=== PATIENT | female | born 1950 | race Caucasian/White ===

== ENCOUNTER 2020-01-21 11:37 | Emergency (ER) | payer MEDICARE, MEDICAID, SELFPAY ==
--- NOTE | 2020-01-21 11:47 | XR_ITS ---
WS: [id number] XR chest 1V portable [id number] REASON FOR EXAM: covid FINDINGS: The heart and mediastinum are within normal limits. The right lung is unremarkable. There are linear densities in the left lower lung which correspond to an area of previous pneumonitis demonstrated on a previous chest x-ray of 07/15/2007. Presumably this represents pulmonary parenchym al fibrotic scarring. No active pulmonary parenchymal or pleural disease noted. XR/XR chest 1V portable [id number] IMPRESSION: Left lung abnormality as above. No acute chest abnormality.
[2020-01-21 12:28] VITALS: BP 153/98; PULSE 94; RESP 18; TEMP 38.3; O2SAT 90; BMI 40.3
[2020-01-21 12:48] VITALS: O2SAT 89
--- NOTE | 2020-01-21 12:54 | PC.NURSE ---
pt 89% on room air. Pt placed on 3L per Nasal cannula.
[2020-01-21 12:58] LABS: Basophils % 0.3 %; Hematocrit 44.4 % (37.0-47.0); Hemoglobin 14.5 g/dL (11.5-15.3); Lymphocytes # 0.7 10^3/uL (0.8-4.8); Lymphocytes % 17.3 %; Mean Corpuscular HGB Conc 32.7 g/dL (30.0-36.0); Mean Corpuscular Hemoglobin 28.8 pg (28.0-34.0); Mean Corpuscular Volume 88.1 fL (81-99); Monocytes # 0.5 10^3/uL (0.2-0.9); Monocytes % 12.2 %; Neutrophils # 2.75 10^3/uL (1.8-7.7); Neutrophils % 69.9 %; Nucleated Red Blood Cells % 0 %; Platelet Count 131 10^3/cmm (130-400); Red Blood Count 5.04 10^6/uL (4.1-5.3); Red Cell Distribution Width 13.3 % (12.1-15.1); White Blood Count 3.9 10^3/uL (4.0-10.0)
[2020-01-21 13:12] LABS: Alanine Aminotransferase 24 U/L (0-33); Albumin Level 4.1 g/dL (3.5-5.2); Alkaline Phosphatase 81 IU/L (35-105); Anion Gap 15.8 (5-19); Aspartate Amino Transferase 31 U/L (0-32); Blood Urea Nitrogen 12 mg/dL (8-23); C Reactive Protein 39.7 mg/L (0.0-4.9); Calcium 8.9 mg/dL (8.5-10.5); Carbon Dioxide 29 mmol/L (22-29); Chloride 94 mmol/L (98-107); Ferritin 488 ng/mL (15-150); Globulin 3.4 g/dL (1.3-4.6); Glomerular Filtration Rate 71.3 mL/min (90-130); Glucose 167 mg/dL (65-115); Osmolality Calculated 286 mOsm/kg (285-295); Sodium 136 mmol/L (136-145); Total Bilirubin 0.2 mg/dL (0.15-1.2); Total Protein 7.5 g/dL (6.6-8.7)
[2020-01-21 13:13] LABS: Lactic Sepsis W/Reflex 1.5 mmol/L (0.5-2.2)
[2020-01-21 13:17] LABS: Potassium 2.8 mmol/L (3.5-5.1)
[2020-01-21] MEDS: potassium chloride ER 10 mEq Tablet 40 MEQ PO (13:24)
[2020-01-21] MEDS: dexamethasone 4 mg/mL INJ 10 MG IVP (13:24)
[2020-01-21] MEDS: acetaminophen 325 mg Tablet 650 MG PO (13:24)
--- NOTE | 2020-01-21 13:27 | ED_ITS ---
HPI - Fever General: Chief Complaint: Fever Stated Complaint: COVID positive Time Seen by Provider: 01/21/20 12:27 Source: patient Mode of arrival: ambulatory Limitations: no limitations History of Present Illness: HPI Narrative: 69-year-old female who is here from the clinic. She tested positive for coronavirus 2 days ago and states her oxygen is 1 and 89% at the clinic so I sent her here. She denies any shortness of breath and states she feels fine. She is febrile. She denies any chest pain. She denies any worsening improving factors. Patient here is resting comfortably and is able to speak in full sentences. Did place her on 2 L of oxygen her pulse ox is 94%. Associated symptoms: Reports chest pain; Deny abdominal pain, chills, diarrhea, dysuria, headache(s), nausea or vomiting Review of Systems Const: Reports: fever(s); Denies: chills, body aches or change in appetite Eyes: Denies: blurry vision or eye discomfort ENMT: Denies: throat pain or dental pain Card: Reports: chest pain Resp: Reports: dyspnea GI: Denies: abdominal pain, nausea, vomiting or diarrhea : Denies: dysuria Musc: Denies: neck pain or back pain Skin/Breast: Denies: rash Neuro: Denies: headache(s) Psych: Denies: depression Sg/Lymph: Denies: easy bruising All/Imm: Denies: urticaria Physical Exam Const: COMMON NORMALS: no acute distress, patient oriented x3 and healthy appearing HENMT: COMMON NORMALS: normocephalic and atraumatic HEAD & SCALP: normocephalic and atraumatic Eye: COMMON NORMALS: Equal, round and reactive pupils present and EOMs intact bilaterally PUPIL: Yes Equal, round and reactive pupils present Neck/C-Spine: COMMON NORMALS: full ROM and supple Chest: COMMONS NORMALS: normal inspection of the chest and normal palpation of entire chest wall Resp: COMMON NORMALS: normal respiratory effort, No retractions, No use of accessory muscles and clear to auscultation bilaterally AUSCULTATION: clear to auscultation bilaterally Cardio: COMMON NORMALS: regular rate, regular rhythm and No murmurs present (Cardio) RATE: regular rate RHYTHM: regular rhythm GI: COMMON NORMALS: Normal to inspection, nondistended, normoactive bowel sounds present, Soft to palpation, non-tender and no masses PALPATION: Yes Soft to palpation Extremity: COMMON NORMALS: normal to inspection and full ROM Neuro: COMMON NORMALS: patient oriented x3, moves all extremities and no focal motor deficits Psych: COMMON NORMALS: mental status grossly normal, Normal thought process present and cooperative THOUGHT PROCESS: Normal thought process present Skin: COMMON NORMALS: no rashes or lesions noted and no wounds GENERAL SKIN EXAM: no rashes or lesions noted Course Vital Signs: Vital signs: Vital Signs Temperature 100.9 F H 01/21/20 12:28 Pulse Rate 88 01/21/20 14:21 Respiratory Rate 18 01/21/20 12:28 Blood Pressure 134/86 01/21/20 14:21 Pulse Oximetry 95 01/21/20 14:21 MDM - Fever MDM Narrative: Medical decision making narrative: Presents with coronavirus and is requiring 2 L. Patient is requesting discharge and states she does not want to be admitted or transferred. We will set patient up with home oxygen. She is otherwise well-appearing here and in no extreme distress. She is to monitor her oxygen at home and is return if worsening. She understands and agrees to plan. She has no signs of pulmonary embolism. Lab Data: Labs: Lab Results 01/21/20 01/21/20 01/21/20 Range/Units 12:45 12:45 12:45 WBC 3.9 L (4.0-10.0) 10^3/ uL RBC 5.04 (4.1-5.3) 10^6/u L Hgb 14.5 (11.5-15.3) g/dL Hct 44.4 (37.0-47.0) % MCV 88.1 (81-99) fL MCH 28.8 (28.0-34.0) pg MCHC 32.7 (30.0-36.0) g/dL RDW 13.3 (12.1-15.1) % Plt Count 131 (130-400) 10^3/c mm MPV 10.0 (7.4-10.4) fL Neut % (Auto) 69.9 % Lymph % (Auto) 17.3 % Karnes % (Auto) 12.2 % Eos % (Auto) 0.0 % Baso % (Auto) 0.3 % Neut # (Auto) 2.75 (1.8-7.7) 10^3/u L Lymph # (Auto) 0.7 L (0.8-4.8) 10^3/u L Karnes # (Auto) 0.5 (0.2-0.9) 10^3/u L Eos # (Auto) 0.0 (0.0-0.8) 10^3/u L Baso # (Auto) 0.0 (0.0-0.1) 10^3/u L Nucleated RBC % (a uto) 0 % Nucleated RBCs # 0.0 /100WBC Sodium 136 (136-145) mmol/L Potassium 2.8 L* (3.5-5.1) mmol/L Chloride 94 L (98-107) mmol/L Carbon Dioxide 29 (22-29) mmol/L Anion Gap 15.8 (5-19) BUN 12 (8-23) mg/dL Creatinine 0.8 (0.5-0.9) mg/dL GFR Calculation 71.3 L (90-130) mL/min Glucose 167 H (65-115) mg/dL Calculated Osmolal ity 286 (285-295) mOsm/k g Lactic Acid 1.5 (0.5-2.2) mmol/L Calcium 8.9 (8.5-10.5) mg/dL Ferritin 488 H (15-150) ng/mL Total Bilirubin 0.2 (0.15-1.2) mg/dL AST 31 (0-32) U/L ALT 24 (0-33) U/L Alkaline Phosphata se 81 (35-105) IU/L C-Reactive Protein 39.7 H (0.0-4.9) mg/L Total Protein 7.5 (6.6-8.7) g/dL Albumin 4.1 (3.5-5.2) g/dL Globulin 3.4 (1.3-4.6) g/dL Imaging Data^: CXR: Attestation: I personally reviewed and interpreted this imaging study as follows: Radiologist's impression: [address] [address] XRay Report Signed Patient: Kenyatta Kirby Unit #: [id number] : 1950 Age/Sex: 69 / F ADM Date: 01/21/20 Loc: ER Room/Bed: Attending Dr: Ordering Provider/Ordering MD: Naa Celaya MD Date of Service: 01/21/20 Procedure(s): XR chest 1V portable [id number] Accession Number(s): [id number] Report Number: [id number] WS: [id number] XR chest 1V portable [id number] REASON FOR EXAM: covid FINDINGS: The heart and mediastinum are within normal limits. The right lung is unremarkable. There are linear densities in the left lower lung which correspond to an area of previous pneumonitis demonstrated on a previous chest x-ray of 07/15/2007. Presumably this represents pulmonary parenchymal fibrotic scarring. No active pulmonary parenchymal or pleural disease noted. XR/XR chest 1V portable [id number] IMPRESSION: Left lung abnormality as above. No acute chest abnormality. EKG Data^: EKG 1: Attestation: I personally reviewed and interpreted this EKG as follows: EKG interpretation date: 01/21/20 EKG interpretation time: 12:17 Interpretation: sinus tach hr [address] or t wave abnormalities qrs 97 qtc 372 EKG 2: Attestation: I personally reviewed and interpreted this EKG as follows: EKG interpretation date: 01/21/20 EKG interpretation time: 14:00 Interpretation: sinus tach hr [address] or t wave abnormalities qrs 90 qtc 388 Discharge Plan Discharge Patient Disposition: Home Clinical Impression: Pneumonia due to COVID-19 virus Condition: Stable Discharge Orders: Discharge Order (Routine); Ordered 01/21/20 Ordered By: Naa Celaya Discharge Diet: Advance as tolerated Discharge Activity: Resume usual activity Patient Instructions: Upper Respiratory Infection (ED) Coding Level of Care Code ED Sales Representative [employer] for Chg Fwd Exam Comprehensive
[2020-01-21 14:17] VITALS: O2SAT 88; O2SAT 90
[2020-01-21 14:21] VITALS: BP 134/86; PULSE 88; O2SAT 95
--- NOTE | 2020-01-21 15:41 | DCPLANNER ---
forest logistics manager was asked to arrange for home oxygen for patient. forest logistics manager spoke with patient she stated that bilingual case manager could get home oxygen from HOME equipment. forest logistics manager faxed patients face sheet, RT evaluation, prescription to HOME, they will bring oxygen to the hospital. forest logistics manager was also asked to schedule a follow up telehealth appointment for patient with primary care physician. forest logistics manager called [facility] a follow up appointment was scheduled for Saturday, January 22, 2020 at 9:15 with YESICA Cardenas. forest logistics manager informed patient that she is to call the clinic at 9:00 for visit.
[2020-01-21 16:05] VITALS: BP 151/96; PULSE 87; O2SAT 93
[2020-01-21 16:26] LABS: Fibrinogen 538 mg/dL (174-498)
--- NOTE | 2020-02-02 14:14 | DCPLANNER ---
Patient had a follow up appointment scheduled for 01.22.20 with [facility] with Promise Cardenas - patient did attend appointment.
== END 2020-01-21 14:10 | disposition home or self-care (01) ==
PROVIDERS: Emergency Provider Emergency Medicine
DX: U07.1 COVID-19 (principal); J12.89 Other viral pneumonia
CPT/HCPCS: 12345; 71045; 80053; 82728; 83605; 85025; 85384; 86140; 96374; 96375; 99283; 99284; J1100

== ENCOUNTER 2020-02-16 18:32 | Emergency (ER) | payer MEDICARE, MEDICAID, SELFPAY ==
[2020-02-16] VITALS (10 sets, daily range): BP systolic 141–191; BP diastolic 82–119; PULSE 88–107; RESP 16–26; TEMP 37; O2SAT 90–98; BMI 38.0
--- NOTE | 2020-02-16 18:50 | XR_ITS ---
WS: [id number] XR chest 1V portable [id number] REASON FOR EXAM: Dyspnea FINDINGS: The heart and mediastinum are within normal limits. Interstitial and more focal consolidated lower lung opacities. On the previous examination of 01/21/20 there were interstitial and atelectatic changes in the left lung base however the current examinat ion shows increased abnormality in the left lung and additional abnormality in the right lung not pre viously present. XR/XR chest 1V portable [id number] IMPRESSION: Progressive lower lung opacities, nonspecific. Likely combination of atelectasi s and pneumonitis.
--- NOTE | 2020-02-16 18:51 | ECG_ITS ---
[facility] Test Date: 2020-02-16 Pat Name: Kenyatta Kirby Department: Room: Gender: Female [employer] M[employer]: : 1950 Requested By: Sugar Carroll Order Number: [id number] Cesilia MD: Lincoln Merrill M.D. Measurements Intervals [place] Rate: 106 P: 8 CT: 147 QRS: -20 QRSD: 92 T: 74 QT: 322 QTc: 429 Interpretive Statements SINUS TACHYCARDIA LEFT VENTRICULAR HYPERTROPHY AND ST-T CHANGE [VOLTAGE CRITERIA PLUS ST/T ABNORMALITY] POSSIBLE ANTERIOR MYOCARDIAL INFARCTION , PROBABLY OLD [30 ms Q WAVE IN V3/V4, OR R < 0.2 mV IN V4] No previous ECG available for comparison Electronically Signed On 02-16-2020 20:20:55 TRIPOLER by Lincoln Merrill M.D. [id number]
--- NOTE | 2020-02-16 18:52 | W.ED.SOB ---
HPI - SOB/Dyspnea General: Chief Complaint: Shortness of Breath/Dyspnea Stated Complaint: sob,anxiety Time Seen by Provider: 02/16/20 18:43 Source: patient and EMS Mode of arrival: EMS Limitations: no limitations History of Present Illness: HPI Narrative: Kenyatta is a nice 69-year-old female who comes in after 2 episodes of shortness of breath today. Patient was diagnosed with the COVID-19 virus on 18 January. She still is requiring oxygen at times and she believes that she has been told that she is free to return to her normal daily life but she does not seem quite certain of this. Patient states she is been doing fine until today she had 2 episodes where she got short of breath. One was while she was taking her trash out but denied any associated cough, fever or chest pain. And she also had an episode where she was at rest but she believes this was anxiety from being in the ambulance. She states she does not like enclosed spaces and it makes her very anxious. In route the patient was given Ativan and Zofran for this with improvement. Patient still appears anxious at this time. She denies any chest pain. She denies fever. Patient states that she believes now she probably is just still needing her oxygen more so than she thought she was. Now that she has her oxygen on she feels much better. Patient is hypertensive and tachycardic here but she does not appear in any distress. Associated symptoms: Deny abdominal pain, chest congestion, chest pain, diaphoresis, dizziness, extremity pain, fever(s), hemoptysis, lightheadedness, nausea, orthopnea, palpitations, syncope or vomiting Review of Systems Const: Denies: fever(s), chills, body aches, fatigue, malaise or diaphoresis Eyes: Denies: change in vision, blurry vision, photophobia, eye discomfort, eye discharge, eye redness or yellow eyes ENMT: Denies: throat pain, odynophagia, hoarseness, swelling of lips/tongue, ear or mastoid pain, ear discharge, change in hearing or nasal discharge Card: Denies: chest pain, palpitations, irregular heart rhythm, edema, lightheadedness, syncope, pre-syncope, dyspnea on exertion or orthopnea Resp: Reports: dyspnea; Denies: productive cough, non-productive cough, wheezing, hemoptysis or chest congestion GI: Denies: abdominal pain, nausea, vomiting, hematemesis, coffee ground emesis, heartburn, diarrhea, constipation, GI cramping, hematochezia or melena : Denies: flank pain, dysuria, urinary frequency, urinary urgency or hematuria Musc: Denies: neck pain, back pain, extremity pain, extremity swelling, joint pain, joint swelling, joint redness, joint warmth or joint stiffness Skin/Breast: Denies: rash, pruritus, erythema, skin pain or skin tenderness Neuro: Denies: headache(s), numbness in extremities, weakness in extremities, sensory changes, lack of coordination, difficulty walking, dizziness, vertigo, confusion, Slurred speech present or seizure-like activity Sg/Lymph: Denies: easy bruising, easy bleeding, petechiae, purpura or enlarged lymph nodes All/Imm: Denies: urticaria, throat swelling, tongue swelling, facial swelling or acute wheezing PFSH ED PFSH: Medical History DM type 2 (diabetes mellitus, type 2) Hypertension Hypothyroidism Physical Exam Const: COMMON NORMALS: no acute distress, patient oriented x3, no limitations and alert GENERAL APPEARANCE: cooperative HENMT: COMMON NORMALS: normocephalic, atraumatic, external ears normal, EAC's normal and Normal external nose present HEAD & SCALP: normal to inspection, normocephalic and atraumatic FACE & SINUS: normal facial exam and face symmetric NOSE: Normal external nose present and Normal nares present EXTERNAL EAR: Yes external ears normal EXTERNAL AUDITORY CANAL: EAC's normal MOUTH: Normal oral and palatal mucosa present, lip normal and tongue normal Eye: COMMON NORMALS: Equal, round and reactive pupils present and conjunctivae normal GENERAL EYE: appearance normal, both eyes and all related structures ALIGNMENT: Yes alignment normal PERIORBITAL: periorbital findings normal EYELID: eyelids normal CONJUNCTIVA: Yes conjunctivae normal SCLERA: sclerae normal PUPIL: Yes Equal, round and reactive pupils present Neck/C-Spine: COMMON NORMALS: full ROM, no lymphadenopathy, supple, no meningeal signs and no JVD GENERAL: Yes normal visual inspection and Yes trachea midline Chest: COMMONS NORMALS: normal inspection of the chest and normal palpation of entire chest wall Resp: COMMON NORMALS: normal respiratory effort, No retractions, No use of accessory muscles and clear to auscultation bilaterally EFFORT & INSPECTION: Yes able to speak in complete sentences and Yes symmetric chest movement AUSCULTATION: clear to auscultation bilaterally, no crackles, no rales, no rhonchi and wheezes Cardio: COMMON NORMALS: no JVD, regular rate, regular rhythm, S1 normal heart sound present and S2 normal heart sound present RATE: regular rate RHYTHM: regular rhythm HEART SOUNDS: S1 normal heart sound present, S2 normal heart sound present, no click, no gallops, no murmurs and no rubs GI: COMMON NORMALS: Soft to palpation and No hepatosplenomegaly present PALPATION: Yes Soft to palpation, No Tenderness to palpation present (GI), No Guarding due to palpation present (GI), No Rigid due to palpation, Yes No hepatosplenomegaly present, No Hernia present, No Palpable mass present and No Pulsatile mass present : COMMON NORMALS: Yes no CVA tenderness BLADDER/KIDNEY EXAM: Yes no CVA tenderness EXTERNAL FEMALE EXAM: No Hernia present Back/Pelvis: COMMON NORMALS: no CVA tenderness, thoracic and lumbar spine normal to inspection, no thoracic nor lumbar tenderness and thoraco-lumbar ROM normal Extremity: COMMON NORMALS: normal to inspection, full ROM, capillary refill normal, no joint enlargement, no clubbing, cyanosis or edema and no calf tenderness Neuro: COMMON NORMALS: patient oriented x3, CN's II-XII intact bilaterally, moves all extremities, no focal motor deficits and no sensory deficits noted SENSORIUM/ORIENTATION: Yes alert MENINGEAL SIGNS: Yes no meningeal signs SPEECH: speech normal Psych: COMMON NORMALS: mental status grossly normal, Normal thought process present, cooperative, normal affect, speech normal and activity/motor behavior normal SPEECH: Yes normal speech THOUGHT PROCESS: Normal thought process present Skin: COMMON NORMALS: no rashes or lesions noted, turgor normal, no jaundice, no petechiae and no mottling GENERAL SKIN EXAM: no rashes or lesions noted and turgor normal Course Vital Signs: Vital signs: Vital Signs Temperature 98.6 F 02/16/20 18:35 Pulse Rate 91 02/16/20 22:13 Respiratory Rate 16 02/16/20 22:13 Blood Pressure 141/84 02/16/20 22:13 Pulse Oximetry 97 02/16/20 22:13 MDM - SOB/Dyspnea MDM Narrative: Medical decision making narrative: 2224 -the patient is relieved to hear everything checks out okay. Her CT scan reveals no PE but I do believe she likely has a secondary bacterial pneumonia. She is in no distress and on her oxygen that she has been given for her COVID-19 infection her pulse ox is in the higher 90 range. Clinical and discharge her home on Omnicef, Zithromax and Decadron. I believe the Decadron will help as the patient had slight wheezing when she arrived here. At this time she is feeling much better and she is ready for discharge. Without oxygen the patient did desat down into the high 80s. I believe she will need to continue to use her oxygen for a while. This time I see no benefit to hospitalization as the patient can take all his medications at home and she is in no distress. Patient agrees with this plan but she does agree to return should her symptoms change or worsen. Lab Data: Labs: Lab Results 02/16/20 02/16/20 02/16/20 Range/Units 19:11 19:11 19:11 WBC Cancelled Corrected WBC Cancelled RBC Cancelled Hgb Cancelled Hct Cancelled MCV Cancelled MCH Cancelled MCHC Cancelled RDW Cancelled Plt Count Cancelled MPV Cancelled Gran % Cancelled Neut % (Auto) Cancelled Lymph % (Auto) Cancelled [place] % (Auto) Cancelled Eos % (Auto) Cancelled Baso % (Auto) Cancelled Neut # (Auto) Cancelled Lymph # (Auto) Cancelled [place] # (Auto) Cancelled Eos # (Auto) Cancelled Baso # (Auto) Cancelled Absolute Gran (aut o) Cancelled Nucleated RBC % (a uto) Cancelled Nucleated RBCs # Cancelled D-Dimer 1.42 H (0-0.59) ug/mIFE U Specimen Type Sample Site ABG pH (7.35-7.45) ABG pCO2 (35-45) mmHg ABG pO2 (80.0-100.0) mmH g ABG HCO3 (22-26) mmol/L ABG Base Excess (-2.0-2.0) mmol/ L Pan Test Hematocrit (37-47) % O2 Delivery Device O2 Liters/Min % [employer] Operator ID Sodium 140 (136-145) mmol/L Potassium 2.9 L (3.5-5.1) mmol/L Chloride 101 (98-107) mmol/L Carbon Dioxide 27 (22-29) mmol/L Anion Gap 14.9 (5-19) BUN 9 (8-23) mg/dL Creatinine 0.5 (0.5-0.9) mg/dL GFR Calculation 122.7 (90-130) mL/min Glucose 149 H (65-115) mg/dL Calculated Osmolal ity 291 (285-295) mOsm/k g Lactic Acid (0.5-2.2) mmol/L Calcium 9.3 (8.5-10.5) mg/dL Magnesium 1.5 L (1.7-2.3) mg/dL Total Bilirubin 0.3 (0.15-1.2) mg/dL AST 18 (0-32) U/L ALT 25 (0-33) U/L Alkaline Phosphata se 83 (35-105) IU/L Troponin T Baselin e (0-10) ng/L Troponin T 120 Min [place] (0-10) ng/L Delta Troponin T (0-10) ABS# NT-Pro-B Natriuret Pep 314 H (0-125) pg/mL Total Protein 7.0 (6.6-8.7) g/dL Albumin 3.9 (3.5-5.2) g/dL Globulin 3.1 (1.3-4.6) g/dL Urine Color (Yellow) Urine Appearance (CLEAR) Urine pH (5-7) Ur Specific Gravit y (1.005-1.030) Urine Protein (Negative) Urine Glucose (UA) (Normal) Urine Ketones (Negative) Urine Blood (Negative) Urine Nitrate (Negative) Urine Bilirubin (Negative) Urine Urobilinogen (Negative) mg/dL Ur Leukocyte Brenda ase (Negative) 02/16/20 02/16/20 02/16/20 Range/Units 19:11 19:11 19:19 WBC Corrected WBC RBC Hgb Hct MCV MCH MCHC RDW Plt Count MPV Gran % Neut % (Auto) Lymph % (Auto) [place] % (Auto) Eos % (Auto) Baso % (Auto) Neut # (Auto) Lymph # (Auto) [place] # (Auto) Eos # (Auto) Baso # (Auto) Absolute Gran (aut o) Nucleated RBC % (a uto) Nucleated RBCs # D-Dimer (0-0.59) ug/mIFE U Specimen Type Arterial Sample Site Radial, left ABG pH 7.45 (7.35-7.45) ABG pCO2 39.6 (35-45) mmHg ABG pO2 64.6 L (80.0-100.0) mmH g ABG HCO3 27.6 H (22-26) mmol/L ABG Base Excess 3.4 H (-2.0-2.0) mmol/ L Pan Test Pos Hematocrit 40.7 (37-47) % O2 Delivery Device Nc O2 Liters/Min 2.0 % [employer] Operator ID Harkr Sodium (136-145) mmol/L Potassium (3.5-5.1) mmol/L Chloride (98-107) mmol/L Carbon Dioxide (22-29) mmol/L Anion Gap (5-19) BUN (8-23) mg/dL Creatinine (0.5-0.9) mg/dL GFR Calculation (90-130) mL/min Glucose (65-115) mg/dL Calculated Osmolal ity (285-295) mOsm/k g Lactic Acid 2.0 (0.5-2.2) mmol/L Calcium (8.5-10.5) mg/dL Magnesium (1.7-2.3) mg/dL Total Bilirubin (0.15-1.2) mg/dL AST (0-32) U/L ALT (0-33) U/L Alkaline Phosphata se (35-105) IU/L Troponin T Baselin e 26 H (0-10) ng/L Troponin T 120 Min [place] (0-10) ng/L Delta Troponin T (0-10) ABS# NT-Pro-B Natriuret Pep (0-125) pg/mL Total Protein (6.6-8.7) g/dL Albumin (3.5-5.2) g/dL Globulin (1.3-4.6) g/dL Urine Color (Yellow) Urine Appearance (CLEAR) Urine pH (5-7) Ur Specific Gravit y (1.005-1.030) Urine Protein (Negative) Urine Glucose (UA) (Normal) Urine Ketones (Negative) Urine Blood (Negative) Urine Nitrate (Negative) Urine Bilirubin (Negative) Urine Urobilinogen (Negative) mg/dL Ur Leukocyte Brenda ase (Negative) 02/16/20 02/16/20 02/16/20 Range/Units 19:47 20:18 21:30 WBC 9.2 Corrected WBC RBC 4.57 Hgb 13.2 Hct 41.0 MCV 89.7 MCH 28.9 MCHC 32.2 RDW 13.9 Plt Count 106 L MPV 11.6 H Gran % Neut % (Auto) 74.3 Lymph % (Auto) 17.7 [place] % (Auto) 6.6 Eos % (Auto) 0.3 Baso % (Auto) 0.4 Neut # (Auto) 6.82 Lymph # (Auto) 1.6 [place] # (Auto) 0.6 Eos # (Auto) 0.0 Baso # (Auto) 0.0 Absolute Gran (aut o) Nucleated RBC % (a uto) 0 Nucleated RBCs # 0.0 D-Dimer (0-0.59) ug/mIFE U Specimen Type Sample Site ABG pH (7.35-7.45) ABG pCO2 (35-45) mmHg ABG pO2 (80.0-100.0) mmH g ABG HCO3 (22-26) mmol/L ABG Base Excess (-2.0-2.0) mmol/ L Pan Test Hematocrit (37-47) % O2 Delivery Device O2 Liters/Min % [employer] Operator ID Sodium (136-145) mmol/L Potassium (3.5-5.1) mmol/L Chloride (98-107) mmol/L Carbon Dioxide (22-29) mmol/L Anion Gap (5-19) BUN (8-23) mg/dL Creatinine (0.5-0.9) mg/dL GFR Calculation (90-130) mL/min Glucose (65-115) mg/dL Calculated Osmolal ity (285-295) mOsm/k g Lactic Acid (0.5-2.2) mmol/L Calcium (8.5-10.5) mg/dL Magnesium (1.7-2.3) mg/dL Total Bilirubin (0.15-1.2) mg/dL AST (0-32) U/L ALT (0-33) U/L Alkaline Phosphata se (35-105) IU/L Troponin T Baselin e (0-10) ng/L Troponin T 120 Min [place] 22.21 H (0-10) ng/L Delta Troponin T -3.79 L (0-10) ABS# NT-Pro-B Natriuret Pep (0-125) pg/mL Total Protein (6.6-8.7) g/dL Albumin (3.5-5.2) g/dL Globulin (1.3-4.6) g/dL Urine Color Yellow (Yellow) Urine Appearance Clear (CLEAR) Urine pH 6 (5-7) Ur Specific Gravit y 1.015 (1.005-1.030) Urine Protein Neg (Negative) Urine Glucose (UA) Norm (Normal) Urine Ketones Negative (Negative) Urine Blood Neg (Negative) Urine Nitrate Negative (Negative) Urine Bilirubin Neg (Negative) Urine Urobilinogen Neg (Negative) mg/dL Ur Leukocyte Brenda ase Negative (Negative) Imaging Data^: CXR: Attestation: I personally reviewed and interpreted this imaging study as follows: My impression: Bilateral left greater than right basilar infiltrates CT Chest: Radiologist's impression: [place] [address] CT Scan Report Signed Patient: Kenyatta Kirby Unit #: [id number] : 1950 Age/Sex: 69 / F ADM Date: 02/16/20 Loc: ER Room/Bed: Attending Dr: Ordering Provider/Ordering MD: Sugar Howell DO Date of Service: 02/16/20 Procedure(s): CT angio chest PE protcl [id number] Accession Number(s): [id number] Report Number: [id number] PROCEDURE INFORMATION: Exam: CT Angiography Chest With Contrast Exam date and time: 02/16/2020 7:44 PM Age: 69 years old Clinical indication: Abnormal findings; Abnormal diagnostic tests; Elevated d-dimer; Shortness of breath; Additional info: Dyspnea, positive d-dimer TECHNIQUE: Imaging protocol: Computed tomographic angiography of the chest with intravenous contrast. 3D rendering (Not supervised by radiologist): MIP and/or 3D reconstructed images were created by the technologist. Radiation optimization: All CT scans at this facility use at least one of these dose optimization techniques: automated exposure control; mA and/or kV adjustment per patient size (includes targeted exams where dose is matched to clinical indication); or iterative reconstruction. Contrast material: OMNI 350; Contrast volume: 65 ml; Contrast route: INTRAVENOUS (IV); COMPARISON: CR XR chest 1V portable [id number] 02/16/2020 6:52 PM RADIATION DOSE METRICS: Total DLP (mGy-cm): 585.52 FINDINGS: Pulmonary arteries: Normal. No pulmonary emboli. Aorta: Unremarkable. No aortic aneurysm. No aortic dissection. Lungs: Patchy bilateral airspace opacities suggestive of an infectious process. Pleural space: Unremarkable. No pneumothorax. No pleural effusion. Heart: Unremarkable. No cardiomegaly. No pericardial effusion. Lymph nodes: Unremarkable. No enlarged lymph nodes. Liver: Hepatic dome benign cyst, negative for follow-up. Bones/joints: Unremarkable. No acute fracture. Soft tissues: Unremarkable. CT/CT angio chest PE protcl [id number] IMPRESSION: 1. Negative for pulmonary embolus. 2. Patchy bilateral airspace opacities suggestive of an infectious process. 3. Hepatic dome benign cyst, negative for follow-up. Radiation Dose CTDIVOL = (mGy): DLP = 585.52 (mGy-cm) Dictated By: Celso Liang MD Signed By: Celso Liang MD Signed Date/Time: 02/16/202114 DD/ 13 EKG Data^: EKG 1: Attestation: I personally reviewed and interpreted this EKG as follows: EKG Interpretation Date: 02/16/20 EKG interpretation time: 19:05 Interpretation: Sinus tachycardia at 106 beats a minute, left axis deviation, left anterior fascicular block, no acute ST or T wave changes. EKG 2: Attestation: I personally reviewed and interpreted this EKG as follows: EKG Interpretation Date: 02/16/20 EKG interpretation time: 20:34 Interpretation: Sinus tachycardia 104 beats a minute, left axis deviation, no blocks, normal intervals, LVH, nonspecific ST and T wave changes. Discharge Plan Discharge Patient Disposition: Home Clinical Impression: Community acquired pneumonia Qualifiers: Laterality: unspecified laterality Qualified Code(s): J18.9 - Pneumonia, unspecified organism Condition: Stable Prescriptions: New Zithromax Z-Efra 250 mg tablet See Rx Instructions .ROUTE .COMPLEX Qty: 6 RF: 0 Decadron 6 mg tablet 6 mg PO DAILY Qty: 10 RF: 0 cefdinir 300 mg capsule 300 mg PO Q12H 10 Days Qty: 20 RF: 0 No Action metformin 500 mg tablet 500 mg PO DAILY RF: 0 amlodipine 5 mg tablet 5 mg PO DAILY RF: 0 levothyroxine 25 mcg tablet 25 mcg PO DAILY RF: 0 hydrochlorothiazide 25 mg tablet 25 mg PO DAILY RF: 0 Discharge Orders: Discharge Order (Routine); Ordered 02/16/20 Ordered By: Sugar Howell Referrals: Bambi Reese MD [Physician] - 1-3 days Discharge Diet: Advance as tolerated Discharge Activity: Resume usual activity Patient Instructions: Bacterial Pneumonia (ED) Activity Restrictions/Additional Instructions: Please return to the ER immediately for any of the signs or symptoms listed on your discharge instruction sheets, worsening/changing of your symptoms, you are not getting better as quickly as expected, or for ANY other cause or concerns. Continue using your oxygen as needed. Return to the ER for worsening of your symptoms or for any other cause for concern. Coding Level of Care Code ED [employer] Supervisor for Presley Hamilton Exam Comprehensive
[2020-02-16] MEDS: sodium chloride 0.9% 1,000 ML 100 ML IV (19:08)
[2020-02-16] MEDS: ondansetron 2 mg/ML SDV 2 mL 4 MG IVP (19:09)
[2020-02-16 19:29] LABS: ABG PCO2 39.6 mmHg (35-45); ABG PH Result 7.45 (7.35-7.45); Arterial Blood Gas Hematocrit 40.7 % (37-47); Base Excess ABG 3.4 mmol/L (-2.0-2.0); Blood Gas Allen Test Pos; Blood Gas Sample Type Arterial; HCO3 ABG 27.6 mmol/L (22-26); PO2 ABG 64.6 mmHg (80.0-100.0)
[2020-02-16 19:30] LABS: Blood Gas Operator Identificat HARKR; Blood Gas Sample Site Radial, left; Oxygen Device NC
[2020-02-16 19:34] LABS: D Dimer 1.42 ug/mIFEU (0-0.59)
--- NOTE | 2020-02-16 19:35 | CTR_ITS ---
PROCEDURE INFORMATION: Exam: CT Angiography Chest With Contrast Exam date and time: 02/16/2020 7:44 PM Age: 69 years old Clinical indication: Abnormal findings; Abnormal diagnostic tests; Elevated d-dimer; Shortness of breath; Additional info: Dyspnea, positive d-dimer TECHNIQUE: Imaging protocol: Computed tomographic angiography of the chest with intravenous contrast. 3D rendering (Not supervised by radiologist): MIP and/or 3D reconstructed images were created by the technologist. Radiation optimization: All CT scans at this facility use at least one of these dose optimization techniques: automated exposure control; mA and/or kV adjustment per patient size (includes targeted exams where dose is matched to clinical indication); or iterative reconstruction. Contrast material: OMNI 350; Contrast volume: 65 ml; Contrast route: INTRAVENOUS (IV); COMPARISON: CR XR chest 1V portable [id number] 02/16/2020 6:52 PM RADIATION DOSE METRICS: Total DLP (mGy-cm): 585.52 FINDINGS: Pulmonary arteries: Normal. No pulmonary emboli. Aorta: Unremarkable. No aortic aneurysm. No aortic dissection. Lungs: Patchy bilateral airspace opacities suggestive of an infectious process. Pleural space: Unremarkable. No pneumothorax. No pleural effusion. Heart: Unremarkable. No cardiomegaly. No pericardial effusion. Lymph nodes: Unremarkable. No enlarged lymph nodes. Liver: Hepatic dome benign cyst, negative for follow-up. Bones/joints: Unremarkable. No acute fracture. Soft tissues: Unremarkable. CT/CT angio chest PE protcl [id number] IMPRESSION: 1. Negative for pulmonary embolus. 2. Patchy bilateral airspace opacities suggestive of an infectious process. 3. Hepatic dome benign cyst, negative for follow-up. Radiation Dose CTDIVOL = (mGy): DLP = 585.52 (mGy-cm)
[2020-02-16 19:39] LABS: Troponin(5th) Baseline 26 ng/L (0-10)
[2020-02-16 19:46] LABS: Alanine Aminotransferase 25 U/L (0-33); Albumin Level 3.9 g/dL (3.5-5.2); Alkaline Phosphatase 83 IU/L (35-105); Anion Gap 14.9 (5-19); Aspartate Amino Transferase 18 U/L (0-32); Blood Urea Nitrogen 9 mg/dL (8-23); Calcium 9.3 mg/dL (8.5-10.5); Carbon Dioxide 27 mmol/L (22-29); Chloride 101 mmol/L (98-107); Globulin 3.1 g/dL (1.3-4.6); Glomerular Filtration Rate 122.7 mL/min (90-130); Glucose 149 mg/dL (65-115); Magnesium 1.5 mg/dL (1.7-2.3); NT Pro B Type Natriuretic Pept 314 pg/mL (0-125); Osmolality Calculated 291 mOsm/kg (285-295); Sodium 140 mmol/L (136-145); Total Bilirubin 0.3 mg/dL (0.15-1.2)
[2020-02-16] MEDS: cefTRIAXone 1,000 MG in sodium chloride 0.9% (plus) 50 ML 100 MG IV (19:46)
[2020-02-16 19:48] LABS: Potassium 2.9 mmol/L (3.5-5.1)
[2020-02-16] MEDS: azithromycin 500 MG in sodium chloride 0.9% 250 ML 250 MG IV (19:49)
[2020-02-16 19:50] LABS: Add Urine Microscopic? NO
[2020-02-16 20:06] LABS: Bilirubin Urine Neg (Negative); Blood Urine Neg (Negative); Glucose Urine UA Norm (Normal); Ketones Urine Negative (Negative); Leukocyte Esterase Urine Negative (Negative); Nitrate Urine Negative (Negative); Protein Urine Neg (Negative); Specific Gravity, Urine 1.015 (1.005-1.030); Urine Appearance Clear (CLEAR); Urine Color Yellow (Yellow); Urobilinogen Urine Neg (Negative); pH Urine 6 (5-7)
[2020-02-16] MEDS: albuterol 8 gm MDI 2 PUFF INHALATION (20:10)
[2020-02-16 20:25] LABS: Basophils % 0.4 %; Eosinophils % 0.3 %; Hemoglobin 13.2 g/dL (11.5-15.3); Lymphocytes # 1.6 10^3/uL (0.8-4.8); Lymphocytes % 17.7 %; Mean Corpuscular HGB Conc 32.2 g/dL (30.0-36.0); Mean Corpuscular Hemoglobin 28.9 pg (28.0-34.0); Mean Corpuscular Volume 89.7 fL (81-99); Mean Platelet Volume 11.6 fL (7.4-10.4); Monocytes # 0.6 10^3/uL (0.2-0.9); Monocytes % 6.6 %; Neutrophils # 6.82 10^3/uL (1.8-7.7); Neutrophils % 74.3 %; Nucleated Red Blood Cells % 0 %; Platelet Count 106 10^3/cmm (130-400); Red Blood Count 4.57 10^6/uL (4.1-5.3); Red Cell Distribution Width 13.9 % (12.1-15.1); White Blood Count 9.2 10^3/uL (4.0-10.0)
[2020-02-16] MEDS: LORazepam 2 mg/mL INJ 1 mL 1 MG IVP (20:25)
[2020-02-16] MEDS: iohexol 350 mg/mL 100 mL Btl IV (20:51)
--- NOTE | 2020-02-16 20:51 | ECG_ITS ---
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 Measurements Intervals [place] Rate: 104 P: 18 WV: 161 QRS: -18 QRSD: 90 T: 38 QT: 281 QTc: 371 Interpretive Statements SINUS TACHYCARDIA VOLTAGE CRITERIA FOR LVH POSSIBLE ANTERIOR MYOCARDIAL INFARCTION , PROBABLY OLD Compared to ECG 02/16/2020 19:05:23 ST (T wave) deviation no longer present Myocardial infarct finding still present Electronically Signed On 02-17-2020 19:40:31 FINGERNAIL TECHNICIAN by Erin Cartwright M.D. [id number]
[2020-02-16] MEDS: potassium chloride ER 10 mEq Tablet 40 MEQ PO (21:18)
[2020-02-16 22:01] LABS: Troponin 5 2HR 22.21 ng/L (0-10)
[2020-02-16] MEDS: magnesium sulfate premix 2 GM/50 ML PIGGYBACK IV (22:12)
[2020-02-16 22:19] LABS: Troponin 5 2HR Delta -3.79 ABS# (0-10)
== END 2020-02-16 23:19 | disposition home or self-care (01) ==
PROVIDERS: Emergency Provider Emergency Medicine
DX: J18.9 Pneumonia, unspecified organism (principal); Z79.84 Long term (current) use of oral hypoglycemic drugs; E11.9 Type 2 diabetes mellitus without complications; I10 Essential (primary) hypertension
CPT/HCPCS: 12345; 36600; 71045; 71275; 80053; 81003; 82803; 83605; 83735; 83880; 84484; 85025; 85378; 93005; 94640; 96361; 96365; 96367; 96375; 99283; 99284; J0456; J0696; J2060; J2405; J3475; J3535; J7030; J7050; Q9967

== ENCOUNTER 2020-02-19 19:46 | Emergency (ER) | payer MEDICARE, MEDICAID, SELFPAY ==
[2020-02-19 19:50] VITALS: BP 189/108; PULSE 98; RESP 19; TEMP 37.3; O2SAT 95; BMI 36.6
--- NOTE | 2020-02-19 20:12 | ECG_ITS ---
[facility] Test Date: 2020-02-19 Pat Name: Kenyatta Kirby Department: Room: Gender: Female Slate Cutter Operator: : 1950 Requested By: Finesse Griffin Order Number: [id number] Cesilia MD: Erin Cartwright M.D. Measurements Intervals [place] Rate: 84 P: 48 KS: 149 QRS: -24 QRSD: 102 T: 7 QT: 378 QTc: 449 Interpretive Statements SINUS RHYTHM POSSIBLE ANTERIOR MYOCARDIAL INFARCTION , PROBABLY OLD [30 ms Q WAVE IN V3/V4, OR R < 0.2 mV IN V4] Compared to ECG 02/16/2020 20:34:40 Sinus tachycardia no longer present Left ventricular hypertrophy no longer present Myocardial infarct finding still present Electronically Signed On 02-20-2020 11:30:15 AUTOMATIC EMBROIDERY MACHINE TENDER by Erin Cartwright M.D. [id number]
--- NOTE | 2020-02-19 20:12 | XRR_ITS ---
PROCEDURE INFORMATION: Exam: XR Chest, 1 View Exam date and time: 02/19/2020 8:46 PM Age: 69 years old Clinical indication: Shortness of breath; Patient HX: Prior covid +; Additional info: Pneumonia TECHNIQUE: Imaging protocol: XR of the chest Views: 1 view. COMPARISON: CR XR chest 1V portable [id number] 02/16/2020 6:52 PM FINDINGS: Lungs: The right lung is now clear (previously there were patchy opacities at the right lung base). Mild patchy airspace opacities (atelectasis and/or pneumonia) at the left lung base, similar to prior study. No pulmonary edema. Pleural space: No visible pneumothorax or pleural effusion. Heart/Mediastinum: Heart size within normal limits. Bones/joints: No emergent findings identified. XR/XR chest 1V portable [id number] IMPRESSION: 1. The right lung is now clear (previously there were patchy opacities at the right lung base). 2. Mild patchy airspace opacities (atelectasis and/or pneumonia) at the left lung base, similar to prior study.
--- NOTE | 2020-02-19 20:13 | W.ED.SOB ---
HPI - SOB/Dyspnea General: Chief Complaint: Shortness of Breath/Dyspnea Stated Complaint: anxiety, sob Time Seen by Provider: 02/19/20 19:58 Source: patient Mode of arrival: ambulatory Limitations: no limitations History of Present Illness: HPI Narrative: 69-year-old female comes in today with complaints of anxiety and shortness of breath. Patient had been diagnosed with Covid pneumonia about 1 month ago. Patient had recovered but on 15 February was brought back to the emergency room for increased shortness of breath and chest discomfort. At that time patient was diagnosed with bacterial pneumonia. Patient has been taking her medication routinely to include azithromycin, cefdinir, and dexamethasone. Patient states that today she started feeling some chest discomfort and more shortness of breath. Patient appears anxious. Patient appears in no acute distress. Patient was given Ativan per EMS enroute to ER. Review of Systems General: Reports: 10 or more systems reviewed and unremarkable except in HPI and below Resp: Reports: dyspnea COUNTS INCLUDE 234 BEDS AT THE [facility] ED PFSH: Medical History (Updated 02/19/20 @ 21:55 by BITA Gotti) DM type 2 (diabetes mellitus, type 2) Hypertension Hypothyroidism Physical Exam Const: COMMON NORMALS: no acute distress and patient oriented x3 GENERAL APPEARANCE: cooperative HENMT: COMMON NORMALS: normocephalic and Normal external nose present HEAD & SCALP: normal to inspection and normocephalic NOSE: Normal external nose present MOUTH: Normal oral and palatal mucosa present Eye: GENERAL EYE: appearance normal, both eyes and all related structures Neck/C-Spine: COMMON NORMALS: full ROM Chest: COMMONS NORMALS: normal inspection of the chest Resp: COMMON NORMALS: normal respiratory effort EFFORT & INSPECTION: Yes able to speak in complete sentences Cardio: COMMON NORMALS: regular rate and regular rhythm RATE: regular rate RHYTHM: regular rhythm GI: COMMON NORMALS: non-tender : COMMON NORMALS: Yes no CVA tenderness BLADDER/KIDNEY EXAM: Yes no CVA tenderness Back/Pelvis: COMMON NORMALS: no CVA tenderness and thoracic and lumbar spine normal to inspection Extremity: COMMON NORMALS: normal to inspection Neuro: COMMON NORMALS: patient oriented x3 and moves all extremities Psych: COMMON NORMALS: mental status grossly normal and cooperative Skin: COMMON NORMALS: no rashes or lesions noted GENERAL SKIN EXAM: no rashes or lesions noted Course Vital Signs: Vital signs: Vital Signs Temperature 99.1 F 02/19/20 19:50 Pulse Rate 98 02/19/20 19:50 Respiratory Rate 19 H 02/19/20 19:50 Blood Pressure 189/108 02/19/20 19:50 Pulse Oximetry 95 02/19/20 19:50 MDM - SOB/Dyspnea MDM Narrative: Medical decision making narrative: Patient comes in today for concerns of sternal chest discomfort and anxiety. Patient recently was diagnosed with bilateral pneumonia 3 days ago. Prior to that patient had Covid 19 about 1 month ago. Patient states she had been doing well up until 3 days ago when she felt more short of breath and came into the emergency department. At that time patient was noted to have bilateral pneumonia. Patient was started on azithromycin, cefdinir, and dexamethasone. Patient states that she has not felt worse but not much better since being started on the medication, and then today she felt real anxious and had some chest discomfort. Exam notes a well-appearing adult female with respirations even and lungs with decreased in the bases. Vital signs were normal except for some mild elevation in blood pressure. Differential diagnosis includes but not limited to anxiety, failure of outpatient therapy for pneumonia, ACS. Troponin was unchanged from prior exam. Chest x-ray showed improvement in pneumonia. Laboratory values were otherwise normal, except for 11.9 white blood cell count and a 3.4 potassium. I feel the patient probably has some increased anxiety due to the dexamethasone. I recommended the patient decrease dexamethasone to 1/2 tablet daily for the next 3 days and then stop it. I recommended the patient continue with her azithromycin and cefdinir as directed. Patient requested medication to help with anxiety I prescribed some lorazepam half a milligram, 1/2 tablet every 6 hours as needed for anxiety. Patient reported understanding of care plan and need to return for worsening symptoms or high fever. Lab Data: Labs: Lab Results 02/19/20 02/19/20 02/19/20 Range/Units 20:35 20:35 20:35 WBC 11.9 H (4.0-10.0) 10^3/ uL RBC 4.65 (4.1-5.3) 10^6/u L Hgb 13.4 (11.5-15.3) g/dL Hct 40.8 (37.0-47.0) % MCV 87.7 (81-99) fL MCH 28.8 (28.0-34.0) pg MCHC 32.8 (30.0-36.0) g/dL RDW 14.1 (12.1-15.1) % Plt Count 82 L (130-400) 10^3/c mm MPV 11.5 H (7.4-10.4) fL Neut % (Auto) 73.0 % Lymph % (Auto) 16.5 % [place] % (Auto) 8.5 % Eos % (Auto) 0.1 % Baso % (Auto) 0.3 % Neut # (Auto) 8.67 H (1.8-7.7) 10^3/u L Lymph # (Auto) 2.0 (0.8-4.8) 10^3/u L [place] # (Auto) 1.0 H (0.2-0.9) 10^3/u L Eos # (Auto) 0.0 (0.0-0.8) 10^3/u L Baso # (Auto) 0.0 (0.0-0.1) 10^3/u L Nucleated RBC % (a uto) 0 % Nucleated RBCs # 0.0 /100WBC Sodium 143 (136-145) mmol/L Potassium 3.4 L (3.5-5.1) mmol/L Chloride 101 (98-107) mmol/L Carbon Dioxide 28 (22-29) mmol/L Anion Gap 17.4 (5-19) BUN 12 (8-23) mg/dL Creatinine 0.7 (0.5-0.9) mg/dL GFR Calculation 83.2 L (90-130) mL/min Glucose 146 H (65-115) mg/dL Calculated Osmolal ity 298 H (285-295) mOsm/k g Calcium 9.5 (8.5-10.5) mg/dL Total Bilirubin 0.3 (0.15-1.2) mg/dL AST 24 (0-32) U/L ALT 21 (0-33) U/L Alkaline Phosphata se 83 (35-105) IU/L Troponin T Baselin e 13 H (0-10) ng/L Total Protein 7.4 (6.6-8.7) g/dL Albumin 3.9 (3.5-5.2) g/dL Globulin 3.5 (1.3-4.6) g/dL Discharge Plan Discharge Patient Disposition: Home Clinical Impression: Anxiety Community acquired pneumonia Qualifiers: Laterality: unspecified laterality Qualified Code(s): J18.9 - Pneumonia, unspecified organism Adverse drug effect Qualifiers: Encounter type: initial encounter Qualified Code(s): T50.905A - Adverse effect of unspecified drugs, medicaments and biological substances, initial encounter Condition: Stable Prescriptions: New lorazepam 0.5 mg tablet 0.25 mg PO Q6H PRN (Reason: anxiety) Qty: 12 RF: 0 No Action metformin 500 mg tablet 500 mg PO DAILY RF: 0 amlodipine 5 mg tablet 5 mg PO DAILY RF: 0 levothyroxine 25 mcg tablet 25 mcg PO DAILY RF: 0 hydrochlorothiazide 25 mg tablet 25 mg PO DAILY RF: 0 azithromycin [Zithromax Z-Efra] 250 mg tablet See Rx Instructions .ROUTE .COMPLEX Qty: 6 RF: 0 dexamethasone [Decadron] 6 mg tablet 6 mg PO DAILY Qty: 10 RF: 0 cefdinir 300 mg capsule 300 mg PO Q12H 10 Days Qty: 20 RF: 0 Discharge Orders: Discharge Order (Routine); Ordered 02/19/20 Ordered By: Finesse White Discharge Diet: Usual diet Discharge Activity: Increase activity as tolerated Patient Instructions: Anxiety (ED) Activity Restrictions/Additional Instructions: Continue with antibiotic azithromycin, and cefdinir. Decrease dexamethasone to 1/2 tablet daily for the next 3 days, then stop medication. Continue with routine care as directed. Follow-up with primary care in 1 week. Return to the emergency room for worsening shortness of breath or new concerns. Coding Level of Care Code ED Software Computer Specialist for Presley Hamilton Exam Comprehensive
[2020-02-19 20:59] LABS: Basophils % 0.3 %; Eosinophils % 0.1 %; Hematocrit 40.8 % (37.0-47.0); Hemoglobin 13.4 g/dL (11.5-15.3); Lymphocytes % 16.5 %; Mean Corpuscular HGB Conc 32.8 g/dL (30.0-36.0); Mean Corpuscular Hemoglobin 28.8 pg (28.0-34.0); Mean Corpuscular Volume 87.7 fL (81-99); Mean Platelet Volume 11.5 fL (7.4-10.4); Monocytes % 8.5 %; Neutrophils # 8.67 10^3/uL (1.8-7.7); Nucleated Red Blood Cells % 0 %; Platelet Count 82 10^3/cmm (130-400); Red Blood Count 4.65 10^6/uL (4.1-5.3); Red Cell Distribution Width 14.1 % (12.1-15.1); White Blood Count 11.9 10^3/uL (4.0-10.0)
[2020-02-19 21:28] LABS: Alanine Aminotransferase 21 U/L (0-33); Albumin Level 3.9 g/dL (3.5-5.2); Alkaline Phosphatase 83 IU/L (35-105); Blood Urea Nitrogen 12 mg/dL (8-23); Calcium 9.5 mg/dL (8.5-10.5); Carbon Dioxide 28 mmol/L (22-29); Chloride 101 mmol/L (98-107); Globulin 3.5 g/dL (1.3-4.6); Glomerular Filtration Rate 83.2 mL/min (90-130); Glucose 146 mg/dL (65-115); Osmolality Calculated 298 mOsm/kg (285-295); Sodium 143 mmol/L (136-145); Total Bilirubin 0.3 mg/dL (0.15-1.2); Total Protein 7.4 g/dL (6.6-8.7)
[2020-02-19 21:29] LABS: Troponin(5th) Baseline 13 ng/L (0-10)
[2020-02-19 21:30] LABS: Anion Gap 17.4 (5-19); Aspartate Amino Transferase 24 U/L (0-32); Potassium 3.4 mmol/L (3.5-5.1)
[2020-02-19 22:41] VITALS: BP 117/85; PULSE 87; RESP 18; O2SAT 98
== END 2020-02-19 23:08 | disposition home or self-care (01) ==
PROVIDERS: Emergency Provider Nurse Practitioner Family
DX: J18.9 Pneumonia, unspecified organism (principal); F41.9 Anxiety disorder, unspecified; T50.905A Adverse effect of unspecified drugs, medicaments and biological substances, initial encounter; E11.9 Type 2 diabetes mellitus without complications; I10 Essential (primary) hypertension
CPT/HCPCS: 12345; 36415; 71045; 80053; 84484; 85025; 93005; 99282; 99283

== ENCOUNTER 2020-02-23 19:11 | Emergency (ER) | payer MEDICARE, MEDICAID, SELFPAY ==
[2020-02-23 19:15] VITALS: BP 167/116; PULSE 103; RESP 20; TEMP 36.8; O2SAT 94; BMI 36.6
--- NOTE | 2020-02-23 19:25 | W.ED.GENADLT ---
HPI - General Adult General: Chief complaint: General Medical Stated complaint: ANXIETY/HTN Time Seen by Provider: 02/23/20 19:25 History of Present Illness: HPI narrative: Patient is a 69-year-old female comes to the ED with shortness of breath and anxiety. Patient was seen here on February 18 and diagnosed with anxiety and pneumonia. She was discharged on antibiotics, dexamethasone and lorazepam. She is currently on oxygen at home and says she was at 2 L at O2 sat around 95%. She recently bumped it up herself to 4 L and she still stats around 95%. She states that she still gets some shortness of breath and anxiety and when she takes the prescribed Ativan it helps her symptoms. She has only 2 more tabs of her Ativan left. Patient says she has been taking all her prescribed meds. She says that today she got up was walking around started getting anxious somewhat short of breath decided to come back to the ED for evaluation. Associated symptoms: Reports dyspnea; Deny chest pain, headache(s), nausea, rash, palpitations or vomiting Review of Systems Const: Denies: fever(s), chills or fatigue Eyes: Denies: change in vision or eye discomfort ENMT: Denies: throat pain, odynophagia, nasal discharge or nasal congestion Card: Denies: chest pain, palpitations, edema, swelling of feet/ankles, dyspnea on exertion or orthopnea Resp: Reports: dyspnea; Denies: productive cough or non-productive cough GI: Denies: abdominal pain, nausea, vomiting, diarrhea, constipation or hematochezia : Denies: flank pain, dysuria or hematuria Musc: Denies: neck pain, back pain or extremity swelling Skin/Breast: Denies: rash or new lesions Neuro: Denies: headache(s), numbness in extremities or weakness in extremities Psych: Reports: anxiety PFSH ED PFSH: Medical History DM type 2 (diabetes mellitus, type 2) Hypertension Hypothyroidism Physical Exam Const: COMMON NORMALS: no acute distress, patient oriented x3, healthy appearing and alert GENERAL APPEARANCE: cooperative, comfortable and anxious (Patient appears a bit anxious and worried about her health.) HENMT: COMMON NORMALS: normocephalic HEAD & SCALP: normocephalic MOUTH: Normal oral and palatal mucosa present THROAT: posterior oropharynx normal and uvula midline Eye: COMMON NORMALS: Equal, round and reactive pupils present PUPIL: Yes Equal, round and reactive pupils present Neck/C-Spine: COMMON NORMALS: supple GENERAL: Yes normal visual inspection Resp: COMMON NORMALS: normal respiratory effort, No retractions and No use of accessory muscles EFFORT & INSPECTION: Yes able to speak in complete sentences, No tachypneic, No respiratory distress and No labored AUSCULTATION: crackles Laterality: right (Light crackles at base of lung.) OTHER: Patient appeared in no respiratory distress and was sitting comfortable in exam bed. Cardio: COMMON NORMALS: regular rate, regular rhythm, S1 normal heart sound present, S2 normal heart sound present, No gallops present (Cardio), No clicks present (Cardio), No murmurs present (Cardio) and Peripheral pulses 2+ throughout RATE: regular rate RHYTHM: regular rhythm HEART SOUNDS: S1 normal heart sound present and S2 normal heart sound present PERIPHERAL PULSES: Peripheral pulses 2+ throughout GI: COMMON NORMALS: Normal to inspection, nondistended, normoactive bowel sounds present, Soft to palpation, non-tender and no masses PALPATION: Yes Soft to palpation : COMMON NORMALS: Yes no CVA tenderness BLADDER/KIDNEY EXAM: Yes no CVA tenderness Back/Pelvis: COMMON NORMALS: no CVA tenderness Extremity: COMMON NORMALS: normal to inspection and no pedal edema Neuro: COMMON NORMALS: patient oriented x3 and moves all extremities SENSORIUM/ORIENTATION: Yes alert Psych: MOOD & AFFECT: Yes anxious (Patient got more more anxious when she talked about her symptoms.) Skin: GENERAL SKIN EXAM: dry skin Course Reevaluation(s): Reevaluation #1: While in the room with patient she appears in no respiratory distress. not actively coughing. O2 saturation was around 94 to 95% on 2 L via nasal cannula. Heart rate was in the upper 80s. Patient says her symptoms improved after she took the Ativan while here in the ED. Time: 21:40 Vital Signs: Vital signs: Vital Signs Temperature 98.2 F 02/23/20 19:15 Pulse Rate 88 02/23/20 22:18 Respiratory Rate 22 H 02/23/20 22:18 Blood Pressure 148/78 02/23/20 22:18 Pulse Oximetry 96 02/23/20 22:18 Respirations 18 when I was in the room. MDM - General Adult MDM Narrative: Medical decision making narrative: patient is a 69-year-old female comes to the ED with shortness of breath and anxiety. She was seen here in the ED on February 18 and diagnosed with pneumonia and put on antibiotics. Patient says she takes Ativan at home and it improves her symptoms. Patient has just 2 more doses left of her Ativan. Chest x-ray showed no acute findings or changes compared to chest x-ray on February 18. Patient was given a dose of Ativan while here in the ED symptoms improved. Patient was on 2 L O2 via nasal cannula and satting around 95% O2 sat while here in the ED. When I was in the room patient's respirations were 18/min. She was in no acute distress and auscultation of the lungs had some light crackling at the right base. Patient was diagnosed with anxiety and discharged with a prescription for Ativan. Patient still has antibiotics and she was told to continue taking med to treat previously diagnosed pneumonia. Follow-up with PCP P in 7 to 10 days. Return to ED precautions given. Patient understood and agreed with plan. Imaging Data^: CXR: Attestation: I personally reviewed and interpreted this imaging study as follows: My impression: Comparison to chest x-ray performed on February 18. No acute changes. Discharge Plan Discharge Patient Disposition: Home Clinical Impression: Anxiety Condition: Stable Prescriptions: No Action metformin 500 mg tablet 500 mg PO DAILY RF: 0 amlodipine 5 mg tablet 5 mg PO DAILY RF: 0 levothyroxine 25 mcg tablet 25 mcg PO DAILY RF: 0 hydrochlorothiazide 25 mg tablet 25 mg PO DAILY RF: 0 dexamethasone [Decadron] 6 mg tablet 6 mg PO DAILY Qty: 10 RF: 0 cefdinir 300 mg capsule 300 mg PO Q12H 10 Days Qty: 20 RF: 0 lorazepam 0.5 mg tablet 0.25 mg PO Q6H PRN (Reason: anxiety) Qty: 12 RF: 0 ondansetron HCl 4 mg tablet 4 mg PO Q8H PRN (Reason: nausea and vomiting) Qty: 10 RF: 0 Discharge Orders: Discharge Order (Routine); Ordered 02/23/20 Ordered By: Tee Celestin Discharge Diet: Regular Discharge Activity: Increase activity as tolerated Patient Instructions: Anxiety (ED) Activity Restrictions/Additional Instructions: Follow-up with medical provider as directed. Take medications as prescribed. Return to the ER or your medical provider if condition worsens. Please read and understand discharge instructions. If any questions, please ask. Coding Level of Care Code ED Restorer [employer]iles for Sarayg Fwd Exam Comprehensive
--- NOTE | 2020-02-23 20:01 | XR_ITS ---
WS: [id number] Portable AP upright chest, 02/23/2020 Clinical Data: sob Comparison: Portable chest, 02/19/2020. Findings: No nodules, masses or effusions are seen. The heart is normal. The pulmonary vascularity is not increased. No pneumonia or pneumothorax is seen. The patchy opacities at the left lung base have not changed. There are minimal opacities over the surface of the right diaphragm. The aortic arch an d descending aorta show calcification and tortuosity. Monitor leads are on the chest wall. XR/XR chest 1V portable [id number] Impression: 1. Minimal patchy opacities over the right diaphragm. 2. No change in patchy opacities over the left diaphragm which may represent pe rsistent pneumonia.
[2020-02-23] MEDS: LORazepam 1 mg Tablet PO (20:06)
[2020-02-23 21:54] VITALS: BP 148/78; PULSE 88; RESP 22; O2SAT 96
[2020-02-23 22:18] VITALS: BP 148/78; PULSE 88; RESP 22; O2SAT 96
--- NOTE | 2020-02-23 22:18 | PC.NURSE ---
PATIENT SENT HOME WITH ATIVAN FOR HOME USE.
== END 2020-02-23 22:18 | disposition home or self-care (01) ==
PROVIDERS: Emergency Provider Physician Assistant
DX: F41.9 Anxiety disorder, unspecified (principal); Z79.84 Long term (current) use of oral hypoglycemic drugs; Z99.81 Dependence on supplemental oxygen; J18.9 Pneumonia, unspecified organism; E11.21 Type 2 diabetes mellitus with diabetic nephropathy; I10 Essential (primary) hypertension; E03.9 Hypothyroidism, unspecified
CPT/HCPCS: 12345; 71045; 99281; 99283

== ENCOUNTER 2020-03-06 13:51 | Emergency (ER) | payer MEDICARE, MEDICAID, SELFPAY ==
[2020-03-06 14:01] VITALS: BP 165/90; PULSE 107; RESP 14; TEMP 37.4; O2SAT 88; BMI 36.5
--- NOTE | 2020-03-06 14:01 | XRR_ITS ---
PROCEDURE INFORMATION: Exam: XR Chest, 1 View Exam date and time: 03/06/2020 2:02 PM Age: 69 years old Clinical indication: Dyspnea; Patient HX: History of pneumonia. History of covid TECHNIQUE: Imaging protocol: XR of the chest Views: 1 view. COMPARISON: CR XR chest 1V portable [id number] 02/23/2020 8:37 PM FINDINGS: Lungs: Unremarkable. No consolidation. Pleural space: Unremarkable. No pleural effusion. No pneumothorax. Heart/Mediastinum: Unremarkable. No cardiomegaly. Bones/joints: Unremarkable. XR/XR chest 1V portable [id number] IMPRESSION: No acute findings.
--- NOTE | 2020-03-06 14:04 | W.ED.SOB ---
HPI - SOB/Dyspnea General: Chief Complaint: Shortness of Breath/Dyspnea Stated Complaint: DIFFICULTY BREATHING Time Seen by Provider: 03/06/20 13:54 History of Present Illness: HPI Narrative: This patient is a 69-year-old female who presents today with shortness of breath. She also said she woke up on the floor this morning and does not know how she got there. She thinks she might have rolled out of her recliner where she normally sleeps. She does not describe what sound like a syncopal episode. She scraped her knee a little bit from the fall but no other injuries. She has a history of anxiety and shortness of breath. She also had Covid pneumonia at the beginning of January. Following that she was diagnosed with bacterial pneumonia and treated with antibiotics. She said she has not been running fevers and seems to be getting better from that. She is on home oxygen and had been up to 5 L/min on nasal cannula but she said she was able to turn it down to 3 or 4 L recently. She denies vomiting or diarrhea. She does feel weak and tired. MD elicited complaint: shortness of breath, cough and anxiety Pertinent past history: COPD, diabetes and pneumonia Onset (ago): day(s) (Today) Context: recent illness Timing: constant Severity: moderate Exacerbating factors: nothing Relieving factors: nothing Associated symptoms: Reports lightheadedness; Deny abdominal pain, chest pain, fever(s), nausea or vomiting Review of Systems General: Reports: 10 or more systems reviewed and unremarkable except in HPI and below Const: Reports: fatigue and malaise; Denies: fever(s) or chills Eyes: Denies: change in vision ENMT: Denies: odynophagia Card: Reports: lightheadedness; Denies: chest pain Resp: Reports: dyspnea and productive cough; Denies: non-productive cough GI: Denies: abdominal pain, nausea or vomiting : Denies: flank pain or difficulty voiding Musc: Denies: neck pain or back pain Skin/Breast: Denies: rash Neuro: Denies: headache(s), numbness in extremities or weakness in extremities Psych: Reports: anxiety Sg/Lymph: Denies: easy bruising or easy bleeding [facility] ED PFSH: Medical History (Updated 03/06/20 @ 16:11 by Zhane Jensen MD) DM type 2 (diabetes mellitus, type 2) Hypertension Hypothyroidism Physical Exam Const: COMMON NORMALS: no acute distress, patient oriented x3, no limitations and alert GENERAL APPEARANCE: cooperative and comfortable NUTRITIONAL APPEARANCE: obese morbidly obese HENMT: HEAD & SCALP: normal to inspection FACE & SINUS: normal facial exam Eye: GENERAL EYE: appearance normal, both eyes and all related structures Neck/C-Spine: COMMON NORMALS: supple, no meningeal signs and no JVD Chest: COMMONS NORMALS: normal inspection of the chest Resp: COMMON NORMALS: normal respiratory effort, No use of accessory muscles and clear to auscultation bilaterally AUSCULTATION: clear to auscultation bilaterally OTHER: Initially was breathing fast and hard but with some reassurance and redirection her respiratory rate almost immediately went back to normal. Cardio: COMMON NORMALS: no JVD, regular rate, regular rhythm and No murmurs present (Cardio) RATE: regular rate RHYTHM: regular rhythm GI: COMMON NORMALS: Normal to inspection, nondistended, normoactive bowel sounds present, Soft to palpation and non-tender INSPECTION: Yes normal to inspection AUSCULTATION: Yes normoactive bowel sounds PALPATION: Yes Soft to palpation Back/Pelvis: COMMON NORMALS: thoracic and lumbar spine normal to inspection Extremity: COMMON NORMALS: normal to inspection Neuro: COMMON NORMALS: patient oriented x3, moves all extremities, no focal motor deficits and no sensory deficits noted SENSORIUM/ORIENTATION: Yes alert MENINGEAL SIGNS: Yes no meningeal signs Psych: COMMON NORMALS: mental status grossly normal, cooperative and normal affect Skin: COMMON NORMALS: no rashes or lesions noted and turgor normal GENERAL SKIN EXAM: no rashes or lesions noted and turgor normal Course ED course: Patient presents with very atypical chest pain. She admits to having anxiety. Work-up including troponins was negative. She does have a low platelets and it appears that this is gradually been getting worse. She has outpatient follow-up and encouraged her to get that rechecked by her PCP. Vital Signs: Vital signs: Vital Signs Temperature 99.3 F 03/06/20 14:01 Pulse Rate 96 03/06/20 16:52 Respiratory Rate 14 03/06/20 16:52 Blood Pressure 139/117 03/06/20 16:52 Pulse Oximetry 96 03/06/20 16:52 MDM - SOB/Dyspnea Lab Data: Labs: Lab Results 03/06/20 03/06/20 03/06/20 Range/Units 14:12 14:12 14:12 WBC 12.7 H (4.0-10.0) 10^3/ uL RBC 4.48 (4.1-5.3) 10^6/u L Hgb 13.1 (11.5-15.3) g/dL Hct 42.1 (37.0-47.0) % MCV 94.0 (81-99) fL MCH 29.2 (28.0-34.0) pg MCHC 31.1 (30.0-36.0) g/dL RDW 15.8 H (12.1-15.1) % Plt Count 74 L (130-400) 10^3/c mm MPV 11.2 H (7.4-10.4) fL Neut % (Auto) 74.5 % Lymph % (Auto) 15.7 % [place] % (Auto) 7.6 % Eos % (Auto) 1.1 % Baso % (Auto) 0.3 % Neut # (Auto) 9.44 H (1.8-7.7) 10^3/u L Lymph # (Auto) 2.0 (0.8-4.8) 10^3/u L [place] # (Auto) 1.0 H (0.2-0.9) 10^3/u L Eos # (Auto) 0.1 (0.0-0.8) 10^3/u L Baso # (Auto) 0.0 (0.0-0.1) 10^3/u L Nucleated RBC % (a uto) 0 % Nucleated RBCs # 0.0 /100WBC Sodium 140 (136-145) mmol/L Potassium 4.1 (3.5-5.1) mmol/L Chloride 101 (98-107) mmol/L Carbon Dioxide 27 (22-29) mmol/L Anion Gap 16.1 (5-19) BUN 16 (8-23) mg/dL Creatinine 0.6 (0.5-0.9) mg/dL GFR Calculation 99.4 (90-130) mL/min Glucose 154 H (65-115) mg/dL POC Glucose (70-110) mg/dL Calculated Osmolal ity 294 (285-295) mOsm/k g Calcium 9.2 (8.5-10.5) mg/dL Total Bilirubin 0.3 (0.15-1.2) mg/dL AST 19 (0-32) U/L ALT 29 (0-33) U/L Alkaline Phosphata se 109 H (35-105) IU/L Troponin T Baselin e 31 H (0-10) ng/L Troponin T 120 Min [place] (0-10) ng/L Delta Troponin T (0-10) ABS# Total Protein 6.5 L (6.6-8.7) g/dL Albumin 3.9 (3.5-5.2) g/dL Globulin 2.6 (1.3-4.6) g/dL 03/06/20 03/06/20 Range/Units 14:20 16:14 WBC (4.0-10.0) 10^3/ uL RBC (4.1-5.3) 10^6/u L Hgb (11.5-15.3) g/dL Hct (37.0-47.0) % MCV (81-99) fL MCH (28.0-34.0) pg MCHC (30.0-36.0) g/dL RDW (12.1-15.1) % Plt Count (130-400) 10^3/c mm MPV (7.4-10.4) fL Neut % (Auto) % Lymph % (Auto) % [place] % (Auto) % Eos % (Auto) % Baso % (Auto) % Neut # (Auto) (1.8-7.7) 10^3/u L Lymph # (Auto) (0.8-4.8) 10^3/u L [place] # (Auto) (0.2-0.9) 10^3/u L Eos # (Auto) (0.0-0.8) 10^3/u L Baso # (Auto) (0.0-0.1) 10^3/u L Nucleated RBC % (a uto) % Nucleated RBCs # /100WBC Sodium (136-145) mmol/L Potassium (3.5-5.1) mmol/L Chloride (98-107) mmol/L Carbon Dioxide (22-29) mmol/L Anion Gap (5-19) BUN (8-23) mg/dL Creatinine (0.5-0.9) mg/dL GFR Calculation (90-130) mL/min Glucose (65-115) mg/dL POC Glucose 146 (70-110) mg/dL Calculated Osmolal ity (285-295) mOsm/k g Calcium (8.5-10.5) mg/dL Total Bilirubin (0.15-1.2) mg/dL AST (0-32) U/L ALT (0-33) U/L Alkaline Phosphata se (35-105) IU/L Troponin T Baselin e (0-10) ng/L Troponin T 120 Min [place] 27.64 H (0-10) ng/L Delta Troponin T -3.36 L (0-10) ABS# Total Protein (6.6-8.7) g/dL Albumin (3.5-5.2) g/dL Globulin (1.3-4.6) g/dL Discharge Plan Discharge Patient Disposition: Home Clinical Impression: Acute dyspnea, Anxiety Condition: Stable Prescriptions: No Action metformin 500 mg tablet 500 mg PO QPM RF: 0 amlodipine 5 mg tablet 5 mg PO DAILY RF: 0 levothyroxine 25 mcg tablet 25 mcg PO DAILY RF: 0 hydrochlorothiazide 25 mg tablet 25 mg PO DAILY RF: 0 aspirin 325 mg Tablet 325 mg PO DAILY RF: 0 lorazepam 1 mg Tablet 1 mg PO BID PRN (Reason: Anxiety) RF: 0 magnesium oxide 1 tab PO DAILY RF: 0 potassium gluconate 1 tab PO DAILY RF: 0 ondansetron HCl 4 mg tablet 4 mg PO BID PRN (Reason: nausea and vomiting) RF: 0 Discharge Orders: Discharge Order (Routine); Ordered 03/06/20 Ordered By: Zhane Jensen Discharge Diet: Usual diet Discharge Activity: Resume usual activity Patient Instructions: Dyspnea (ED) Activity Restrictions/Additional Instructions: Continue regular medications and home oxygen. Return for new or worse symptoms. Coding Level of Care Code ED Correspondence Representative for Presley Fwd Exam Comprehensive
[2020-03-06 14:26] VITALS: BP 165/90; PULSE 96; RESP 18; O2SAT 96
[2020-03-06 14:29] LABS: Glucose Point of Care 146 mg/dL (70-110)
[2020-03-06 14:48] LABS: Basophils % 0.3 %; Eosinophils # 0.1 10^3/uL (0.0-0.8); Eosinophils % 1.1 %; Hematocrit 42.1 % (37.0-47.0); Hemoglobin 13.1 g/dL (11.5-15.3); Lymphocytes % 15.7 %; Mean Corpuscular HGB Conc 31.1 g/dL (30.0-36.0); Mean Corpuscular Hemoglobin 29.2 pg (28.0-34.0); Mean Platelet Volume 11.2 fL (7.4-10.4); Monocytes % 7.6 %; Neutrophils # 9.44 10^3/uL (1.8-7.7); Neutrophils % 74.5 %; Nucleated Red Blood Cells % 0 %; Platelet Count 74 10^3/cmm (130-400); Red Blood Count 4.48 10^6/uL (4.1-5.3); Red Cell Distribution Width 15.8 % (12.1-15.1); White Blood Count 12.7 10^3/uL (4.0-10.0)
[2020-03-06 15:03] LABS: Alanine Aminotransferase 29 U/L (0-33); Albumin Level 3.9 g/dL (3.5-5.2); Alkaline Phosphatase 109 IU/L (35-105); Anion Gap 16.1 (5-19); Aspartate Amino Transferase 19 U/L (0-32); Blood Urea Nitrogen 16 mg/dL (8-23); Calcium 9.2 mg/dL (8.5-10.5); Carbon Dioxide 27 mmol/L (22-29); Chloride 101 mmol/L (98-107); Creatinine Clr Calc Pharmacy 87.0026; Globulin 2.6 g/dL (1.3-4.6); Glomerular Filtration Rate 99.4 mL/min (90-130); Glucose 154 mg/dL (65-115); Osmolality Calculated 294 mOsm/kg (285-295); Potassium 4.1 mmol/L (3.5-5.1); Sodium 140 mmol/L (136-145); Total Bilirubin 0.3 mg/dL (0.15-1.2); Total Protein 6.5 g/dL (6.6-8.7)
[2020-03-06 15:04] LABS: Troponin(5th) Baseline 31 ng/L (0-10)
[2020-03-06 16:52] VITALS: BP 139/117; PULSE 96; RESP 14; O2SAT 96
[2020-03-06 16:53] LABS: Troponin 5 2HR 27.64 ng/L (0-10)
[2020-03-06 17:03] LABS: Troponin 5 2HR Delta -3.36 ABS# (0-10)
--- NOTE | 2020-03-06 20:01 | ECG_ITS ---
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 Measurements Intervals [place] Rate: 95 P: 5 [place]: 149 QRS: -13 QRSD: 84 T: 24 QT: 342 QTc: 431 Interpretive Statements SINUS RHYTHM MINIMAL VOLTAGE CRITERIA FOR LVH, CONSIDER NORMAL VARIANT [MEETS CRITERIA IN ONE OF: R(aVL), S(V1), R(V5), R(V5/V6)+S(V1)] Compared to ECG 02/19/2020 21:03:36 Myocardial infarct finding no longer present Electronically Signed On 03-06-2020 18:53:16 DIRECTOR LEARNING by Jorge Luis Schultz M.D. [id number]
== END 2020-03-06 16:54 | disposition home or self-care (01) ==
PROVIDERS: Emergency Provider Emergency Medicine
DX: R06.00 Dyspnea, unspecified (principal); F41.9 Anxiety disorder, unspecified; Z79.82 Long term (current) use of aspirin; Z79.84 Long term (current) use of oral hypoglycemic drugs; E11.9 Type 2 diabetes mellitus without complications; I10 Essential (primary) hypertension
CPT/HCPCS: 12345; 36416; 71045; 80053; 82962; 84484; 85025; 93005; 99283

== ENCOUNTER 2020-03-12 09:18 | Emergency (ER) | payer MEDICARE, MEDICAID, SELFPAY ==
[2020-03-12 09:20] VITALS: BP 159/88; PULSE 88; RESP 18; TEMP 37.1; O2SAT 98; BMI 39.0
--- NOTE | 2020-03-12 09:35 | XRR_ITS ---
PROCEDURE INFORMATION: Exam: XR Chest, 1 View Exam date and time: 03/12/2020 9:42 AM Age: 69 years old Clinical indication: Shortness of breath; Additional info: SOB TECHNIQUE: Imaging protocol: XR of the chest Views: 1 view. COMPARISON: CR (CHEST, ) 03/06/2020 2:08 PM FINDINGS: Lungs: Emphysematous change, interstitial prominence, and asymmetric basilar airspace disease. Pleural space: No significant pleural effusion. Heart/Mediastinum: Cardiac silhouette upper limits of normal in size. Bones/joints: Osteopenia and degenerative change . XR/XR chest 1V portable [id number] IMPRESSION: Emphysematous change, interstitial prominence, and asymmetric basilar airspace disease.
--- NOTE | 2020-03-12 09:35 | W.ED.RECABL ---
HPI - Recheck/Abnormal Lab/Rx General: Chief Complaint: Recheck/Abnormal Lab/Rx Stated Complaint: SOB; ANXIETY Time Seen by Provider: 03/12/20 09:23 History of Present Illness: HPI narrative: Patient arrives via ambulance complaint shortness of breath. This is patient's fifth visit in the last 30 days for same complaint. Patient states she is ran out of Ativan and this affects her breathing. Says she not use her inhaler that she has is at home because she forgot about it. Patient also called the ambulance to bring her in because she has no ride in here. Says she feels fine here currently in the ER would like a refill of her Ativan if possible. Says she has her follow-up appointment with her primary care provider on March 17. MD complaint: medication refill request Initial visit (ago): week(s) Initial visit for: other (Anxiety shortness of breath) Symptoms since prior visit: no new symptoms Context: ran out of medication Review of Systems Const: Denies: fever(s), chills or body aches Eyes: Denies: change in vision or blurry vision ENMT: Denies: throat pain or nasal congestion Card: Denies: chest pain or dyspnea on exertion Resp: Reports: dyspnea (When feeling anxious); Denies: productive cough or non-productive cough GI: Denies: abdominal pain, nausea or vomiting Musc: Denies: extremity pain Skin/Breast: Denies: rash Neuro: Denies: headache(s) Psych: Reports: anxiety; Denies: depression Sg/Lymph: Denies: easy bruising [facility] ED PFSH: Medical History (Updated 03/12/20 @ 09:39 by BITA Becker) DM type 2 (diabetes mellitus, type 2) Hypertension Hypothyroidism Physical Exam Const: COMMON NORMALS: no acute distress, average body habitus and patient oriented x3 HENMT: COMMON NORMALS: normocephalic HEAD & SCALP: normal to inspection and normocephalic FACE & SINUS: normal facial exam Eye: COMMON NORMALS: conjunctivae normal GENERAL EYE: appearance normal, both eyes and all related structures CONJUNCTIVA: Yes conjunctivae normal Neck/C-Spine: COMMON NORMALS: no JVD Chest: COMMONS NORMALS: normal inspection of the chest Resp: COMMON NORMALS: normal respiratory effort and clear to auscultation bilaterally AUSCULTATION: clear to auscultation bilaterally Cardio: COMMON NORMALS: no JVD, regular rate and regular rhythm RATE: regular rate RHYTHM: regular rhythm GI: COMMON NORMALS: Normal to inspection, nondistended, normoactive bowel sounds present Extremity: COMMON NORMALS: normal to inspection and full ROM Neuro: COMMON NORMALS: patient oriented x3 Psych: MOOD & AFFECT: Yes anxious Course Vital Signs: Vital signs: Vital Signs Temperature 98.8 F 03/12/20 09:20 Pulse Rate 84 03/12/20 10:32 Respiratory Rate 18 03/12/20 10:32 Blood Pressure 149/82 03/12/20 10:32 Pulse Oximetry 99 03/12/20 10:32 Discharge Plan Discharge Patient Disposition: Home Clinical Impression: Anxiety, Encounter for medication refill Condition: Stable Prescriptions: New Ativan 1 mg tablet 1 mg PO TID PRN (Reason: anxiety) Qty: 21 RF: 0 Paxil 10 mg tablet 10 mg PO DAILY Qty: 20 RF: 0 No Action metformin 500 mg tablet 500 mg PO QPM RF: 0 amlodipine 5 mg tablet 5 mg PO DAILY RF: 0 levothyroxine 25 mcg tablet 25 mcg PO DAILY RF: 0 hydrochlorothiazide 25 mg tablet 25 mg PO DAILY RF: 0 aspirin 325 mg Tablet 325 mg PO DAILY RF: 0 lorazepam 1 mg Tablet 1 mg PO BID PRN (Reason: Anxiety) RF: 0 magnesium oxide 1 tab PO DAILY RF: 0 potassium gluconate 1 tab PO DAILY RF: 0 ondansetron HCl 4 mg tablet 4 mg PO BID PRN (Reason: nausea and vomiting) RF: 0 Discharge Orders: Discharge Order (Routine); Ordered 03/12/20 Ordered By: Quincy Selby Discharge Diet: Usual diet Discharge Activity: Resume usual activity Patient Instructions: Generalized Anxiety Disorder (ED) Activity Restrictions/Additional Instructions: Follow-up with medical provider as directed. Take medications as prescribed. Return to the ER or your medical provider if condition worsens. Please read and understand discharge instructions. If any questions ask please. Keep appointment with your primary care provider March 17. See about appointment with behavioral health care services. Use the Ativan as necessary and take the Paxil daily to help prevent anxiety attacks. Coding Level of Care Code ED Work Environment Safety Inspector for Presley Fwjennifer Exam Comprehensive
[2020-03-12] MEDS: LORazepam 1 mg Tablet PO (09:52)
[2020-03-12 10:32] VITALS: BP 149/82; PULSE 84; RESP 18; O2SAT 99
== END 2020-03-12 10:36 | disposition home or self-care (01) ==
PROVIDERS: Emergency Provider Nurse Practitioner Family
DX: F41.9 Anxiety disorder, unspecified (principal); Z76.0 Encounter for issue of repeat prescription; Z79.82 Long term (current) use of aspirin; E11.9 Type 2 diabetes mellitus without complications; I10 Essential (primary) hypertension; E03.9 Hypothyroidism, unspecified
CPT/HCPCS: 12345; 71045; 99282; 99283

== ENCOUNTER 2021-09-27 23:29 | Emergency (ER) | payer MEDICARE, MEDICAID, SELFPAY ==
[2021-09-27 23:31] VITALS: BP 125/102; PULSE 108; RESP 16; TEMP 36.7; O2SAT 92; BMI 38.0
--- NOTE | 2021-09-28 00:05 | CTR_ITS ---
PROCEDURE INFORMATION: Exam: CT Head Without Contrast Exam date and time: 09/28/2021 12:37 AM Age: 71 years old Clinical indication: Altered mental status/memory loss; Confusion or disorientation; Patient HX: AMS. Patient acting confused. States doesn't know why EMS brought her to er. ; Additional info: Alt ment status TECHNIQUE: Imaging protocol: Computed tomography of the head without contrast. Radiation optimization: All CT scans at this facility use at least one of these dose optimization techniques: automated exposure control; mA and/or kV adjustment per patient size (includes targeted exams where dose is matched to clinical indication); or iterative reconstruction. COMPARISON: No relevant prior studies available. RADIATION DOSE METRICS: Total DLP (mGy-cm): 1058.98 FINDINGS: Brain: There is mild diffuse heterogeneity of the white matter attenuation, consistent with chronic white matter ischemic changes. There is mild cerebral atrophy. Negative for intracranial hemorrhage. Negative for intracranial mass. Negative for midline shift of the brain. Parra matter and white matter interfaces are preserved. Cerebral ventricles: No ventriculomegaly. Paranasal sinuses: Visualized sinuses are unremarkable. No fluid levels. Mastoid air cells: Visualized mastoid air cells are well aerated. Bones/joints: Unremarkable. No acute fracture. Soft tissues: Unremarkable. Other findings: Symmetric, unremarkable orbits. CT/CT head wo con* [id number] IMPRESSION: Negative for acute intracranial abnormality.
--- NOTE | 2021-09-28 00:07 | W.ED.PSYCHS ---
HPI - Psych General: Chief Complaint: Psychiatric Symptoms Stated Complaint: MHE Time Seen by Provider: 09/27/21 23:54 History of Present Illness: 71-year-old female comes in today for concerns of stress. She had called EMS twice this evening. Patient was found in a very hot trailer home. Patient reports feeling better since arriving to the ER but cannot say why she called the emergency services in the first place. Patient does have a history of anxiety, diabetes mellitus, hypothyroidism, and hypertension. Patient is alert and responds appropriate to questions. Patient is a poor for historian. Patient denies suicidal homicidal thoughts. Patient seems confused. Associated symptoms: Deny depression, homicidal ideation or suicidal ideation Review of Systems General: Reports: 10 or more systems reviewed and unremarkable except in HPI and below Const: Denies: fever(s) ENMT: Denies: throat pain Card: Denies: chest pain Resp: Denies: dyspnea GI: Denies: nausea or vomiting : Denies: difficulty voiding Musc: Denies: neck pain or back pain Skin/Breast: Denies: rash Neuro: Reports: behavioral changes; Denies: headache(s) Psych: Denies: anxiety, depression, suicidal ideation or homicidal ideation [facility] ED PFSH: Medical History (Updated 09/28/21 @ 01:49 by BITA Gotti) DM type 2 (diabetes mellitus, type 2) Hypertension Hypothyroidism Physical Exam Const: COMMON NORMALS: alert HENMT: COMMON NORMALS: normocephalic HEAD & SCALP: normocephalic MOUTH: Normal oral and palatal mucosa present Neck/C-Spine: COMMON NORMALS: full ROM Chest: COMMONS NORMALS: normal inspection of the chest and normal palpation of the breasts BREAST/AXILLA PALPATION: Yes normal palpation of the breasts Resp: COMMON NORMALS: normal respiratory effort and clear to auscultation bilaterally AUSCULTATION: clear to auscultation bilaterally Cardio: COMMON NORMALS: regular rate RATE: regular rate Extremity: COMMON NORMALS: normal to inspection Neuro: [place] COMA SCALE: document GCS findings [place] coma scale eye opening: Spontaneous [place] coma scale verbal response: Confused [place] coma scale motor response: Obey commands [place] coma scale total score: 14 SENSORIUM/ORIENTATION: Yes alert SPEECH: speech normal GAIT: Yes Normal gait present Psych: COMMON NORMALS: cooperative Skin: COMMON NORMALS: turgor normal GENERAL SKIN EXAM: turgor normal Course Vital Signs: Vital signs: Vital Signs Temperature 98.1 F 09/28/21 00:48 Pulse Rate 98 09/28/21 00:48 Respiratory Rate 16 09/28/21 00:48 Blood Pressure 132/87 09/28/21 00:48 Pulse Oximetry 95 09/28/21 00:48 [facility] - Psych Medical Decision Making Patient was brought in by EMS for concerns of not feeling well. Patient had some difficulty verbalizing her complaint. EMS had reported that they found the patient in her trailer with no air conditioning on. On exam patient responds appropriate to questioning. Patient appears well kempt. Patient reports no pain or discomfort. Differential diagnosis includes not limited to ACS, stroke syndrome, infection of unknown origin, dehydration, heat exhaustion. Laboratory values noted a white count of 19.6, CMP was unremarkable, urinalysis was positive for nitrates and white blood cells. CT of the head was unremarkable, and chest x-ray was normal. I believe patient probably has a urinary tract infection which is made her a little bit more confused than normal. Patient was given 1 L of IV fluids and given 1 dose of Rocephin. Patient seemed much better after the IV fluids. I recommended that she continue with cephalexin twice a day for the next 7 days. Recommend follow-up with primary care for further instructions. Return to ER for worsening symptoms. Patient did wish to go home and seemed much improved on discharge. Lab Data : 09/28/21 00:31 09/28/21 00:[address] 09/28/21 00:05 IMPRESSION: Negative for acute intracranial abnormality. Chest X-Ray 09/28/21 01:01 IMPRESSION: No acute findings. Laboratory Results WBC 19.6 10^3/uL (4.0-10.0) H 09/28/21 00:31 RBC 5.20 10^6/uL (4.1-5.3) 09/28/21 00:31 Hgb 15.2 g/dL (11.5-15.3) 09/28/21 00:31 Hct 45.7 % (37.0-47.0) 09/28/21 00:31 MCV 87.9 fl (81-99) 09/28/21 00:31 MCH 29.2 pg (28.0-34.0) 09/28/21 00:31 MCHC 33.3 g/dL (30.0-36.0) 09/28/21 00:31 RDW 13.6 % (12.1-15.1) 09/28/21 00:31 Plt Count 296 10^3/cmm (130-400) 09/28/21 00:31 MPV 10.0 fL (7.4-10.4) 09/28/21 00:31 Neut % (Auto) 78.1 % 09/28/21 00: Lymph % (Auto) 13.2 % 09/28/21 00:31 [place] % (Auto) 6.7 % 09/28/21 00:31 Eos % (Auto) 0.4 % 09/28/21 00: Baso % (Auto) 0.5 % 09/28/21 00: Neut # (Auto) 15.31 10^3/uL (1.8-7.7) H 09/28/21 00:31 Lymph # (Auto) 2.6 10^3/uL (0.8-4.8) 09/28/21 00:31 [place] # (Auto) 1.3 10^3/uL (0.2-0.9) H 09/28/21 00:31 Eos # (Auto) 0.1 10^3/uL (0.0-0.8) 09/28/21 00:31 Baso # (Auto) 0.1 10^3/uL (0.0-0.1) 09/28/21 00:31 Nucleated RBC % (auto) 0 % 09/28/21 00: Nucleated RBCs # 0.0 /100WBC 09/28/21 00:31 Sodium 138 mmol/L (136-145) 09/28/21 00:31 Potassium 4.3 mmol/L (3.5-5.1) 09/28/21 00: Chloride 99 mmol/L (98-107) 09/28/21 00:31 Carbon Dioxide 23 mmol/L (22-29) 09/28/21 00:31 Anion Gap 20.3 (5-19) H 09/28/21 00:31 BUN 18 mg/dL (8-23) 09/28/21 00:31 Creatinine 0.9 mg/dL (0.5-0.9) 09/28/21 00: GFR Calculation 61.9 mL/min (90-130) L 09/28/21 00: Glucose 203 mg/dL (65-115) H 09/28/21 00: Calculated Osmolality 294 mOsm/kg (285-295) 09/28/21 00: Calcium 9.4 mg/dL (8.5-10.5) 09/28/21: Total Bilirubin 0.3 mg/dL (0.15-1.2) 09/28/21 00: AST 13 U/L (0-32) 09/28/21: ALT 14 U/L (0-33) 09/28/21: Alkaline Phosphatase 138 IU/L (35-105) H 09/28/21 00: Troponin T Gen 5 ng/L 10 ng/L (0-10) 09/28/21 00: Total Protein 7.7 g/dL (6.6-8.7) 09/28/21 00: Albumin 4.2 g/dL (3.5-5.2) 09/28/21 00: Globulin 3.5 g/dL (1.3-4.6) 09/28/21 00: TSH 6.01 uIU/mL (0.27-4.20) H 09/28/21 00:31 Urine Color Yellow (Yellow) 09/28/21 00:15 Urine Appearance Clear (CLEAR) 09/28/21 00:15 Urine pH 6 (5-7) 09/28/21 00:15 Ur Specific [place] 1.030 (1.005-1.030) 09/28/21 00:15 Urine Protein 1+ (Negative) H 09/28/21 00:15 Urine Glucose (UA) Trace (Normal) H 09/28/21 00:15 Urine Ketones Negative (Negative) 09/28/21 00:15 Urine Blood Neg (Negative) 09/28/21 00:15 Urine Nitrate Positive (Negative) H 09/28/21 00:15 Urine Bilirubin Neg (Negative) 09/28/21 00: Urine Urobilinogen Norm mg/dL (Negative) 09/28/21 00:15 Ur Leukocyte Esterase Trace (Negative) H 09/28/21 00:15 Urine RBC 0-4 /hpf (0-2) H 09/28/21 00:15 Urine WBC 10-15 /hpf (0-5) H 09/28/21 00:15 Ur Squamous Epith Cells 15-25 /hpf (0-5) H 09/28/21 00:15 Amorphous Sediment Not Reportable 09/28/21 00:15 Urine Bacteria 1+ /hpf (NONE) H 09/28/21 00:15 Urine Mucus Trace /hpf 09/28/21 00:15 Salicylates < 0.3 mg/dL (3-10) L 09/28/21 00:31 Urine Opiates Screen Negative ng/mL (Negative) 09/28/21 00:15 Acetaminophen < 5.0 ug/mL (10-30) L 09/28/21 00:31 Ur Barbiturates Screen Negative ng/mL (Negative) 09/28/21 00:15 Ur Phencyclidine Scrn Negative ng/mL (Negative) 09/28/21 00:15 Ur Amphetamines Screen Negative ng/mL (Negative) 09/28/21 00:15 U Benzodiazepines Scrn Negative ng/mL (Negative) 09/28/21 00:15 Urine Cocaine Screen Negative ng/mL (Negative) 09/28/21 00:15 U Marijuana (THC) Screen Negative ng/mL (Negative) 09/28/21 00:15 Ethyl Alcohol < 10 mg/dL (0-10) 09/28/21 00:31 Discharge Plan Discharge Patient Disposition: Home Clinical Impression: Acute UTI (urinary tract infection) Condition: Stable Prescriptions: New cephalexin 500 mg capsule 500 mg PO BID 7 Days Qty: 14 0RF No Action metformin 500 mg tablet 500 mg PO QPM 0RF amlodipine 5 mg tablet 5 mg PO DAILY 0RF levothyroxine 25 mcg tablet 25 mcg PO DAILY 0RF hydrochlorothiazide 25 mg tablet 25 mg PO DAILY 0RF Ativan 1 mg tablet 1 mg PO TID PRN (Reason: anxiety) Qty: 21 0RF Paxil 10 mg tablet 10 mg PO DAILY Qty: 20 0RF aspirin 325 mg Tablet 325 mg PO DAILY 0RF lorazepam 1 mg Tablet 1 mg PO BID PRN (Reason: Anxiety) 0RF magnesium oxide 1 tab PO DAILY 0RF potassium gluconate 1 tab PO DAILY 0RF ondansetron HCl 4 mg tablet 4 mg PO BID PRN (Reason: nausea and vomiting) 0RF Discharge Orders: Discharge ED (Routine); Ordered 09/28/21 Ordered By: Finesse White Referrals: Promise Cardenas FNP [Primary Care Provider] - Activity Restrictions/Additional Instructions: Home and rest. Drink plenty of fluids. Make sure you are drinking plenty of water and also consider some electrolyte solution if sweating profusely. Take antibiotic as directed. 1 capsule twice a day for 7 days. Follow-up with primary care in 3 to 5 days for recheck. Return to ER for new concerns or worsening symptoms. Coding Level of Care Code ED Core Winding Operator for Chg Fwd Exam Comprehensive
[2021-09-28 00:33] LABS: Basophils # 0.1 10^3/uL (0.0-0.1); Basophils % 0.5 %; Eosinophils # 0.1 10^3/uL (0.0-0.8); Eosinophils % 0.4 %; Hematocrit 45.7 % (37.0-47.0); Hemoglobin 15.2 g/dL (11.5-15.3); Lymphocytes # 2.6 10^3/uL (0.8-4.8); Lymphocytes % 13.2 %; Mean Corpuscular HGB Conc 33.3 g/dL (30.0-36.0); Mean Corpuscular Hemoglobin 29.2 pg (28.0-34.0); Mean Corpuscular Volume 87.9 fl (81-99); Monocytes # 1.3 10^3/uL (0.2-0.9); Monocytes % 6.7 %; Neutrophils # 15.31 10^3/uL (1.8-7.7); Neutrophils % 78.1 %; Nucleated Red Blood Cells % 0 %; Platelet Count 296 10^3/cmm (130-400); Red Cell Distribution Width 13.6 % (12.1-15.1); White Blood Count 19.6 10^3/uL (4.0-10.0)
[2021-09-28] MEDS: sodium chloride 0.9% 1,000 ML 999 ML IV (00:43)
[2021-09-28 00:45] LABS: Amphetamines Screen Urine Negative (Negative); Barbiturates Screen Urine Negative (Negative); Benzodiazepines Screen Urine Negative (Negative); Cocaine Screen Urine Negative (Negative); Opiate Screen Urine Negative (Negative); PCP Screen Urine Negative (Negative); THC Screen Urine Negative (Negative)
[2021-09-28 00:48] VITALS: BP 132/87; PULSE 98; RESP 16; TEMP 36.7; O2SAT 95
[2021-09-28 00:52] LABS: Add Urine Microscopic? YES; Bacteria Urine 1+ /hpf; Bilirubin Urine Neg (Negative); Blood Urine Neg (Negative); Glucose Urine UA Trace (Normal); Ketones Urine Negative (Negative); Leukocyte Esterase Urine Trace (Negative); Nitrate Urine Positive (Negative); Protein Urine 1+ (Negative); RBC Urine 0-4 /hpf (0-2); Squamous Epithelial Cell Urine 15-25 /hpf (0-5); Urine Appearance Clear (CLEAR); Urine Color Yellow (Yellow); Urobilinogen Urine Norm (Negative); pH Urine 6 (5-7)
[2021-09-28 00:52] LABS: Troponin T (5th) Once 10 ng/L (0-10)
[2021-09-28 00:53] LABS: Add Urine Culture? No; Mucus Urine TRACE /hpf
--- NOTE | 2021-09-28 01:01 | XRR_ITS ---
PROCEDURE INFORMATION: Exam: XR Chest Exam date and time: 09/28/2021 1:06 AM Age: 71 years old Clinical indication: Patient HX: AMS. Confusion. TECHNIQUE: Imaging protocol: Radiologic exam of the chest. Views: 1 view. COMPARISON: CR XR chest 2V* [id number] 03/22/2020 12:50 PM FINDINGS: Lungs: Unremarkable. No consolidation. Pleural spaces: Unremarkable. No pleural effusion. No pneumothorax. Heart/Mediastinum: Unremarkable. No cardiomegaly. Bones/joints: Unremarkable. XR/XR chest 1V portable [id number] IMPRESSION: No acute findings.
[2021-09-28 01:02] LABS: Acetaminophen < 5.0 ug/mL (10-30); Alanine Aminotransferase 14 U/L (0-33); Albumin Level 4.2 g/dL (3.5-5.2); Alcohol Level < 10 mg/dL (0-10); Alkaline Phosphatase 138 IU/L (35-105); Anion Gap 20.3 (5-19); Aspartate Amino Transferase 13 U/L (0-32); Blood Urea Nitrogen 18 mg/dL (8-23); Calcium 9.4 mg/dL (8.5-10.5); Carbon Dioxide 23 mmol/L (22-29); Chloride 99 mmol/L (98-107); Globulin 3.5 g/dL (1.3-4.6); Glomerular Filtration Rate 61.9 mL/min (90-130); Glucose 203 mg/dL (65-115); Osmolality Calculated 294 mOsm/kg (285-295); Potassium 4.3 mmol/L (3.5-5.1); Salicylate < 0.3 mg/dL (3-10); Sodium 138 mmol/L (136-145); Thyroid Stimulating Hormone 6.01 uIU/mL (0.27-4.20); Total Bilirubin 0.3 mg/dL (0.15-1.2); Total Protein 7.7 g/dL (6.6-8.7)
[2021-09-28] MEDS: cefTRIAXone 1,000 MG in sodium chloride 0.9% (plus) 50 ML 100 MG IV (01:09)
[2021-09-28 02:37] VITALS: BP 135/78; PULSE 97; RESP 16; TEMP 36.7; O2SAT 96
== END 2021-09-28 02:38 | disposition home or self-care (01) ==
PROVIDERS: Emergency Provider Nurse Practitioner Family; PCP Nurse Practitioner Family
DX: N39.0 Urinary tract infection, site not specified (principal)
CPT/HCPCS: 70450; 71045; 80053; 80306; 80307; 81001; 84443; 84484; 85025; 96365; 99284; J0696; J7030

== ENCOUNTER 2021-09-30 19:14 | Emergency (ER) | payer MEDICARE, MEDICAID, SELFPAY ==
[2021-09-30 19:21] VITALS: BP 156/74; PULSE 107; RESP 18; TEMP 36.1; O2SAT 94
[2021-09-30] MEDS: LORazepam 1 mg Tablet PO (20:27)
--- NOTE | 2021-09-30 20:53 | ED_ITS ---
HPI - Abdominal Pain General: Chief Complaint: Abdominal Pain Stated Complaint: abd pain Time Seen by Provider: 09/30/21 20:03 History of Present Illness: Patient comes ahead with abdominal pain. She describes it as epigastric, comes and goes, associated with anxiety. States that it is not there at this time. States she does have occasional nausea. Denies fever, vomiting, or diarrhea. States she has this belly pain all the time and it is always associated with her anxiety which she does not take anything for. Associated Symptoms: Reports nausea; Denies dysuria, fever(s) and vomiting Review of Systems Const: Denies: fever(s) or body aches Eyes: Denies: change in vision or blurry vision ENMT: Denies: throat pain or odynophagia Card: Denies: chest pain or palpitations Resp: Denies: dyspnea or productive cough GI: Reports: abdominal pain and nausea; Denies: vomiting : Denies: flank pain or dysuria Musc: Denies: neck pain or back pain Skin/Breast: Denies: rash or pruritus Neuro: Denies: headache(s) or numbness in extremities Psych: Reports: anxiety; Denies: change in appetite Endo: Denies: polyuria or excessive sweating PFSH ED PFSH: Medical History (Updated 09/30/21 @ 20:59 by Jaswinder Torres MD) DM type 2 (diabetes mellitus, type 2) Hypertension Hypothyroidism Physical Exam Const: COMMON NORMALS: no acute distress, patient oriented x3, healthy appearing and alert HENMT: COMMON NORMALS: normocephalic and atraumatic HEAD & SCALP: normocephalic and atraumatic Eye: COMMON NORMALS: Equal, round and reactive pupils present and EOMs intact bilaterally PUPIL: Yes Equal, round and reactive pupils present Neck/C-Spine: COMMON NORMALS: full ROM and supple Resp: COMMON NORMALS: normal respiratory effort, No retractions and No use of accessory muscles Cardio: COMMON NORMALS: regular rate and regular rhythm RATE: regular rate RHYTHM: regular rhythm GI: COMMON NORMALS: Normal to inspection, nondistended, normoactive bowel sounds present, Soft to palpation and non-tender PALPATION: Yes Soft to palpation Back/Pelvis: COMMON NORMALS: thoracic and lumbar spine normal to inspection and no thoracic nor lumbar tenderness Extremity: COMMON NORMALS: normal to inspection and full ROM Neuro: COMMON NORMALS: patient oriented x3 SENSORIUM/ORIENTATION: Yes alert Psych: COMMON NORMALS: mental status grossly normal and cooperative Skin: COMMON NORMALS: no rashes or lesions noted and no wounds GENERAL SKIN EXAM: no rashes or lesions noted Course Vital Signs: Vital signs: Vital Signs Temperature 96.9 F L 09/30/21 19:21 Pulse Rate 107 H 09/30/21 19:21 Respiratory Rate 18 09/30/21 19:21 Blood Pressure 156/74 09/30/21 19:21 Pulse Oximetry 94 09/30/21 19:21 MDM - Abdominal Pain Medical Decision Making Patient comes ahead with abdominal pain. She describes it as epigastric, comes and goes, associated with anxiety. States that it is not there at this time. States she does have occasional nausea. Denies fever, vomiting, or diarrhea. States she has this belly pain all the time and it is always associated with her anxiety which she does not take anything for. Physical exam is unremarkable. We will give her a dose of Ativan and reassess. On reassessment the patient states she is feeling better. Will discharge home at this time with precautions to return for worsening or changing symptoms. Discharge Plan Discharge Patient Disposition: Home Clinical Impression: Abdominal pain Condition: Stable Prescriptions: No Action metformin 500 mg tablet 500 mg PO QPM 0RF amlodipine 5 mg tablet 5 mg PO DAILY 0RF levothyroxine 25 mcg tablet 25 mcg PO DAILY 0RF hydrochlorothiazide 25 mg tablet 25 mg PO DAILY 0RF Ativan 1 mg tablet 1 mg PO TID PRN (Reason: anxiety) Qty: 21 0RF Paxil 10 mg tablet 10 mg PO DAILY Qty: 20 0RF aspirin 325 mg Tablet 325 mg PO DAILY 0RF lorazepam 1 mg Tablet 1 mg PO BID PRN (Reason: Anxiety) 0RF magnesium oxide 1 tab PO DAILY 0RF potassium gluconate 1 tab PO DAILY 0RF ondansetron HCl 4 mg tablet 4 mg PO BID PRN (Reason: nausea and vomiting) 0RF cephalexin 500 mg capsule 500 mg PO BID 7 Days Qty: 14 0RF Discharge Orders: Discharge ED (Routine); Ordered 09/30/21 Ordered By: Jaswinder Torres Referrals: Promise Cardenas FNP [Primary Care Provider] - Patient Instructions: Abdominal Pain (ED) Coding Level of Care Code ED Sales Representative Gas Service for Chg Fwd Exam Comprehensive
[2021-09-30 21:09] VITALS: BP 158/74; PULSE 96; RESP 12; O2SAT 95
== END 2021-09-30 21:13 | disposition home or self-care (01) ==
PROVIDERS: Emergency Provider Emergency Medicine; PCP Nurse Practitioner Family
DX: R10.13 Epigastric pain (principal)
CPT/HCPCS: 99283

== ENCOUNTER 2021-10-01 19:17 | Emergency (ER) | payer MEDICARE, MEDICAID, SELFPAY ==
[2021-10-01 19:44] VITALS: BP 141/83; PULSE 99; RESP 16; TEMP 37.1; O2SAT 93
--- NOTE | 2021-10-01 21:07 | W.ED.ANXIETY ---
HPI - Anxiety General: Chief Complaint: Anxiety Stated Complaint: Anxiety Time Seen by Provider: 10/01/21 20:53 Source: patient Mode of arrival: ambulatory Limitations: no limitations History of Present Illness: Patient is a 71-year-old female who presents to the ED today due to my nerves . Patient tells me she has chronic anxiety stating she has been on nerve pills ever since high school. She states over the past few weeks her anxiety has worsened but has not been able to pinpoint any significant life stressors to account for this. Patient does not take any medications on a daily basis for anxiety. She is not suicidal or homicidal. Patient states she lives alone and enjoys living alone. She was able to drive herself to the emergency department. She has no physical complaints at this time. He states her PCP is Promise Resendiz MD complaint: anxiety Onset (ago): week(s) Quality: constant Place: home History of similar episodes: Yes Relieving factors: nothing Exacerbating factors: nothing Associated symptoms: Reports no associated symptoms; Deny chest pain, chills, fever(s), headache(s) or malaise Review of Systems Const: Denies: fever(s), chills, body aches, fatigue or malaise Card: Denies: chest pain Resp: Denies: dyspnea GI: Denies: abdominal pain Musc: Denies: neck pain, back pain, extremity pain or joint pain Skin/Breast: Denies: rash Neuro: Denies: headache(s) or dizziness Psych: Reports: anxiety; Denies: depression, irritability, paranoia, visual hallucinations, auditory hallucinations, suicidal ideation or homicidal ideation [facility] ED PFSH: Medical History DM type 2 (diabetes mellitus, type 2) Hypertension Hypothyroidism Physical Exam Const: COMMON NORMALS: no acute distress, patient oriented x3, no limitations and alert GENERAL APPEARANCE: cooperative NUTRITIONAL APPEARANCE: obese ORIENTATION/CONSCIOUSNESS: Yes awake, Yes oriented to person, Yes oriented to place and Yes oriented to time HENMT: COMMON NORMALS: normocephalic and atraumatic HEAD & SCALP: normal to inspection, normocephalic and atraumatic Resp: COMMON NORMALS: normal respiratory effort and clear to auscultation bilaterally AUSCULTATION: clear to auscultation bilaterally Cardio: COMMON NORMALS: regular rate and regular rhythm RATE: regular rate RHYTHM: regular rhythm Neuro: [place] COMA SCALE: document GCS findings [place] coma scale eye opening: Spontaneous [place] coma scale verbal response: Orientated [place] coma scale motor response: [place]bey commands [place] coma scale total score: 15 COMMON NORMALS: patient oriented x3, moves all extremities, no focal motor deficits, no sensory deficits noted and gait normal SENSORIUM/ORIENTATION: Yes alert, Yes oriented to person, Yes oriented to place and Yes oriented to time Psych: COMMON NORMALS: cooperative, speech normal, denies hallucinations, denies homicidal ideation and denies suicidal ideation APPEARANCE: Yes grossly normal ATTITUDE: Yes calm ACTIVITY/MOTOR BEHAVIOR: Yes appropriate eye contact SPEECH: Yes normal speech MOOD & AFFECT: Yes euthymic mood THOUGHT CONTENT: Yes Normal thought content present ATTENTION/CONCENTRATION: Yes attention grossly intact and Yes concentration grossly intact MEMORY/COGNITION: Yes memory grossly intact and Yes cognition grossly intact Course Vital Signs: Vital signs: Vital Signs Temperature 98.8 F 10/01/21 19:44 Pulse Rate 99 10/01/21 19:44 Respiratory Rate 16 10/01/21 19:44 Blood Pressure 141/83 10/01/21 19:44 Pulse Oximetry 93 10/01/21 19:44 MDM - Anxiety Medical Decision Making Patient states she does not take anything for her anxiety currently. It looks like at one point she was on Paxil. She cannot seem to tell me whether she remembers is working well or not. I recommended patient follow-up with her primary care provider soon as possible so they can start her on something for her chronic anxiety. We will prescribe her some as needed Vistaril she can take if anxiety acutely worsens. Return to ED precautions given. Discharge Plan Discharge Patient Disposition: Home Clinical Impression: Chronic anxiety Condition: Stable Prescriptions: New Vistaril 25 mg capsule 25 mg PO Q6H PRN (Reason: anxiety) Qty: 20 0RF Discontinued metformin 500 mg tablet 500 mg PO QPM 0RF hydrochlorothiazide 25 mg tablet 25 mg PO DAILY 0RF lorazepam [Ativan] 1 mg tablet 1 mg PO TID PRN (Reason: anxiety) Qty: 21 0RF paroxetine HCl [Paxil] 10 mg tablet 10 mg PO DAILY Qty: 20 0RF lorazepam 1 mg Tablet 1 mg PO BID PRN (Reason: Anxiety) 0RF magnesium oxide 1 tab PO DAILY 0RF potassium gluconate 1 tab PO DAILY 0RF ondansetron HCl 4 mg tablet 4 mg PO BID PRN (Reason: nausea and vomiting) 0RF No Action amlodipine 5 mg tablet 5 mg PO DAILY 0RF levothyroxine 25 mcg tablet 25 mcg PO DAILY 0RF aspirin 325 mg Tablet 325 mg PO DAILY 0RF cephalexin 500 mg capsule 500 mg PO BID 7 Days Qty: 14 0RF Discharge Orders: Discharge ED (Routine); Ordered 10/01/21 Ordered By: Audelia Calderón Referrals: Promise Cardenas FNP [Primary Care Provider] - Patient Instructions: Generalized Anxiety Disorder (ED), Anxiety (ED) Coding Level of Care Code ED Cross Tie Tram Loader for Presley Hamilton
[2021-10-01] MEDS: hyDROXYzine 25 mg Capsule 50 MG PO (21:23)
== END 2021-10-01 21:24 | disposition home or self-care (01) ==
PROVIDERS: Emergency Provider Physician Assistant; PCP Nurse Practitioner Family
DX: F41.9 Anxiety disorder, unspecified (principal)
CPT/HCPCS: 99283

== ENCOUNTER 2021-10-03 22:41 | Emergency (ER) | payer MEDICARE, MEDICAID, SELFPAY ==
[2021-10-03 23:03] VITALS: BMI 39.5
[2021-10-03 23:11] VITALS: BP 148/87; PULSE 101; RESP 15; TEMP 36.7; O2SAT 93
--- NOTE | 2021-10-03 23:15 | W.ED.NAVMDI ---
HPI - Nausea/Vomiting/Diarrhea General: Chief complaint: Nausea/Vomiting/Diarrhea Stated complaint: nausea Time Seen by Provider: 10/03/21 23:03 Source: patient Mode of arrival: ambulatory Limitations: no limitations History of Present Illness: 71-year-old female states been having nausea over the last week she has been seen here multiple times states she is feeling improved and started feeling nauseous again today. She is states she feels nauseated she has not vomited denies any abdominal pain denies any worsening improving factors she denies any diarrhea or constipation denies any fevers. Associated nausea: Yes Associated symtoms: Reports nausea; Denies chest pain, dysuria or headache(s) Review of Systems Const: Denies: fever(s), chills, body aches or change in appetite Eyes: Denies: blurry vision or eye discomfort ENMT: Denies: throat pain or dental pain Card: Denies: chest pain Resp: Denies: dyspnea GI: Reports: nausea : Denies: dysuria Musc: Denies: neck pain or back pain Skin/Breast: Denies: rash Neuro: Denies: headache(s) Psych: Denies: depression Sg/Lymph: Denies: easy bruising All/Imm: Denies: urticaria PFSH ED PFSH: Medical History (Updated 10/03/21 @ 23:55 by Naa Celaya MD) DM type 2 (diabetes mellitus, type 2) Hypertension Hypothyroidism Social History (Updated 10/03/21 @ 23:16 by Naa Celaya MD) Substance/Drug Use: never Physical Exam Const: COMMON NORMALS: no acute distress, patient oriented x3 and healthy appearing HENMT: COMMON NORMALS: normocephalic and atraumatic HEAD & SCALP: normocephalic and atraumatic Eye: COMMON NORMALS: Equal, round and reactive pupils present and EOMs intact bilaterally PUPIL: Yes Equal, round and reactive pupils present Neck/C-Spine: COMMON NORMALS: full ROM and supple Chest: COMMONS NORMALS: normal inspection of the chest and normal palpation of entire chest wall Resp: COMMON NORMALS: normal respiratory effort, No retractions, No use of accessory muscles and clear to auscultation bilaterally AUSCULTATION: clear to auscultation bilaterally Cardio: COMMON NORMALS: regular rate, regular rhythm and No murmurs present (Cardio) RATE: regular rate RHYTHM: regular rhythm GI: COMMON NORMALS: Normal to inspection, nondistended, normoactive bowel sounds present, Soft to palpation, non-tender and no masses PALPATION: Yes Soft to palpation Extremity: COMMON NORMALS: normal to inspection and full ROM Neuro: COMMON NORMALS: patient oriented x3, moves all extremities and no focal motor deficits Psych: COMMON NORMALS: mental status grossly normal, Normal thought process present and cooperative THOUGHT PROCESS: Normal thought process present Skin: COMMON NORMALS: no rashes or lesions noted and no wounds GENERAL SKIN EXAM: no rashes or lesions noted Course Vital Signs: Vital signs: Vital Signs Temperature 98.0 F 10/03/21 23:11 Pulse Rate 101 H 10/03/21 23:11 Respiratory Rate 15 10/03/21 23:11 Blood Pressure 148/87 10/03/21 23:11 Pulse Oximetry 93 10/03/21 23:11 MDM - Nausea/Vomiting/Diarrhea Medical Decision Making Patient presents with nausea that is been going on for over a week she has had no vomiting blood work here is normal she feels improved after Zofran we will prescribe her Zofran for home she is to follow-up with PCP in 2 to 4 days return if worsening. Lab Data : 10/03/21 23:25 10/03/21 23:25 Laboratory Results WBC 13.0 10^3/uL (4.0-10.0) H 10/03/21 23:25 RBC 4.84 10^6/uL (4.1-5.3) 10/03/21 23:25 Hgb 14.3 g/dL (11.5-15.3) 10/03/21 23:25 Hct 43.0 % (37.0-47.0) 10/03/21 23:25 MCV 88.8 fl (81-99) 10/03/21 23:25 MCH 29.5 pg (28.0-34.0) 10/03/21 23:25 MCHC 33.3 g/dL (30.0-36.0) 10/03/21 23:25 RDW 13.7 % (12.1-15.1) 10/03/21 23:25 Plt Count 238 10^3/cmm (130-400) 10/03/21 23:25 MPV 9.8 fL (7.4-10.4) 10/03/21 23:25 Neut % (Auto) 68.9 % 10/03/21 23:25 Lymph % (Auto) 20.5 % 10/03/21 23:25 [place] % (Auto) 7.7 % 10/03/21 23:25 Eos % (Auto) 1.6 % 10/03/21 23:25 Baso % (Auto) 0.5 % 10/03/21 23:25 Neut # (Auto) 8.98 10^3/uL (1.8-7.7) H 10/03/21 23:25 Lymph # (Auto) 2.7 10^3/uL (0.8-4.8) 10/03/21 23:25 [place] # (Auto) 1.0 10^3/uL (0.2-0.9) H 10/03/21 23:25 Eos # (Auto) 0.2 10^3/uL (0.0-0.8) 10/03/21 23:25 Baso # (Auto) 0.1 10^3/uL (0.0-0.1) 10/03/21 23:25 Nucleated RBC % (auto) 0 % 10/03/21 23: Nucleated RBCs # 0.0 /100WBC 10/03/21 23:25 Sodium 141 mmol/L (136-145) 10/03/21 23:25 Potassium 3.8 mmol/L (3.5-5.1) 10/03/21 23:25 Chloride 102 mmol/L (98-107) 10/03/21 23:25 Carbon Dioxide 26 mmol/L (22-29) 10/03/21 23:25 Anion Gap 16.8 (5-19) 10/03/21 23:25 BUN 11 mg/dL (8-23) 10/03/21 23:25 Creatinine 0.6 mg/dL (0.5-0.9) 10/03/21 23:25 GFR Calculation 98.8 mL/min (90-130) 10/03/21 23:25 Glucose 207 mg/dL (65-115) H 10/03/21 23:25 Calculated Osmolality 297 mOsm/kg (285-295) H 10/03/21 23:25 Calcium 8.8 mg/dL (8.5-10.5) 10/03/21 23:25 Total Bilirubin 0.2 mg/dL (0.15-1.2) 10/03/21 23:25 AST 14 U/L (0-32) 10/03/21 23:25 ALT 16 U/L (0-33) 10/03/21 23:25 Alkaline Phosphatase 115 IU/L (35-105) H 10/03/21 23:25 Total Protein 6.9 g/dL (6.6-8.7) 10/03/21 23:25 Albumin 4.0 g/dL (3.5-5.2) 10/03/21 23:25 Globulin 2.9 g/dL (1.3-4.6) 10/03/21 23:25 Lipase 23 U/L (13-60) 10/03/21 23:25 Discharge Plan Discharge Patient Disposition: Home Clinical Impression: Nausea Prescriptions: New ondansetron 4 mg tablet,disintegrating 4 mg PO Q6H PRN (Reason: nausea and vomiting) Qty: 14 0RF No Action amlodipine 5 mg tablet 5 mg PO DAILY 0RF levothyroxine 25 mcg tablet 25 mcg PO DAILY 0RF aspirin 325 mg Tablet 325 mg PO DAILY 0RF cephalexin 500 mg capsule 500 mg PO BID 7 Days Qty: 14 0RF Vistaril 25 mg capsule 25 mg PO Q6H PRN (Reason: anxiety) Qty: 20 0RF Discharge Orders: Discharge ED (Routine); Ordered 10/03/21 Ordered By: Naa Celaya Referrals: Promise Cardenas FNP [Primary Care Provider] - 1-3 days Discharge Diet: Advance as tolerated Discharge Activity: Resume usual activity Patient Instructions: Acute Nausea and Vomiting (ED) Coding Level of Care Code ED Roof Designer for Chg Fwd Exam Comprehensive
[2021-10-03] MEDS: ondansetron 2 mg/ML SDV 2 mL 4 MG IVP (23:22)
[2021-10-03 23:29] LABS: Basophils # 0.1 10^3/uL (0.0-0.1); Basophils % 0.5 %; Eosinophils # 0.2 10^3/uL (0.0-0.8); Eosinophils % 1.6 %; Hemoglobin 14.3 g/dL (11.5-15.3); Lymphocytes # 2.7 10^3/uL (0.8-4.8); Lymphocytes % 20.5 %; Mean Corpuscular HGB Conc 33.3 g/dL (30.0-36.0); Mean Corpuscular Hemoglobin 29.5 pg (28.0-34.0); Mean Corpuscular Volume 88.8 fl (81-99); Mean Platelet Volume 9.8 fL (7.4-10.4); Monocytes % 7.7 %; Neutrophils # 8.98 10^3/uL (1.8-7.7); Neutrophils % 68.9 %; Nucleated Red Blood Cells % 0 %; Platelet Count 238 10^3/cmm (130-400); Red Blood Count 4.84 10^6/uL (4.1-5.3); Red Cell Distribution Width 13.7 % (12.1-15.1)
[2021-10-03 23:49] LABS: Alanine Aminotransferase 16 U/L (0-33); Alkaline Phosphatase 115 IU/L (35-105); Anion Gap 16.8 (5-19); Aspartate Amino Transferase 14 U/L (0-32); Blood Urea Nitrogen 11 mg/dL (8-23); Calcium 8.8 mg/dL (8.5-10.5); Carbon Dioxide 26 mmol/L (22-29); Chloride 102 mmol/L (98-107); Globulin 2.9 g/dL (1.3-4.6); Glomerular Filtration Rate 98.8 mL/min (90-130); Glucose 207 mg/dL (65-115); Lipase 23 U/L (13-60); Osmolality Calculated 297 mOsm/kg (285-295); Potassium 3.8 mmol/L (3.5-5.1); Sodium 141 mmol/L (136-145); Total Bilirubin 0.2 mg/dL (0.15-1.2); Total Protein 6.9 g/dL (6.6-8.7)
[2021-10-04 00:07] VITALS: PULSE 92; O2SAT 96
== END 2021-10-04 00:09 | disposition home or self-care (01) ==
PROVIDERS: Emergency Provider Emergency Medicine; PCP Nurse Practitioner Family
DX: R11.0 Nausea (principal); Z79.82 Long term (current) use of aspirin; E11.9 Type 2 diabetes mellitus without complications; I10 Essential (primary) hypertension
CPT/HCPCS: 80053; 83690; 85025; 96374; 99284; J2405

== ENCOUNTER 2021-10-14 13:34 | Emergency (ER) | payer MEDICARE, MEDICAID, SELFPAY ==
[2021-10-14 13:44] VITALS: BP 133/74; PULSE 106; RESP 18; TEMP 37.5; O2SAT 95; BMI 39.5
--- NOTE | 2021-10-14 15:12 | CTR_ITS ---
PROCEDURE INFORMATION: Exam: CT Head Without Contrast Exam date and time: 10/14/2021 3:43 PM Age: 71 years old Clinical indication: Altered mental status/memory loss; Confusion or disorientation; Additional info: AMS TECHNIQUE: Imaging protocol: Computed tomography of the head without contrast. Radiation optimization: All CT scans at this facility use at least one of these dose optimization techniques: automated exposure control; mA and/or kV adjustment per patient size (includes targeted exams where dose is matched to clinical indication); or iterative reconstruction. COMPARISON: CT head wo con* [id number] 09/28/2021 12:37 AM RADIATION DOSE METRICS: Total DLP (mGy-cm): 852.83 FINDINGS: Brain: There is mild diffuse cerebral atrophy present, consistent with this patient's age. Periventricular and subcortical white matter low densities are present which at this age likely represent microvascular ischemic change. Cerebral ventricles: No ventriculomegaly. Paranasal sinuses: Visualized sinuses are unremarkable. No fluid levels. Mastoid air cells: Visualized mastoid air cells are well aerated. Bones/joints: Unremarkable. No acute fracture. Soft tissues: Unremarkable. Vasculature: Calcified plaque is present within the carotid siphons. Other findings: No evidence for large acute ischemic infarction. Please note acute ischemia can be occult by head CT. CT/CT head wo con* [id number] IMPRESSION: There are senescent changes of the brain as described above. No evidence for large acute ischemic infarction or acute intracranial injury.
--- NOTE | 2021-10-14 15:12 | CTR_ITS ---
PROCEDURE INFORMATION: Exam: CT Abdomen And Pelvis Without Contrast Exam date and time: 10/14/2021 3:47 PM Age: 71 years old Clinical indication: Nausea and vomiting; Additional info: N/v TECHNIQUE: Imaging protocol: Computed tomography of the abdomen and pelvis without contrast. Radiation optimization: All CT scans at this facility use at least one of these dose optimization techniques: automated exposure control; mA and/or kV adjustment per patient size (includes targeted exams where dose is matched to clinical indication); or iterative reconstruction. COMPARISON: CT angio chest PE protcl [id number] 02/16/2020 8:49 PM RADIATION DOSE METRICS: Total DLP (mGy-cm): 1769.03 FINDINGS: Lungs: Scattered tiny linear bilateral basilar opacities, likely postinflammatory scarring/sequela of pneumonia seen on most recent chest CT exam. Liver: Mild hepatomegaly with diffuse steatosis. Probable hypodense lesion measuring 14 mm at the lateral segment of left hepatic lobe, unchanged and is most likely benign. No cirrhosis or large mass otherwise. Gallbladder and bile ducts: Normal. No calcified stones. No ductal dilation. Pancreas: Mild pancreatic atrophy with no regional inflammatory response or ductal dilatation. Spleen: Normal spleen size with calcified splenic granulomas. Adrenal glands: Heterogeneous smooth nodular thickening of the left adrenal gland with a probable discrete nodule measuring 19 x 27 mm, unchanged. There is a hypodense/cystic element and mildly hyperdense component with thin peripheral rim, unchanged. The the appearance is nonspecific however no significant interval growth suggests a most likely benign etiology. Very low density nodular thickening of the right adrenal gland is also noted, unchanged measuring 9 mm, likely tiny adrenal adenoma. Kidneys and ureters: Left lower pole renal calcification measuring 2 x 1 mm suggesting nonobstructing calculus or vascular calcification. A few small water density structures in the bilateral parapelvic renal regions, likely parapelvic simple cysts measuring up to 1.6 cm on the right and 1.5 cm on the left. Stomach and bowel: Small amount of fecal retention. No obvious bowel dilatation, pneumatosis or suspicious bowel wall thickening however assessment is limited due to lack of contrast. There is probable minimal rectal prolapse which may be related to mild pelvic floor insufficiency. Appendix: No evidence of appendicitis. Intraperitoneal space: Unremarkable. No free air. No significant fluid collection. Vasculature: No abdominal aortic aneurysm. Lymph nodes: No enlarged lymph nodes. Urinary bladder: Unremarkable as visualized. Reproductive: Absent uterus. No adnexal region masses. Bones/joints: No acute fracture. Soft tissues: No acute findings. CT/CT abdomen pelvis wo con [id number] IMPRESSION: 1. Mild hepatomegaly with steatosis. 2. Stable bilateral adrenal lesions, likely benign. See discussion above. 3. Small stool burden with no acute bowel findings. Somewhat limited exam due to lack of contrast. Probable minimal rectal prolapse as described above. 4. Other nonacute findings as described. COMMENTS: Consistent with the [employer]'s Incidental Findings Committee white paper (J Am Amado Radiol 2018): Any incidental renal lesion less than 1 cm or classified as too small to characterize, or any incidental cystic renal lesion characterized as simple-appearing, is likely benign. No follow-up imaging is recommended for these lesions per consensus recommendations based on imaging criteria.
--- NOTE | 2021-10-14 15:12 | ECG_ITS ---
[facility] Test Date: 2021-10-14 Pat Name: Kenyatta Kirby Department: Room: Gender: Female Grain Inspector: : 1950 Requested By: Cisco Shelby Order Number: [id number] Cesilia MD: Jose Rangel M.D. Measurements Intervals [place] Rate: 92 P: 10 [place]: 150 QRS: -21 QRSD: 103 T: 5 QT: 316 QTc: 392 Interpretive Statements SINUS RHYTHM POSSIBLE LEFT VENTRICULAR HYPERTROPHY [VOLTAGE CRITERIA PLUS LAE OR QRS WIDENING] POSSIBLE ANTERIOR MYOCARDIAL INFARCTION , PROBABLY OLD [30 ms Q WAVE IN V3/V4, OR R < 0.2 mV IN V4] Compared to ECG 03/06/2020 14:30:58 Myocardial infarct finding now present Electronically Signed On 10-15-2021 8:38:27 CDT by Jose Rangel M.D. [id number]
--- NOTE | 2021-10-14 15:17 | W.ED.NAVMDI ---
HPI - Nausea/Vomiting/Diarrhea General: Chief complaint: Nausea/Vomiting/Diarrhea Stated complaint: nauseous Time Seen by Provider: 10/14/21 14:56 Limitations: altered mental status History of Present Illness: Ms. Kirby is a 71-year-old lady with per chart review hypertension, hypothyroidism, diabetes who presents to the emergency department due to nausea and vomiting. She reports longstanding history of nausea and vomiting. History appears to be somewhat limited although the patient's baseline mental status is unclear. She has had numerous episodes of watery emesis. No significant associated abdominal discomfort. No changes in bowel movements or urination. Overall course of symptoms has persisted. Intensity is moderate. No other specific changes in health, exacerbating, or alleviating factors identified. Review of Systems General: Reports: ROS unobtainable due to mental status PFS ED PFSH: Medical History DM type 2 (diabetes mellitus, type 2) Hypertension Hypothyroidism Surgical History (Updated 10/24/21 @ 20:40 by Cisco Shelby MD) No significant past surgical history Physical Exam Const: COMMON NORMALS: alert GENERAL APPEARANCE: cooperative and well developed HENMT: COMMON NORMALS: normocephalic and atraumatic HEAD & SCALP: normocephalic and atraumatic Eye: COMMON NORMALS: conjunctivae normal CONJUNCTIVA: Yes conjunctivae normal SCLERA: sclerae normal Neck/C-Spine: COMMON NORMALS: supple GENERAL: Yes trachea midline Resp: COMMON NORMALS: normal respiratory effort EFFORT & INSPECTION: Yes able to speak in complete sentences Cardio: COMMON NORMALS: regular rate and regular rhythm RATE: regular rate RHYTHM: regular rhythm GI: COMMON NORMALS: Soft to palpation PALPATION: Yes Soft to palpation and No Tenderness to palpation present (GI) PERCUSSION: normal to percussion Extremity: GENERAL: Yes normal exam except as noted and No edema Neuro: COMMON NORMALS: CN's II-XII intact bilaterally, moves all extremities, no focal motor deficits and no sensory deficits noted SENSORIUM/ORIENTATION: Yes alert and No Orientation impaired Psych: MEMORY/COGNITION: Yes memory grossly impaired Course ED course: - Patient was seen and evaluated by me at bedside - Patient placed on cardiac monitors, IV access obtained - Initial evaluation notable for exam as above, no focal neuro deficits. Patient is very poor historian. - Labs personally interpreted by me - Fluids and antiemetic given - Labs notable for leukocytosis and hemoconcentration. Metabolic panel concerning for dehydration with hypokalemia. Urinalysis with squamous epithelial contamination - Potassium replenishment ordered - Imaging notable for no acute evidence of pathology on head CT. CT abdomen pelvis without evidence of obstructive pathology or infection - Upon serial reexamination after treatment the patient was improved. Patient expressed strong desire for discharge. I discussed results of ED evaluation with the patient, I believe that she is at her baseline mental status and understands follow-up and return precautions. She understands need for potassium supplementation. - Based on patient history, evaluation, and testing as interpreted the most likely cause of the patient's condition is nausea vomiting with hypokalemia and dehydration - The results of ED evaluation were discussed with the patient including prescriptions and/or symptomatic cares (if applicable) including appropriate and responsible use, followup plan, and return precautions. The patient verbalized understanding and felt safe for discharge. - Patient discharged in satisfactory condition. Note: Click bubbles or prepopulated villagomez in note writing are used for assistance with data collection and billing and are inherently more limited than narrative and other text portions of this note. Please use narrative for additional clinical history and defer to narrative/free test for any case of contradictory information. If information appears in only free text or click bubble it should be considered present or absent as reported. Please contact note inspector automatic typewriter for clarifications of clinical information or contradictory information. MDM is a brief summary, contradictory or erroneous seeming information should be clarified and full note should be reviewed. Vital Signs: Vital signs: Vital Signs Temperature 99.5 F 10/14/21 13:44 Pulse Rate 98 10/14/21 16:27 Respiratory Rate 16 10/14/21 16:27 Blood Pressure 134/88 10/14/21 16:27 Pulse Oximetry 92 10/14/21 16:27 MDM - Nausea/Vomiting/Diarrhea Medical Decision Making 71-year-old lady with history of nausea and vomiting presenting with similar. patient found to have dehydration and hypokalemia. Replenishment ordered. Patient expressed strong desire for discharge and is satisfactory for potassium replenishment continued in the outpatient environment. Medical Records I reviewed the patient's medical records. Lab Data I reviewed the patient's lab results. : 10/14/21 11:13 10/14/21 11:13 Radiology Impressions Abdomen/Pelvis CT 10/14/21 15:12 IMPRESSION: 1. Mild hepatomegaly with steatosis. 2. Stable bilateral adrenal lesions, likely benign. See discussion above. 3. Small stool burden with no acute bowel findings. Somewhat limited exam due to lack of contrast. Probable minimal rectal prolapse as described above. 4. Other nonacute findings as described. COMMENTS: Consistent with the [employer]'s Incidental Findings Committee white paper (J Am Amado Radiol 2018): Any incidental renal lesion less than 1 cm or classified as too small to characterize, or any incidental cystic renal lesion characterized as simple-appearing, is likely benign. No follow-up imaging is recommended for these lesions per consensus recommendations based on imaging criteria. Head CT 10/14/21 15:12 IMPRESSION: There are senescent changes of the brain as described above. No evidence for large acute ischemic infarction or acute intracranial injury. Laboratory Results WBC 18.6 10^3/uL (4.0-10.0) H 10/14/21 11:13 RBC 5.43 10^6/uL (4.1-5.3) H 10/14/21 11:13 Hgb 16.1 g/dL (11.5-15.3) H 10/14/21 11:13 Hct 47.0 % (37.0-47.0) 10/14/21 11:13 MCV 86.6 fl (81-99) 10/14/21 11:13 MCH 29.7 pg (28.0-34.0) 10/14/21 11:13 MCHC 34.3 g/dL (30.0-36.0) 10/14/21 11:13 RDW 13.2 % (12.1-15.1) 10/14/21 11:13 Plt Count 269 10^3/cmm (130-400) 10/14/21 11:13 MPV 10.4 fL (7.4-10.4) 10/14/21 11:13 Neut % (Auto) 81.4 % 10/14/21 11:13 Lymph % (Auto) 9.0 % 10/14/21 11:13 [place] % (Auto) 7.9 % 10/14/21 11:13 Eos % (Auto) 0.2 % 10/14/21 11:13 Baso % (Auto) 0.5 % 10/14/21 11:13 Neut # (Auto) 15.11 10^3/uL (1.8-7.7) H 10/14/21 11:13 Lymph # (Auto) 1.7 10^3/uL (0.8-4.8) 10/14/21 11:13 [place] # (Auto) 1.5 10^3/uL (0.2-0.9) H 10/14/21 11:13 Eos # (Auto) 0.0 10^3/uL (0.0-0.8) 10/14/21 11:13 Baso # (Auto) 0.1 10^3/uL (0.0-0.1) 10/14/21 11:13 Nucleated RBC % (auto) 0 % 10/14/21 11:13 Nucleated RBCs # 0.0 /100WBC 10/14/21 11:13 Sodium 137 mmol/L (136-145) 10/14/21 11:13 Potassium 2.7 mmol/L (3.5-5.1) L* 10/14/21 11:13 Chloride 94 mmol/L (98-107) L 10/14/21 11:13 Carbon Dioxide 28 mmol/L (22-29) 10/14/21 11:13 Anion Gap 17.7 (5-19) 10/14/21 11:13 BUN 14 mg/dL (8-23) 10/14/21 11:13 Creatinine 1.1 mg/dL (0.5-0.9) H 10/14/21 11:13 GFR Calculation 49.1 mL/min (90-130) L 10/14/21 11:13 Glucose 197 mg/dL (65-115) H 10/14/21 11:13 Calculated Osmolality 290 mOsm/kg (285-295) 10/14/21 11:13 Calcium 9.2 mg/dL (8.5-10.5) 10/14/21 11:13 Lipase 16 U/L (13-60) 10/14/21 11:13 Urine Color Yellow (Yellow) 10/14/21 18:05 Urine Appearance Clear (CLEAR) 10/14/21 18:05 Urine pH 7 (5-7) 10/14/21 18:05 Ur Specific [place] 1.005 (1.005-1.030) 10/14/21 18:05 Urine Protein 2+ (Negative) H 10/14/21 18:05 Urine Glucose (UA) Norm (Normal) 10/14/21 18:05 Urine Ketones Negative (Negative) 10/14/21 18:05 Urine Blood Neg (Negative) 10/14/21 18:05 Urine Nitrate Negative (Negative) 10/14/21 18:05 Urine Bilirubin Neg (Negative) 10/14/21 18:05 Urine Urobilinogen Norm mg/dL (Negative) 10/14/21 18:05 Ur Leukocyte Esterase Negative (Negative) 10/14/21 18:05 Urine RBC None /hpf (0-2) 10/14/21 18:05 Urine WBC 15-25 /hpf (0-5) H 10/14/21 18:05 Ur Squamous Epith Cells 25-40 /hpf (0-5) H 10/14/21 18:05 Ur Transition Epith Cell 0-4 /hpf 10/14/21 18:05 Amorphous Sediment Not Reportable 10/14/21 18:05 Urine Bacteria 2+ /hpf (NONE) H 10/14/21 18:05 Discharge Plan Discharge Patient Disposition: Home Clinical Impression: Nausea, Dehydration, Leukocytosis, Hypokalemia Condition: Stable Prescriptions: New ondansetron 4 mg tablet,disintegrating 4 mg PO TID PRN (Reason: nausea and vomiting) Qty: 15 0RF potassium chloride 20 mEq tablet extended release 20 meq PO BID Qty: 8 0RF No Action amlodipine 5 mg tablet 5 mg PO DAILY 0RF levothyroxine 25 mcg tablet 25 mcg PO DAILY 0RF aspirin 325 mg Tablet 325 mg PO DAILY 0RF Vistaril 25 mg capsule 25 mg PO Q6H PRN (Reason: anxiety) Qty: 20 0RF ondansetron 4 mg tablet,disintegrating 4 mg PO Q6H PRN (Reason: nausea and vomiting) Qty: 14 0RF Discharge Orders: Discharge ED (Routine); Ordered 10/14/21 Ordered By: Cisco Shelby Referrals: Promise Cardenas FNP [Primary Care Provider] - Discharge Diet: Usual diet Discharge Activity: Increase activity as tolerated Patient Instructions: Dehydration (ED), Hypokalemia (ED), Acute Nausea and Vomiting (ED), Leukocytosis (ED) Activity Restrictions/Additional Instructions: Thank you for visiting the emergency department. You were seen and evaluated for nausea. The exact cause of your symptoms is unclear. You were noted to have dehydration, please ensure that you are staying hydrated. Additionally your potassium was noted to be low, please ensure an adequate diet and I will order a few days of oral replenishment supplementation as well. I recommend repeat labs in the next 3 to 5 days with your primary care provider. Please follow-up with your primary care provider. Given your persistence of nausea you should consider endoscopy for further evaluation. Please return to the emergency department for worsening symptoms or anything else that you are concerned about a feel needs emergency department evaluation. Coding Level of Care Code ED Low Heel Builder for Presley Hamilton
[2021-10-14] MEDS: sodium chloride 0.9% 1,000 ML 999 ML IV (16:24)
[2021-10-14 16:27] VITALS: BP 134/88; PULSE 98; RESP 16; O2SAT 92
[2021-10-14] MEDS: ondansetron 2 mg/ML SDV 2 mL 4 MG IVP (16:34)
[2021-10-14 17:46] LABS: Basophils # 0.1 10^3/uL (0.0-0.1); Basophils % 0.5 %; Eosinophils % 0.2 %; Hemoglobin 16.1 g/dL (11.5-15.3); Lymphocytes # 1.7 10^3/uL (0.8-4.8); Mean Corpuscular HGB Conc 34.3 g/dL (30.0-36.0); Mean Corpuscular Hemoglobin 29.7 pg (28.0-34.0); Mean Corpuscular Volume 86.6 fl (81-99); Mean Platelet Volume 10.4 fL (7.4-10.4); Monocytes # 1.5 10^3/uL (0.2-0.9); Monocytes % 7.9 %; Neutrophils # 15.11 10^3/uL (1.8-7.7); Neutrophils % 81.4 %; Nucleated Red Blood Cells % 0 %; Platelet Count 269 10^3/cmm (130-400); Red Blood Count 5.43 10^6/uL (4.1-5.3); Red Cell Distribution Width 13.2 % (12.1-15.1); White Blood Count 18.6 10^3/uL (4.0-10.0)
[2021-10-14 17:54] LABS: Anion Gap 17.7 (5-19); Blood Urea Nitrogen 14 mg/dL (8-23); Calcium 9.2 mg/dL (8.5-10.5); Carbon Dioxide 28 mmol/L (22-29); Chloride 94 mmol/L (98-107); Glomerular Filtration Rate 49.1 mL/min (90-130); Glucose 197 mg/dL (65-115); Lipase 16 U/L (13-60); Osmolality Calculated 290 mOsm/kg (285-295); Sodium 137 mmol/L (136-145)
[2021-10-14 18:23] LABS: Potassium 2.7 mmol/L (3.5-5.1)
--- NOTE | 2021-10-14 18:25 | PC.NURSE ---
physician notified of critical lab. Potassium 2.7 No verbal orders given at this time.
[2021-10-14] MEDS: potassium chloride ER 20 mEq Tablet 40 MEQ PO (18:50)
--- NOTE | 2021-10-14 18:54 | PC.NURSE ---
GAVE VERBAL ORDERS NOT TO GIVE MAG SULFATE DRIP.
[2021-10-14 18:58] LABS: Add Urine Microscopic? YES; Bilirubin Urine Neg (Negative); Blood Urine Neg (Negative); Glucose Urine UA Norm (Normal); Ketones Urine Negative (Negative); Leukocyte Esterase Urine Negative (Negative); Nitrate Urine Negative (Negative); Protein Urine 2+ (Negative); Specific Gravity, Urine 1.005 (1.005-1.030); Urine Appearance Clear (CLEAR); Urine Color Yellow (Yellow); Urobilinogen Urine Norm (Negative); pH Urine 7 (5-7)
[2021-10-14 19:04] LABS: Add Urine Culture? No; Bacteria Urine 2+ /hpf; Squamous Epithelial Cell Urine 25-40 /hpf (0-5); Transitional Epi Cells Urine 0-4 /hpf; WBC Urine 15-25 /hpf (0-5)
== END 2021-10-14 19:20 | disposition home or self-care (01) ==
PROVIDERS: Emergency Provider Emergency Medicine; PCP Nurse Practitioner Family
DX: R11.0 Nausea (principal); E86.0 Dehydration; D72.829 Elevated white blood cell count, unspecified; E87.6 Hypokalemia; Z79.82 Long term (current) use of aspirin; E11.9 Type 2 diabetes mellitus without complications; I10 Essential (primary) hypertension
CPT/HCPCS: 70450; 74176; 80048; 81001; 83690; 85025; 93005; 96361; 96374; 99284; J2405; J7030

== ENCOUNTER 2021-10-15 03:59 | Emergency (ER) | payer MEDICARE, MEDICAID, SELFPAY ==
[2021-10-15 04:08] VITALS: BP 134/87; PULSE 106; RESP 18; TEMP 36.4; O2SAT 92; BMI 39.5
[2021-10-15] MEDS: ondansetron 4 MG Tablet 12 MG PO (04:41)
[2021-10-15] MEDS: promethazine 25 mg Tablet PO (04:41)
[2021-10-15 04:42] VITALS: BP 131/74; PULSE 99; RESP 18; TEMP 36.7; O2SAT 97
--- NOTE | 2021-10-16 15:10 | ED_ITS ---
HPI - Nausea/Vomiting/Diarrhea General: Chief complaint: Nausea/Vomiting/Diarrhea Stated complaint: nauseous Time Seen by Provider: 10/15/21 04:15 Source: patient History of Present Illness: This is the sixth time this patient has presented to the ER in the last two weeks. She complaints of nausea. She was seen last night for the same complaint. She was prescribed medications which she did not get filled at the pharmacy. She denies significant belly pain. She states that she has this nausea all the time. She has not been home since she was discharged last night, but simply has been driving around town. No fever, no vomiting, no diarrhea. MD elicited complaint: nausea Onset (ago): week(s) Associated nausea: Yes Associated abdominal pain: No Radiation: other Pain consistency: other Relieving factors: none and other Associated symtoms: Reports anxiety and nausea; Denies altered mental status, chest pain, cough, dysuria, fevers/chills, headache(s) or anorexia (she ate prior to coming back in) Review of Systems Const: Denies: fever(s) ENMT: Denies: throat pain Card: Denies: chest pain Resp: Denies: dyspnea GI: Reports: nausea; Denies: abdominal pain, vomiting or diarrhea : Denies: dysuria Neuro: Denies: headache(s) Psych: Reports: anxiety PFSH ED PFSH: Medical History DM type 2 (diabetes mellitus, type 2) Hypertension Hypothyroidism Physical Exam Const: COMMON NORMALS: no acute distress EXAM LIMITATIONS: no altered mental status HENMT: COMMON NORMALS: normocephalic, atraumatic and Normal external nose present HEAD & SCALP: normocephalic and atraumatic NOSE: Normal external nose present and Normal nares present Eye: COMMON NORMALS: Equal, round and reactive pupils present, EOMs intact bilaterally, negative for conjunctivae normal, negative for no scleral icterus, negative for no papilledema, negative for normal visual villagomez by confrontation and negative for fundi normal bilaterally CONJUNCTIVA: No conjunctivae normal PUPIL: Yes Equal, round and reactive pupils present DIRECT OPHTHALMOSCOPY: No no papilledema and No fundi normal bilaterally Neck/C-Spine: GENERAL: Yes trachea midline Chest: CHEST: Yes Symmetrical chest wall rise Resp: COMMON NORMALS: normal respiratory effort, No retractions, No use of accessory muscles and clear to auscultation bilaterally AUSCULTATION: clear to auscultation bilaterally Cardio: COMMON NORMALS: regular rate and regular rhythm RATE: regular rate RHYTHM: regular rhythm GI: COMMON NORMALS: Normal to inspection, nondistended, normoactive bowel sounds present, Soft to palpation and non-tender PALPATION: Yes Soft to palpation Extremity: COMMON NORMALS: capillary refill normal Neuro: SAI COMA SCALE: document GCS findings Sai coma scale eye opening: Spontaneous [place] coma scale verbal response: Orientated [place] coma scale motor response: Obey commands [place] coma scale total score: 15 Course Vital Signs: Vital signs: Vital Signs Temperature 98.1 F 10/15/21 04:42 Pulse Rate 99 10/15/21 04:42 Respiratory Rate 18 10/15/21 04:42 Blood Pressure 131/74 10/15/21 04:42 Pulse Oximetry 97 10/15/21 04:42 MDM - Nausea/Vomiting/Diarrhea Medical Decision Making patient is given oral zofran and asked to fill her Rx's later this am. She is I believe anxious, has no one at home, and does not wish to be there but instead here where there are people. she is going to stay at the [address] of [address]. Discharge Plan Discharge Patient Disposition: Home Clinical Impression: Nausea Condition: Stable Prescriptions: No Action amlodipine 5 mg tablet 5 mg PO DAILY 0RF levothyroxine 25 mcg tablet 25 mcg PO DAILY 0RF aspirin 325 mg Tablet 325 mg PO DAILY 0RF ondansetron 4 mg tablet,disintegrating 4 mg PO TID PRN (Reason: nausea and vomiting) Qty: 15 0RF potassium chloride 20 mEq tablet extended release 20 meq PO BID Qty: 8 0RF Vistaril 25 mg capsule 25 mg PO Q6H PRN (Reason: anxiety) Qty: 20 0RF ondansetron 4 mg tablet,disintegrating 4 mg PO Q6H PRN (Reason: nausea and vomiting) Qty: 14 0RF Discharge Orders: Discharge ED (Routine); Ordered 10/15/21 Ordered By: Eddie Fall Referrals: Promise Cardenas, LOG LOADER [Primary Care Provider] - 4-7 days Patient Instructions: Acute Nausea and Vomiting (ED) Activity Restrictions/Additional Instructions: Return for fever, vomiting liquids, etc. Coding Level of Care Code ED Quality Assurance Director for Chg Fwd
== END 2021-10-15 04:43 | disposition home or self-care (01) ==
PROVIDERS: Emergency Provider Emergency Medicine; PCP Nurse Practitioner Family
DX: R11.0 Nausea (principal); Z79.82 Long term (current) use of aspirin; I10 Essential (primary) hypertension; E11.9 Type 2 diabetes mellitus without complications
CPT/HCPCS: 99283; Q0162; Q0169

== ENCOUNTER 2022-02-17 01:10 | Emergency (ER) | payer MEDICARE, MEDICAID, SELFPAY ==
[2022-02-17 01:12] VITALS: BP 137/85; PULSE 111; RESP 18; TEMP 37.1; O2SAT 94; BMI 28.1
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
--- NOTE | 2022-02-17 01:24 | ECG_ITS ---
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 Measurements Intervals [place] Rate: 111 P: -2 VT: 128 QRS: -20 QRSD: 96 T: 36 QT: 326 QTc: 445 Interpretive Statements SINUS TACHYCARDIA POSSIBLE LEFT ATRIAL ENLARGEMENT [-0.1mV P-WAVE IN V1/V2] POSSIBLE LEFT VENTRICULAR HYPERTROPHY POSSIBLE ANTERIOR MYOCARDIAL INFARCTION , PROBABLY OLD Compared to ECG 10/14/2021 17:09:44 Sinus rhythm no longer present Myocardial infarct finding still present Electronically Signed On 02-17-2022 10:51:09 CDT by Erin Cartwright M.D. [email or web address]
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
[2022-02-17 01:51] LABS: Basophils # 0.1 10^3/uL (0.0-0.1); Basophils % 0.6 %; Eosinophils # 0.1 10^3/uL (0.0-0.8); Eosinophils % 0.2 %; Hematocrit 46.9 % (37.0-47.0); Hemoglobin 15.4 g/dL (11.5-15.3); Lymphocytes # 2.6 10^3/uL (0.8-4.8); Lymphocytes % 11.3 %; Mean Corpuscular HGB Conc 32.8 g/dL (30.0-36.0); Mean Corpuscular Hemoglobin 29.7 pg (28.0-34.0); Mean Corpuscular Volume 90.4 fl (81-99); Mean Platelet Volume 10.1 fL (7.4-10.4); Monocytes # 1.5 10^3/uL (0.2-0.9); Monocytes % 6.6 %; Neutrophils # 17.96 10^3/uL (1.8-7.7); Neutrophils % 79.1 %; Nucleated Red Blood Cells % 0 %; Platelet Count 359 10^3/cmm (130-400); Red Blood Count 5.19 10^6/uL (4.1-5.3); Red Cell Distribution Width 13.2 % (12.1-15.1); White Blood Count 22.7 10^3/uL (4.0-10.0)
[2022-02-17 02:08] LABS: INR 0.94 (0.8-1.2); Partial Thromboplastin Time 23.8 SECONDS (23.9-36.7)
[2022-02-17 02:18] LABS: Troponin(5th) Baseline 16 ng/L (0-10)
[2022-02-17 02:23] LABS: Alanine Aminotransferase 20 U/L (0-33); Alkaline Phosphatase 127 U/L (35-105); Aspartate Amino Transferase 17 U/L (0-32); Blood Urea Nitrogen 23 mg/dL (8-23); Calcium 9.7 mg/dL (8.5-10.5); Carbon Dioxide 24 mmol/L (22-29); Chloride 94 mmol/L (98-107); Globulin 3.6 g/dL (1.3-4.6); Glomerular Filtration Rate 49.1 mL/min (90-130); Glucose 291 mg/dL (65-115); NT Pro B Type Natriuretic Pept 86 pg/mL (0-125); Osmolality Calculated 306 mOsm/kg (285-295); Sodium 141 mmol/L (136-145); Total Bilirubin 0.3 mg/dL (0.15-1.2); Total Protein 7.6 g/dL (6.6-8.7)
[2022-02-17 02:25] LABS: Alcohol Level < 10 mg/dL (0-10); Creatinine Clr Calc Pharmacy 54.0203
[2022-02-17 02:51] VITALS: BP 124/78; PULSE 97; RESP 22; O2SAT 97
[2022-02-17 04:00] VITALS: BP 117/64; PULSE 91; RESP 16; O2SAT 97
--- NOTE | 2022-02-17 04:07 | ECG_ITS ---
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 Measurements Intervals [place] Rate: 91 P: 19 VT: 153 QRS: -23 QRSD: 93 T: 21 QT: 317 QTc: 390 Interpretive Statements SINUS RHYTHM POSSIBLE LEFT ATRIAL ENLARGEMENT [-0.1mV P-WAVE IN V1/V2] LOW QRS VOLTAGE IN PRECORDIAL LEADS [QRS DEFLECTION < 1.0 mV IN CHEST LEADS] POSSIBLE LEFT VENTRICULAR HYPERTROPHY [VOLTAGE CRITERIA PLUS LAE OR QRS WIDENING] POSSIBLE ANTERIOR MYOCARDIAL INFARCTION , PROBABLY OLD Compared to ECG 02/17/2022 01:26:26 Low QRS voltage now present Sinus tachycardia no longer present Myocardial infarct finding still present Electronically Signed On 02-17-2022 10:54:03 CDT by Erin Cartwright M.D. [id number]
[2022-02-17 04:37] LABS: Troponin 5 2HR 23.54 ng/L (0-10)
[2022-02-17 04:48] LABS: Troponin 5 2HR Delta 7.54 ABS# (0-10)
[2022-02-17 05:00] VITALS: BP 156/96; PULSE 88; RESP 21; O2SAT 95
[2022-02-17 05:37] LABS: Urine Appearance Clear (CLEAR); Urine Color Yellow (Yellow); pH Urine 5 (5-7)
[2022-02-17 05:38] LABS: Add Urine Microscopic? YES; Bilirubin Urine Neg (Negative); Blood Urine Neg (Negative); Glucose Urine UA 2+ (Normal); Ketones Urine 1+ (Negative); Leukocyte Esterase Urine Trace (Negative); Nitrate Urine Negative (Negative); Protein Urine 1+ (Negative); Urobilinogen Urine Neg (Negative)
[2022-02-17 05:39] LABS: WBC Urine 0-4 /hpf (0-5)
[2022-02-17 05:40] LABS: Add Urine Culture? No; Squamous Epithelial Cell Urine 15-25 /hpf (0-5)
[2022-02-17 06:00] VITALS: BP 148/84; PULSE 87; RESP 19; O2SAT 95
[2022-02-17 07:52] VITALS: BP 146/95; PULSE 97; O2SAT 92
== END 2022-02-17 07:54 | disposition home or self-care (01) ==
PROVIDERS: Nurse Practitioner Family; Emergency Provider Emergency Medicine; PCP Nurse Practitioner Family
DX: S20.214A Contusion of middle front wall of thorax, initial encounter (principal); V89.2XXA Person injured in unspecified motor-vehicle accident, traffic, initial encounter; Y92.410 Unspecified street and highway as the place of occurrence of the external cause; S20.219A Contusion of unspecified front wall of thorax, initial encounter
CPT/HCPCS: 70450; 71045; 71260; 72125; 74177; 80053; 80307; 81001; 83880; 84484; 85025; 85610; 85730; 93005; 99285; J7030; Q9967

== ENCOUNTER 2022-02-17 09:09 | Emergency (ER) | payer MEDICARE, MEDICAID, SELFPAY ==
[2022-02-17 09:31] VITALS: BP 146/80; PULSE 72; RESP 18; TEMP 36.7; O2SAT 98
--- NOTE | 2022-02-17 09:36 | XRR_ITS ---
PROCEDURE INFORMATION: Exam: XR Chest Exam date and time: 02/17/2022 9:45 AM Age: 71 years old Clinical indication: Pain; Chest pressure; Additional info: Cp TECHNIQUE: Imaging protocol: Radiologic exam of the chest. Views: 1 view. Total images: 1 COMPARISON: CT chest abd pel w con* 02/17/2022 3:16 AM FINDINGS: Lungs: Trace atelectasis or scar noted in the left lung base. Pleural spaces: Unremarkable. No pleural effusion. No pneumothorax. Heart/Mediastinum: Unremarkable. No cardiomegaly. Bones/joints: Unremarkable. XR/XR chest 1V portable [id number] IMPRESSION: Trace atelectasis or scar noted in the left lung base.
--- NOTE | 2022-02-17 09:43 | ECG_ITS ---
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 Measurements Intervals [place] Rate: 94 P: 19 [place]: 155 QRS: -22 QRSD: 96 T: 10 QT: 375 QTc: 469 Interpretive Statements SINUS RHYTHM POSSIBLE ANTERIOR MYOCARDIAL INFARCTION , PROBABLY OLD [30 ms Q WAVE IN V3/V4, OR R < 0.2 mV IN V4] Compared to ECG 02/17/2022 04:07:08 No significant changes Electronically Signed On 02-17-2022 10:50:10 CDT by Erin Cartwright M.D. [id number]
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
[2022-02-17] MEDS: sodium chloride 0.9% 1,000 ML 999 ML IV (10:21)
[2022-02-17 10:28] LABS: Basophils # 0.1 10^3/uL (0.0-0.1); Basophils % 0.4 %; Hematocrit 48.9 % (37.0-47.0); Hemoglobin 15.7 g/dL (11.5-15.3); Lymphocytes # 1.9 10^3/uL (0.8-4.8); Mean Corpuscular HGB Conc 32.1 g/dL (30.0-36.0); Mean Corpuscular Hemoglobin 29.4 pg (28.0-34.0); Mean Corpuscular Volume 91.6 fl (81-99); Mean Platelet Volume 9.9 fL (7.4-10.4); Monocytes # 1.2 10^3/uL (0.2-0.9); Monocytes % 6.5 %; Neutrophils # 15.42 10^3/uL (1.8-7.7); Neutrophils % 82.1 %; Nucleated Red Blood Cells % 0 %; Platelet Count 331 10^3/cmm (130-400); Red Blood Count 5.34 10^6/uL (4.1-5.3); Red Cell Distribution Width 13.3 % (12.1-15.1); White Blood Count 18.8 10^3/uL (4.0-10.0)
[2022-02-17 10:44] LABS: Alanine Aminotransferase 20 U/L (0-33); Albumin Level 4.9 g/dL (3.5-5.2); Alkaline Phosphatase 141 U/L (35-105); Anion Gap 18.6 (5-19); Aspartate Amino Transferase 17 U/L (0-32); Blood Urea Nitrogen 24 mg/dL (8-23); Carbon Dioxide 30 mmol/L (22-29); Chloride 93 mmol/L (98-107); Globulin 2.9 g/dL (1.3-4.6); Glomerular Filtration Rate 61.9 mL/min (90-130); Glucose 231 mg/dL (65-115); Osmolality Calculated 297 mOsm/kg (285-295); Potassium 3.6 mmol/L (3.5-5.1); Sodium 138 mmol/L (136-145); Total Bilirubin 0.3 mg/dL (0.15-1.2); Total Protein 7.8 g/dL (6.6-8.7)
[2022-02-17 10:46] LABS: Troponin(5th) Baseline 25 ng/L (0-10)
--- NOTE | 2022-02-17 11:06 | ECG_ITS ---
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 Measurements Intervals [place] Rate: 97 P: 15 [place]: 150 QRS: -40 QRSD: 93 T: 7 QT: 282 QTc: 359 Interpretive Statements SINUS RHYTHM LEFT AXIS DEVIATION [QRS AXIS < -30] POSSIBLE ANTERIOR MYOCARDIAL INFARCTION , PROBABLY OLD [30 ms Q WAVE IN V3/V4, OR R < 0.2 mV IN V4] Compared to ECG 02/17/2022 09:43:51 Left-axis deviation now present Myocardial infarct finding still present Electronically Signed On 02-17-2022 15:45:18 CDT by Erin Cartwright M.D. [id number]
== END 2022-02-17 11:24 | disposition home or self-care (01) ==
PROVIDERS: Emergency Provider Emergency Medicine; PCP Nurse Practitioner Family
DX: S20.219A Contusion of unspecified front wall of thorax, initial encounter (principal); V89.2XXA Person injured in unspecified motor-vehicle accident, traffic, initial encounter; Y92.410 Unspecified street and highway as the place of occurrence of the external cause
CPT/HCPCS: 71045; 80053; 84484; 85025; 93005; 99285; J7030

== ENCOUNTER 2022-02-19 20:10 | Emergency (ER) | payer MEDICARE, MEDICAID, SELFPAY ==
[2022-02-19 20:52] VITALS: BP 122/80; PULSE 103; RESP 18; TEMP 36.9; O2SAT 96; BMI 30.4
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
[2022-02-19] MEDS: acetaminophen 500 mg Tablet 1000 MG PO (21:59)
[2022-02-19] MEDS: LORazepam 0.5 mg Tablet PO (22:00)
== END 2022-02-19 22:01 | disposition home or self-care (01) ==
PROVIDERS: Emergency Provider Nurse Practitioner Family; PCP Nurse Practitioner Family
DX: F41.9 Anxiety disorder, unspecified (principal); R07.89 Other chest pain; Z79.82 Long term (current) use of aspirin; E11.9 Type 2 diabetes mellitus without complications; I10 Essential (primary) hypertension
CPT/HCPCS: 99283

== ENCOUNTER 2022-02-21 20:57 | Emergency (ER) | payer MEDICARE, MEDICAID, SELFPAY ==
[2022-02-21 21:06] VITALS: BP 119/76; PULSE 97; RESP 16; TEMP 36.3; O2SAT 94; BMI 33.4
--- NOTE | 2022-02-21 21:15 | ECG_ITS ---
[facility] Test Date: 2022-02-21 Pat Name: Kenyatta Kirby Department: Room: Gender: Female Clerical Specialist: : 1950 Requested By: Naa Celaya Order Number: [id number] Cesilia MD: Erin Cartwright M.D. Measurements Intervals [place] Rate: 97 P: 12 [place]: 137 QRS: -11 QRSD: 97 T: 7 QT: 339 QTc: 431 Interpretive Statements SINUS RHYTHM LOW QRS VOLTAGE IN PRECORDIAL LEADS [QRS DEFLECTION < 1.0 mV IN CHEST LEADS] POSSIBLE ANTERIOR MYOCARDIAL INFARCTION , PROBABLY OLD [30 ms Q WAVE IN V3/V4, OR R < 0.2 mV IN V4] Compared to ECG 02/17/2022 11:06:50 Low QRS voltage now present Left-axis deviation no longer present Myocardial infarct finding still present Electronically Signed On 02-22-2022 5:24:46 LATEX DIPPER by Erin Cartwright M.D. [email or web address]/[id number]
--- NOTE | 2022-02-21 22:54 | XRR_ITS ---
PROCEDURE INFORMATION: Exam: XR Chest Exam date and time: 02/22/2022 12:04 AM Age: 71 years old Clinical indication: Chest pressure and chest wall pain; Additional info: Cp TECHNIQUE: Imaging protocol: Radiologic exam of the chest. Views: 1 view. COMPARISON: CR (CHEST, ) 02/17/2022 9:45 AM FINDINGS: Lungs: Minimal right lower lobe atelectasis. Pleural spaces: Unremarkable. No pleural effusion. No pneumothorax. Heart/Mediastinum: Unremarkable. No cardiomegaly. Bones/joints: Unremarkable. XR/XR chest 1V portable [id number] IMPRESSION: Minimal right lower lobe atelectasis.
--- NOTE | 2022-02-21 23:02 | W.ED.CHESTPA ---
HPI - Chest Pain General: Chief Complaint: Chest Pain Stated Complaint: CP/ANXIETY Time Seen by Provider: 02/21/22 22:21 Source: patient and EMS Mode of arrival: EMS Limitations: no limitations History of Present Illness: 71-year-old female who states that she has been having increasing anxiety she has been seen here multiple times with a week for her anxiety states today she felt anxious started having some chest pain states that since resolved she feels improved currently but she does not know what to do when she has these attacks she has not followed with PCP denies any shortness of breath. Associated symptoms: Deny abdominal pain, dyspnea, fever(s), nausea or vomiting Review of Systems Const: Denies: fever(s), chills, body aches or change in appetite Eyes: Denies: blurry vision or eye discomfort ENMT: Denies: throat pain or dental pain Card: Reports: chest pain Resp: Denies: dyspnea GI: Denies: abdominal pain, nausea, vomiting or diarrhea : Denies: dysuria Musc: Denies: neck pain or back pain Skin/Breast: Denies: rash Neuro: Denies: headache(s) Psych: Reports: anxiety Sg/Lymph: Denies: easy bruising All/Imm: Denies: urticaria PFSH ED PFSH: Medical History DM type 2 (diabetes mellitus, type 2) Hypertension Hypothyroidism Surgical History No significant past surgical history Social History (Updated 02/21/22 @ 23:04 by Naa Celaya MD) Substance/Drug Use: never Physical Exam Const: COMMON NORMALS: no acute distress, patient oriented x3 and healthy appearing HENMT: COMMON NORMALS: normocephalic and atraumatic HEAD & SCALP: normocephalic and atraumatic Eye: COMMON NORMALS: Equal, round and reactive pupils present and EOMs intact bilaterally PUPIL: Yes Equal, round and reactive pupils present Neck/C-Spine: COMMON NORMALS: full ROM and supple Chest: COMMONS NORMALS: normal inspection of the chest and normal palpation of entire chest wall Resp: COMMON NORMALS: normal respiratory effort, No retractions, No use of accessory muscles and clear to auscultation bilaterally AUSCULTATION: clear to auscultation bilaterally Cardio: COMMON NORMALS: regular rate, regular rhythm and No murmurs present (Cardio) RATE: regular rate RHYTHM: regular rhythm GI: COMMON NORMALS: Normal to inspection, nondistended, normoactive bowel sounds present, Soft to palpation, non-tender and no masses PALPATION: Yes Soft to palpation Extremity: COMMON NORMALS: normal to inspection and full ROM Neuro: COMMON NORMALS: patient oriented x3, moves all extremities and no focal motor deficits Psych: COMMON NORMALS: mental status grossly normal, Normal thought process present and cooperative THOUGHT PROCESS: Normal thought process present Skin: COMMON NORMALS: no rashes or lesions noted and no wounds GENERAL SKIN EXAM: no rashes or lesions noted Course Vital Signs: Vital signs: Vital Signs Temperature 97.3 F L 02/21/22 21:06 Pulse Rate 97 02/21/22 21:06 Respiratory Rate 16 02/21/22 21:06 Blood Pressure 119/76 02/21/22 21:06 Pulse Oximetry 94 02/21/22 21:06 Oxygen Delivery Me thod 02/21/22 21:06 MDM - Chest Pain Medical Decision Making Patient presents here with chest pains atypical in nature EKG is normal she has had no pain here she does have a long history anxiety we will start her on Xanax as needed she is to follow-up with PCP and return if worsening. Lab Data : 02/21/22 22:56 EKG Data EKG 1: I personally reviewed and interpreted this EKG as follows: EKG interpretation date: 02/21/22 EKG interpretation time: 21:12 Interpretation: nsr hr [address] or t wave abnormalities qrs 97 qtc 393 Discharge Plan Discharge Patient Disposition: Home Clinical Impression: Anxiety Prescriptions: New Xanax 0.5 mg tablet 0.5 mg PO BID PRN (Reason: anxiety) Qty: 20 0RF No Action amlodipine 5 mg tablet 5 mg PO DAILY levothyroxine 25 mcg tablet 25 mcg PO DAILY aspirin 325 mg Tablet 325 mg PO DAILY ondansetron 4 mg tablet,disintegrating 4 mg PO TID PRN (Reason: nausea and vomiting) Qty: 15 0RF potassium chloride 20 mEq tablet extended release 20 meq PO BID Qty: 8 0RF ondansetron 4 mg tablet,disintegrating 4 mg PO Q6H PRN (Reason: nausea and vomiting) Qty: 14 0RF acetaminophen 500 mg capsule 1,000 mg PO Q6H PRN (Reason: pain) Qty: 30 0RF Vistaril 25 mg capsule 25 mg PO 2XD PRN (Reason: anxiety) Qty: 20 0RF Discharge Orders: Discharge ED (Routine); Ordered 02/21/22 Ordered By: Naa Celaya Referrals: Promise Cardenas FNP [Primary Care Provider] - 1-3 days Discharge Diet: Advance as tolerated Discharge Activity: Resume usual activity Patient Instructions: Anxiety (ED) Coding Level of Care Code ED Brim Pouncer Machine Operator for Chg Fwd Exam Comprehensive
[2022-02-21 23:03] LABS: Basophils # 0.1 10^3/uL (0.0-0.1); Basophils % 0.5 %; Eosinophils # 0.1 10^3/uL (0.0-0.8); Eosinophils % 0.3 %; Hematocrit 51.7 % (37.0-47.0); Hemoglobin 17.2 g/dL (11.5-15.3); Lymphocytes # 1.8 10^3/uL (0.8-4.8); Lymphocytes % 8.6 %; Mean Corpuscular HGB Conc 33.3 g/dL (30.0-36.0); Mean Corpuscular Hemoglobin 30.5 pg (28.0-34.0); Mean Corpuscular Volume 91.7 fl (81-99); Mean Platelet Volume 10.6 fL (7.4-10.4); Monocytes # 1.4 10^3/uL (0.2-0.9); Monocytes % 6.5 %; Neutrophils # 17.28 10^3/uL (1.8-7.7); Neutrophils % 83.2 %; Nucleated Red Blood Cells % 0 %; Platelet Count 406 10^3/cmm (130-400); Red Blood Count 5.64 10^6/uL (4.1-5.3); Red Cell Distribution Width 13.3 % (12.1-15.1); White Blood Count 20.8 10^3/uL (4.0-10.0)
[2022-02-21 23:20] LABS: Slide Review Slide Review Perform
[2022-02-21] MEDS: ALPRAZolam 0.5 mg Tablet 1 MG PO (23:20)
[2022-02-21 23:21] VITALS: BP 125/86; PULSE 95; RESP 20; O2SAT 96
== END 2022-02-21 23:30 | disposition home or self-care (01) ==
PROVIDERS: Emergency Provider Emergency Medicine; PCP Nurse Practitioner Family
DX: F41.9 Anxiety disorder, unspecified (principal)
CPT/HCPCS: 71045; 85025; 93005; 99285

== ENCOUNTER 2022-03-22 21:27 | Emergency (ER) | payer MEDICARE, MEDICAID, SELFPAY ==
[2022-03-22 21:33] VITALS: BP 170/98; PULSE 113; RESP 24; TEMP 37.6; O2SAT 96; BMI 45.6
--- NOTE | 2022-03-22 21:33 | ECG_ITS ---
[facility] Test Date: 2022-03-22 Pat Name: Kenyatta Kirby Department: Room: Gender: Female Occupancy Specialist: : 1950 Requested By: Naa Celaya Order Number: [id number] Cesilia MD: Erin Cartwright M.D. Measurements Intervals [place] Rate: 96 P: 5 SD: 145 QRS: -23 QRSD: 98 T: -2 QT: 360 QTc: 456 Interpretive Statements SINUS RHYTHM MODERATE VOLTAGE CRITERIA FOR LVH, CONSIDER NORMAL VARIANT [MEETS CRITERIA IN ONE OF: R(aVL), S(V1), R(V5), R(V5/V6)+S(V1)] POSSIBLE ANTERIOR MYOCARDIAL INFARCTION , PROBABLY OLD [30 ms Q WAVE IN V3/V4, OR R < 0.2 mV IN V4] Compared to ECG 02/21/2022 21:12:01 No significant changes Electronically Signed On 03-23-2022 13:11:01 SANITARY LANDFILL SUPERVISOR by Erin Cartwright M.D. [id number]
--- NOTE | 2022-03-22 21:33 | XRR_ITS ---
PROCEDURE INFORMATION: Exam: XR Chest Exam date and time: 03/22/2022 9:37 PM Age: 71 years old Clinical indication: Cough and shortness of breath; Additional info: SOB TECHNIQUE: Imaging protocol: Radiologic exam of the chest. Views: 1 view. COMPARISON: CR (CHEST, ) 02/22/2022 12:04 AM FINDINGS: Lungs: Minimal lung base atelectasis or scarring. No consolidation. Pleural spaces: Unremarkable. No pleural effusion. No pneumothorax. Heart/Mediastinum: The heart is large. Diffuse vascular calcification. Bones/joints: Unremarkable. XR/XR chest 1V portable [id number] IMPRESSION: 1. Minimal bibasilar atelectasis or scarring has progressed mildly from 02/22/2022. 2. Large heart with vascular calcification. No focal pneumonia.
--- NOTE | 2022-03-22 21:46 | W.ED.SOB ---
HPI - SOB/Dyspnea General: Chief Complaint: Shortness of Breath/Dyspnea Stated Complaint: SOB/COUGH Time Seen by Provider: 03/22/22 21:32 Source: patient and EMS Mode of arrival: EMS Limitations: no limitations History of Present Illness: HPI Narrative: 71-year-old female who states over the last 2 days she has had cough and some congestion along with low-grade fevers. She has had some dyspnea she is 98% here on room air denies any worsening improving factors denies any pain denies any vomiting or diarrhea. Associated symptoms: Deny abdominal pain, chest pain, fever(s), nausea or vomiting Review of Systems Const: Denies: fever(s), chills, body aches or change in appetite Eyes: Denies: blurry vision or eye discomfort ENMT: Denies: throat pain or dental pain Card: Denies: chest pain Resp: Reports: dyspnea and non-productive cough GI: Denies: abdominal pain, nausea, vomiting or diarrhea : Denies: dysuria Musc: Denies: neck pain or back pain Skin/Breast: Denies: rash Neuro: Denies: headache(s) Psych: Denies: depression Sg/Lymph: Denies: easy bruising All/Imm: Denies: urticaria PFSH ED PFSH: Medical History DM type 2 (diabetes mellitus, type 2) Hypertension Hypothyroidism Surgical History No significant past surgical history Social History (Updated 03/22/22 @ 21:46 by Naa Celaya MD) Smoking and tobacco status: never smoked Physical Exam Const: COMMON NORMALS: no acute distress, patient oriented x3 and healthy appearing HENMT: COMMON NORMALS: normocephalic and atraumatic HEAD & SCALP: normocephalic and atraumatic Eye: COMMON NORMALS: Equal, round and reactive pupils present and EOMs intact bilaterally PUPIL: Yes Equal, round and reactive pupils present Neck/C-Spine: COMMON NORMALS: full ROM and supple Chest: COMMONS NORMALS: normal inspection of the chest and normal palpation of entire chest wall Resp: COMMON NORMALS: normal respiratory effort, No retractions and No use of accessory muscles AUSCULTATION: wheezes Cardio: COMMON NORMALS: regular rate, regular rhythm and No murmurs present (Cardio) RATE: regular rate RHYTHM: regular rhythm GI: COMMON NORMALS: Normal to inspection, nondistended, normoactive bowel sounds present, Soft to palpation, non-tender and no masses PALPATION: Yes Soft to palpation Extremity: COMMON NORMALS: normal to inspection and full ROM Neuro: COMMON NORMALS: patient oriented x3, moves all extremities and no focal motor deficits Psych: COMMON NORMALS: mental status grossly normal, Normal thought process present and cooperative THOUGHT PROCESS: Normal thought process present Skin: COMMON NORMALS: no rashes or lesions noted and no wounds GENERAL SKIN EXAM: no rashes or lesions noted Course Vital Signs: Vital signs: Vital Signs Temperature 99.7 F H 03/22/22 21:33 Pulse Rate 99 03/22/22 22:57 Respiratory Rate 16 03/22/22 22:57 Blood Pressure 170/98 03/22/22 21:33 Pulse Oximetry 97 03/22/22 22:57 Oxygen Delivery Me thod 03/22/22 22:57 MDM - SOB/Dyspnea Medical Decision Making Patient presents here with cough likely early pneumonia she is well-appearing here we will place her on antibiotics she is stable for discharge she is to follow-up with PCP and return if worsening Lab Data 03/22/22 22:00 03/22/22 22:00 Labs/Radiology: Radiology Impressions Chest X-Ray 03/22/22 21:33 IMPRESSION: 1. Minimal bibasilar atelectasis or scarring has progressed mildly from 02/22/2022. 2. Large heart with vascular calcification. No focal pneumonia. Laboratory Results WBC 12.3 10^3/uL (4.0-10.0) H 03/22/22 22:00 RBC 4.15 10^6/uL (4.1-5.3) 03/22/22 22:00 Hgb 12.4 g/dL (11.5-15.3) 03/22/22 22:00 Hct 38.7 % (37.0-47.0) 03/22/22 22:00 MCV 93.3 fl (81-99) 03/22/22 22:00 MCH 29.9 pg (28.0-34.0) 03/22/22 22:00 MCHC 32.0 g/dL (30.0-36.0) 03/22/22 22:00 RDW 14.0 % (12.1-15.1) 03/22/22 22:00 Plt Count 267 10^3/cmm (130-400) 03/22/22 22:00 MPV 9.6 fL (7.4-10.4) 03/22/22 22:00 Neut % (Auto) 79.1 % 03/22/22 22:00 Lymph % (Auto) 10.3 % 03/22/22 22:00 [place] % (Auto) 9.4 % 03/22/22 22:00 Eos % (Auto) 0.2 % 03/22/22 22:00 Baso % (Auto) 0.3 % 03/22/22 22:00 Neut # (Auto) 9.73 10^3/uL (1.8-7.7) H 03/22/22 22:00 Lymph # (Auto) 1.3 10^3/uL (0.8-4.8) 03/22/22 22:00 [place] # (Auto) 1.2 10^3/uL (0.2-0.9) H 03/22/22 22:00 Eos # (Auto) 0.0 10^3/uL (0.0-0.8) 03/22/22 22:00 Baso # (Auto) 0.0 10^3/uL (0.0-0.1) 03/22/22 22:00 Nucleated RBC % (auto) 0 % 03/22/22 22:00 Nucleated RBCs # 0.0 /100WBC 03/22/22 22:00 Sodium 140 mmol/L (136-145) 03/22/22 22:00 Potassium 2.8 mmol/L (3.5-5.1) L* 03/22/22 22:00 Chloride 103 mmol/L (98-107) 03/22/22 22:00 Carbon Dioxide 26 mmol/L (22-29) 03/22/22 22:00 Anion Gap 13.8 (5-19) 03/22/22 22:00 BUN 6 mg/dL (8-23) L 03/22/22 22:00 Creatinine 0.5 mg/dL (0.5-0.9) 03/22/22 22:00 GFR Calculation 122.0 mL/min (90-130) 03/22/22 22:00 Glucose 173 mg/dL (65-115) H 03/22/22 22:00 Calculated Osmolality 292 mOsm/kg (285-295) 03/22/22 22:00 Calcium 8.6 mg/dL (8.5-10.5) 03/22/22 22:00 Total Bilirubin 0.5 mg/dL (0.15-1.2) 03/22/22 22:00 AST 24 U/L (0-32) 03/22/22 22:00 ALT 19 U/L (0-33) 03/22/22 22:00 Alkaline Phosphatase 98 U/L (35-105) 03/22/22 22:00 NT-Pro-B Natriuret Pep 768 pg/mL (0-125) H 03/22/22 22:00 Total Protein 6.5 g/dL (6.6-8.7) L 03/22/22 22:00 Albumin 3.4 g/dL (3.5-5.2) L 03/22/22 22:00 Globulin 3.1 g/dL (1.3-4.6) 03/22/22 22:00 Influenza Type A Ag negative (Negative) 03/22/22 22:00 Influenza Type B Ag negative (Negative) 03/22/22 22:00 SARS-CoV-2 Ag (Rapid) Negative (Negative) 03/22/22 22:00 EKG Data EKG 1: I personally reviewed and interpreted this EKG as follows: EKG Interpretation Date: 03/22/22 EKG interpretation time: 21:47 Interpretation: nsr hr [address] or t wave abnormalities qrs 98 qtc 414 Discharge Plan Discharge Patient Disposition: Home Clinical Impression: Community acquired pneumonia Prescriptions: New doxycycline hyclate 100 mg tablet 100 mg PO BID 7 Days Qty: 14 0RF potassium chloride 20 mEq tablet extended release 20 meq PO BID Qty: 10 0RF No Action amlodipine 5 mg tablet 5 mg PO DAILY levothyroxine 25 mcg tablet 25 mcg PO DAILY aspirin 325 mg Tablet 325 mg PO DAILY ondansetron 4 mg tablet,disintegrating 4 mg PO TID PRN (Reason: nausea and vomiting) Qty: 15 0RF potassium chloride 20 mEq tablet extended release 20 meq PO BID Qty: 8 0RF Xanax 0.5 mg tablet 0.5 mg PO BID PRN (Reason: anxiety) Qty: 20 0RF ondansetron 4 mg tablet,disintegrating 4 mg PO Q6H PRN (Reason: nausea and vomiting) Qty: 14 0RF acetaminophen 500 mg capsule 1,000 mg PO Q6H PRN (Reason: pain) Qty: 30 0RF Vistaril 25 mg capsule 25 mg PO 2XD PRN (Reason: anxiety) Qty: 20 0RF Discharge Orders: Discharge ED (Routine); Ordered 03/22/22 Ordered By: Naa Celaya Referrals: Promise Cardenas FNP [Primary Care Provider] - 1-3 days Discharge Diet: Advance as tolerated Discharge Activity: Resume usual activity Patient Instructions: Pneumonia (ED) Coding Level of Care Code ED 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
[2022-03-22] MEDS: dexamethasone 10 mg/mL INJ IVP (22:00)
[2022-03-22] MEDS: acetaminophen 325 mg Tablet 650 MG PO (22:00)
[2022-03-22 22:07] LABS: Basophils % 0.3 %; Eosinophils % 0.2 %; Hematocrit 38.7 % (37.0-47.0); Hemoglobin 12.4 g/dL (11.5-15.3); Lymphocytes # 1.3 10^3/uL (0.8-4.8); Lymphocytes % 10.3 %; Mean Corpuscular Hemoglobin 29.9 pg (28.0-34.0); Mean Corpuscular Volume 93.3 fl (81-99); Mean Platelet Volume 9.6 fL (7.4-10.4); Monocytes # 1.2 10^3/uL (0.2-0.9); Monocytes % 9.4 %; Neutrophils # 9.73 10^3/uL (1.8-7.7); Neutrophils % 79.1 %; Nucleated Red Blood Cells % 0 %; Platelet Count 267 10^3/cmm (130-400); Red Blood Count 4.15 10^6/uL (4.1-5.3); White Blood Count 12.3 10^3/uL (4.0-10.0)
[2022-03-22 22:25] LABS: Influenza A by IFA negative (Negative); Influenza B by IFA negative (Negative)
[2022-03-22 22:48] LABS: Alanine Aminotransferase 19 U/L (0-33); Albumin Level 3.4 g/dL (3.5-5.2); Alkaline Phosphatase 98 U/L (35-105); Anion Gap 13.8 (5-19); Aspartate Amino Transferase 24 U/L (0-32); Blood Urea Nitrogen 6 mg/dL (8-23); Calcium 8.6 mg/dL (8.5-10.5); Carbon Dioxide 26 mmol/L (22-29); Chloride 103 mmol/L (98-107); Globulin 3.1 g/dL (1.3-4.6); Glucose 173 mg/dL (65-115); NT Pro B Type Natriuretic Pept 768 pg/mL (0-125); Osmolality Calculated 292 mOsm/kg (285-295); Sodium 140 mmol/L (136-145); Total Bilirubin 0.5 mg/dL (0.15-1.2); Total Protein 6.5 g/dL (6.6-8.7)
[2022-03-22] MEDS: ipratropium-albuterol 3 mL Neb INHALATION (22:54)
[2022-03-22 22:57] VITALS: PULSE 99; RESP 16; O2SAT 97
[2022-03-22 22:58] LABS: SARS Covid-2 Antigen Negative (Negative)
[2022-03-22 23:07] LABS: Potassium 2.8 mmol/L (3.5-5.1)
[2022-03-22] MEDS: potassium chloride ER 20 mEq Tablet 40 MEQ PO (23:22)
[2022-03-22] MEDS: albuterol 8 gm MDI 2 PUFF INHALATION (23:37)
== END 2022-03-22 23:23 | disposition home or self-care (01) ==
PROVIDERS: Emergency Provider Emergency Medicine; PCP Nurse Practitioner Family
DX: J18.9 Pneumonia, unspecified organism (principal); Z79.82 Long term (current) use of aspirin; Z20.822 Contact with and (suspected) exposure to COVID-19; E11.9 Type 2 diabetes mellitus without complications; I10 Essential (primary) hypertension
CPT/HCPCS: 71045; 80053; 83880; 85025; 87426; 87804; 93005; 94640; 96374; 99285; J1100; J3535

== ENCOUNTER 2022-04-19 22:38 | Inpatient (IN) | payer MEDICARE, MEDICAID, SELFPAY ==
--- NOTE | 2022-04-19 22:41 | XRR_ITS ---
PROCEDURE INFORMATION: Exam: XR Chest Exam date and time: 04/19/2022 10:45 PM Age: 71 years old Clinical indication: Other: HTN weakness TECHNIQUE: Imaging protocol: Radiologic exam of the chest. Views: 1 view. COMPARISON: CR (CHEST, ) 03/22/2022 9:37 PM FINDINGS: Lungs: Unremarkable. No consolidation. Pleural spaces: Unremarkable. No pleural effusion. No pneumothorax. Heart/Mediastinum: Unremarkable. No cardiomegaly. Bones/joints: Unremarkable. XR/XR chest 1V portable [id number] IMPRESSION: No acute findings.
--- NOTE | 2022-04-19 22:42 | ECG_ITS ---
[facility] Test Date: 2022-04-19 Pat Name: Kenyatta Kirby Department: Room: Gender: Female Turn Operator: : 1950 Requested By: Naa Celaya Order Number: [id number] Cesilia MD: Erin Cartwright M.D. Measurements Intervals [place] Rate: 95 P: 25 [place]: 150 QRS: -26 QRSD: 90 T: 49 QT: 347 QTc: 437 Interpretive Statements SINUS RHYTHM WITH SINUS ARRHYTHMIA POSSIBLE ANTERIOR MYOCARDIAL INFARCTION , PROBABLY OLD [30 ms Q WAVE IN V3/V4, OR R < 0.2 mV IN V4] Compared to ECG 03/22/2022 21:47:09 No significant changes Electronically Signed On 04-20-2022 16:58:14 MANAGER WHOLESALE by Erin Cartwright M.D. [id number]
[2022-04-19 22:45] VITALS: BP 126/80; PULSE 99; RESP 18; TEMP 37.2; O2SAT 98
[2022-04-19 23:08] LABS: Basophils # 0.1 10^3/uL (0.0-0.1); Basophils % 0.4 %; Eosinophils % 0.2 %; Hematocrit 43.5 % (37.0-47.0); Hemoglobin 13.7 g/dL (11.5-15.3); Lymphocytes # 1.1 10^3/uL (0.8-4.8); Lymphocytes % 7.1 %; Mean Corpuscular HGB Conc 31.5 g/dL (30.0-36.0); Mean Corpuscular Hemoglobin 28.7 pg (28.0-34.0); Mean Platelet Volume 8.9 fL (7.4-10.4); Monocytes # 1.4 10^3/uL (0.2-0.9); Monocytes % 9.2 %; Neutrophils # 12.85 10^3/uL (1.8-7.7); Neutrophils % 82.5 %; Nucleated Red Blood Cells % 0 %; Platelet Count 352 10^3/cmm (130-400); Red Blood Count 4.78 10^6/uL (4.1-5.3); Red Cell Distribution Width 13.9 % (12.1-15.1); White Blood Count 15.6 10^3/uL (4.0-10.0)
--- NOTE | 2022-04-19 23:08 | XRR_ITS ---
PROCEDURE INFORMATION: Exam: XR Right Foot Exam date and time: 04/19/2022 11:40 PM Age: 71 years old Clinical indication: Cellulitis and lymphadenopathy; Right; Patient HX: C/O bilateral foot pain. Pitting edema with redness to both feet. TECHNIQUE: Imaging protocol: Radiologic exam of the Right foot. Views: 3 or more views. COMPARISON: No relevant prior studies available. FINDINGS: Bones/joints: Mild great toe MTP primary osteoarthritis. Calcaneal spur. Dorsal talonavicular osteophyte formation consistent with primary osteoarthritis. Soft tissues: Mild nonspecific soft tissue swelling. XR/XR foot RT min 3V* [id number] IMPRESSION: Mild nonspecific soft tissue swelling.
--- NOTE | 2022-04-19 23:08 | XRR_ITS ---
PROCEDURE INFORMATION: Exam: XR Left Foot Exam date and time: 04/19/2022 11:44 PM Age: 71 years old Clinical indication: Cellulitis and lymphadenopathy; Left; Patient HX: C/O bilateral foot pain. Pitting edema with redness to both feet. TECHNIQUE: Imaging protocol: Radiologic exam of the Left foot. Views: 3 or more views. COMPARISON: No relevant prior studies available. FINDINGS: Bones/joints: Mild great toe MTP primary osteoarthritis. Calcaneal spur. Soft tissues: Mild soft tissue swelling. XR/XR foot LT min 3V* [id number] IMPRESSION: Mild soft tissue swelling.
--- NOTE | 2022-04-19 23:09 | W.ED.WOUNDLC ---
HPI - Wound/Laceration General: Chief Complaint: Wound/Laceration Stated Complaint: knee pain, edema, weakness, dizziness, nausea Time Seen by Provider: 04/19/22 22:41 Source: patient and EMS Mode of arrival: EMS Limitations: no limitations History of Present Illness: 71-year-old female who states that she been having increasing swelling to her lower extremities along with weeping and some wounds and warmth to touch she has had low-grade fevers as well states she is had increasing pain and weakness states she has not been able to walk either denies any vomiting or diarrhea her pain is a 2 out of 10. Associated symptoms: Denies chills, fever(s), nausea or vomiting Review of Systems Const: Denies: fever(s), chills, body aches or change in appetite Eyes: Denies: blurry vision or eye discomfort ENMT: Denies: throat pain or dental pain Card: Denies: chest pain Resp: Denies: dyspnea GI: Denies: abdominal pain, nausea, vomiting or diarrhea : Denies: dysuria Musc: Reports: extremity pain and extremity swelling Skin/Breast: Denies: rash Neuro: Denies: headache(s) Psych: Denies: depression Sg/Lymph: Denies: easy bruising All/Imm: Denies: urticaria PFSH ED PFSH: Medical History DM type 2 (diabetes mellitus, type 2) Hypertension Hypothyroidism Surgical History No significant past surgical history Social History Smoking and tobacco status: never smoked Physical Exam Const: COMMON NORMALS: patient oriented x3 GENERAL APPEARANCE: disheveled HENMT: COMMON NORMALS: normocephalic and atraumatic HEAD & SCALP: normocephalic and atraumatic Eye: COMMON NORMALS: Equal, round and reactive pupils present and EOMs intact bilaterally PUPIL: Yes Equal, round and reactive pupils present Neck/C-Spine: COMMON NORMALS: full ROM and supple Chest: COMMONS NORMALS: normal inspection of the chest and normal palpation of entire chest wall Resp: COMMON NORMALS: normal respiratory effort, No retractions, No use of accessory muscles and clear to auscultation bilaterally AUSCULTATION: clear to auscultation bilaterally Cardio: COMMON NORMALS: regular rate, regular rhythm and No murmurs present (Cardio) RATE: regular rate RHYTHM: regular rhythm GI: COMMON NORMALS: Normal to inspection, nondistended, normoactive bowel sounds present, Soft to palpation, non-tender and no masses PALPATION: Yes Soft to palpation Extremity: OTHER: Swelling to bilateral lower extremities with erythema weeping and sores warm to touch Neuro: COMMON NORMALS: patient oriented x3, moves all extremities and no focal motor deficits Psych: COMMON NORMALS: mental status grossly normal, Normal thought process present and cooperative THOUGHT PROCESS: Normal thought process present Skin: COMMON NORMALS: no rashes or lesions noted and no wounds GENERAL SKIN EXAM: no rashes or lesions noted Course Vital Signs: Vital signs: Vital Signs Temperature 99.0 F 04/19/22 22:45 Pulse Rate 112 H 04/19/22 23:18 Respiratory Rate 24 H 04/19/22 23:18 Blood Pressure 110/73 04/19/22 23:18 Pulse Oximetry 99 04/19/22 23:18 MDM - Wound/Laceration Medical Decision Making Patient presents swelling to her lower extremities along with erythema and cellulitis she does have a low-grade fever along with elevated white count we will start on IV biotics and admit at this time. Lab Data 04/19/22 23:00 04/19/22 23:00 Radiology Impressions Chest X-Ray 04/19/22 22:41 IMPRESSION: No acute findings. Laboratory Results WBC 15.6 10^3/uL (4.0-10.0) H 04/19/22 23:00 RBC 4.78 10^6/uL (4.1-5.3) 04/19/22 23:00 Hgb 13.7 g/dL (11.5-15.3) 04/19/22 23:00 Hct 43.5 % (37.0-47.0) 04/19/22 23:00 MCV 91.0 fl (81-99) 04/19/22 23:00 MCH 28.7 pg (28.0-34.0) 04/19/22 23:00 MCHC 31.5 g/dL (30.0-36.0) 04/19/22 23:00 RDW 13.9 % (12.1-15.1) 04/19/22 23:00 Plt Count 352 10^3/cmm (130-400) 04/19/22 23:00 MPV 8.9 fL (7.4-10.4) 04/19/22 23:00 Neut % (Auto) 82.5 % 04/19/22 23:00 Lymph % (Auto) 7.1 % 04/19/22 23:00 Wharton % (Auto) 9.2 % 04/19/22 23:00 Eos % (Auto) 0.2 % 04/19/22 23:00 Baso % (Auto) 0.4 % 04/19/22 23:00 Neut # (Auto) 12.85 10^3/uL (1.8-7.7) H 04/19/22 23:00 Lymph # (Auto) 1.1 10^3/uL (0.8-4.8) 04/19/22 23:00 Wharton # (Auto) 1.4 10^3/uL (0.2-0.9) H 04/19/22 23:00 Eos # (Auto) 0.0 10^3/uL (0.0-0.8) 04/19/22 23:00 Baso # (Auto) 0.1 10^3/uL (0.0-0.1) 04/19/22 23:00 Nucleated RBC % (auto) 0 % 04/19/22 23:00 Nucleated RBCs # 0.0 /100WBC 04/19/22 23:00 PT 14.50 SECONDS (12.1-14.9) 04/19/22 23:00 INR 1.09 (0.8-1.2) 04/19/22 23:00 Sodium 135 mmol/L (136-145) L 04/19/22 23:00 Potassium 3.8 mmol/L (3.5-5.1) 04/19/22 23:00 Chloride 98 mmol/L (98-107) 04/19/22 23:00 Carbon Dioxide 25 mmol/L (22-29) 04/19/22 23:00 Anion Gap 15.8 (5-19) 04/19/22 23:00 BUN 23 mg/dL (8-23) 04/19/22 23:00 Creatinine 1.2 mg/dL (0.5-0.9) H 04/19/22 23:00 GFR Calculation 44.4 mL/min (90-130) L 04/19/22 23:00 Glucose 182 mg/dL (65-115) H 04/19/22 23:00 Calculated Osmolality 288 mOsm/kg (285-295) 04/19/22 23:00 Calcium 9.0 mg/dL (8.5-10.5) 04/19/22 23:00 Total Bilirubin 0.6 mg/dL (0.15-1.2) 04/19/22 23:00 AST 14 U/L (0-32) 04/19/22 23:00 ALT 18 U/L (0-33) 04/19/22 23:00 Alkaline Phosphatase 108 U/L (35-105) H 04/19/22 23:00 NT-Pro-B Natriuret Pep 234 pg/mL (0-125) H 04/19/22 23:00 Total Protein 7.6 g/dL (6.6-8.7) 04/19/22 23:00 Albumin 3.5 g/dL (3.5-5.2) 04/19/22 23:00 Globulin 4.1 g/dL (1.3-4.6) 04/19/22 23:00 Discharge Plan Discharge Patient Disposition: Admitted As Inpatient Clinical Impression: Cellulitis Condition: Stable Coding Level of Care Code ED Forest Management Teacher for [facility] Fwd Exam Comprehensive
[2022-04-19 23:18] VITALS: BP 110/73; PULSE 112; RESP 24; O2SAT 99
[2022-04-19 23:22] LABS: INR 1.09 (0.8-1.2)
[2022-04-19 23:37] LABS: Alanine Aminotransferase 18 U/L (0-33); Albumin Level 3.5 g/dL (3.5-5.2); Alkaline Phosphatase 108 U/L (35-105); Anion Gap 15.8 (5-19); Aspartate Amino Transferase 14 U/L (0-32); Blood Urea Nitrogen 23 mg/dL (8-23); Carbon Dioxide 25 mmol/L (22-29); Chloride 98 mmol/L (98-107); Globulin 4.1 g/dL (1.3-4.6); Glomerular Filtration Rate 44.4 mL/min (90-130); Glucose 182 mg/dL (65-115); NT Pro B Type Natriuretic Pept 234 pg/mL (0-125); Osmolality Calculated 288 mOsm/kg (285-295); Potassium 3.8 mmol/L (3.5-5.1); Sodium 135 mmol/L (136-145); Total Bilirubin 0.6 mg/dL (0.15-1.2); Total Protein 7.6 g/dL (6.6-8.7)
--- NOTE | 2022-04-19 23:56 | USR_ITS ---
NOTE: Report was unsigned for reason: Order was edited. Original Signature date and time was: 04/20/2022 0051 PROCEDURE INFORMATION: Exam: US Duplex Lower Extremity Veins, Bilateral Exam date and time: 04/20/2022 12:09 AM Age: 71 years old Clinical indication: Edema, localized; Lower extremity, bilateral; Patient HX: Chronic bilateral le edema for years. patient has severe erythema and crusty skin changes from mid calf to the feet bilaterally. Patient also has similar skin changes in bilateral groin areas. ; Additional info: Swelling TECHNIQUE: Imaging protocol: Real-time Duplex ultrasound of the bilateral extremities with 2-D byers scale, color Doppler flow and spectral waveform analysis with image documentation. Complete exam focused on the bilateral lower extremity veins. COMPARISON: CT chest abd pel w con* 02/17/2022 3:16 AM FINDINGS: Right deep veins: Unremarkable. The common femoral, femoral, proximal profunda femoral and popliteal veins are patent without thrombus. Normal Doppler waveforms. Normal compressibility and/or augmentation response. Right superficial veins: Saphenofemoral junction is patent without thrombus. Left deep veins: Unremarkable. The common femoral, femoral, proximal profunda femoral and popliteal veins are patent without thrombus. Normal Doppler waveforms. Normal compressibility and/or augmentation response. Left superficial veins: Saphenofemoral junction is patent without thrombus. Soft tissues: Unremarkable. [facility] [id number] IMPRESSION: No evidence of deep vein thrombosis.
--- NOTE | 2022-04-19 23:56 | P.HP_ITS ---
Providers/Chief Complaint Primary Care Provider: BITA Blackwell Chief Complaint: knee pain, edema, weakness, dizziness, nausea History of Present Illness Kenyatta Kirby is a 71 year old female with PMH of type 2 DM, hypertension, hypothyroidism presented to the hospital with complaint of increasing swelling to her legs that have now been weeping. She has some wounds on her legs. She also reports low grade fevers and has been having more and more pain and weakness. Due to swelling she is unable to ambulate much either. Denies abdo magdiel pain, chills, nausea, vomitting, diarrhea, chest pain, shortness of breath. Pt currently living at a motel. She says she didnt realize that her wounds got so bad. She has got significant erythema under both breasts and pannus which some discharge. There are few open wounds on abdomen as well. Patient has not bathed in days. She is a very poor historian. Says there is no family she wants us to call. Denies being on any medications at home. ED course: 110/73, RR 24, pulse 112, 99F. Chest xray did not show any acute findings. B/L foot xray showed soft tissue swelling. Patient started on an tibiotics and IV fluids and hospitalist requested to admit for cellulitis. Medications/Allergies Home Medications Medication Instructions Recorded Confirmed Last Taken Type amlodipine 5 mg tablet 5 mg PO DAILY 02/16/20 03/06/20 02/23/20 History levothyroxine 25 mcg tablet 25 mcg PO DAILY 02/16/20 03/06/20 03/06/20 History aspirin 325 mg tablet 325 mg PO DAILY 03/06/20 03/06/20 Unknown History ondansetron 4 mg disintegrating 4 mg PO Q6H PRN nausea and 10/03/21 Unknown Rx tablet vomiting #14 tabs ondansetron 4 mg disintegrating 4 mg PO TID PRN nausea and 10/14/21 Unknown Rx tablet vomiting #15 tabs potassium chloride 20 mEq 20 meq PO BID #8 tabs 10/14/21 Unknown Rx tablet,extended release acetaminophen 500 mg capsule 1,000 mg PO Q6H PRN pain #30 caps 02/17/22 Unknown Rx hydroxyzine pamoate 25 mg capsule 25 mg PO 2XD PRN anxiety #20 caps 02/19/22 Unknown Rx (Vistaril) alprazolam 0.5 mg tablet (Xanax) 0.5 mg PO BID PRN anxiety #20 tabs 02/21/22 Unknown Rx potassium chloride 20 mEq 20 meq PO BID #10 tabs 03/22/22 Unknown Rx tablet,extended release Allergies Allergy/AdvReac Type Severity Reaction Status Date / Time No Known Allergies Allergy Verified 02/21/22 21:15 PFSH Acute PFSH: Medical History DM type 2 (diabetes mellitus, type 2) Hypertension Hypothyroidism Surgical History No significant past surgical history Social History Smoking and tobacco status: never smoked Vitals/I&O/Wt Last Vital Signs Temp 99.0 F 04/19/22 22:45 Pulse 112 H 04/19/22 23:18 Resp 24 H 04/19/22 23:18 BP 110/73 04/19/22 23:18 Pulse Ox 99 04/19/22 23:18 Physical Exam Narrative: General: Alert oriented x3, patient seen laying in bed, disheveled appearance HEENT: Normocephalic, atraumatic, EOMI, breathing room air Cardio: Regular rate rhythm, normal S1-S2, Respiratory: CTA B/L, no w/r/c GI: Abdomen soft, nontender, nondistended, bowel sounds + Extremities: B/L LE edema 3+ with weeping wounds. Swellings extends upto knees and involves feet as well. Mildly warm and erythematous. Skin: Significant erythema, and some open wounds seen under both breasts, pannus area with yello drainage. Both feet have dirt. It seems patient has not bathed in weeks. Able to move all 4 extremities, face symmetrical. Data 04/19/22 23:00 04/19/22 23:00 A&P Assessment and plan (1) Cellulitis: (2) Hypothyroidism: (3) DM type 2 (diabetes mellitus, type 2): (4) Hypertension: Plan #B/L LE Cellulitis #Type 2 DM #Hypothyroidism #Anxiety #Poor living conditions - Check TSH, HBA1C, BCX, UCX - Continue levothyroxine, aspirin, xanax. - Tylenol for fever - Foot xray showed soft tissue swelling - Nystatin for skin folds - Check venous dopplers - Wound culture - Continue vancomycin, zosyn - LDSSI - NS 125 cc/hr - PT/OT - Consult case management - Does seem to have psychiatric history but not very forthcoming - Check urine drug screen Full Code DVT PPX: Lovenox 40 daily Pt has specifically asked not to contact her family or friends. Attestations Medical Necessity Statement*: Pt to cross > 2 midnight stay for mgmt of cellulitis Coding Level of Care Code Acute Channel Process Plant Operator for [facility] Fwd Diagnoses Cellulitis L03.90 Hypothyroidism E03.9 DM type 2 (diabetes mellitus, type 2) E11.9 Hypertension I10
[2022-04-20] VITALS (8 sets, daily range): BP systolic 109–132; BP diastolic 63–78; PULSE 78–100; RESP 16–22; TEMP 36.8–37.3; O2SAT 91–96
[2022-04-20] MEDS: vancomycin 1,000 MG in sodium chloride 0.9% 250 ML 250 MG IV (00:38)
[2022-04-20 00:50] LABS: Urine Appearance SL Hazy (CLEAR); Urine Color Yellow (Yellow)
[2022-04-20 00:51] LABS: Add Urine Microscopic? YES; Bilirubin Urine 1+ (Negative); Blood Urine Neg (Negative); Glucose Urine UA Norm (Normal); Ketones Urine Negative (Negative); Leukocyte Esterase Urine Negative (Negative); Nitrate Urine Negative (Negative); Protein Urine Trace (Negative); Urobilinogen Urine 1 mg/dL (Negative); pH Urine 5 (5-7)
[2022-04-20 00:53] LABS: Add Urine Culture? Yes; Amorphous Sediment Urine 1+ /hpf; Bacteria Urine 3+ /hpf; Fine Granular Casts Urine 0-4 /lpf; RBC Urine 0-4 /hpf (0-2); Renal Epithelial Cells Urine 0-2 /hpf; Squamous Epithelial Cell Urine 0-4 /hpf (0-5); WBC Urine 0-4 /hpf (0-5)
[2022-04-20 01:31] LABS: Lactic Sepsis W/Reflex 2.3 mmol/L (0.5-2.2)
[2022-04-20 01:45] LABS: Procalcitonin 0.21 ng/mL (0-0.5); Thyroid Stimulating Hormone 5.53 uIU/mL (0.27-4.20)
[2022-04-20 01:57] LABS: Reflex Lactate Order REFLEX LACTIC ORDERD
[2022-04-20 02:22] LABS: Estmated Average Glucose 169; Hemoglobin A1C 7.5 % (4.0-6.0)
[2022-04-20] MEDS: pantoprazole 40 mg SDV IVP (02:40)
[2022-04-20] MEDS: sodium chloride 0.9% 1,000 ML 125 ML IV ×3 (02:40→16:34)
[2022-04-20] MEDS: heparin 5,000 unit/mL INJ 1 mL 5000 UNIT SUBCUT ×2 (02:41→12:34)
[2022-04-20] MEDS: ALPRAZolam 0.5 mg Tablet PO (02:41)
[2022-04-20 03:04] LABS: Amphetamines Screen Urine Negative (Negative); Barbiturates Screen Urine Negative (Negative); Benzodiazepines Screen Urine Negative (Negative); Cocaine Screen Urine Negative (Negative); Opiate Screen Urine Negative (Negative); PCP Screen Urine Negative (Negative); THC Screen Urine Negative (Negative)
[2022-04-20] MEDS: piperacillin-tazobactam 3.375 GM in sodium chloride 0.9% (plus) 50 ML IV ×3 (03:07→18:26)
[2022-04-20] MEDS: acetaminophen 325 mg Tablet 650 MG PO ×3 (06:12→18:26)
[2022-04-20 06:19] LABS: Lactic Acid level (Lactate) 1.2 mmol/L (0.5-2.2)
[2022-04-20 06:42] LABS: Glucose Point of Care 161 mg/dL (70-110)
[2022-04-20] MEDS: nystatin powder 15 gm Btl 1 APPLIC TOPICAL ×2 (08:31→18:25)
[2022-04-20] MEDS: aspirin 325 mg Tablet PO (08:31)
[2022-04-20] MEDS: levothyroxine 25 mcg Tablet PO (08:31)
--- NOTE | 2022-04-20 11:17 | PC.CHAP ---
Pastoral Care Encounter/Spiritual Assessment Type of Contact [] Declined car inspector visit [] Patient/Family/Request visit [] Outpatient visit [] Follow-up visit [] Physician referral [] Code/Alert [x] Routine visit [] Staff referral [] Actively dying [] Patient sleeping [] Family support [] [] Out of room [] Palliative care [] [x] Receiving care in room [] Pre-surgical visit [] Trauma [] Long length of stay [] ICU visit [] Other: Relational/Emotional Strength [] Patient feels connected with others/family/visitors/staff [] Distress [] Loneliness/isolation [] Abandonment Spirituality of Patient [] Person of Neda [] Attends Advent of their Neda [] Believes in Prayer [] Reads Bible or Hindu materials [] There are Spiritual issues to be addressed Combustion Engineer Interventions [x] Prayer [] Active listening [] Non-anxious presence [] Spiritual/emotional support [] Crisis/trauma care [] Spiritual counseling [] Bereavement support [] Provided bereavement packet [] Provided Bible/devotional materials [] Provided toy/stuffed animal, coloring book to patient or family member [] Provided Communion [] Anointing/[place] [] Salvation [] Completed spiritual assessment [] Other: Impact on Illness or Injury [] Angry [] Fearful [] Anxious [] Often cries [] Exhaustion [] Unable to work [] Unable to attend congregational [] Unable to walk/stand [] Unable to read [] Unable to drive [] Unable to eat/drink [] Unable to sleep [] Unable to be with family [] Patient intubated [] Other: Summary Time spent with patient
[2022-04-20 12:15] LABS: Glucose Point of Care 143 mg/dL (70-110)
[2022-04-20 17:00] LABS: Glucose Point of Care 134 mg/dL (70-110)
[2022-04-20 20:03] LABS: Glucose Point of Care 150 mg/dL (70-110)
--- NOTE | 2022-04-20 20:20 | PM.PN ---
Subjective Subjective: She states she is overall doing okay. Clearly her legs are showing some weeping from the areas of cellulitis. She is able to show me where she is currently here. She tells me that she lives in a trailer by herself, but states that she perhaps may need to consider having somebody coming over to check on her. Vitals/I&O/Wt Last Vital Signs Temp 98.3 F 04/20/22 16:00 Pulse 78 04/20/22 16:00 Resp 18 04/20/22 16:00 BP 124/68 04/20/22 16:00 Pulse Ox 96 04/20/22 16:00 O2 Del Method 04/20/22 16:00 04/20/22 04/20/22 04/20/22 06:59 14:59 22:59 Intake Total 1607.917 / 2177.311 6181.583 / 2927.500 Balance 1607.917 / 9375.533 4616.583 / 2927.500 Weight last 48 hrs Weight 108.454 kg Physical Exam Narrative: Up in chair. Const: COMMON NORMALS: patient oriented x3 and alert GENERAL APPEARANCE: cooperative ORIENTATION/CONSCIOUSNESS: Yes awake HENMT: COMMON NORMALS: oropharynx normal Neck/C-Spine: COMMON NORMALS: no JVD Resp: COMMON NORMALS: normal respiratory effort and clear to auscultation bilaterally AUSCULTATION: clear to auscultation bilaterally Cardio: COMMON NORMALS: no JVD, regular rhythm, S1 normal heart sound present, S2 normal heart sound present and No murmurs present (Cardio) RHYTHM: regular rhythm HEART SOUNDS: S1 normal heart sound present and S2 normal heart sound present GI: COMMON NORMALS: Normal to inspection, nondistended, normoactive bowel sounds present, Soft to palpation and non-tender PALPATION: Yes Soft to palpation Extremity: COMMON NORMALS: no joint enlargement and no pedal edema Neuro: COMMON NORMALS: patient oriented x3 and moves all extremities SENSORIUM/ORIENTATION: Yes alert Skin: OTHER: Cellulitis of bilateral lower legs, worse on the left, above the ankles, reaching to as high as mid peng on the left. There is a shallow ulcerations bilaterally. Intertrigo under breasts and skin folds. Data 04/19/22 23:00 04/19/22 23:00 Micro: Microbiology 04/20/22 01:03 Blood Culture - Preliminary Blood SPECIMEN COLLECTED 04/20/22 00:57 Blood Culture - Preliminary Blood SPECIMEN COLLECTED A&P Assessment and plan (1) Cellulitis: Continue vancomycin, Zosyn. Elevate lower extremities. Apply Hydrofera Blue to areas/ulcerations with weeping. If renal function improves consider dose of Lasix. (2) Hypothyroidism: (3) DM type 2 (diabetes mellitus, type 2): (4) Hypertension: Plan #B/L LE Cellulitis #Type 2 DM #Hypothyroidism #Anxiety #Poor living conditions: Case management consultation. Attestations Medical Necessity Statement*: Continue admission for assessment and management of multiple areas of cellulitis progressively worsening with poor living conditions at home. Coding Level of Care Code Acute Financial Services Consultant for [facility] Diagnoses Cellulitis L03.90 Hypothyroidism E03.9 DM type 2 (diabetes mellitus, type 2) E11.9 Hypertension I10
[2022-04-20 22:05] LABS: Glucose Point of Care 160 mg/dL (70-110)
[2022-04-21] VITALS (8 sets, daily range): BP systolic 93–135; BP diastolic 57–78; PULSE 76–90; RESP 16–93; TEMP 36.6–37.4; O2SAT 18–96
--- NOTE | 2022-04-21 00:51 | PC.NURSE ---
Approximately at 2200, patient was only A&O to name and . Could not name current location, or why she was here. Patient also had weak hand student support advisor, using only her index and thumbs to squeeze this nurse's hands, but was able to hold arms and legs up with minor drift. Patient was also lethargic, could answer somewhat to questions by verbal stimulation but in order to get clear questions from patient, nurse applied moderate sternal rub. Patient's optifoam on bottom were replaced and dated. Patient also turned at 2200.
[2022-04-21] MEDS: sodium chloride 0.9% 1,000 ML 125 ML IV ×3 (00:58→17:16)
[2022-04-21] MEDS: vancomycin 1,250 MG/250 ML PIGGYBACK 250 MG IV (00:58)
[2022-04-21] MEDS: pantoprazole 40 mg SDV IVP (00:59)
[2022-04-21] MEDS: heparin 5,000 unit/mL INJ 1 mL 5000 UNIT SUBCUT ×2 (00:59→13:03)
--- NOTE | 2022-04-21 01:12 | PC.NURSE ---
Patient A&O to name, , and location at this time. Arousable to verbal stimulation, although patient kept her eyes shut. Currently resting in bed with call light within reach.
[2022-04-21] MEDS: piperacillin-tazobactam 3.375 GM in sodium chloride 0.9% (plus) 50 ML IV ×3 (02:58→17:16)
[2022-04-21 06:27] LABS: Basophils % 0.2 %; Eosinophils # 0.2 10^3/uL (0.0-0.8); Eosinophils % 2.4 %; Hematocrit 34.8 % (37.0-47.0); Hemoglobin 10.7 g/dL (11.5-15.3); Lymphocytes # 1.1 10^3/uL (0.8-4.8); Lymphocytes % 11.8 %; Mean Corpuscular HGB Conc 30.7 g/dL (30.0-36.0); Mean Corpuscular Hemoglobin 28.8 pg (28.0-34.0); Mean Corpuscular Volume 93.8 fl (81-99); Mean Platelet Volume 9.6 fL (7.4-10.4); Monocytes # 0.9 10^3/uL (0.2-0.9); Monocytes % 9.7 %; Neutrophils # 7.22 10^3/uL (1.8-7.7); Neutrophils % 75.3 %; Nucleated Red Blood Cells % 0 %; Platelet Count 238 10^3/cmm (130-400); Red Blood Count 3.71 10^6/uL (4.1-5.3); Red Cell Distribution Width 14.3 % (12.1-15.1); White Blood Count 9.6 10^3/uL (4.0-10.0)
[2022-04-21 06:30] LABS: Glucose Point of Care 157 mg/dL (70-110)
[2022-04-21 06:45] LABS: Alanine Aminotransferase 11 U/L (0-33); Albumin Level 2.3 g/dL (3.5-5.2); Alkaline Phosphatase 78 U/L (35-105); Anion Gap 12.5 (5-19); Aspartate Amino Transferase 9 U/L (0-32); Blood Urea Nitrogen 16 mg/dL (8-23); Calcium 7.5 mg/dL (8.5-10.5); Carbon Dioxide 22 mmol/L (22-29); Chloride 110 mmol/L (98-107); Globulin 2.9 g/dL (1.3-4.6); Glomerular Filtration Rate 61.9 mL/min (90-130); Glucose 136 mg/dL (65-115); Magnesium 1.7 mg/dL (1.7-2.3); Osmolality Calculated 295 mOsm/kg (285-295); Potassium 3.5 mmol/L (3.5-5.1); Sodium 141 mmol/L (136-145); Total Bilirubin 0.2 mg/dL (0.15-1.2); Total Protein 5.2 g/dL (6.6-8.7)
[2022-04-21] MEDS: levothyroxine 25 mcg Tablet PO (07:45)
[2022-04-21] MEDS: nystatin powder 15 gm Btl 1 APPLIC TOPICAL ×2 (07:46→17:18)
[2022-04-21] MEDS: aspirin 325 mg Tablet PO (07:46)
[2022-04-21] MEDS: acetaminophen 325 mg Tablet 650 MG PO (09:14)
[2022-04-21 11:52] LABS: Glucose Point of Care 152 mg/dL (70-110)
[2022-04-21 17:07] LABS: Glucose Point of Care 136 mg/dL (70-110)
--- NOTE | 2022-04-21 19:06 | P.PN_ITS ---
Subjective Subjective: She feels perhaps slightly stronger. She has worked with PT. Denies chest pain or pressure. Vitals/I&O/Wt Last Vital Signs Temp 97.9 F 04/21/22 16:00 Pulse 80 04/21/22 16:00 Resp 17 04/21/22 16:00 BP 128/75 04/21/22 16:00 Pulse Ox 96 04/21/22 16:00 O2 Del Method 04/20/22 16:00 04/21/22 04/21/22 04/21/22 06:59 14:59 22:59 Intake Total 1900 / 4827.500 1390 / 1390 1250 / 2640 Balance 1900 / 4827.500 1390 / 1390 1250 / 2640 Weight last 48 hrs Weight 108.454 kg Physical Exam Narrative: Up in chair. Const: COMMON NORMALS: patient oriented x3 and alert GENERAL APPEARANCE: cooperative ORIENTATION/CONSCIOUSNESS: Yes awake HENMT: COMMON NORMALS: oropharynx normal Neck/C-Spine: COMMON NORMALS: no JVD Resp: COMMON NORMALS: normal respiratory effort and clear to auscultation bilaterally AUSCULTATION: clear to auscultation bilaterally Cardio: COMMON NORMALS: no JVD, regular rhythm, S1 normal heart sound present, S2 normal heart sound present and No murmurs present (Cardio) RHYTHM: regular rhythm HEART SOUNDS: S1 normal heart sound present and S2 normal heart sound present GI: COMMON NORMALS: Normal to inspection, nondistended, normoactive bowel sounds present, Soft to palpation and non-tender PALPATION: Yes Soft to palpation Extremity: COMMON NORMALS: no joint enlargement and no pedal edema Neuro: COMMON NORMALS: patient oriented x3 and moves all extremities SENSORIUM/ORIENTATION: Yes alert Skin: OTHER: Cellulitis of bilateral lower legs, worse on the left, above the ankles, reaching to as high as mid peng on the left. There are shallow ulcerations bilaterally. Intertrigo under breasts and skin folds. Data 04/21/22 06:12 04/21/22 06:12 Micro: Microbiology 04/19/22 23:27 Urine Culture - Preliminary Urine,Clean Catch 04/20/22 01:03 Blood Culture - Preliminary Blood NEGATIVE TO DATE 04/20/22 00:57 Blood Culture - Preliminary Blood NEGATIVE TO DATE A&P Assessment and plan (1) Cellulitis: Continue vancomycin, Zosyn. Elevate lower extremities. Stop IVF. Reassess renal function, if SHELDON remains resolved consider dose of Lasix. Apply Hydrofera Blue to areas/ulcerations with weeping. (2) Hypothyroidism: (3) DM type 2 (diabetes mellitus, type 2): (4) Hypertension: Plan Generalized weakness: She is feeling slightly stronger with treatment of cellulitis. Work with PT today. Discussed with her consideration of prison facility as per OT recommendations, however, she is reluctant. She will think about it. Case management further discussed with her. #B/L LE Cellulitis #Type 2 DM #Hypothyroidism #Anxiety #Poor living conditions: Case management consultation. Attestations Medical Necessity Statement*: Continue admission for assessment management of multifocal cellulitis, with ulcerations, weeping, generalized weakness, post discharge planning. Coding Level of Care Code Acute Doctor Of Naturopathic Medicine for [facility] Diagnoses Cellulitis L03.90 Hypothyroidism E03.9 DM type 2 (diabetes mellitus, type 2) E11.9 Hypertension I10
[2022-04-21 20:49] LABS: Glucose Point of Care 132 mg/dL (70-110)
--- NOTE | 2022-04-21 21:50 | PC.NURSE ---
Patient A&O to name, , and location, but uncertain on day. Makes bizarre statements. Dressings on both lower extremities changed due to falling off. Optifoam reapplied to pressure sores on bottom. Patient had ambulated to restroom and voided. Patient educated to use call light if she wanted to ambulate and verbalized understanding.
[2022-04-22] MEDS: pantoprazole 40 mg SDV IVP (02:33)
[2022-04-22] MEDS: vancomycin 1,250 MG/250 ML PIGGYBACK 250 MG IV (02:33)
[2022-04-22] MEDS: heparin 5,000 unit/mL INJ 1 mL 5000 UNIT SUBCUT ×2 (02:33→13:08)
[2022-04-22] MEDS: piperacillin-tazobactam 3.375 GM in sodium chloride 0.9% (plus) 50 ML IV ×2 (03:59→10:13)
[2022-04-22 04:00] VITALS: BP 136/73; PULSE 79; RESP 16; TEMP 37.3; O2SAT 94
[2022-04-22 04:18] LABS: Anion Gap 12.5 (5-19); Blood Urea Nitrogen 13 mg/dL (8-23); Calcium 7.3 mg/dL (8.5-10.5); Carbon Dioxide 22 mmol/L (22-29); Chloride 110 mmol/L (98-107); Glomerular Filtration Rate 70.9 mL/min (90-130); Glucose 145 mg/dL (65-115); Osmolality Calculated 295 mOsm/kg (285-295); Potassium 3.5 mmol/L (3.5-5.1); Sodium 141 mmol/L (136-145)
[2022-04-22 05:25] VITALS: PULSE 67
[2022-04-22 06:14] LABS: Glucose Point of Care 129 mg/dL (70-110)
[2022-04-22 08:00] VITALS: BP 159/89; PULSE 79; RESP 18; TEMP 37.2; O2SAT 96
[2022-04-22] MEDS: nystatin powder 15 gm Btl 1 APPLIC TOPICAL (08:15)
[2022-04-22] MEDS: levothyroxine 25 mcg Tablet PO (08:15)
[2022-04-22] MEDS: aspirin 325 mg Tablet PO (08:15)
[2022-04-22 12:00] VITALS: BP 167/83; PULSE 86; RESP 20; TEMP 37.3; O2SAT 95
[2022-04-22 12:49] LABS: Glucose Point of Care 162 mg/dL (70-110)
[2022-04-22 16:00] VITALS: BP 164/80; PULSE 95; RESP 19; TEMP 37.7; O2SAT 97
[2022-04-22 16:37] LABS: Glucose Point of Care 168 mg/dL (70-110)
[2022-04-22 17:34] VITALS: BP 164/80; PULSE 95; RESP 19; TEMP 37.7; O2SAT 97
--- NOTE | 2022-04-22 18:14 | PC.NURSE ---
PATIENT DISCHARGED. RIDE SET UP VIA CAR TENDER. PATIENT ASKED TO GO TO THE [employer] [facility] INSTEAD OF HOME ADDRESS. CAR TENDER NOTIFIED.
--- NOTE | 2022-04-22 20:22 | PM.DCS ---
Discharge Providers Date of Admission: 04/20/22 00:58 Date of Discharge: April 22, 2022 Attending Provider at Admission: Eneida Houston MD Attending Provider at Discharge: Bobby Rangel Primary Care Provider: BITA Blackwell Diagnoses at Discharge Discharge Diagnosis (1) Cellulitis: Status: Acute (2) Hypothyroidism: Status: Acute (3) DM type 2 (diabetes mellitus, type 2): Status: Acute (4) Hypertension: Status: Acute Reason for Visit Reason for Visit: knee pain, edema, weakness, dizziness, nausea Hospital Course Hospital Course 71-year-old pleasant lady was admitted for assessment management due to bilateral multifocal lower extremity cellulitis with shallow ulcers, which has progressively gotten worse, with concern for lack of support at home. Initially was noted that she was in a motel, however, she denies this, states that she lives in a trailer although by herself patient that his family, although had asked not to reach out to them on admission. During hospitalization she was treated with empiric antibiotics, lower extremity dressings, was instructed to keep legs elevated. Chronic wounds suspected secondary to venous insufficiency, with superimposed cellulitis. On presentation also with acute kidney injury for which she received transient dehydration with resolution of SHELDON. And some weeping noted in some locations on the legs, 60s provided at discharge for small degree of fluid overload. Long-term, however, discussed with her to avoid protracted diuretic therapy given edema symptoms likely secondary to venous stasis. She is referred for follow-up with wound care clinic for reassessment as well as consideration of compression therapy. [facility] facility placement was recommended both by myself and OT for continued skilled care and would benefit from physical physical therapy, however, she adamantly declines. Her weakness overall has improved. She remains alert and oriented and understands the reasoning. States she will reach out to her friend to also come check on her and assist her when needed. Discussed with case management also consideration of notifying the state with concerns of possible self-neglect at home. Physical Exam Narrative: Up in chair. Const: COMMON NORMALS: patient oriented x3 and alert GENERAL APPEARANCE: cooperative ORIENTATION/CONSCIOUSNESS: Yes awake HENMT: COMMON NORMALS: oropharynx normal Neck/C-Spine: COMMON NORMALS: no JVD Resp: COMMON NORMALS: normal respiratory effort and clear to auscultation bilaterally AUSCULTATION: clear to auscultation bilaterally Cardio: COMMON NORMALS: no JVD, regular rhythm, S1 normal heart sound present, S2 normal heart sound present and No murmurs present (Cardio) RHYTHM: regular rhythm HEART SOUNDS: S1 normal heart sound present and S2 normal heart sound present GI: COMMON NORMALS: Normal to inspection, nondistended, normoactive bowel sounds present, Soft to palpation and non-tender PALPATION: Yes Soft to palpation Extremity: COMMON NORMALS: no joint enlargement and no pedal edema Neuro: COMMON NORMALS: patient oriented x3 and moves all extremities SENSORIUM/ORIENTATION: Yes alert Skin: OTHER: Cellulitis of bilateral lower legs, worse on the left, above the ankles, reaching to as high as mid peng on the left. There are shallow ulcerations bilaterally. Discharge Data Studies Completed and Pending Completed Studies During Hospitalization Category Date Time Status XR chest 1V portable [id number] Stat Exams 04/19/22 22:41 Completed XR foot LT min 3V* [id number] Stat Exams 04/19/22 23:08 Completed XR foot RT min 3V* [id number] Stat Exams 04/19/22 23:08 [place] [id number] Stat Ultrasound 04/20/22 Completed Pending at discharge Category Date Time Status Blood Culture Stat Lab 04/20/22 01:03 Results Radiology Impressions Chest X-Ray 04/19/22 22:41 IMPRESSION: No acute findings. Foot X-Ray 04/19/22 23:08 IMPRESSION: Mild nonspecific soft tissue swelling. Venous Duplex 04/19/22 23:56 IMPRESSION: No evidence of deep vein thrombosis. Laboratory Results WBC 9.6 10^3/uL (4.0-10.0) 04/21/22 06:12 RBC 3.71 10^6/uL (4.1-5.3) L 04/21/22 06:12 Hgb 10.7 g/dL (11.5-15.3) L 04/21/22 06:12 Hct 34.8 % (37.0-47.0) L 04/21/22 06:12 MCV 93.8 fl (81-99) 04/21/22 06:12 MCH 28.8 pg (28.0-34.0) 04/21/22 06:12 MCHC 30.7 g/dL (30.0-36.0) 04/21/22 06:12 RDW 14.3 % (12.1-15.1) 04/21/22 06:12 Plt Count 238 10^3/cmm (130-400) 04/21/22 06:12 MPV 9.6 fL (7.4-10.4) 04/21/22 06:12 Neut % (Auto) 75.3 % 04/21/22 06:12 Lymph % (Auto) 11.8 % 04/21/22 06:12 [place] % (Auto) 9.7 % 04/21/22 06:12 Eos % (Auto) 2.4 % 04/21/22 06:12 Baso % (Auto) 0.2 % 04/21/22 06:12 Neut # (Auto) 7.22 10^3/uL (1.8-7.7) 04/21/22 06:12 Lymph # (Auto) 1.1 10^3/uL (0.8-4.8) 04/21/22 06:12 [place] # (Auto) 0.9 10^3/uL (0.2-0.9) 04/21/22 06:12 Eos # (Auto) 0.2 10^3/uL (0.0-0.8) 04/21/22 06:12 Baso # (Auto) 0.0 10^3/uL (0.0-0.1) 04/21/22 06:12 Nucleated RBC % (auto) 0 % 04/21/22 06:12 Nucleated RBCs # 0.0 /100WBC 04/21/22 06:12 PT 14.50 SECONDS (12.1-14.9) 04/19/22 23:00 INR 1.09 (0.8-1.2) 04/19/22 23:00 Sodium 141 mmol/L (136-145) 04/22/22 03:41 Potassium 3.5 mmol/L (3.5-5.1) 04/22/22 03:41 Chloride 110 mmol/L (98-107) H 04/22/22 03:41 Carbon Dioxide 22 mmol/L (22-29) 04/22/22 03:41 Anion Gap 12.5 (5-19) 04/22/22 03:41 BUN 13 mg/dL (8-23) 04/22/22 03:41 Creatinine 0.8 mg/dL (0.5-0.9) 04/22/22 03:41 GFR Calculation 70.9 mL/min (90-130) L 04/22/22 03:41 Glucose 145 mg/dL (65-115) H 04/22/22 03:41 POC Glucose 168 mg/dL (70-110) H 04/22/22 16:23 Estimat Average Glucose 169 04/19/22 23:00 Hemoglobin A1c 7.5 % (4.0-6.0) H 04/19/22 23:00 Calculated Osmolality 295 mOsm/kg (285-295) 04/22/22 03:41 Lactic Acid 2.3 mmol/L (0.5-2.2) H 04/20/22 01:03 Lactic Acid (Sepsis) 1.2 mmol/L (0.5-2.2) 04/20/22 05:28 Calcium 7.3 mg/dL (8.5-10.5) L 04/22/22 03:41 Magnesium 1.7 mg/dL (1.7-2.3) 04/21/22 06:12 Total Bilirubin 0.2 mg/dL (0.15-1.2) 04/21/22 06:12 AST 9 U/L (0-32) 04/21/22 06:12 ALT 11 U/L (0-33) 04/21/22 06:12 Alkaline Phosphatase 78 U/L (35-105) 04/21/22 06:12 NT-Pro-B Natriuret Pep 234 pg/mL (0-125) H 04/19/22 23:00 Total Protein 5.2 g/dL (6.6-8.7) L 04/21/22 06:12 Albumin 2.3 g/dL (3.5-5.2) L 04/21/22 06:12 Globulin 2.9 g/dL (1.3-4.6) 04/21/22 06:12 Procalcitonin 0.21 ng/mL (0-0.5) 04/19/22 23:00 TSH 5.53 uIU/mL (0.27-4.20) H 04/19/22 23:00 Urine Color Yellow (Yellow) 04/19/22 23:27 Urine Appearance Sl hazy (CLEAR) A 04/19/22 23:27 Urine pH 5 (5-7) 04/19/22 23:27 Ur Specific [place] 1.030 (1.005-1.030) 04/19/22 23:27 Urine Protein Trace (Negative) 04/19/22 23:27 Urine Glucose (UA) Norm (Normal) 04/19/22 23:27 Urine Ketones Negative (Negative) 04/19/22 23: Urine Blood Neg (Negative) 04/19/22 23: Urine Nitrate Negative (Negative) 04/19/22 23: Urine Bilirubin 1+ (Negative) H 04/19/22 23:27 Urine Urobilinogen 1 mg/dL (Negative) H 04/19/22 23:27 Ur Leukocyte Esterase Negative (Negative) 04/19/22 23:27 Urine RBC 0-4 /hpf (0-2) H 04/19/22 23:27 Urine WBC 0-4 /hpf (0-5) H 04/19/22 23:27 Ur Squamous Epith Cells 0-4 /hpf (0-5) H 04/19/22 23:27 Ur Renal Epithelial Cell 0-2 /hpf 04/19/22 23:27 Amorphous Sediment 1+ /hpf 04/19/22 23:27 Urine Bacteria 3+ /hpf (NONE) H 04/19/22 23:27 Hyaline Casts 5-10 /lpf H 04/19/22 23:27 Fine Granular Casts 0-4 /lpf H 04/19/22 23:27 Urine Opiates Screen Negative ng/mL (Negative) 04/19/22 23:27 Ur Barbiturates Screen Negative ng/mL (Negative) 04/19/22 23:27 Ur Phencyclidine Scrn Negative ng/mL (Negative) 04/19/22 23:27 Ur Amphetamines Screen Negative ng/mL (Negative) 04/19/22 23:27 U Benzodiazepines Scrn Negative ng/mL (Negative) 04/19/22 23: Urine Cocaine Screen Negative ng/mL (Negative) 04/19/22 23:27 U Marijuana (THC) Screen Negative ng/mL (Negative) 04/19/22 23:27 Vitals Last Vital Signs Temp 99.8 F H 04/22/22 17:34 Pulse 95 04/22/22 17:34 Resp 19 H 04/22/22 17:34 BP 164/80 04/22/22 17:34 Pulse Ox 97 04/22/22 17:34 O2 Del Method 04/22/22 12:00 Discharge Plan Discharge Patient Disposition: Home Health Service Condition: Stable Prescriptions: New doxycycline hyclate 100 mg tablet 100 mg PO BID 7 Days Qty: 14 0RF ciprofloxacin HCl 500 mg tablet 500 mg PO BID Qty: 14 0RF Lasix 20 mg tablet 20 mg PO QAM 3 Days Qty: 3 0RF Continued amlodipine 5 mg tablet 5 mg PO DAILY levothyroxine 25 mcg tablet 25 mcg PO DAILY aspirin 325 mg Tablet 325 mg PO DAILY alprazolam [Xanax] 0.5 mg tablet 0.5 mg PO BID PRN (Reason: anxiety) Qty: 20 0RF potassium chloride 20 mEq tablet extended release 20 meq PO BID Qty: 10 0RF acetaminophen 500 mg capsule 1,000 mg PO Q6H PRN (Reason: pain) Qty: 30 0RF Discharge Orders: Discharge Order (Routine); Ordered 04/22/22 Ordered By: Bobby Rangel Referrals: Wound Care [Provider Group] - 4-7 days (Call to set up an appointment) Promise Cardenas FNP [Primary Care Provider] - 4-7 days (Please call and schedule a follow up appointment tomorrow, for one week. ) Discharge Activity: Increase activity as tolerated and As per PT/OT instructions Patient Instructions: Ciprofloxacin (By mouth), Doxycycline (By mouth), Cellulitis (GEN), Chronic Wound Care (GEN), Stasis Dermatitis (GEN), Venous Insufficiency (GEN) Activity Restrictions/Additional Instructions: Elevate lower extremities, complete antibiotic course. Follow-up with wound care clinic regarding venous stasis ulcerations, dermatitis and/nerve cellulitis on lower extremities. Apply Hydrofera Blue to any spots that may start weeping. Wrap with gauze. Discuss wound care clinic regarding consideration of compression therapy. Discharge Attestations Time Spent in Discharge Care*: greater than 30 min Quality Metrics Clinical Quality Measures [ No reported AMI, CVA or VTE this stay] Coding Level of Care Code Acute Chg FW DC note Diagnoses Cellulitis L03.90 Hypothyroidism E03.9 DM type 2 (diabetes mellitus, type 2) E11.9 Hypertension I10
== END 2022-04-22 18:22 | disposition home health service (06) | DRG 603 ==
LOC: ER 23:56 → MEDSURG 04-20 00:59
PROVIDERS: Admitting Provider Internal Medicine; Emergency Provider Emergency Medicine; PCP Nurse Practitioner Family; Visit Provider Internal Medicine
DX: L03.116 Cellulitis of left lower limb (principal); N17.9 Acute kidney failure, unspecified; L03.115 Cellulitis of right lower limb; E03.9 Hypothyroidism, unspecified; E11.9 Type 2 diabetes mellitus without complications; I10 Essential (primary) hypertension; I87.8 Other specified disorders of veins; F41.9 Anxiety disorder, unspecified; L30.4 Erythema intertrigo
CPT/HCPCS: 36415; 36416; 71045; 73630; 80048; 80053; 80306; 81001; 81003; 82962; 83036; 83605; 83735; 83880; 84145; 84443; 85025; 85610; 87040; 87086; 93005; 93970; 96365; 96372; 97110; 97116; 97161; 97166; 97530; 99285; C9113; J1644; J2543; J3370; J7030; J7050

== ENCOUNTER 2022-05-16 11:25 | Inpatient (IN) | payer MEDICARE, MEDICAID, SELFPAY ==
[2022-05-16] VITALS (10 sets, daily range): BP systolic 145–189; BP diastolic 69–113; PULSE 93–110; RESP 16–18; TEMP 36.8–37.4; O2SAT 92–98; BMI 36.2
--- NOTE | 2022-05-16 11:43 | ED_ITS ---
HPI - General Adult General: Chief complaint: General Medical Stated complaint: leg pain Time Seen by Provider: 05/16/22 11:36 Source: patient Mode of arrival: EMS History of Present Illness: -year-old female presents emergency room from a local hotel via EMS. She is complaining of cellulitis of the lower extremities. She was supposed to see wound care clinic but will go there because of lack of transportation she has medication she was prescribed as well she has been able to get those either she is ulcerations and desquamation bilaterally of the lower extremities in the distal two thirds of her lower leg.She was recently hospitalized here was admitted on April 19 and discharged home on April 22. She denies any fevers sweats chills chest or abdominal pain or shortness of breath Onset (ago): week(s) Location: left, right and lower extremity Severity: moderate Quality: aching Pain Consistency: constant Relieving factors: none Exacerbating factors: none Associated symptoms: Deny chest pain, confusion, cough, diaphoresis, decreased appetite, dyspnea, fevers/chills, headache(s), malaise, nausea, rash, palpitations, seizures, short of breath, syncope, vomiting or weakness Treatments prior to arrival: none Review of Systems Const: Denies: fever(s), chills, fatigue, malaise or diaphoresis ENMT: Denies: throat pain, ear or mastoid pain, nasal discharge or nasal congestion Card: Denies: chest pain, palpitations or syncope Resp: Denies: dyspnea GI: Denies: abdominal pain, nausea or vomiting : Denies: flank pain, difficulty voiding, dysuria, urinary frequency or urinary urgency Skin/Breast: Denies: rash Neuro: Denies: headache(s) or confusion PFSH ED PFSH: Medical History DM type 2 (diabetes mellitus, type 2) Hypertension Hypothyroidism Surgical History No significant past surgical history Social History Smoking and tobacco status: never smoked Physical Exam Const: COMMON NORMALS: no acute distress GENERAL APPEARANCE: cooperative and comfortable ORIENTATION/CONSCIOUSNESS: Yes awake, Yes oriented to person, Yes oriented to place and Yes oriented to time HENMT: COMMON NORMALS: normocephalic, atraumatic and hearing grossly normal bilaterally HEAD & SCALP: normocephalic and atraumatic Resp: COMMON NORMALS: normal respiratory effort, No retractions, No use of accessory muscles and clear to auscultation bilaterally AUSCULTATION: clear to auscultation bilaterally Cardio: COMMON NORMALS: regular rate, regular rhythm and No murmurs present (Cardio) RATE: regular rate RHYTHM: regular rhythm GI: COMMON NORMALS: Soft to palpation and No hepatosplenomegaly present AUSCULTATION: Yes normoactive bowel sounds PALPATION: Yes Soft to palpation, No Tenderness to palpation present (GI), No Guarding due to palpation present (GI) and Yes No hepatosplenomegaly present Extremity: COMMON NORMALS: no calf tenderness OTHER: Scaling desquamation bilateral lower extremities partial-thickness ulcerations and irritations in various stages of healing no active bleeding there is moderate erythema is tender to the touch no palpable pulses 2+ edema Neuro: SENSORIUM/ORIENTATION: Yes oriented to person, Yes oriented to place and Yes oriented to time Course Vital Signs: Vital signs: Vital Signs Temperature 98.3 F 05/16/22 11:26 Pulse Rate 95 05/16/22 14:40 Respiratory Rate 18 05/16/22 14:40 Blood Pressure 171/91 05/16/22 14:40 Pulse Oximetry 92 05/16/22 14:40 Oxygen Delivery Me thod 05/16/22 14:40 MDM - General Adult Medical Decision Making Labs imaging and EKG reviewed. No acute findings on imaging White count elev ated patient does have fairly extensive cellulitis we will readmit and start her on vancomycin. Reviewing previous H&P and discharge there were some issues at time of discharge for the same problem last month and arranging for follow-up. Unfortunately patient did not follow through anything in his essentially back where she started. Medical Records I reviewed the patient's medical records. Lab Data I reviewed the patient's lab results. 05/16/22 12:01 05/16/22 12:01 Laboratory Results WBC 11.9 10^3/uL (4.0-10.0) H 05/16/22 12:01 RBC 5.27 10^6/uL (4.1-5.3) 05/16/22 12:01 Hgb 15.0 g/dL (11.5-15.3) 05/16/22 12:01 Hct 47.9 % (37.0-47.0) H 05/16/22 12: MCV 90.9 fl (81-99) 05/16/22 12:01 MCH 28.5 pg (28.0-34.0) 05/16/22 12: MCHC 31.3 g/dL (30.0-36.0) 05/16/22 12: RDW 14.0 % (12.1-15.1) 05/16/22 12: Plt Count 252 10^3/cmm (130-400) 05/16/22 12: MPV 9.8 fL (7.4-10.4) 05/16/22 12:01 Neut % (Auto) 77.1 % 05/16/22 12:01 Lymph % (Auto) 15.0 % 05/16/22 12: [place] % (Auto) 6.1 % 05/16/22 12: Eos % (Auto) 0.6 % 05/16/22 12:01 Baso % (Auto) 0.5 % 05/16/22 12:01 Neut # (Auto) 9.21 10^3/uL (1.8-7.7) H 05/16/22 12: Lymph # (Auto) 1.8 10^3/uL (0.8-4.8) 05/16/22 12:01 [place] # (Auto) 0.7 10^3/uL (0.2-0.9) 05/16/22 12: Eos # (Auto) 0.1 10^3/uL (0.0-0.8) 05/16/22 12:01 Baso # (Auto) 0.1 10^3/uL (0.0-0.1) 05/16/22 12:01 Nucleated RBC % (auto) 0 % 05/16/22 12: Nucleated RBCs # 0.0 /100WBC 05/16/22 12:01 Sodium 139 mmol/L (136-145) 05/16/22 12:01 Potassium 3.5 mmol/L (3.5-5.1) 05/16/22 12: Chloride 100 mmol/L (98-107) 05/16/22 12:01 Carbon Dioxide 27 mmol/L (22-29) 05/16/22 12:01 Anion Gap 15.5 (5-19) 05/16/22 12:01 BUN 8 mg/dL (8-23) 05/16/22 12:01 Creatinine 0.7 mg/dL (0.5-0.9) 05/16/22 12:01 GFR Calculation 82.7 mL/min (90-130) L 05/16/22 12:01 Glucose 149 mg/dL (65-115) H 05/16/22 12:01 Calculated Osmolality 289 mOsm/kg (285-295) 05/16/22 12:01 Lactic Acid 2.3 mmol/L (0.5-2.2) H 05/16/22 12:01 Lactic Acid (Sepsis) 1.7 mmol/L (0.5-2.2) 05/16/22 14:36 Calcium 9.3 mg/dL (8.5-10.5) 05/16/22 12:01 Discharge Plan Discharge Condition: Stable Prescriptions: No Action levothyroxine 25 mcg tablet 25 mcg PO DAILY potassium chloride 20 mEq tablet extended release 20 meq PO BID Qty: 10 0RF acetaminophen 500 mg capsule 1,000 mg PO Q6H PRN (Reason: pain) Qty: 30 0RF amlodipine 10 mg tablet 10 mg PO DAILY Referrals: Promise Cardenas FNP [Primary Care Provider] - Coding Level of Care Code ED Sales Training Coordinator for Chg Fwd Exam Detailed
--- NOTE | 2022-05-16 12:12 | PC.NURSE ---
PT REPORTS TO THE ED WITH COMPLAINTS OF A RASH BILATERALLY ON HER LEGS. PT DOES NOT KNOW WHEN RASH OCCURED BUT WAS SEEN APPROX A MONTH AGO AND WAS GIVEN ANTIBIOTICS. PT REPORTS NOT TAKING ANY PRESCRIPTION MEDICATION AND IS UNAWARE OF HOW LONG SHE HAS HAD THE RASH OR WHERE SHE HAS NO SENSE OF TIME THAT HAS PASSED. PT IS A/O x2
[2022-05-16 12:13] LABS: Basophils # 0.1 10^3/uL (0.0-0.1); Basophils % 0.5 %; Eosinophils # 0.1 10^3/uL (0.0-0.8); Eosinophils % 0.6 %; Hematocrit 47.9 % (37.0-47.0); Lymphocytes # 1.8 10^3/uL (0.8-4.8); Mean Corpuscular HGB Conc 31.3 g/dL (30.0-36.0); Mean Corpuscular Hemoglobin 28.5 pg (28.0-34.0); Mean Corpuscular Volume 90.9 fl (81-99); Mean Platelet Volume 9.8 fL (7.4-10.4); Monocytes # 0.7 10^3/uL (0.2-0.9); Monocytes % 6.1 %; Neutrophils # 9.21 10^3/uL (1.8-7.7); Neutrophils % 77.1 %; Nucleated Red Blood Cells % 0 %; Platelet Count 252 10^3/cmm (130-400); Red Blood Count 5.27 10^6/uL (4.1-5.3); White Blood Count 11.9 10^3/uL (4.0-10.0)
[2022-05-16 12:31] LABS: Lactic Sepsis W/Reflex 2.3 mmol/L (0.5-2.2)
[2022-05-16 12:32] LABS: Anion Gap 15.5 (5-19); Blood Urea Nitrogen 8 mg/dL (8-23); Calcium 9.3 mg/dL (8.5-10.5); Carbon Dioxide 27 mmol/L (22-29); Chloride 100 mmol/L (98-107); Glomerular Filtration Rate 82.7 mL/min (90-130); Glucose 149 mg/dL (65-115); Osmolality Calculated 289 mOsm/kg (285-295); Potassium 3.5 mmol/L (3.5-5.1); Sodium 139 mmol/L (136-145)
--- NOTE | 2022-05-16 12:32 | USCV_ITS ---
Kenyatta Kirby Age: 71 Gender: F : 1950 Exam Date: 05/16/2022 13:01 Ordering Phys: Alireza Spencer DO Technologist: Lizz Emerson Exam Location: [facility] Indication: LE swelling, cellulitis, open ulcrs HISTORY: Cellulities, swelling, open ulcers both legs. Not diabetic, non smoker PROCEDURES: The venous duplex Doppler examination of both lower extremities was performed in the standard fashion. Bilaterally, the common femoral, superficial femoral, profunda femoral, popliteal, posterior tibial, greater saphenous veins, and the peroneal trunk were identified and interrogated in the standard fashion. These veins were found to be easily compressible with spontaneous blood flow. FINDINGS: Normal 2-D Doppler and augmentation and compressibility throughout the lower extremity venous structures. Additional imaging through the proximal calf veins also reveals no thrombus. Limited evaluation of the greater saphenous vein is patent with no thrombus. CONCLUSIONS No DVT bilateral lower extremities. Dr. Nayla Chinchilla DO (Electronically Signed) Final Date: 16 May 2022 14:36 S
--- NOTE | 2022-05-16 12:32 | USR_ITS ---
PROCEDURE INFORMATION: Exam: US Duplex Lower Extremity Arteries Exam date and time: 05/16/2022 1:40 PM Age: 71 years old Clinical indication: Pain; Edema, localized and other: Cellulitis; Lower extremity, bilateral; Leg, lower and foot; Additional info: Lower extremity ulcers, 1235- talked with nurse- chiquis and arterial are correct orders on this TECHNIQUE: Imaging protocol: Real-time ultrasound scan of the arteries of the bilateral lower extremities with 2-D byers scale, color Doppler flow and spectral waveform analysis. Images documented and saved. COMPARISON: [place] [id number] 04/20/2022 12:09 AM FINDINGS: Right common femoral artery: No occlusion or significant stenosis. Biphasic waveform. Right superficial femoral artery: No occlusion or significant stenosis. Biphasic waveform. Right popliteal artery: No occlusion or significant stenosis. Biphasic waveform. Right calf/foot arteries: No occlusion or significant stenosis in the visualized arteries. Biphasic waveforms. Dorsalis pedis artery is patent. Left common femoral artery: No occlusion or significant stenosis. Biphasic waveform. Left superficial femoral artery: No occlusion or significant stenosis. Biphasic waveform. Left popliteal artery: No occlusion or significant stenosis. Biphasic waveform. Left calf/foot arteries: No occlusion or significant stenosis in the visualized arteries. Biphasic waveforms. Dorsalis pedis artery is patent. US/[place] [id number] IMPRESSION: No stenosis or occlusion.
[2022-05-16 13:56] LABS: Reflex Lactate Order REFLEX LACTIC ORDERD
[2022-05-16] MEDS: vancomycin 1,000 MG in sodium chloride 0.9% 250 ML 250 MG IV (14:15)
[2022-05-16 14:57] LABS: Lactic Acid level (Lactate) 1.7 mmol/L (0.5-2.2)
--- NOTE | 2022-05-16 15:08 | CT_ITS ---
WS: [id number] CT RIGHT LOWER EXTREMITY WITH CONTRAST. HISTORY: R/O OSTEO/ABSCESS Technique: All CT scans at [facility] use at least one of these dose optimization techniques: automated exposure control; mA and/or kV adjustment per patient size (includes targeted exams where dose is matched to clinical indication); or iterative reconstruction. DLP: 527.21 mGy.cm Omnipaque 350; 100 mL IV. COMPARISON: RIGHT foot radiograph 04/19/2022 Mild diffuse subcutaneous edema greatest towards the ankle. No focal collection such as abscess ident ified. No deep tract ulceration extending to the bone is evident. There is soft tissue edema extendin g to the distal fibula but no well-circumscribed collection. No destructive bone lesions or osteomyelitis at this time. CT/CT lower leg RT w con [id number] IMPRESSION: 1. Subcutaneous edema throughout the RIGHT lower extremity. No evidence for de structive bone lesion or osteomyelitis. 2. No focal abscess. 3. Greatest amount of edema adjacent to the distal fibula.
--- NOTE | 2022-05-16 15:08 | CT_ITS ---
WS: [id number] CT LEFT LOWER EXTREMITY, WITH CONTRAST HISTORY: R/O OSTEO/ABSCESS Technique: All CT scans at [facility] use at least one of these dose optimization techniques: automated exposure control; mA and/or kV adjustment per patient size (includes targeted exams where dose is matched to clinical indication); or iterative reconstruction. DLP: 527.21 mGy.cm COMPARISON: LEFT foot radiograph 04/19/2022. Contrast: Omnipaque 350; 100 mL IV. Diffuse moderate soft tissue subcutaneous edema. No focal collections or air pockets. Greatest amount of edema towards the ankle. Greatest edema adjacent to the distal fibula. There are no open tracts o r ulcerations extending to the bone identified by CT. No osteomyelitis or bone destruction. Cortex is intact. CT/CT lower leg LT w con [id number] IMPRESSION: 1. Diffuse subcutaneous edema. 2. No focal abscess or open tract extending through the bone or osteomyelitis.
--- NOTE | 2022-05-16 15:31 | P.HP_ITS ---
Providers/Chief Complaint Primary Care Provider: BITA Blackwell Chief Complaint: leg pain History of Present Illness Kenyatta Kirby is a 71 year old female with past medical history of hypertension hypothyroidism diabetes, Came in with chief complaint of worsening bilateral lower extremity redness pain swelling, she was recently discharged from the hospital after being managed for similar complaint was asked to follow-up with wound care. Pertinent imaging studies done in the ER: Bilateral lower extremity Dopplers were negative for DVT Bilateral lower extremity arterial duplex: Bilateral lower extremity CT scan with contrast: Pertinent Labs done in ER included: WBC 11.9, H&H 15/47 , PLT : 252 , serum sodium 139, serum potassium 3.5, BUN 8 serum creatinine 0.7 Lactic acid 2.3, repeat lactic acid 1.7 Patient was given one-time dose of vancomycin in the ER Review of Systems 2 General: Reports: 10 or more systems reviewed and unremarkable except in HPI and below Const: Denies: fever(s), chills, body aches, change in appetite or diaphoresis Card: Denies: palpitations, dyspnea on exertion or orthopnea Resp: Denies: dyspnea, productive cough, wheezing or pain on inspiration GI: Denies: abdominal pain, nausea, vomiting, diarrhea or constipation : Denies: flank pain Musc: Reports: extremity pain and extremity swelling; Denies: back pain Neuro: Denies: headache(s) or confusion Medications/Allergies Home Medications Medication Instructions Recorded Confirmed Last Taken Type levothyroxine 25 mcg tablet 25 mcg PO DAILY 02/16/20 05/16/22 03/06/20 History acetaminophen 500 mg capsule 1,000 mg PO Q6H PRN pain #30 caps 02/17/22 05/16/22 Unknown Rx potassium chloride 20 mEq 20 meq PO BID #10 tabs 03/22/22 05/16/22 Unknown Rx tablet,extended release amlodipine 10 mg tablet 10 mg PO DAILY 05/16/22 05/16/22 Unknown History Allergies Allergy/AdvReac Type Severity Reaction Status Date / Time No Known Allergies Allergy Verified 05/16/22 12:16 PFSH Acute PFSH: Medical History DM type 2 (diabetes mellitus, type 2) Hypertension Hypothyroidism Surgical History No significant past surgical history Social History Smoking and tobacco status: never smoked Vitals/I&O/Wt Last Vital Signs Temp 98.3 F 05/16/22 11:26 Pulse 94 05/16/22 15:06 Resp 18 05/16/22 14:40 BP 181/100 05/16/22 15:06 Pulse Ox 96 05/16/22 15:06 O2 Del Method 05/16/22 15:06 Weight last 48 hrs Weight 81.647 kg Physical Exam Const: COMMON NORMALS: patient oriented x3 HENMT: COMMON NORMALS: normocephalic and atraumatic HEAD & SCALP: normocephalic and atraumatic Resp: COMMON NORMALS: clear to auscultation bilaterally EFFORT & INSPECTION: Yes symmetric chest movement AUSCULTATION: clear to auscultation bilaterally Cardio: COMMON NORMALS: regular rate, regular rhythm, S1 normal heart sound present, S2 normal heart sound present, No gallops present (Cardio), No murmurs present (Cardio), No rub (Cardio) and Peripheral pulses 2+ throughout RATE: regular rate RHYTHM: regular rhythm HEART SOUNDS: S1 normal heart sound present and S2 normal heart sound present PERIPHERAL PULSES: Peripheral pulses 2+ throughout GI: COMMON NORMALS: Normal to inspection, nondistended, normoactive bowel sounds present, Soft to palpation, non-tender, No hepatosplenomegaly present and no masses AUSCULTATION: Yes normoactive bowel sounds PALPATION: Yes Soft to palpation and Yes No hepatosplenomegaly present RECTAL EXAM: deferred Extremity: COMMON NORMALS: no clubbing, cyanosis or edema and no pedal edema NARRATIVE EXTREMITY EXAM: Bilateral lower extremity redness present, with skin peeling. Neuro: COMMON NORMALS: patient oriented x3 Data 05/16/22 12:01 05/16/22 12:01 Micro: Microbiology 05/16/22 12:14 Blood Culture - Preliminary Blood SPECIMEN COLLECTED 05/16/22 12:14 Blood Culture - Preliminary Blood SPECIMEN COLLECTED A&P Assessment and plan (1) Cellulitis: (2) Hypothyroidism: (3) DM type 2 (diabetes mellitus, type 2): (4) Hypertension: Plan 71 year old female with past medical history of hypertension hypothyroidism diabetes, Came in with chief complaint of worsening bilateral lower extremity redness pain swelling. Assessment: Bilateral lower extremity cellulitis: CT scan bilateral lower extremity ESR CRP Currently she is empirically on vancomycin and Zosyn History of hypothyroidism: Continue levothyroxine History of diabetes: LDSSI, monitor fingerstick glucose Carbohydrate consistent diet Hypertension: Continue amlodipine 10 mg p.o. daily Monitor to maintain goal blood pressure CODE STATUS: Full code DVT prophylaxis: On Lovenox Attestations Medical Necessity Statement*: Patient is in hospital for management of bilateral extremity cellulitis.Need for IV antibiotics.Anticipated length of stay greater than 2 midnights. Coding Level of Care Code Acute Code for [facility] Fwd Diagnoses Cellulitis L03.90 Hypothyroidism E03.9 DM type 2 (diabetes mellitus, type 2) E11.9 Hypertension I10
[2022-05-16] MEDS: iohexol 350 mg/mL 500 mL Btl (per mL) IV (15:33)
[2022-05-16] MEDS: lisinopril 20 mg Tablet PO (16:56)
[2022-05-16] MEDS: piperacillin-tazobactam 3.375 GM in sodium chloride 0.9% (plus) 50 ML IV (16:57)
[2022-05-16] MEDS: sodium chloride 0.9% 500 ML IV (17:03)
[2022-05-16 17:33] LABS: Glucose Point of Care 120 mg/dL (70-110)
[2022-05-16 20:57] LABS: Glucose Point of Care 152 mg/dL (70-110)
[2022-05-17] VITALS (8 sets, daily range): BP systolic 125–164; BP diastolic 67–79; PULSE 81–102; RESP 16–23; TEMP 36.7–37.7; O2SAT 94–99
[2022-05-17] MEDS: piperacillin-tazobactam 3.375 GM in sodium chloride 0.9% (plus) 50 ML IV ×4 (00:36→22:55)
[2022-05-17] MEDS: vancomycin 1,250 MG/250 ML PIGGYBACK 200 MG IV ×2 (02:03→15:20)
[2022-05-17 02:57] LABS: Basophils % 0.3 %; Eosinophils # 0.1 10^3/uL (0.0-0.8); Eosinophils % 0.8 %; Hematocrit 38.6 % (37.0-47.0); Hemoglobin 11.8 g/dL (11.5-15.3); Lymphocytes # 1.6 10^3/uL (0.8-4.8); Lymphocytes % 16.7 %; Mean Corpuscular HGB Conc 30.6 g/dL (30.0-36.0); Mean Corpuscular Hemoglobin 28.8 pg (28.0-34.0); Mean Corpuscular Volume 94.1 fl (81-99); Mean Platelet Volume 9.6 fL (7.4-10.4); Monocytes # 0.8 10^3/uL (0.2-0.9); Monocytes % 8.4 %; Neutrophils # 7.19 10^3/uL (1.8-7.7); Neutrophils % 73.3 %; Nucleated Red Blood Cells % 0 %; Platelet Count 143 10^3/cmm (130-400); Red Cell Distribution Width 14.4 % (12.1-15.1); White Blood Count 9.8 10^3/uL (4.0-10.0)
[2022-05-17 03:26] LABS: Anion Gap 16.5 (5-19); Blood Urea Nitrogen 7 mg/dL (8-23); Calcium 8.3 mg/dL (8.5-10.5); Carbon Dioxide 23 mmol/L (22-29); Chloride 105 mmol/L (98-107); Glomerular Filtration Rate 98.8 mL/min (90-130); Glucose 164 mg/dL (65-115); Osmolality Calculated 294 mOsm/kg (285-295); Potassium 3.5 mmol/L (3.5-5.1); Sodium 141 mmol/L (136-145)
[2022-05-17 03:29] LABS: Procalcitonin 0.11 ng/mL (0-0.5)
[2022-05-17 06:40] LABS: Glucose Point of Care 142 mg/dL (70-110)
[2022-05-17] MEDS: amlodipine 10 mg Tablet PO (09:45)
[2022-05-17] MEDS: insulin lispro 100 unit/1 mL SUBCUT ×2 (09:45→12:34)
[2022-05-17] MEDS: levothyroxine 25 mcg Tablet PO (09:45)
[2022-05-17] MEDS: FUROsemide 40 mg Tablet PO ×2 (11:04→11:06)
[2022-05-17 12:15] LABS: Glucose Point of Care 172 mg/dL (70-110)
[2022-05-17] MEDS: neomycin-poly-bacitracin oint 28 gm 1 APPLIC TOPICAL (15:23)
--- NOTE | 2022-05-17 16:17 | PC.NURSE ---
Notified Dr. Mishra of postive blood culture containing gram positive Cocci in clusters and gram negative rods. Dr. Mishra acknowledged
[2022-05-17 16:47] LABS: Glucose Point of Care 125 mg/dL (70-110)
--- NOTE | 2022-05-17 18:12 | P.PN_ITS ---
Subjective Subjective: Patient was seen and examined this morning, no acute events overnight. Medications: Medication Review Details: Generic Name Dose Route Start Last Admin Trade Name Luis PRN Reason Stop Dose Admin Amlodipine Besylat e 10 mg 05/17/22 09:00 05/17/22 09:45 Amlodipine 10 Mg Tablet PO 10 mg DAILY AZEB Administration Furosemide 40 mg 05/17/22 10:35 05/17/22 11:06 Furosemide 40 Mg Tablet PO 40 mg DAILY@0800 AZEB Administration Piperacillin Sod/T azobactam 50 mls @ 12.5 mls /hr 05/16/22 15:30 05/17/22 16:58 Sod 3.375 gm/ So dium Chloride IV 12.5 mls/hr Q8H AZEB Administration Protocol Vancomycin/PEG/NAD A/Lysine/Water 1,250 mg in 250 m ls @ 200 mls/hr 05/17/22 02:00 05/17/22 15:20 Vancocin IV 200 mls/hr Q12H AZEB Administration Insulin Human Lisp ro 0 unit 05/16/22 18:00 05/17/22 12:34 Insulin Lispro 1 00 Unit/1 Ml SUBCUT 4 unit TIDWM AZEB Administration Protocol Levothyroxine Sodi um 25 mcg 05/17/22 09:00 05/17/22 09:45 Levothyroxine 25 Mcg Tablet PO 25 mcg DAILY AZEB Administration Neomycin/Polymyxin /Bacitracin 1 applic 05/17/22 18:00 05/17/22 15:23 Throfzff-Dawe-Bk citracin Oint 28 G m TOPICAL 1 applic BID AZEB Administration Vitals/I&O/Wt Last Vital Signs Temp 98.1 F 05/17/22 16:00 Pulse 91 05/17/22 16:00 Resp 18 05/17/22 16:00 BP 135/67 05/17/22 16:00 Pulse Ox 96 05/17/22 16:00 O2 Del Method 05/17/22 16:00 05/17/22 05/17/22 05/17/22 06:59 14:59 22:59 Intake Total 300.000 / 1340.000 530 / 530 Output Total 400 / 400 Balance 300.000 / 1139.000 130 / 130 Weight last 48 hrs Weight 108.136 kg Weight 81.647 kg Physical Exam Const: COMMON NORMALS: patient oriented x3 HENMT: COMMON NORMALS: normocephalic and atraumatic HEAD & SCALP: normocephalic and atraumatic Resp: COMMON NORMALS: clear to auscultation bilaterally EFFORT & INSPECTION : Yes symmetric chest movement AUSCULTATION: clear to auscultation bilaterally Cardio: COMMON NORMALS: regular rate, regular rhythm, S1 normal heart sound present, S2 normal heart sound present, No gallops present (Cardio), No murmurs present (Cardio), No rub (Cardio) and Peripheral pulses 2+ throughout RATE: regular rate RHYTHM: regular rhythm HEART SOUNDS: S1 normal heart sound present and S2 normal heart sound present PERIPHERAL PULSES: Peripheral pulses 2+ throughout GI: COMMON NORMALS: Normal to inspection, nondistended, normoactive bowel sounds present, Soft to palpation, non-tender, No hepatosplenomegaly present and no masses AUSCULTATION: Yes normoactive bowel sounds PALPATION: Yes Soft to palpation and Yes No hepatosplenomegaly present RECTAL EXAM: deferred Extremity: COMMON NORMALS: no clubbing, cyanosis or edema and no pedal edema NARRATIVE EXTREMITY EXAM: Bilateral lower extremity redness present, with skin peeling. Neuro: COMMON NORMALS: patient oriented x3 Data 05/17/22 02:38 05/17/22 02:38 Micro: Microbiology 05/16/22 12:14 Blood Culture - Preliminary Blood 05/16/22 12:14 Blood Culture - Preliminary Blood NEGATIVE TO DATE A&P Assessment and plan (1) Cellulitis: (2) Hypothyroidism: (3) DM type 2 (diabetes mellitus, type 2): (4) Hypertension: Plan 71 year old female with past medical history of hypertension hypothyroidism diabetes, Came in with chief complaint of worsening bilateral lower extremity redness pain swelling. Assessment: Bilateral lower extremity cellulitis: CT scan bilateral lower extremity: Has not shown any abscess or osteomyelitis, has some diffuse subcutaneous edema, no concern for necrotizing fasciitis,or gas gangrene. Lower extremity bilateral Doppler vein were negative for DVT Arterial duplex bilateral lower extremity: No stenosis or occlusion ESR: CRP Procalcitonin: 0.11 Blood culture: / bottles positive for GPC in pairs and clusters,GNR Currently she is empirically on vancomycin and Zosyn Started on triple antibiotic: Patient does not have statis dermatitis. On Lasix 40 p.o. daily History of hypothyroidism: Continue levothyroxine History of diabetes: LDSSI, monitor fingerstick glucose Carbohydrate consistent diet Hypertension: Continue amlodipine 10 mg p.o. daily Monitor to maintain goal blood pressure CODE STATUS: Full code DVT prophylaxis: On Lovenox Attestations Medical Necessity Statement*: Needs to be in hospital for IV antibiotics. Coding Level of Care Code Acute Code for Chg Fwd Exam Detailed Diagnoses Cellulitis L03.90 Hypothyroidism E03.9 DM type 2 (diabetes mellitus, type 2) E11.9 Hypertension I10
[2022-05-17 20:28] LABS: Glucose Point of Care 171 mg/dL (70-110)
[2022-05-18] MEDS: vancomycin 1,250 MG/250 ML PIGGYBACK 200 MG IV ×2 (03:07→14:27)
[2022-05-18 03:42] VITALS: BP 142/78; PULSE 79; RESP 21; TEMP 36.9; O2SAT 93
[2022-05-18 05:35] LABS: Basophils # 0.1 10^3/uL (0.0-0.1); Basophils % 0.6 %; Eosinophils # 0.3 10^3/uL (0.0-0.8); Eosinophils % 2.8 %; Hematocrit 37.4 % (37.0-47.0); Hemoglobin 11.6 g/dL (11.5-15.3); Lymphocytes # 1.9 10^3/uL (0.8-4.8); Lymphocytes % 20.4 %; Mean Corpuscular Hemoglobin 28.9 pg (28.0-34.0); Mean Corpuscular Volume 93.3 fl (81-99); Mean Platelet Volume 10.4 fL (7.4-10.4); Monocytes # 0.9 10^3/uL (0.2-0.9); Monocytes % 9.1 %; Neutrophils # 6.23 10^3/uL (1.8-7.7); Neutrophils % 66.4 %; Nucleated Red Blood Cells % 0 %; Platelet Count 110 10^3/cmm (130-400); Red Blood Count 4.01 10^6/uL (4.1-5.3); Red Cell Distribution Width 14.4 % (12.1-15.1); White Blood Count 9.4 10^3/uL (4.0-10.0)
[2022-05-18 05:55] LABS: Anion Gap 14.5 (5-19); Blood Urea Nitrogen 7 mg/dL (8-23); C Reactive Protein 39.8 mg/L (0.0-4.9); Carbon Dioxide 24 mmol/L (22-29); Chloride 106 mmol/L (98-107); Glomerular Filtration Rate 98.8 mL/min (90-130); Glucose 142 mg/dL (65-115); Osmolality Calculated 292 mOsm/kg (285-295); Potassium 3.5 mmol/L (3.5-5.1); Sodium 141 mmol/L (136-145)
[2022-05-18 05:56] LABS: Erythrocyte Sedimentation Rate 26 mm/hr (0-15)
[2022-05-18] MEDS: piperacillin-tazobactam 3.375 GM in sodium chloride 0.9% (plus) 50 ML IV ×2 (06:32→15:44)
[2022-05-18 07:00] LABS: Glucose Point of Care 139 mg/dL (70-110)
[2022-05-18 08:00] VITALS: BP 110/64; PULSE 82; RESP 17; TEMP 37.1; O2SAT 93
[2022-05-18] MEDS: levothyroxine 25 mcg Tablet PO (09:20)
[2022-05-18] MEDS: amlodipine 10 mg Tablet PO (09:20)
[2022-05-18] MEDS: FUROsemide 40 mg Tablet PO (09:20)
[2022-05-18 11:59] LABS: Glucose Point of Care 166 mg/dL (70-110)
[2022-05-18 12:00] VITALS: BP 150/75; PULSE 82; TEMP 36.8; O2SAT 96
[2022-05-18] MEDS: insulin lispro 100 unit/1 mL SUBCUT (12:15)
--- NOTE | 2022-05-18 13:04 | P.CONIM_ITS ---
Providers/Reason For Consult Consulting Physician/Specialty*: Dr. Mcguire/wound care services Reason for Consult*: Cellulitis lower extremities Requesting Physician: Dr. Mishra Attending Physician: Jairo Mishra MD Primary Care Provider: BITA Blackwell History of Present Illness History of Present Illness Kenyatta Kirby is a 71 year old female who was hospitalized on May 16 after presenting to the [facility] emergency department via EMS complaining of cellulitis of lower extremities. It is reported that she was scheduled to be seen in the wound care clinic, though we have no record of referral to our service. It was described in the ED evaluation that she had ulcerations of desquamation bilaterally. This involved the distal two thirds of the lower extremities. She was recent hospitalized April 19 to April 22 for cellulitis. Due to limited support at home, she has been residing in a local hotel. Venous duplex has been negative for DVT of the lower extremities bilaterally. Arterial duplex study revealed no obstructive disease. CT scan of the lower extremities revealed diffuse subcutaneous edema but no focal abscess or open tract extending through the bone or osteomyelitis was evident. She is currently on parenteral Zosyn and vancomycin. I presenting white cell count was 11.9, down to 9.4 today. Glucose has been modestly elevated from 149-164. Fingersticks have ranged from 152-171. C-reactive protein 39.8. Procalcitonin 0.11. She reports no difficulties with her lower extremities until last year. She do es not use tobacco. She states she sleeps in a recliner much of the time as she does become short of breath when she is lying flat in the bed. She denies history of congestive failure. Review of Systems Const: Reports: body aches; Denies: fever(s) or chills Eyes: Denies: change in vision ENMT: Denies: throat pain Card: Reports: edema and swelling of feet/ankles; Denies: chest pain, palpitations or syncope Resp: Denies: dyspnea, productive cough or hemoptysis GI: Denies: abdominal pain, nausea or vomiting Musc: Reports: extremity pain and extremity swelling Skin/Breast: Reports: other (Erythema and ulcerations of the lower extremities bilaterally.) Medications/Allergies Home Medications Medication Instructions Recorded Confirmed Last Taken Type levothyroxine 25 mcg tablet 25 mcg PO DAILY 02/16/20 05/16/22 03/06/20 History acetaminophen 500 mg capsule 1,000 mg PO Q6H PRN pain #30 caps 02/17/22 05/16/22 Unknown Rx potassium chloride 20 mEq 20 meq PO BID #10 tabs 03/22/22 05/16/22 Unknown Rx tablet,extended release amlodipine 10 mg tablet 10 mg PO DAILY 05/16/22 05/16/22 Unknown History Allergies Allergy/AdvReac Type Severity Reaction Status Date / Time No Known Allergies Allergy Verified 05/16/22 12:16 Current Medications Generic Name Dose Route Start Last Admin Trade Name Tarasq PRN Reason Stop Dose Admin Amlodipine Besylate 10 mg 05/17/22 09:00 05/18/22 09:20 Amlodipine 10 Mg Tablet PO 10 mg DAILY AZEB Administration Furosemide 40 mg 05/17/22 10:35 05/18/22 09:20 Furosemide 40 Mg Tablet PO 40 mg DAILY@0800 ZAEB Administration Piperacillin Sod/Tazobactam 50 mls @ 12.5 mls/hr 05/16/22 15:30 05/18/22 10:35 Sod 3.375 gm/ Sodium Chloride IV Infused Q8H AZEB Infusion Protocol Vancomycin/PEG/NADA/Lysine/Water 1,250 mg in 250 mls @ 200 mls/hr 05/17/22 02:00 05/18/22 05:16 Vancocin IV Infused Q12H AZEB Infusion Insulin Human Lispro 0 unit 05/16/22 18:00 05/18/22 12:15 Insulin Lispro 100 Unit/1 Ml SUBCUT 4 unit TIDWM AZEB Administration Protocol Levothyroxine Sodium 25 mcg 05/17/22 09:00 05/18/22 09:20 Levothyroxine 25 Mcg Tablet PO 25 mcg DAILY AZEB Administration PFSH Acute 2 PFSH: Medical History DM type 2 (diabetes mellitus, type 2) Hypertension Hypothyroidism Surgical History No significant past surgical history Social History Smoking and tobacco status: never smoked Vitals/I&O/Wt Last Vital Signs Temp 98.2 F 05/18/22 12:00 Pulse 82 05/18/22 12:00 Resp 17 05/18/22 08:00 BP 150/75 05/18/22 12:00 Pulse Ox 96 05/18/22 12:00 O2 Del Method 05/18/22 08:00 05/17/22 05/18/22 05/18/22 22:59 06:59 14:59 Intake Total 800 / 1330 300 / 1630 310 / 310 Output Total 750 / 1150 0 / 1150 Balance 50 / 180 300 / 480 310 / 310 Weight last 48 hrs Weight 238 lb 6.4 oz Physical Exam Extremity: NARRATIVE EXTREMITY EXAM: There is generalized excoriation of the lower extremities bilaterally. Much of this includes some thin dry eschar which I did not debride. There is area on the medial aspect of the left lower extremity which underwent curette debridement to remove a somewhat suppurative exudate. There was mild bleeding and moderate discomfort. She tolerated very well. Data 05/18/22 04:49 05/18/22 04:49 Micro: Microbiology 05/16/22 12:14 Blood Culture - Preliminary Blood 05/16/22 12:14 Blood Culture - Preliminary Blood NEGATIVE TO DATE A&P Assessment and plan (1) Cellulitis: Bilateral lower extremity cellulitis which is resolving with medical treatment including Zosyn and vancomycin parenterally. She is scheduled for subsequent discharge to [facility]. I recommend Betasept showers daily. I also recommend the use of a chlorhexidine scrub brush gently on her lower extremities to remove desquamation and loose eschar. We will place silver sorb gel and Promogran to the debrided region of the left lower extremity medially. Leg elevation is paramount. As well, she would benefit from compression stockings for edema control. In the future, I would recommend venous duplex study with reflux provocation to assess for venous incompetence. If this is considered significant, she may be considered a candidate for RF catheter ablation. I discussed my findings and impression with Ms. Kirby. All questions were answered. If requested through [facility], we could see her onsite at that facility or perhaps in our wound care clinic where formal compressive therapy could be initiated. Consult Attestations Medical Necessity Statement: Bilateral lower extremity cellulitis. Time Spent in Patient Care: Greater than 35 minutes Coding Level of Care Code New Pt Acute Code for Chg Fwd Patient Type New History Expanded Problem Focused Exam Expanded Problem Focused Medical Decision Making Moderate Complexity Diagnoses Cellulitis L03.90 Time Spent (min) 40
[2022-05-18 14:03] LABS: Vancomycin Trough 14.9 ug/mL (10-15)
[2022-05-18 16:00] VITALS: BP 155/73; PULSE 87; RESP 16; TEMP 36.6; O2SAT 96
--- NOTE | 2022-05-18 16:16 | P.PN_ITS ---
Subjective Subjective: Patient was seen and examined this morning, no acute events overnight. Medications: Medication Review Details: Generic Name Dose Route Start Last Admin Trade Name Luis PRN Reason Stop Dose Admin Amlodipine Besylat e 10 mg 05/17/22 09:00 05/18/22 09:20 Amlodipine 10 Mg Tablet PO 10 mg DAILY AZEB Administration Furosemide 40 mg 05/17/22 10:35 05/18/22 09:20 Furosemide 40 Mg Tablet PO 40 mg DAILY@0800 AZEB Administration Piperacillin Sod/T azobactam 50 mls @ 12.5 mls /hr 05/16/22 15:30 05/18/22 15:44 Sod 3.375 gm/ So dium Chloride IV 12.5 mls/hr Q8H AZEB Administration Protocol Vancomycin/PEG/NAD A/Lysine/Water 1,250 mg in 250 m ls @ 200 mls/hr 05/17/22 02:00 05/18/22 15:43 Vancocin IV Infused Q12H AZEB Infusion Insulin Human Lisp ro 0 unit 05/16/22 18:00 05/18/22 12:15 Insulin Lispro 1 00 Unit/1 Ml SUBCUT 4 unit TIDWM AZEB Administration Protocol Levothyroxine Sodi um 25 mcg 05/17/22 09:00 05/18/22 09:20 Levothyroxine 25 Mcg Tablet PO 25 mcg DAILY AZEB Administration Vitals/I&O/Wt Last Vital Signs Temp 98.2 F 05/18/22 12:00 Pulse 82 05/18/22 12:00 Resp 17 05/18/22 08:00 BP 150/75 05/18/22 12:00 Pulse Ox 96 05/18/22 12:00 O2 Del Method 05/18/22 08:00 05/18/22 05/18/22 05/18/22 06:59 14:59 22:59 Intake Total 300 / 1630 310 / 310 250 / 560 Output Total 0 / 1150 Balance 300 / 480 310 / 310 250 / 560 Weight last 48 hrs Weight 108.136 kg Physical Exam 2 Const: COMMON NORMALS: patient oriented x3 HENMT: COMMON NORMALS: normocephalic and atraumatic HEAD & SCALP: normocephalic and atraumatic Resp: COMMON NORMALS: clear to auscultation bilaterally EFFORT & INSPECTION: Yes symmetric chest movement AUSCULTATION: clear to auscultation bilaterally Cardio: COMMON NORMALS: regular rate, regular rhythm, S1 normal heart sound present, S2 normal heart sound present, No gallops present (Cardio), No murmurs present (Cardio), No rub (Cardio) and Peripheral pulses 2+ throughout RATE: regular rate RHYTHM: regular rhythm HEART SOUNDS: S1 normal heart sound present and S2 normal heart sound present PERIPHERAL PULSES: Peripheral pulses 2+ throughout GI: COMMON NORMALS: Normal to inspection, nondistended, normoactive bowel sounds present, Soft to palpation, non-tender, No hepatosplenomegaly present and no masses AUSCULTATION: Yes normoactive bowel sounds PALPATION: Yes Soft to palpation and Yes No hepatosplenomegaly present RECTAL EXAM: deferred Extremity: COMMON NORMALS: no clubbing, cyanosis or edema and no pedal edema NARRATIVE EXTREMITY EXAM: Bilateral lower extremity redness present, with skin peeling. Neuro: COMMON NORMALS: patient oriented x3 Data 05/18/22 04:49 05/18/22 04:49 Micro: Microbiology 05/16/22 12:14 Blood Culture - Preliminary Blood 05/16/22 12:14 Blood Culture - Preliminary Blood NEGATIVE TO DATE A&P Assessment and plan (1) Cellulitis: (2) Hypothyroidism: (3) DM type 2 (diabetes mellitus, type 2): (4) Hypertension: Plan 71 year old female with past medical history of hypertension hypothyroidism diabetes, Came in with chief complaint of worsening bilateral lower extremity redness pain swelling. Assessment: Bilateral lower extremity cellulitis: CT scan bilateral lower extremity: Has not shown any abscess or osteomyelitis, has some diffuse subcutaneous edema, no concern for necrotizing fasciitis,or gas gangrene. Lower extremity bilateral Doppler vein were negative for DVT Arterial duplex bilateral lower extremity: No stenosis or occlusion ESR: 26 CRP: 39 Procalcitonin: 0.11 Blood culture: / bottles positive for GPC in pairs and clusters,GNR Currently she is empirically on vancomycin and Zosyn Appreciate wound care consult Was On Lasix 40 p.o. daily significant subcutaneous edema:Has been Discontinued History of hypothyroidism: Continue levothyroxine History of diabetes: LDSSI, monitor fingerstick glucose Carbohydrate consistent diet Hypertension: Continue amlodipine 10 mg p.o. daily Monitor to maintain goal blood pressure CODE STATUS: Full code DVT prophylaxis: On Lovenox Attestations Medical Necessity Statement*: Needs to be in hospital for IV antibiotic Coding Level of Care Code Acute Code for Chg Fwd Exam Detailed Diagnoses Cellulitis L03.90 Hypothyroidism E03.9 DM type 2 (diabetes mellitus, type 2) E11.9 Hypertension I10
[2022-05-18 17:06] LABS: Glucose Point of Care 124 mg/dL (70-110)
[2022-05-18 20:00] VITALS: BP 131/80; PULSE 85; RESP 16; TEMP 36.9; O2SAT 93
[2022-05-18 20:37] LABS: Glucose Point of Care 152 mg/dL (70-110)
[2022-05-18] MEDS: silver sulfadiazine cream 1% 50 gm 1 APPLIC TOPICAL (23:20)
--- NOTE | 2022-05-18 23:42 | PC.NURSE ---
dressing changed was performed on the patients left lower leg. The site was cleansed with saline and the ordered cream was apllied and the proper bandages were applied. The patient tolerated well and was awake during the dressing change.
[2022-05-19] VITALS (7 sets, daily range): BP systolic 129–160; BP diastolic 73–86; PULSE 76–86; RESP 16–21; TEMP 36.9–37.4; O2SAT 93–97
[2022-05-19] MEDS: piperacillin-tazobactam 3.375 GM in sodium chloride 0.9% (plus) 50 ML IV ×4 (00:06→23:12)
[2022-05-19] MEDS: vancomycin 1,250 MG/250 ML PIGGYBACK 200 MG IV ×2 (02:41→13:25)
[2022-05-19 04:58] LABS: Basophils # 0.1 10^3/uL (0.0-0.1); Basophils % 0.7 %; Eosinophils # 0.3 10^3/uL (0.0-0.8); Eosinophils % 3.4 %; Hematocrit 39.4 % (37.0-47.0); Mean Corpuscular HGB Conc 30.5 g/dL (30.0-36.0); Mean Corpuscular Hemoglobin 28.3 pg (28.0-34.0); Mean Corpuscular Volume 92.9 fl (81-99); Mean Platelet Volume 10.5 fL (7.4-10.4); Monocytes # 0.8 10^3/uL (0.2-0.9); Monocytes % 7.7 %; Neutrophils # 6.77 10^3/uL (1.8-7.7); Neutrophils % 67.5 %; Nucleated Red Blood Cells % 0 %; Platelet Count 101 10^3/cmm (130-400); Red Blood Count 4.24 10^6/uL (4.1-5.3); Red Cell Distribution Width 14.2 % (12.1-15.1)
[2022-05-19 05:14] LABS: Anion Gap 14.4 (5-19); Blood Urea Nitrogen 8 mg/dL (8-23); Calcium 8.3 mg/dL (8.5-10.5); Carbon Dioxide 25 mmol/L (22-29); Chloride 102 mmol/L (98-107); Glucose 146 mg/dL (65-115); Osmolality Calculated 287 mOsm/kg (285-295); Potassium 3.4 mmol/L (3.5-5.1); Sodium 138 mmol/L (136-145)
[2022-05-19 07:08] LABS: Glucose Point of Care 140 mg/dL (70-110)
[2022-05-19] MEDS: levothyroxine 25 mcg Tablet PO (10:47)
[2022-05-19] MEDS: chlorhexidine gluconate 4% Btl 118 mL 1 APPLIC TOPICAL (10:47)
[2022-05-19] MEDS: amlodipine 10 mg Tablet PO (10:47)
[2022-05-19] MEDS: enoxaparin 40 mg/0.4 mL Syringe SUBCUT (10:49)
--- NOTE | 2022-05-19 11:45 | PM.PN ---
Subjective Subjective: Patient was seen and examined this morning, no acute events overnight. Medications: Medication Review Details: Generic Name Dose Route Start Last Admin Trade Name Luis PRN Reason Stop Dose Admin Amlodipine Besylat e 10 mg 05/17/22 09:00 05/19/22 10:47 Amlodipine 10 Mg Tablet PO 10 mg DAILY AZEB Administration Chlorhexidine Gluc miguelina 1 applic 05/19/22 09:00 05/19/22 10:47 Chlorhexidine Gl uconate 4% Btl 118 Ml TOPICAL 1 applic DAILY AZEB Administration Enoxaparin Sodium 40 mg 05/19/22 10:00 05/19/22 10:49 Enoxaparin 40 Mg /0.4 Ml Syringe SUBCUT 40 mg Q24H AZEB Administration Piperacillin Sod/T azobactam 50 mls @ 12.5 mls /hr 05/16/22 15:30 05/19/22 07:53 Sod 3.375 gm/ So dium Chloride IV 12.5 mls/hr Q8H AZEB Administration Protocol Vancomycin/PEG/NAD A/Lysine/Water 1,250 mg in 250 m ls @ 200 mls/hr 05/17/22 02:00 05/19/22 04:23 Vancocin IV Infused Q12H AZEB Infusion Insulin Human Lisp ro 0 unit 05/16/22 18:00 05/19/22 08:47 Insulin Lispro 1 00 Unit/1 Ml SUBCUT Not Given [facility] Protocol Levothyroxine Sodi um 25 mcg 05/17/22 09:00 05/19/22 10:47 Levothyroxine 25 Mcg Tablet PO 25 mcg DAILY AZEB Administration Silver Sulfadiazin e 1 applic 05/19/22 09:00 05/18/22 23:20 Silver Sulfadiaz ine Cream 1% 50 Gm TOPICAL 1 applic DAILY AZEB Administration Vitals/I&O/Wt Last Vital Signs Temp 98.5 F 05/19/22 04:00 Pulse 76 05/19/22 08:00 Resp 16 05/19/22 04:00 BP 160/86 05/19/22 04:00 Pulse Ox 93 05/19/22 08:00 O2 Del Method 05/19/22 08:00 05/18/22 05/19/22 05/19/22 22:59 06:59 14:59 Intake Total 780 / 1090 420 / 1510 Output Total 1400 / 1400 Balance -620 / -310 420 / 110 Physical Exam Const: COMMON NORMALS: patient oriented x3 HENMT: COMMON NORMALS: normocephalic and atraumatic HEAD & SCALP: normocephalic and atraumatic Resp: COMMON NORMALS: clear to auscultation bilaterally EFFORT & INSPECTION: Yes symmetric chest movement AUSCULTATION: clear to auscultation bilaterally Cardio: COMMON NORMALS: regular rate, regular rhythm, S1 normal heart sound present, S2 normal heart sound present, No gallops present (Cardio), No murmurs present (Cardio), No rub (Cardio) and Peripheral pulses 2+ throughout RATE: regular rate RHYTHM: regular rhythm HEART SOUNDS: S1 normal heart sound present and S2 normal heart sound present PERIPHERAL PULSES: Peripheral pulses 2+ throughout GI: COMMON NORMALS: Normal to inspection, nondistended, normoactive bowel sounds present, Soft to palpation, non-tender, No hepatosplenomegaly present and no masses AUSCULTATION: Yes normoactive bowel sounds PALPATION: Yes Soft to palpation and Yes No hepatosplenomegaly present RECTAL EXAM: deferred Extremity: COMMON NORMALS: no clubbing, cyanosis or edema and no pedal edema NARRATIVE EXTREMITY EXAM: Bilateral lower extremity redness present, with skin peeling. Neuro: COMMON NORMALS: patient oriented x3 Data 05/19/22 04:40 05/19/22 04:40 A&P Assessment and plan (1) Cellulitis: (2) Hypothyroidism: (3) DM type 2 (diabetes mellitus, type 2): (4) Hypertension: Plan 71 year old female with past medical history of hypertension hypothyroidism diabetes, Came in with chief complaint of worsening bilateral lower extremity redness pain swelling. Assessment: Bilateral lower extremity cellulitis: CT scan bilateral lower extremity: Has not shown any abscess or osteomyelitis, has some diffuse subcutaneous edema, no concern for necrotizing fasciitis,or gas gangrene. Lower extremity bilateral Doppler vein were negative for DVT Arterial duplex bilateral lower extremity: No stenosis or occlusion ESR: 26 CRP: 39 Procalcitonin: 0.11 Blood culture: 1/4 bottles positive for GPC in pairs and clusters,GNR Currently she is empirically on vancomycin and Zosyn Appreciate wound care consult Was On Lasix 40 p.o. daily significant subcutaneous edema:Has been Discontinued History of hypothyroidism: Continue levothyroxine History of diabetes: LDSSI, monitor fingerstick glucose Carbohydrate consistent diet Hypertension: Continue amlodipine 10 mg p.o. 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 Attestations Medical Necessity Statement*: In hospital for wound care IV antibiotics and placement Coding Level of Care Code Acute Code for Chg Fwd Exam Detailed Diagnoses Cellulitis L03.90 Hypothyroidism E03.9 DM type 2 (diabetes mellitus, type 2) E11.9 Hypertension I10
[2022-05-19 12:11] LABS: Glucose Point of Care 164 mg/dL (70-110)
--- NOTE | 2022-05-19 12:42 | PC.SOCIAL ---
Pg 2 IMM Explained to pt Pg 2 IMM. No questions voiced. Provided pt a copy. Initialed, dated, & timed a copy & placed in chart.
[2022-05-19] MEDS: insulin lispro 100 unit/1 mL SUBCUT ×2 (13:23→18:40)
[2022-05-19 16:46] LABS: Glucose Point of Care 148 mg/dL (70-110)
[2022-05-19 17:31] LABS: Glucose Point of Care 149 mg/dL (70-110)
--- NOTE | 2022-05-19 20:05 | PC.NURSE ---
Patient A&Ox4, VSS at this time. Patient saturating in 90s on room air, bilateral anterior lungs clear upon auscultation. No cough present. Abdominal sounds hypoactive but present, abdomen soft and nontender by report of patient. Patient's IV dressing on left hand was changed and dated, patent upon saline flush, appears asymptomatic. Bilateral cellulitis present on lower extremities, open to air. Stasis ulcer on left anterior leg, covered by optifoam that was changed by dayshift nurse. Patient was rolled onto side to examine bottom and back, no wounds present upon viewing. Patient had no complaints of pain and was left in semi-kent position, bed locked in lowest position with call light and bedside table within reach.
[2022-05-19 20:09] LABS: Glucose Point of Care 153 mg/dL (70-110)
--- NOTE | 2022-05-19 22:31 | PC.NURSE ---
Optifoam on left lower extremity replaced due to falling off and being soiled. Dressing marked and dated with nurse initials.
[2022-05-20] VITALS (7 sets, daily range): BP systolic 133–147; BP diastolic 73–81; PULSE 73–83; RESP 16–18; TEMP 36.8–37.1; O2SAT 91–95
[2022-05-20] MEDS: vancomycin 1,250 MG/250 ML PIGGYBACK 200 MG IV ×2 (02:28→15:40)
[2022-05-20 06:32] LABS: Glucose Point of Care 134 mg/dL (70-110)
[2022-05-20] MEDS: piperacillin-tazobactam 3.375 GM in sodium chloride 0.9% (plus) 50 ML IV ×3 (06:42→23:43)
[2022-05-20] MEDS: amlodipine 10 mg Tablet PO (09:24)
[2022-05-20] MEDS: levothyroxine 25 mcg Tablet PO (09:24)
[2022-05-20] MEDS: enoxaparin 40 mg/0.4 mL Syringe SUBCUT (09:25)
[2022-05-20] MEDS: chlorhexidine gluconate 4% Btl 118 mL 1 APPLIC TOPICAL (09:25)
[2022-05-20] MEDS: silver sulfadiazine cream 1% 50 gm 1 APPLIC TOPICAL (09:25)
[2022-05-20 11:04] LABS: Glucose Point of Care 166 mg/dL (70-110)
[2022-05-20] MEDS: insulin lispro 100 unit/1 mL SUBCUT (12:41)
--- NOTE | 2022-05-20 12:56 | PM.PN ---
Subjective Subjective: Patient was seen and examined this morning, overall doing better. Medications: Medication Review Details: Generic Name Dose Route Start Last Admin Trade Name Luis PRN Reason Stop Dose Admin Amlodipine Besylat e 10 mg 05/17/22 09:00 05/20/22 09:24 Amlodipine 10 Mg Tablet PO 10 mg DAILY AZEB Administration Chlorhexidine Gluc miguelina 1 applic 05/19/22 09:00 05/20/22 09:25 Chlorhexidine Gl uconate 4% Btl 118 Ml TOPICAL 1 applic DAILY AZEB Administration Enoxaparin Sodium 40 mg 05/19/22 10:00 05/20/22 09:25 Enoxaparin 40 Mg /0.4 Ml Syringe SUBCUT 40 mg Q24H AZEB Administration Piperacillin Sod/T azobactam 50 mls @ 12.5 mls /hr 05/16/22 15:30 05/20/22 11:00 Sod 3.375 gm/ So dium Chloride IV Infused Q8H AZEB Infusion Protocol Vancomycin/PEG/NAD A/Lysine/Water 1,250 mg in 250 m ls @ 200 mls/hr 05/17/22 02:00 05/20/22 03:48 Vancocin IV Infused Q12H AZEB Infusion Insulin Human Lisp ro 0 unit 05/16/22 18:00 05/20/22 12:41 Insulin Lispro 1 00 Unit/1 Ml SUBCUT 4 unit TIDWM AZEB Administration Protocol Levothyroxine Sodi um 25 mcg 05/17/22 09:00 05/20/22 09:24 Levothyroxine 25 Mcg Tablet PO 25 mcg DAILY AZEB Administration Silver Sulfadiazin e 1 applic 05/19/22 09:00 05/20/22 09:25 Silver Sulfadiaz ine Cream 1% 50 Gm TOPICAL 1 applic DAILY AZEB Administration Vitals/I&O/Wt Last Vital Signs Temp 98.2 F 05/20/22 08:20 Pulse 73 05/20/22 08:20 Resp 16 05/20/22 08:20 BP 133/77 05/20/22 08:20 Pulse Ox 94 05/20/22 08:00 O2 Del Method 05/20/22 08:00 05/19/22 05/20/22 05/20/22 22:59 06:59 14:59 Intake Total 290 / 1185 300 / 1485 410 / 410 Output Total 300 / 300 Balance 290 / 1185 0 / 1185 410 / 410 Physical Exam Const: COMMON NORMALS: patient oriented x3 HENMT: COMMON NORMALS: normocephalic and atraumatic HEAD & SCALP: normocephalic and atraumatic Resp: COMMON NORMALS: clear to auscultation bilaterally EFFORT & INSPECTION: Yes symmetric chest movement AUSCULTATION: clear to auscultation bilaterally Cardio: COMMON NORMALS: regular rate, regular rhythm, S1 normal heart sound present, S2 normal heart sound present, No gallops present (Cardio), No murmurs present (Cardio), No rub (Cardio) and Peripheral pulses 2+ throughout RATE: regular rate RHYTHM: regular rhythm HEART SOUNDS: S1 normal heart sound present and S2 normal heart sound present PERIPHERAL PULSES: Peripheral pulses 2+ throughout GI: COMMON NORMALS: Normal to inspection, nondistended, normoactive bowel sounds present, Soft to palpation, non-tender, No hepatosplenomegaly present and no masses AUSCULTATION: Yes normoactive bowel sounds PALPATION: Yes Soft to palpation and Yes No hepatosplenomegaly present RECTAL EXAM: deferred Extremity: COMMON NORMALS: no clubbing, cyanosis or edema and no pedal edema NARRATIVE EXTREMITY EXAM: Bilateral lower extremity redness present, with skin peeling. Neuro: COMMON NORMALS: patient oriented x3 Data 05/19/22 04:40 05/19/22 04:40 A&P Assessment and plan (1) Cellulitis: (2) Hypothyroidism: (3) DM type 2 (diabetes mellitus, type 2): (4) Hypertension: Plan 71 year old female with past medical history of hypertension hypothyroidism diabetes, Came in with chief complaint of worsening bilateral lower extremity redness pain swelling. Assessment: Bilateral lower extremity cellulitis: CT scan bilateral lower extremity: Has not shown any abscess or osteomyelitis, has some diffuse subcutaneous edema, no concern for necrotizing fasciitis,or gas gangrene. Lower extremity bilateral Doppler vein were negative for DVT Arterial duplex bilateral lower extremity: No stenosis or occlusion ESR: 26 CRP: 39 Procalcitonin: 0.11 Blood culture: 1/4 bottles positive for GPC in pairs and clusters,GNR Currently she is empirically on vancomycin and Zosyn Appreciate wound care consult Was On Lasix 40 p.o. daily significant subcutaneous edema:Has been Discontinued History of hypothyroidism: Continue levothyroxine History of diabetes: LDSSI, monitor fingerstick glucose Carbohydrate consistent diet Hypertension: Continue amlodipine 10 mg p.o. 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 Attestations Medical Necessity Statement*: Needs to be in hospital for IV antibiotics , safe discharge. Coding Level of Care Code Acute Code for [facility] Diagnoses Cellulitis L03.90 Hypothyroidism E03.9 DM type 2 (diabetes mellitus, type 2) E11.9 Hypertension I10
[2022-05-20 17:22] LABS: Glucose Point of Care 138 mg/dL (70-110)
[2022-05-20 21:02] LABS: Glucose Point of Care 169 mg/dL (70-110)
--- NOTE | 2022-05-20 23:28 | PC.NURSE ---
IV in left hand removed due to leaking and pain at site. New 20 gauge IV started on outer sequeira of left AC space, patent and intact.
[2022-05-21] VITALS: BP 137/75; PULSE 79; RESP 18; TEMP 37.1; O2SAT 91
[2022-05-21] MEDS: vancomycin 1,250 MG/250 ML PIGGYBACK 200 MG IV (02:54)
[2022-05-21 04:00] VITALS: BP 125/73; PULSE 76; RESP 25; TEMP 36.7; O2SAT 93
[2022-05-21 04:59] LABS: Basophils # 0.1 10^3/uL (0.0-0.1); Basophils % 0.5 %; Eosinophils # 0.3 10^3/uL (0.0-0.8); Eosinophils % 2.7 %; Hematocrit 39.7 % (37.0-47.0); Hemoglobin 12.2 g/dL (11.5-15.3); Lymphocytes % 20.4 %; Mean Corpuscular HGB Conc 30.7 g/dL (30.0-36.0); Mean Corpuscular Hemoglobin 28.6 pg (28.0-34.0); Mean Platelet Volume 11.1 fL (7.4-10.4); Monocytes # 0.7 10^3/uL (0.2-0.9); Monocytes % 6.8 %; Neutrophils # 6.63 10^3/uL (1.8-7.7); Neutrophils % 68.7 %; Nucleated Red Blood Cells % 0 %; Platelet Count 116 10^3/cmm (130-400); Red Blood Count 4.27 10^6/uL (4.1-5.3); Red Cell Distribution Width 14.2 % (12.1-15.1); White Blood Count 9.7 10^3/uL (4.0-10.0)
[2022-05-21 05:20] LABS: Alkaline Phosphatase 76 U/L (35-105); Blood Urea Nitrogen 9 mg/dL (8-23); Calcium 8.6 mg/dL (8.5-10.5); Carbon Dioxide 22 mmol/L (22-29); Chloride 103 mmol/L (98-107); Globulin 2.8 g/dL (1.3-4.6); Glomerular Filtration Rate 98.8 mL/min (90-130); Glucose 163 mg/dL (65-115); Osmolality Calculated 280 mOsm/kg (285-295); Sodium 134 mmol/L (136-145); Total Bilirubin 0.2 mg/dL (0.15-1.2); Total Protein 5.8 g/dL (6.6-8.7)
[2022-05-21 05:22] LABS: Anion Gap 12.8 (5-19)
[2022-05-21 05:23] LABS: Alanine Aminotransferase 7 U/L (0-33); Aspartate Amino Transferase 15 U/L (0-32); Potassium 3.8 mmol/L (3.5-5.1)
[2022-05-21 06:47] LABS: Glucose Point of Care 138 mg/dL (70-110)
[2022-05-21 08:00] VITALS: BP 134/77; PULSE 76; RESP 17; TEMP 36.9; O2SAT 95
[2022-05-21] MEDS: amlodipine 10 mg Tablet PO (08:57)
[2022-05-21] MEDS: piperacillin-tazobactam 3.375 GM in sodium chloride 0.9% (plus) 50 ML IV (08:57)
--- NOTE | 2022-05-21 08:57 | PC.SOCIAL ---
IMM update IMM updated with patient. Copy PG 2 provided. Verbalized an understanding. Initialled, dated, timed, and placed in chart.
[2022-05-21] MEDS: levothyroxine 25 mcg Tablet PO (08:58)
[2022-05-21] MEDS: enoxaparin 40 mg/0.4 mL Syringe SUBCUT (11:11)
[2022-05-21] MEDS: silver sulfadiazine cream 1% 50 gm 1 APPLIC TOPICAL (11:12)
--- NOTE | 2022-05-21 11:15 | PM.DCS ---
Discharge Providers Date of Admission: 05/16/22 15:04 Date of Discharge: May 21, 2022 Attending Provider at Admission: Jairo Mishra MD Attending Provider at Discharge: Timoteo Sanders MD Consults: Wound care: Dr. Dangelo Primary Care Provider: BITA Blackwell Diagnoses at Discharge Discharge Diagnosis (1) Cellulitis: Status: Acute (2) Hypothyroidism: Status: Acute (3) DM type 2 (diabetes mellitus, type 2): Status: Acute (4) Hypertension: Status: Acute Reason for Visit Reason for Visit: leg pain Hospital Course Hospital Course Kenyatta Kirby is a 71 year old female who was hospitalized on May [address] [facility] emergency department via EMS complaining of cellulitis of lower extremities.? It is reported that she was scheduled to be seen in the wound care clinic, though we have no record of referral to our service.? It was described in the ED evaluation that she had ulcerations of desquamation bilaterally.? This involved the distal two thirds of the lower extremities.? She was recent hospitalized April 19 to April 22 for cellulitis. Due to limited support at home, she has been residing in a local hotel. Venous duplex has been negative for DVT of the lower extremities bilaterally.? Arterial duplex study revealed no obstructive disease. CT scan of the lower extremities revealed diffuse subcutaneous edema but no focal abscess or open tract extending through the bone or osteomyelitis was evident. Arterial duplex was done which ruled out peripheral artery disease. Wound care was consulted. She started on broad-spectrum antibiotics. She has been discharged in hemodynamically stable condition to SNF on oral antibiotics for next 7 days with aggressive wound care and advised to follow-up with wound care clinic going forward. She is also discharged on Januvia for diabetes. She is checking blood sugar daily and maintain a blood sugar diary. Physical Exam Const: COMMON NORMALS: patient oriented x3 HENMT: COMMON NORMALS: normocephalic and atraumatic HEAD & SCALP: normocephalic and atraumatic Resp: COMMON NORMALS: clear to auscultation bilaterally EFFORT & INSPECTION: Yes symmetric chest movement AUSCULTATION: clear to auscultation bilaterally Cardio: COMMON NORMALS: regular rate, regular rhythm, S1 normal heart sound present, S2 normal heart sound present, No gallops present (Cardio), No murmurs present (Cardio), No rub (Cardio) and Peripheral pulses 2+ throughout RATE: regular rate RHYTHM: regular rhythm HEART SOUNDS: S1 normal heart sound present and S2 normal heart sound present PERIPHERAL PULSES: Peripheral pulses 2+ throughout GI: COMMON NORMALS: Normal to inspection, nondistended, normoactive bowel sounds present, Soft to palpation, non-tender, No hepatosplenomegaly present and no masses AUSCULTATION: Yes normoactive bowel sounds PALPATION: Yes Soft to palpation and Yes No hepatosplenomegaly present RECTAL EXAM: deferred Extremity: COMMON NORMALS: no clubbing, cyanosis or edema and no pedal edema NARRATIVE EXTREMITY EXAM: Bilateral lower extremity redness present, with skin peeling. Neuro: COMMON NORMALS: patient oriented x3 Discharge Data Studies Completed and Pending Completed Studies During Hospitalization Category Date Time Status CT lower leg LT w con [id number] Routine Cat Scan 05/16/22 15:[address] lower leg RT w con [id number] Routine Cat Scan 05/16/22 15:08 Completed US arterial duplex lower extremity bilat [CV arterial Ultrasound 05/16/22 12:32 [place] [id number]] Stat US venous duplex lower extremity bilat [CV venous Ultrasound 05/16/22 12:32 [place] [id number]] Stat Pending at discharge Category Date Time Status Blood Culture Stat Lab 05/16/22 12:14 Results CBC Auto Diff [Complete Blood Count w/Auto] AM LABS Lab 05/22/22 04:00 Ordered CMP [Comprehensive Metabolic Panel] AM LABS Lab 05/22/22 04:00 Ordered Radiology Impressions Duplex Scan Lower Extremity Artery 05/16/22 12:32 IMPRESSION: No stenosis or occlusion. Lower Extremity CT 05/16/22 15:08 IMPRESSION: 1. Diffuse subcutaneous edema. 2. No focal abscess or open tract extending through the bone or osteomyelitis. Laboratory Results WBC 9.7 10^3/uL (4.0-10.0) 05/21/22 04:29 RBC 4.27 10^6/uL (4.1-5.3) 05/21/22 04:29 Hgb 12.2 g/dL (11.5-15.3) 05/21/22 04:29 Hct 39.7 % (37.0-47.0) 05/21/22 04:29 MCV 93.0 fl (81-99) 05/21/22 04:29 MCH 28.6 pg (28.0-34.0) 05/21/22 04: MCHC 30.7 g/dL (30.0-36.0) 05/21/22 04: RDW 14.2 % (12.1-15.1) 05/21/22 04:29 Plt Count 116 10^3/cmm (130-400) L 05/21/22 04:29 MPV 11.1 fL (7.4-10.4) H 05/21/22 04:29 Neut % (Auto) 68.7 % 05/21/22 04:29 Lymph % (Auto) 20.4 % 05/21/22 04:29 [place] % (Auto) 6.8 % 05/21/22 04: Eos % (Auto) 2.7 % 05/21/22 04:29 Baso % (Auto) 0.5 % 05/21/22 04: Neut # (Auto) 6.63 10^3/uL (1.8-7.7) 05/21/22 04: Lymph # (Auto) 2.0 10^3/uL (0.8-4.8) 05/21/22 04:29 [place] # (Auto) 0.7 10^3/uL (0.2-0.9) 05/21/22 04:29 Eos # (Auto) 0.3 10^3/uL (0.0-0.8) 05/21/22 04:29 Baso # (Auto) 0.1 10^3/uL (0.0-0.1) 05/21/22 04:29 Nucleated RBC % (auto) 0 % 05/21/22 04:29 Nucleated RBCs # 0.0 /100WBC 05/21/22 04:29 ESR 26 mm/hr (0-15) H 05/18/22 04:49 Sodium 134 mmol/L (136-145) L 05/21/22 04:29 Potassium 3.8 mmol/L (3.5-5.1) 05/21/22 04:29 Chloride 103 mmol/L (98-107) 05/21/22 04:29 Carbon Dioxide 22 mmol/L (22-29) 05/21/22 04:29 Anion Gap 12.8 (5-19) 05/21/22 04:29 BUN 9 mg/dL (8-23) 05/21/22 04:29 Creatinine 0.6 mg/dL (0.5-0.9) 05/21/22 04:29 GFR Calculation 98.8 mL/min (90-130) 05/21/22 04:29 Glucose 163 mg/dL (65-115) H 05/21/22 04:29 POC Glucose 138 mg/dL (70-110) H 05/21/22 06:44 Calculated Osmolality 280 mOsm/kg (285-295) L 05/21/22 04:29 Lactic Acid 2.3 mmol/L (0.5-2.2) H 05/16/22 12:01 Lactic Acid (Sepsis) 1.7 mmol/L (0.5-2.2) 05/16/22 14:36 Calcium 8.6 mg/dL (8.5-10.5) 05/21/22 04:29 Total Bilirubin 0.2 mg/dL (0.15-1.2) 05/21/22 04:29 AST 15 U/L (0-32) 05/21/22 04:29 ALT 7 U/L (0-33) 05/21/22 04:29 Alkaline Phosphatase 76 U/L (35-105) 05/21/22 04:29 C-Reactive Protein 39.8 mg/L (0.0-4.9) H 05/18/22 04:49 Total Protein 5.8 g/dL (6.6-8.7) L 05/21/22 04:29 Albumin 3.0 g/dL (3.5-5.2) L 05/21/22 04:29 Globulin 2.8 g/dL (1.3-4.6) 05/21/22 04:29 Procalcitonin 0.11 ng/mL (0-0.5) 05/17/22 02:38 Vancomycin Trough 14.9 ug/mL (10-15) 05/18/22 13:35 Vitals Last Vital Signs Temp 98.5 F 05/21/22 08:00 Pulse 76 05/21/22 08:00 Resp 17 05/21/22 08:00 BP 134/77 05/21/22 08:00 Pulse Ox 95 05/21/22 08:00 O2 Del Method 05/21/22 08:00 Discharge Plan Discharge Patient Disposition: Xfer SNF Condition: Stable Prescriptions: New amoxicillin-pot clavulanate [Augmentin] 500-125 mg tablet 1 tab PO Q12H Qty: 14 0RF levofloxacin 500 mg tablet 500 mg PO Q24H 7 Days Qty: 7 0RF Januvia 100 mg tablet 100 mg PO DAILY Qty: 60 0RF Continued levothyroxine 25 mcg tablet 25 mcg PO DAILY potassium chloride 20 mEq tablet extended release 20 meq PO BID Qty: 10 0RF acetaminophen 500 mg capsule 1,000 mg PO Q6H PRN (Reason: pain) Qty: 30 0RF amlodipine 10 mg tablet 10 mg PO DAILY Discharge Orders: Discharge Order (Routine); Ordered 05/21/22 Ordered By: Timoteo Sanders Referrals: [facility] [Outside] Promise Cardenas FNP [Primary Care Provider] - 1 week WOUND CARE CLINIC, [Staff Physician] - 4-7 days Discharge Diet: Diabetic Patient Instructions: Opioid Safety Activity Restrictions/Additional Instructions: Leg elevation is much as possible. Ambulation as needed. Avoid sitting for prolonged periods of time with legs dependent Daily showers with antibacterial soap or chlorhexidine Collagen with silver with hydrogel or silver sorb gel and collagen to left lower extremity medial wound. Continue taking antibiotic as written Augmentin and Levaquin for next 7 days. Januvia if the antidiabetic medication which is supposed to take daily. Monitor blood sugars daily maintain a blood sugar diary and follow-up with a primary care provider within the next 2 weeks Discharge Attestations Time Spent in Discharge Care*: greater than 30 min Specific Discharge Activities: educating patient, discussing with pcp/other providers, discussing with sample case porter/social workers/dc planners, documenting/other paperwork and evaluating patient/reviewing data Status at Discharge: Cognitive status at discharge: cognitively intact, Behavioral status at discharge: cooperative, Functional status at discharge: other assisted ambulation, Overall status at discharge: patient is progressing back to baseline Quality Metrics Clinical Quality Measures [ No reported AMI, CVA or VTE this stay] Coding Level of Care Code Acute Code for Chg Fwd Diagnoses Cellulitis L03.90 Hypothyroidism E03.9 DM type 2 (diabetes mellitus, type 2) E11.9 Hypertension I10
[2022-05-21 11:53] LABS: SARS Covid-2 Antigen negative (Negative)
[2022-05-21 11:59] LABS: Glucose Point of Care 166 mg/dL (70-110)
[2022-05-21 12:00] VITALS: BP 143/78; PULSE 77; RESP 17; TEMP 36.9; O2SAT 96
[2022-05-21] MEDS: insulin lispro 100 unit/1 mL SUBCUT (12:18)
--- NOTE | 2022-05-21 14:00 | PM.DCS ---
Discharge Providers Date of Admission: 05/16/22 15:04 Date of Discharge: May 21, 2022 Attending Provider at Admission: Jairo Mishra MD Attending Provider at Discharge: Timoteo Sanders MD Primary Care Provider: BITA Blackwell Diagnoses at Discharge Discharge Diagnosis (1) Cellulitis: Status: Acute (2) Hypothyroidism: Status: Acute (3) DM type 2 (diabetes mellitus, type 2): Status: Acute (4) Hypertension: Status: Acute Reason for Visit Reason for Visit: leg pain Hospital Course Hospital Course Kenyatta Kirby is a 71 year old female who was hospitalized on May 16 after presenting to the [facility] emergency department via EMS complaining of cellulitis of lower extremities.? It is reported that she was scheduled to be seen in the wound care clinic, though we have no record of referral to our service.? It was described in the ED evaluation that she had ulcerations of desquamation bilaterally.? This involved the distal two thirds of the lower extremities.? She was recent hospitalized April 19 to April 22 for cellulitis. Due to limited support at home, she has been residing in a local hotel. Venous duplex has been negative for DVT of the lower extremities bilaterally.? Arterial duplex study revealed no obstructive disease. CT scan of the lower extremities revealed diffuse subcutaneous edema but no focal abscess or open tract extending through the bone or osteomyelitis was evident. Arterial duplex was done which ruled out peripheral artery disease. Wound care was consulted. She started on broad-spectrum antibiotics. She responded well to the treatment and has remained hemodynamically stable and afebrile. Blood cultures from day of admission showed 1 out of 4 bottles positive for coag negative staph which is most likely a contaminant. Repeat blood cultures were sent prior to discharge. She has been discharged in hemodynamically stable condition to SNF on oral antibiotics for next 7 days with aggressive wound care and advised to follow-up with wound care clinic going forward. She is also discharged on Januvia for diabetes. She is checking blood sugar daily and maintain a blood sugar diary. Physical Exam Const: COMMON NORMALS: patient oriented x3 HENMT: COMMON NORMALS: normocephalic and atraumatic HEAD & SCALP: normocephalic and atraumatic Resp: COMMON NORMALS: clear to auscultation bilaterally EFFORT & INSPECTION: Yes symmetric chest movement AUSCULTATION: clear to auscultation bilaterally Cardio: COMMON NORMALS: regular rate, regular rhythm, S1 normal heart sound present, S2 normal heart sound present, No gallops present (Cardio), No murmurs present (Cardio), No rub (Cardio) and Peripheral pulses 2+ throughout RATE: regular rate RHYTHM: regular rhythm HEART SOUNDS: S1 normal heart sound present and S2 normal heart sound present PERIPHERAL PULSES: Peripheral pulses 2+ throughout GI: COMMON NORMALS: Normal to inspection, nondistended, normoactive bowel sounds present, Soft to palpation, non-tender, No hepatosplenomegaly present and no masses AUSCULTATION: Yes normoactive bowel sounds PALPATION: Yes Soft to palpation and Yes No hepatosplenomegaly present RECTAL EXAM: deferred Extremity: COMMON NORMALS: no clubbing, cyanosis or edema and no pedal edema NARRATIVE EXTREMITY EXAM: Bilateral lower extremity redness present, with skin peeling. Neuro: COMMON NORMALS: patient oriented x3 Discharge Data Studies Completed and Pending Completed Studies During Hospitalization Category Date Time Status CT lower leg LT w con [id number] Routine Cat Scan 05/16/22 15:[address] lower leg RT w con [id number] Routine Cat Scan 05/16/22 15:08 Completed US arterial duplex lower extremity bilat [CV arterial Ultrasound 05/16/22 12:32 [place] [id number]] Stat US venous duplex lower extremity bilat [CV venous Ultrasound 05/16/22 12:32 [place] [id number]] Stat Pending at discharge Category Date Time Status Blood Culture Stat Lab 05/21/22 14:00 Ordered CBC Auto Diff [Complete Blood Count w/Auto] AM LABS Lab 05/22/22 04:00 Ordered CMP [Comprehensive Metabolic Panel] AM LABS Lab 05/22/22 04:00 Ordered Radiology Impressions Duplex Scan Lower Extremity Artery 05/16/22 12:32 IMPRESSION: No stenosis or occlusion. Lower Extremity CT 05/16/22 15:08 IMPRESSION: 1. Diffuse subcutaneous edema. 2. No focal abscess or open tract extending through the bone or osteomyelitis. Laboratory Results WBC 9.7 10^3/uL (4.0-10.0) 05/21/22 04:29 RBC 4.27 10^6/uL (4.1-5.3) 05/21/22 04:29 Hgb 12.2 g/dL (11.5-15.3) 05/21/22 04:29 Hct 39.7 % (37.0-47.0) 05/21/22 04: MCV 93.0 fl (81-99) 05/21/22 04:29 MCH 28.6 pg (28.0-34.0) 05/21/22 04:29 MCHC 30.7 g/dL (30.0-36.0) 05/21/22 04: RDW 14.2 % (12.1-15.1) 05/21/22 04:29 Plt Count 116 10^3/cmm (130-400) L 05/21/22 04:29 MPV 11.1 fL (7.4-10.4) H 05/21/22 04:29 Neut % (Auto) 68.7 % 05/21/22 04: Lymph % (Auto) 20.4 % 05/21/22 04:29 [place] % (Auto) 6.8 % 05/21/22 04: Eos % (Auto) 2.7 % 05/21/22 04:29 Baso % (Auto) 0.5 % 05/21/22 04:29 Neut # (Auto) 6.63 10^3/uL (1.8-7.7) 05/21/22 04:29 Lymph # (Auto) 2.0 10^3/uL (0.8-4.8) 05/21/22 04:29 [place] # (Auto) 0.7 10^3/uL (0.2-0.9) 05/21/22 04: Eos # (Auto) 0.3 10^3/uL (0.0-0.8) 05/21/22 04:29 Baso # (Auto) 0.1 10^3/uL (0.0-0.1) 05/21/22 04:29 Nucleated RBC % (auto) 0 % 05/21/22 04: Nucleated RBCs # 0.0 /100WBC 05/21/22 04:29 ESR 26 mm/hr (0-15) H 05/18/22 04:49 Sodium 134 mmol/L (136-145) L 05/21/22 04:29 Potassium 3.8 mmol/L (3.5-5.1) 05/21/22 04:29 Chloride 103 mmol/L (98-107) 05/21/22 04:29 Carbon Dioxide 22 mmol/L (22-29) 05/21/22 04:29 Anion Gap 12.8 (5-19) 05/21/22 04:29 BUN 9 mg/dL (8-23) 05/21/22 04:29 Creatinine 0.6 mg/dL (0.5-0.9) 05/21/22 04:29 GFR Calculation 98.8 mL/min (90-130) 05/21/22 04:29 Glucose 163 mg/dL (65-115) H 05/21/22 04:29 POC Glucose 166 mg/dL (70-110) H 05/21/22 11:55 Calculated Osmolality 280 mOsm/kg (285-295) L 05/21/22 04:29 Lactic Acid 2.3 mmol/L (0.5-2.2) H 05/16/22 12:01 Lactic Acid (Sepsis) 1.7 mmol/L (0.5-2.2) 05/16/22 14:36 Calcium 8.6 mg/dL (8.5-10.5) 05/21/22 04:29 Total Bilirubin 0.2 mg/dL (0.15-1.2) 05/21/22 04:29 AST 15 U/L (0-32) 05/21/22 04:29 ALT 7 U/L (0-33) 05/21/22 04:29 Alkaline Phosphatase 76 U/L (35-105) 05/21/22 04:29 C-Reactive Protein 39.8 mg/L (0.0-4.9) H 05/18/22 04:49 Total Protein 5.8 g/dL (6.6-8.7) L 05/21/22 04:29 Albumin 3.0 g/dL (3.5-5.2) L 05/21/22 04:29 Globulin 2.8 g/dL (1.3-4.6) 05/21/22 04:29 Procalcitonin 0.11 ng/mL (0-0.5) 05/17/22 02:38 Vancomycin Trough 14.9 ug/mL (10-15) 05/18/22 13:35 SARS-CoV-2 Ag (Rapid) negative (Negative) 05/21/22 11:25 Vitals Last Vital Signs Temp 98.5 F 05/21/22 12:00 Pulse 77 05/21/22 12:00 Resp 17 05/21/22 12:00 BP 143/78 05/21/22 12:00 Pulse Ox 96 05/21/22 12:00 O2 Del Method 05/21/22 12:00 Discharge Plan Discharge Patient Disposition: Xfer SNF Condition: Stable Prescriptions: New Augmentin 500-125 mg tablet 1 tab PO Q12H Qty: 14 0RF levofloxacin 500 mg tablet 500 mg PO Q24H 7 Days Qty: 7 0RF Januvia 100 mg tablet 100 mg PO DAILY Qty: 60 0RF Continued levothyroxine 25 mcg tablet 25 mcg PO DAILY potassium chloride 20 mEq tablet extended release 20 meq PO BID Qty: 10 0RF acetaminophen 500 mg capsule 1,000 mg PO Q6H PRN (Reason: pain) Qty: 30 0RF amlodipine 10 mg tablet 10 mg PO DAILY Discharge Orders: Discharge Order (Routine); Ordered 05/21/22 Ordered By: Timoteo Sanders Referrals: [facility] [Outside] Promise Cardenas FNP [Primary Care Provider] - 1 week [facility]ARE CL[facility], [Staff Physician] - 4-7 days Discharge Diet: Diabetic Discharge Activity: Resume usual activity and Increase activity as tolerated Patient Instructions: Amoxicillin/Clavulanate Potassium (By mouth), Levofloxacin (By mouth), Sitagliptin (By mouth), Cellulitis (GEN), Opioid Safety Activity Restrictions/Additional Instructions: Leg elevation is much as possible. Ambulation as needed. Avoid sitting for prolonged periods of time with legs dependent Daily showers with antibacterial soap or chlorhexidine Collagen with silver with hydrogel or silver sorb gel and collagen to left lower extremity medial wound. Continue taking antibiotic as written Augmentin and Levaquin for next 7 days. Januvia if the antidiabetic medication which is supposed to take daily. Monitor blood sugars daily maintain a blood sugar diary and follow-up with a primary care provider within the next 2 weeks Discharge Attestations Time Spent in Discharge Care*: greater than 30 min Specific Discharge Activities: educating patient, discussing with pcp/other providers, discussing with director of casework/social workers/dc planners, documenting/other paperwork and evaluating patient/reviewing data Status at Discharge: Cognitive status at discharge: cognitively intact, Behavioral status at discharge: cooperative, Functional status at discharge: other assisted ambulation, Overall status at discharge: patient is progressing back to baseline Quality Metrics Clinical Quality Measures [ No reported AMI, CVA or VTE this stay] Coding Level of Care Code 67019 Total time (in minutes) for Discharge: 40 Diagnoses Cellulitis L03.90 Hypothyroidism E03.9 DM type 2 (diabetes mellitus, type 2) E11.9 Hypertension I10
== END 2022-05-21 16:00 | disposition skilled nursing facility (03) | DRG 603 ==
LOC: ER 15:11 → MEDSURG 15:39
PROVIDERS: Admitting Provider Internal Medicine; Emergency Provider Family Medicine; PCP Nurse Practitioner Family; Visit Provider Student in an Organized Health Care Education/Training Program
DX: L03.116 Cellulitis of left lower limb (principal); L03.115 Cellulitis of right lower limb; E03.9 Hypothyroidism, unspecified; E11.9 Type 2 diabetes mellitus without complications; I10 Essential (primary) hypertension
CPT/HCPCS: 36415; 36416; 73701; 80048; 80053; 80202; 82962; 83605; 84145; 85025; 85651; 86140; 87040; 87150; 87186; 87205; 87426; 93925; 93970; 96365; 96372; 97110; 97116; 97161; 97530; 99285; J1650; J1815; J2543; J3370; J7040; J7050; Q9967

== ENCOUNTER 2024-05-30 22:36 | Inpatient (IN) | payer MEDICARE, MEDICAID, SELFPAY ==
[2024-05-30 22:37] VITALS: BP 152/92; PULSE 92; RESP 18; TEMP 36.8; O2SAT 93; BMI 27.3
[2024-05-30 23:07] LABS: Basophils % 0.3 %; Eosinophils % 0.3 %; Lymphocytes # 1.4 10^3/uL (0.8-4.8); Lymphocytes % 14.7 %; Mean Corpuscular HGB Conc 32.1 g/dL (30-55); Mean Corpuscular Hemoglobin 43.9 pg (27-33); Mean Corpuscular Volume 136.7 fl (85-98); Mean Platelet Volume 9.7 fL (7.4-10.4); Monocytes # 0.7 10^3/uL (0.2-0.9); Monocytes % 7.3 %; Neutrophils # 7.02 10^3/uL (1.8-7.7); Nucleated Red Blood Cells # 0.1 /100WBC; Platelet Count 334 10^3/cmm (157-399); Red Blood Count 1.39 10^6/uL (3.85-5.65); Red Cell Distribution Width 24.6 % (12.1-15.1); White Blood Count 9.35 10^3/uL (3.29-11.43)
[2024-05-30 23:15] LABS: INR 0.97 (0.8-1.2)
[2024-05-30 23:16] LABS: Partial Thromboplastin Time 33.7 SECONDS (23.9-36.7)
[2024-05-30 23:20] LABS: Alanine Aminotransferase 14 U/L (0-33); Albumin Level 4.1 g/dL (3.5-5.2); Alkaline Phosphatase 82 U/L (35-105); Anion Gap 18.4 (5-19); Aspartate Amino Transferase 22 U/L (0-32); Blood Urea Nitrogen 18 mg/dL (8-23); Calcium 9.1 mg/dL (8.5-10.5); Carbon Dioxide 22 mmol/L (22-29); Chloride 105 mmol/L (98-107); Creatinine Clr Calc Pharmacy 71.2453; Glucose 151 mg/dL (65-115); Osmolality Calculated 297 mOsm/kg (285-295); Potassium 4.4 mmol/L (3.5-5.1); Sodium 141 mmol/L (136-145); Total Bilirubin 3.6 mg/dL (0.15-1.2); Total Protein 7.1 g/dL (6.6-8.7)
[2024-05-30 23:41] LABS: Add RBC Morph Yes; RBC Morph Comp No; Slide Review Slide Review Perform
[2024-05-30 23:42] LABS: Anisocytosis 2+; Polychromasia Trace
--- NOTE | 2024-05-30 23:50 | PM.HP ---
Providers/Chief Complaint Primary Care Provider: BITA Blackwell Chief Complaint: LOW HGB History of Present Illness Kenyatta Kirby is a 73 year old female with a past medical history significant for hypothyroidism, hypertension, and diabetes mellitus who presents to the emergency department from [facility] with concern for underlying new onset jaundice. Patient reports yellowing of the skin started happening maybe about a week ago. She denies any known blood loss or bleeding. She reports her constipation without black or tarry stools. Denies prior endoscopies. Denies prior history of anemia. Denies prior transfusions. Denies family history of anemia. Denies shortness of breath, fevers or chills. Endorses occasional fatigue. Denies alleviating or aggravating factors. EMS reported hemoglobin 5.5. Labs revealed hemoglobin 6.1. Total bilirubin 3.6. Review of Systems Narrative: A complete review of systems was obtained and is negative except as stated in HPI. Medications/Allergies Home Medications ?Medication ?Instructions ?Recorded ?Confirmed ?Last Taken ?Type levothyroxine 25 mcg tablet 25 mcg PO DAILY 02/16/20 05/31/22 03/06/20 History acetaminophen 500 mg capsule 1,000 mg (2 x 500 mg) PO Q6H PRN 02/17/22 05/31/22 Unknown Rx pain #30 caps potassium chloride 20 mEq 20 meq PO BID #10 tabs 03/22/22 05/31/22 Unknown Rx tablet,extended release amlodipine 10 mg tablet 10 mg PO DAILY 05/16/22 05/31/22 Unknown History amoxicillin 500 mg-potassium 1 tab PO Q12H #14 tabs 05/21/22 05/31/22 Unknown Rx clavulanate 125 mg tablet (Augmentin) sitagliptin phosphate 100 mg 100 mg PO DAILY #60 tabs 05/21/22 05/31/22 Unknown Rx tablet (Januvia) Allergies Allergy/AdvReac Type Severity Reaction Status Date / Time No Known Allergies Allergy Verified 05/30/24 22:40 PFSH Acute PFSH: Medical History Pneumonia due to COVID-19 virus Cellulitis Hypothyroidism DM type 2 (diabetes mellitus, type 2) Hypertension Surgical History No significant past surgical history Family History Denies family history of Anemia Social History Smoking and tobacco/nicotine status: never used tobacco/nicotine Substance/Drug Use: never Vitals/I&O/Wt Last Vital Signs Temp 98.3 F 05/30/24 22:37 Pulse 92 05/30/24 22:37 Resp 18 05/30/24 22:37 BP 152/92 05/30/24 22:37 Pulse Ox 93 05/30/24 22:37 05/30/24 05/30/24 05/31/24 14:59 22:59 06:59 Intake Total 0 / 0 Balance 0 / 0 Weight last 48 hrs Weight 81.647 kg Physical Exam Narrative: General: Patient is awake and alert. Pleasant. Head: Normocephalic. Atraumatic. EOM intact. Icteric sclera. PERRL mucous membranes. Neck: No JVD. Cardiovascular: RRR. No gallops. No murmurs. No peripheral edema. Lungs: Clear to auscultation, no use of accessory muscles, no crackles or wheezes. Skin: Diffuse jaundice, mild. No rashes. Abdomen: Normal bowel sounds, abdomen soft and nontender. Extremities: No cyanosis or clubbing. Musculoskeletal:No swollen or erythematous joints. Neurological: Moves all 4 extremities. No myoclonus. Data 05/30/24 22:51 05/30/24 22:51 A&P Assessment and plan (1) Anemia: Hemoglobin 6.1, previously normal Presentation highly suspicious for hemolysis Check direct bilirubin in the setting of hyperbilirubinemia Check reticulocyte count, LDH, and haptoglobin Check iron, B12 and folate levels Request peripheral smear Direct Samina test Transfuse 2 packed red blood cells Trend hemoglobin May need hematology consultation pending clinical course (2) Hyperbilirubinemia: Total bilirubin 3.6 Direct bilirubin ordered (3) Jaundice: Jaundice secondary to hyperbilirubinemia Workup as above (4) Hypertension: Continue home blood pressure regiment (5) DM type 2 (diabetes mellitus, type 2): Hold medications Sliding-scale insulin correction Plan DVT prophylaxis: SCD PDMP PDMP Reviewed: Not Reviewed Attestations Medical Necessity Statement*: Patient presents with jaundice, found to have anemia requiring transfusion with expected hospitalization not to cross 2 midnights for anemia workup, serial labs, and transfusion. Coding Level of Care Code Acute Code for Chg Fwd Diagnoses Anemia D64.9 Hyperbilirubinemia E80.6 Jaundice R17 Hypertension I10 DM type 2 (diabetes mellitus, type 2) E11.9
[2024-05-31] VITALS (18 sets, daily range): BP systolic 126–156; BP diastolic 57–92; PULSE 71–88; RESP 14–19; TEMP 36.7–37.1; O2SAT 87–99
[2024-05-31 00:11] LABS: Reticulocyte % 30.7 % (0.5-2.0)
--- NOTE | 2024-05-31 00:21 | ED_ITS ---
HPI - Recheck/Abnormal Lab/Rx 2 General: Chief Complaint: Recheck/Abnormal Lab/Rx Stated Complaint: LOW HGB Time Seen by Provider: 05/30/24 22:38 History of Present Illness: This patient is a 73-year-old white female long-term resident who was sent to the hospital for evaluation of jaundice. Her hemoglobin was noted to be low as well. Patient states she has never been diagnosed with anemia before. She has not noticed any blood in her stools. She has not had any black stools. She is not having any abdominal pain. No lightheadedness. No chest pain or shortness of breath. Related Data Home Medications ?Medication ?Instructions ?Recorded ?Confirmed levothyroxine 25 mcg tablet 25 mcg PO DAILY 02/16/20 0 05/31/22 amlodipine 10 mg tablet 10 mg PO DAILY 05/16/2205/16 Previous Rx's ?Medication ?Instructions ?Recorded acetaminophen 500 mg capsule 1,000 mg (2 x 500 mg) PO Q6H PRN 02/17/22 pain #30 caps potassium chloride 20 mEq 20 meq PO BID #10 tabs 03/22 tablet,extended release amoxicillin 500 mg-potassium 1 tab PO Q12H #14 tabs clavulanate 125 mg tablet (Augmentin) sitagliptin phosphate 100 mg 100 mg PO DAILY #60 tabs 05/21/22 tablet (Januvia) Allergies Allergy/AdvReac Type Severity Reaction Status Date / Time No Known Allergies Allergy Verified 05/30/24 22:40 Review of Systems 2 General: Reports: 10 or more systems reviewed and unremarkable except in HPI and below Sg/Lymph: Reports: other (Anemia) PFSH ED 2 PFSH: Medical History Pneumonia due to COVID-19 virus Cellulitis Hypothyroidism DM type 2 (diabetes mellitus, type 2) Hypertension Surgical History No significant past surgical history Family History Denies family history of Anemia Social History Smoking and tobacco/nicotine status: never used tobacco/nicotine Substance/Drug Use: never Physical Exam 2 Const: COMMON NORMALS: no acute distress, patient oriented x3 and no limitations GENERAL APPEARANCE: cooperative and comfortable HENMT: COMMON NORMALS: normocephalic, atraumatic, Normal nasal mucous membranes and turbinates present, moist oral mucous membranes and oropharynx normal HEAD & SCALP: normal to inspection, normocephalic and atraumatic F ZEENAT & SINUS: normal facial exam NOSE: Normal nasal mucous membranes and turbinates present Eye: COMMON NORMALS: Equal, round and reactive pupils present, EOMs intact bilaterally and conjunctivae normal GENERAL EYE: appearance normal, both eyes and all related structures CONJUNCTIVA: Yes conjunctivae normal PUPIL: Yes Equal, round and reactive pupils present Neck/C-Spine: COMMON NORMALS: supple and no JVD Chest: COMMONS NORMALS: normal inspection of the chest Resp: COMMON NORMALS: normal respiratory effort and clear to auscultation bilaterally AUSCULTATION: clear to auscultation bilaterally Cardio: COMMON NORMALS: no JVD, regular rate, regular rhythm, No gallops present (Cardio), No murmurs present (Cardio) and No rub (Cardio) RATE: r egular rate RHYTHM: regular rhythm GI: COMMON NORMALS: Normal to inspection, nondistended, normoactive bowel sounds present, Soft to palpation and non-tender AUSCULTATION: Yes normoactive bowel sounds PALPATION: Yes Soft to palpation : COMMON NORMALS: Yes no CVA tenderness BLADDER/KIDNEY EXAM: Yes no CVA tenderness Back/Pelvis: COMMON NORMALS: no CVA tenderness and thoracic and lumbar spine normal to inspection Extremity: COMMON NORMALS: normal to inspection Neuro: COMMON NORMALS: patient oriented x3 and CN's II-XII intact bilaterally Psych: COMMON NORMALS: mental status grossly normal, Normal thought process present and cooperative THOUGHT PROCESS: Normal thought process present Skin: COMMON NORMALS: no rashes or lesions noted and turgor normal GENERAL SKIN EXAM: no rashes or lesions noted and turgor normal OTHER: Pale, yellowish discoloration. Course 2 Vital Signs: Vital signs: Vital Signs Temperature 98.3 F 05/30/24 22:37 Pulse Rate 92 05/30/24 22:37 Respiratory Rate 18 05/30/24 22:37 Blood Pressure 152/92 05/30/24 22:37 Pulse Oximetry 93 05/30/24 22:37 MDM - Recheck/Abnormal Lab/Rx Medical Decision Making CBC reveals a hemoglobin of 6.1. CMP revealed total bili of 3.1. Coags were normal. Occult blood stool negative. Case was discussed with Dr. Houston, hospitalist. He did evaluate the patient. Patient will be admitted for transfusion and further workup. She will be transferred to the floor shortly. She is stable. Lab Data 05/30/24 22:51 05/30/24 22:51 Laboratory Results WBC 9.35 10^3/uL (3.29-11.43) 05/30/24 22:51 RBC 1.39 10^6/uL (3.85-5.65) L 05/30/24 22:51 Hgb 6.10 g/dL (11.27-16.99) L* 05/30/24 22:51 Hct 19.0 % (36-47) L* 05/30/24 22:51 MCV 136.7 fl (85-98) H 05/30/24 22:51 MCH 43.9 pg (27-33) H 05/30/24 22:51 MCHC 32.1 g/dL (30-55) 05/30/24 22:51 RDW 24.6 % (12.1-15.1) H 05/30/24 22:51 Plt Count 334 10^3/cmm (157-399) 05/30/24 22:51 MPV 9.7 fL (7.4-10.4) 05/30/24 22:51 Neut % (Auto) 75.0 % 05/30/24 22:51 Lymph % (Auto) 14.7 % 05/30/24 22:51 [place] % (Auto) 7.3 % 05/30/24 22:51 Eos % (Auto) 0.3 % 05/30/24 22:51 Baso % (Auto) 0.3 % 05/30/24 22:51 Reticulocyte % (Auto) 30.7 % (0.5-2.0) H 05/30/24 23:57 Neut # (Auto) 7.02 10^3/uL (1.8-7.7) 05/30/24 22:51 Lymph # (Auto) 1.4 10^3/uL (0.8-4.8) 05/30/24 22:51 [place] # (Auto) 0.7 10^3/uL (0.2-0.9) 05/30/24 22:51 Eos # (Auto) 0.0 10^3/uL (0.0-0.8) 05/30/24 22:51 Baso # (Auto) 0.0 10^3/uL (0.0-0.1) 05/30/24 22:51 Nucleated RBC % (auto) 1.0 % 05/30/24 22:51 Nucleated RBCs # 0.1 /100WBC 05/30/24 22:51 Polychromasia Trace 05/30/24 22:51 Anisocytosis 2+ H 05/30/24 22:51 PT 13.60 SECONDS (12.1-14.9) 05/30/24 22:51 INR 0.97 (0.8-1.2) 05/30/24 22:51 APTT 33.7 SECONDS (23.9-36.7) 05/30/24 22:51 Sodium 141 mmol/L (136-145) 05/30/24 22:51 Potassium 4.4 mmol/L (3.5-5.1) 05/30/24 22:51 Chloride 105 mmol/L (98-107) 05/30/24 22:51 Carbon Dioxide 22 mmol/L (22-29) 05/30/24 22:51 Anion Gap 18.4 (5-19) 05/30/24 22:51 BUN 18 mg/dL (8-23) 05/30/24 22:51 Creatinine 0.8 mg/dL (0.5-0.9) 05/30/24 22:51 GFR Calculation Not Reportable 05/30/24 22:51 Glucose 151 mg/dL (65-115) H 05/30/24 22:51 Calculated Osmolality 297 mOsm/kg (285-295) H 05/30/24 22:51 Calcium 9.1 mg/dL (8.5-10.5) 05/30/24 22:51 Total Bilirubin 3.6 mg/dL (0.15-1.2) H 05/30/24 22:51 AST 22 U/L (0-32) 05/30/24 22:51 ALT 14 U/L (0-33) 05/30/24 22:51 Alkaline Phosphatase 82 U/L (35-105) 05/30/24 22:51 Total Protein 7.1 g/dL (6.6-8.7) 05/30/24 22:51 Albumin 4.1 g/dL (3.5-5.2) 05/30/24 22:51 Globulin 3.0 g/dL (1.3-4.6) 05/30/24 22:51 No radiology studies performed this visit Discharge Plan Discharge Patient Disposition: Admitted As Inpatient Clinical Impression: Anemia Qualifiers: Anemia type: unspecified type Qualified Code(s): D64.9 - Anemia, unspecified Condition: Stable Coding Level of Care Code ED Computer Support Specialist for Presley Hamilton
[2024-05-31 00:44] LABS: C Reactive Protein 27.4 mg/L (0.0-4.9)
[2024-05-31 01:37] LABS: Folate Level 5.8 ng/mL (4.8-37.3)
[2024-05-31 02:03] LABS: LAB Peripheral Smear Sent for Review
[2024-05-31 02:19] LABS: Ferritin 707 ng/mL (15-150); Iron 88 ug/dL (37-145); Lactate Dehydrogenase 551 U/L (135-214); Percent Saturation 40.7 % (20-50); Total Iron Binding Capacity 216 mcg/dl; Unsaturated Iron Binding 128 ug/dL (112-347)
[2024-05-31 02:35] LABS: Vitamin B12 997 pg/mL (232-1245)
--- NOTE | 2024-05-31 03:23 | PC.NURSE ---
Addendum entered by Enedina Peoples RN 05/31/24 06:50: Lab staff stated that blood needs to be ran through warmer. Addendum entered by Enedina Peoples RN 05/31/24 03:52: Dr. Houston notified of delay on blood transfusion. Original Note: Called lab to verify that blood is not ready at this time. Lab staff member stated that they would call when blood is ready. She stated it is taking longer than normal because patient has a cold antibody.
[2024-05-31] MEDS: ondansetron 2 mg/ML SDV 2 mL 4 MG IVP (03:27)
[2024-05-31 06:31] LABS: Glucose Point of Care 166 mg/dL (70-110)
[2024-05-31] MEDS: amlodipine 10 mg Tablet PO (08:49)
[2024-05-31] MEDS: insulin lispro 100 unit/1 mL SUBCUT ×3 (08:49→20:34)
[2024-05-31] MEDS: levothyroxine 25 mcg Tablet PO (08:49)
--- NOTE | 2024-05-31 09:05 | CTR_ITS ---
PROCEDURE INFORMATION: Exam: CT Abdomen And Pelvis With Contrast Exam date and time: 05/31/2024 9:40 AM Age: 73 years old Clinical indication: Condition or disease; Other: Hemolytic anemia TECHNIQUE: Imaging protocol: Computed tomography of the abdomen and pelvis with contrast. Radiation optimization: All CT scans at this facility use at least one of these dose optimization techniques: automated exposure control; mA and/or kV adjustment per patient size (includes targeted exams where dose is matched to clinical indication); or iterative reconstruction. Contrast material: OMNIPAQUE 350; Contrast volume: 100 ml; Contrast route: INTRAVENOUS (IV); COMPARISON: CT chest abdpel w/*[id number] 02/17/2022 3:16 AM RADIATION DOSE METRICS: Total DLP (mGy-cm): 984.06 FINDINGS: Lungs: There is linear scarring and/or atelectasis at the lung bases. Diaphragm: There may be a small hiatal hernia. Liver: There is fatty infiltration of the liver. There are benign-appearing hepatic cysts. Gallbladder and biliary ducts: Normal. No calcified stones. No ductal dilation. Pancreas: Normal. No ductal dilation. Spleen: The spleen is enlarged measuring 15.4 cm in maximal dimension (previously 11.3 cm). Adrenal glands: Partially calcified left adrenal nodule measuring 2.5 cm in size is unchanged when compared to prior exam. Kidneys and ureters: There are benign-appearing renal cysts bilaterally. No renal calculi are identified. No hydronephrosis is noted. Stomach and bowel: No dilated loops of large or small bowel is appreciated. No bowel wall thickening is noted. There are a few colonic diverticula. There is likely a diverticulum involving the 2nd portion of the duodenal. Appendix: No evidence of appendicitis. Intraperitoneal space: Unremarkable. No free air. No significant fluid collection. Vasculature: The aorta is normal in caliber. There is calcified plaque involving the aorta and its branch vessels. Lymph nodes: Unremarkable. No enlarged lymph nodes. Urinary bladder: Unremarkable as visualized. Reproductive: The uterus is not identified. Bones/joints: Unremarkable. No acute fracture. Soft tissues: There is a tiny fat filled periumbilical hernia. CT/CT abdomen pelvis w con* [id number] IMPRESSION: 1. Fatty infiltration of the liver. 2. Splenomegaly. 3. Please see above comments for additional details. COMMENTS: Consistent with the [employer]'s Incidental Findings Committee white paper (J Am Amado Radiol 2018): Any incidental renal lesion less than 1 cm or classified as too small to characterize, or any incidental cystic renal lesion characterized as simple-appearing, is likely benign. No follow-up imaging is recommended for these lesions per consensus recommendations based on imaging criteria.
[2024-05-31 10:23] LABS: Basophils % 0.4 %; Eosinophils % 0.4 %; Lymphocytes # 1.1 10^3/uL (0.8-4.8); Mean Corpuscular HGB Conc 31.3 g/dL (30-55); Mean Corpuscular Hemoglobin 40.6 pg (27-33); Mean Platelet Volume 9.5 fL (7.4-10.4); Monocytes # 0.6 10^3/uL (0.2-0.9); Monocytes % 8.1 %; Neutrophils # 5.54 10^3/uL (1.8-7.7); Neutrophils % 73.8 %; Nucleated Red Blood Cells # 0.1 /100WBC; Nucleated Red Blood Cells % 1.1 %; Platelet Count 342 10^3/cmm (157-399); Red Cell Distribution Width 27.9 % (12.1-15.1); White Blood Count 7.51 10^3/uL (3.29-11.43)
[2024-05-31 10:35] LABS: Alanine Aminotransferase 13 U/L (0-33); Albumin Level 3.6 g/dL (3.5-5.2); Alkaline Phosphatase 71 U/L (35-105); Anion Gap 14.3 (5-19); Aspartate Amino Transferase 21 U/L (0-32); Blood Urea Nitrogen 17 mg/dL (8-23); Calcium 8.3 mg/dL (8.5-10.5); Carbon Dioxide 24 mmol/L (22-29); Chloride 107 mmol/L (98-107); Creatinine Clr Calc Pharmacy 80.6218; Globulin 2.6 g/dL (1.3-4.6); Glucose 116 mg/dL (65-115); Lactate Dehydrogenase 456 U/L (135-214); Magnesium 2.1 mg/dL (1.7-2.3); Osmolality Calculated 295 mOsm/kg (285-295); Potassium 4.3 mmol/L (3.5-5.1); Sodium 141 mmol/L (136-145); Total Bilirubin 4.1 mg/dL (0.15-1.2); Total Protein 6.2 g/dL (6.6-8.7)
[2024-05-31 10:37] LABS: Hematocrit 20.8 % (36-47); Slide Review Slide Review Perform
[2024-05-31] MEDS: methylPREDNISolone sod succ 40 mg/mL INJ IVP (11:12)
[2024-05-31 11:46] LABS: Glucose Point of Care 117 mg/dL (70-110)
[2024-05-31 11:59] LABS: Basophils % 0.3 %; Eosinophils % 0.3 %; Hematocrit 22.5 % (36-47); Mean Corpuscular HGB Conc 29.8 g/dL (30-55); Mean Corpuscular Hemoglobin 38.1 pg (27-33); Mean Corpuscular Volume 127.8 fl (85-98); Mean Platelet Volume 9.7 fL (7.4-10.4); Monocytes # 0.8 10^3/uL (0.2-0.9); Monocytes % 8.6 %; Neutrophils # 6.91 10^3/uL (1.8-7.7); Neutrophils % 78.3 %; Nucleated Red Blood Cells # 0.1 /100WBC; Nucleated Red Blood Cells % 1.1 %; Platelet Count 325 10^3/cmm (157-399); Red Blood Count 1.76 10^6/uL (3.85-5.65); White Blood Count 8.83 10^3/uL (3.29-11.43)
[2024-05-31] MEDS: folic acid 5 mg/ml MDV 10mL 1 MG IVP (12:42)
[2024-05-31] MEDS: methylPREDNISolone sod succ 125 mg/2 mL INJ IVP (12:42)
[2024-05-31 13:05] LABS: Vitamin B12 903 pg/mL (232-1245)
--- NOTE | 2024-05-31 14:14 | P.TS_ITS ---
Transfer Summary Providers Date of Admission: 05/31/24 00:19 Date of Discharge/Transfer: 05/31/24 Attending Provider at Admission: Tee Houston MD Attending Provider at Transfer: Eneida Houston MD Primary Care Provider: BITA Blackwell Transfer Plans: Anticipated date of transfer: 05/31/24 . Receiving Facility: [facility] . Receiving Provider: Dr. Delgado . Diagnoses at Discharge Discharge Diagnosis (1) Anemia: Status: Acute Qualifiers: Anemia type: unspecified type Qualified Code(s): D64.9 - Anemia, unspecified (2) Hyperbilirubinemia: Status: Acute (3) Jaundice: Status: Acute (4) Hypertension: Status: Acute (5) DM type 2 (diabetes mellitus, type 2): Status: Acute Reason for Visit Reason for Visit LOW HGB Hospital Course Hospital Course Patient was admitted to the hospital overnight with new onset jaundice that has been going on for last 1 week. Hemoglobin on admission 6.1. Labs indicate hemolytic anemia. Haptoglobin is 10, reticulocyte count 30%, LDH high indicating intravascular hemolysis. Etiology unknown. Despite 1 unit packed RBC hemoglobin remains below 7. He is transfusion dependent at this time. Fax Samina test is also positive. Another unit of blood has been ordered. Solu- Medrol 125 IV x 1 was given. Patient will need hematology consultation going fo [facility]. Discussed with director of pupil personnel program over the phone at [facility] who agree with steroids at this time. Patient may or may not require IVIG versus rituximab. I currently do not have capabilities of checking a peripheral smear as that is a send out test for us. Discussed with metalizing machine operator there is no director of pupil personnel program oncologist available on-call at our hospital today. At this time we will be transferring patient to [facility] for higher level of care for further diagnostic workup and appropriate treatment. Discussed with patient who is agreeable to transfer at this time. She is stable at time of discharge. Vitals are stable. CT abdomen pelvis was obtained this morning which shows splenomegaly. Physical Exam Narrative: General: Patient is awake and alert. Pleasant. Head: Normocephalic. Atraumatic. EOM intact. Icteric sclera. PERRL mucous membranes. Cardiovascular: RRR. No gallops. No murmurs. No peripheral edema. Lungs: Clear to auscultation, no use of accessory muscles, no crackles or wheezes. Skin: Diffuse jaundice, mild. No rashes. Abdomen: Normal bowel sounds, abdomen soft and nontender. Extremities: No cyanosis or clubbing. Musculoskeletal:No swollen or erythematous joints. Neurological: Moves all 4 extremities. No myoclonus. TS Data Studies Completed and Pending Pending at discharge Category Date Time Status Antibody Identification Stat Lab 05/30/24 22:51 Results Complete Blood Count w/Auto AM LABS Lab 06/01/24 04:00 Ordered Comprehensive Metabolic Panel AM LABS Lab 06/01/24 04:00 Ordered Leukocyte Reduced RBC Routine Lab 05/31/24 01:10 Results Magnesium AM LABS Lab 06/01/24 04:00 Ordered Occult Blood Stool [Immunochemical Fecal OCB] Routine Lab 05/30/24 22:59 Ordered Phosphorus AM LABS Lab 06/01/24 04:00 Ordered Type and Screen Stat Lab 05/30/24 22:51 Results Completed Studies During Hospitalization Category Date Time Status CT abdomen pelvis w con* [id number] Stat Cat Scan 05/31/24 09:05 Completed Laboratory Last Values WBC 8.83 10^3/uL (3.29-11.43) 05/31/24 11:44 RBC 1.76 10^6/uL (3.85-5.65) L 05/31/24 11:44 Hgb 6.70 g/dL (11.27-16.99) L 05/31/24 11:44 Hgb Cancelled 05/31/24 11:44 Hct 22.5 % (36-47) L 05/31/24 11:44 MCV 127.8 fl (85-98) H 05/31/24 11:44 MCH 38.1 pg (27-33) H 05/31/24 11:44 MCHC 29.8 g/dL (30-55) L 05/31/24 11:44 RDW Not Reportable 05/31/24 11:44 Plt Count 325 10^3/cmm (157-399) 05/31/24 11:44 MPV 9.7 fL (7.4-10.4) 05/31/24 11:44 Neut % (Auto) 78.3 % 05/31/24 11:44 Lymph % (Auto) 11.0 % 05/31/24 11:44 Davidson % (Auto) 8.6 % 05/31/24 11:44 Eos % (Auto) 0.3 % 05/31/24 11:44 Baso % (Auto) 0.3 % 05/31/24 11:44 Reticulocyte % (Auto) 25.0 % (0.5-2.0) H 05/31/24 10:09 Neut # (Auto) 6.91 10^3/uL (1.8-7.7) 05/31/24 11:44 Lymph # (Auto) 1.0 10^3/uL (0.8-4.8) 05/31/24 11:44 Davidson # (Auto) 0.8 10^3/uL (0.2-0.9) 05/31/24 11:44 Eos # (Auto) 0.0 10^3/uL (0.0-0.8) 05/31/24 11:44 Baso # (Auto) 0.0 10^3/uL (0.0-0.1) 05/31/24 11:44 Nucleated RBC % (auto) 1.1 % 05/31/24 11:44 Nucleated RBCs # 0.1 /100WBC 05/31/24 11:44 Polychromasia Trace 05/30/24 22:51 Anisocytosis 2+ H 05/30/24 22:51 Peripher Smr Path Cons Sent for review 05/30/24 22:51 Haptoglobin 10.0 mg/L (30-200) L 05/31/24 10:09 PT 13.60 SECONDS (12.1-14.9) 05/30/24 22:51 INR 0.97 (0.8-1.2) 05/30/24 22:51 APTT 33.7 SECONDS (23.9-36.7) 05/30/24 22:51 Sodium 141 mmol/L (136-145) 05/31/24 10:09 Potassium 4.3 mmol/L (3.5-5.1) 05/31/24 10:09 Chloride 107 mmol/L (98-107) 05/31/24 10:09 Carbon Dioxide 24 mmol/L (22-29) 05/31/24 10:09 Anion Gap 14.3 (5-19) 05/31/24 10:09 BUN 17 mg/dL (8-23) 05/31/24 10:09 Creatinine 0.8 mg/dL (0.5-0.9) 05/31/24 10:09 GFR Calculation Not Reportable 05/31/24 10:09 Glucose 116 mg/dL (65-115) H 05/31/24 10:09 POC Glucose 117 mg/dL (70-110) H 05/31/24 11:20 Calculated Osmolality 295 mOsm/kg (285-295) 05/31/24 10:09 Calcium 8.3 mg/dL (8.5-10.5) L 05/31/24 10:09 Magnesium 2.1 mg/dL (1.7-2.3) 05/31/24 10:09 Iron 88 ug/dL (37-145) 05/30/24 22:51 TIBC 216 mcg/dl 05/30/24 22:51 % Saturation 40.7 % (20-50) 05/30/24 22:51 Unsat Iron Binding 128 ug/dL (112-347) 05/30/24 22:51 Ferritin 707 ng/mL (15-150) H 05/30/24 22:51 Total Bilirubin 4.1 mg/dL (0.15-1.2) H 05/31/24 10:09 Direct Bilirubin 0.70 mg/dL (0.00-0.30) H 05/30/24 22:51 AST 21 U/L (0-32) 05/31/24 10:09 ALT 13 U/L (0-33) 05/31/24 10:09 Alkaline Phosphatase 71 U/L (35-105) 05/31/24 10:09 Lactate Dehydrogenase 456 U/L (135-214) H 05/31/24 10:09 C-Reactive Protein 27.4 mg/L (0.0-4.9) H 05/30/24 22:51 Total Protein 6.2 g/dL (6.6-8.7) L 05/31/24 10:09 Albumin 3.6 g/dL (3.5-5.2) 05/31/24 10:09 Globulin 2.6 g/dL (1.3-4.6) 05/31/24 10:09 Vitamin B12 903 pg/mL (232-1245) 05/31/24 10:09 Folate 5.8 ng/mL (4.8-37.3) 05/31/24 00:35 Blood Type O Positive 05/30/24 22:51 Rho(D) Type Rh positive 05/30/24 22:51 Antibody Screen Positive 05/30/24 22:51 Prewarmed Antibody Srcn Negative 05/30/24 22:51 Antibody Identification Cold Auto Antibody 05/30/24 22:51 Cold Antibody Screen Positive 05/30/24 23:57 ALINA, IgG Interpret Positive-igg 05/30/24 23:57 ALINA, Poly Interpret Pos-polyspecific 05/30/24 23:57 ALINA, Complement Interp Pos-complement 05/30/24 23:57 Crossmatch See Detail 05/30/24 22:51 Pre-Trans Antibody Scrn Cancelled 05/30/24 22:51 Radiology Impressions Abdomen/Pelvis CT 05/31/24 09:05 IMPRESSION: 1. Fatty infiltration of the liver. 2. Splenomegaly. 3. Please see above comments for additional details. COMMENTS: Consistent with the [employer]'s Incidental Findings Committee white paper (J Am Amado Radiol 2018): Any incidental renal lesion less than 1 cm or classified as too small to characterize, or any incidental cystic renal lesion characterized as simple-appearing, is likely benign. No follow-up imaging is recommended for these lesions per consensus recommendations based on imaging criteria. Recent Clincial Data Last Vital Signs Temp 98.3 F 05/31/24 13:46 Pulse 86 05/31/24 13:46 Resp 16 05/31/24 13:46 BP 138/59 05/31/24 13:46 Pulse Ox 97 05/31/24 13:30 O2 Del Method Nasal Cannula 05/31/24 12:00 O2 Flow Rate 2 05/31/24 08:00 Vital Signs Temp Pulse Resp BP Pulse Ox O2 Del Method O2 Flow Rate 05/31/24 13:46 98.3 F 86 16 138/59 05/31/24 13:30 98.5 F 84 16 136/80 97 05/31/24 12:00 98.3 F 79 18 130/57 97 Nasal Cannula 05/31/24 09:00 98.4 F 73 16 144/58 99 05/31/24 08:29 98.4 F 72 18 156/75 98 05/31/24 08:00 2 05/31/24 08:00 98.5 F 78 19 H 150/77 98 Nasal Cannula 05/31/24 07:14 98.0 F 77 16 144/71 95 05/31/24 06:59 98.5 F 82 134/60 05/31/24 06:34 98.4 F 87 131/61 05/31/24 06:00 85 05/31/24 04:00 98.7 F 88 19 H 130/81 90 Room Air Intake & Output/Weight 05/29/24 05/30/24 05/31/24 06/01/24 06:59 06:59 06:59 06:59 Intake Total 0 / 0 350 / 350 Output Total 200 / 200 Balance 0 / 0 150 / 150 Weight 105.007 kg Vitals Last Vital Signs Temp 98.3 F 05/31/24 13:46 Pulse 86 05/31/24 13:46 Resp 16 05/31/24 13:46 BP 138/59 05/31/24 13:46 Pulse Ox 97 05/31/24 13:30 O2 Del Method Nasal Cannula 05/31/24 12:00 O2 Flow Rate 2 05/31/24 08:00 TS Medications Medications Acetaminophen (Acetaminophen 325 Mg Tablet) 650 mg PO Q6H PRN PRN Reason: Mild/Mod Pain Or Temp >/= 101 Amlodipine Besylate (Amlodipine 10 Mg Tablet) 10 mg PO DAILY [facility] Last Admin: 05/31/24 08:49 Dose: 10 mg Calcium Carbonate (Calcium Carbonate 500 Mg Chew Tablet) 1,000 mg PO Q4H PRN PRN Reason: DYSPEPSI Folic Acid (Folic Acid 5 Mg/Ml Mdv 10ml) 1 mg IVP DAILY [facility] Last Admin: 05/31/24 12:42 Dose: 1 mg Glucagon (Glucagon 1 Mg/Ml Kit 1 Ml) 1 mg IM ONCE PRN; Protocol PRN Reason: Adult Acute Hypoglycemia Nursing Prot. Hydralazine HCl (Hydralazine 20 Mg/Ml Inj 1 Ml) 10 mg IVP Q4H PRN PRN Reason: SBP>180mmHg or DBP>110mmHG Dextrose (D5w) 500 mls @ 0 mls/hr IV ONCE PRN; Protocol PRN Reason: Adult Acute Hypoglycemia Prot Dextrose (D10w) 125 mls @ 750 mls/hr IV PRN PRN; Protocol PRN Reason: Adult Acute Hypoglycemia Nursing Protocol Dextrose (D10w) 250 mls @ 1,000 mls/hr IV PRN PRN; Protocol PRN Reason: Adult Acute Hypoglycemia Nursing Protocol Insulin Human Lispro (Insulin Lispro 100 Unit/1 Ml) 0 unit SUBCUT WM&BEDTIME AZEB; Protocol Last Admin: 05/31/24 12:17 Dose: Not Given Levothyroxine Sodium (Levothyroxine 25 Mcg Tablet) 25 mcg PO DAILY [facility] Last Admin: 05/31/24 08:49 Dose: 25 mcg Ondansetron HCl (Ondansetron 2 Mg/Ml Sdv 2 Ml) 4 mg IVP Q8H PRN PRN Reason: vomiting, or N/V if npo Last Admin: 05/31/24 03:27 Dose: 4 mg Senna (Sennosides 8.6 Mg Tablet) 17.2 mg PO BEDTIME AZEB Sodium Chloride (Sodium Chloride 0.9% 100 Ml Bag) 50 ml IV PRN PRN PRN Reason: Blood transfusion prime and flush Stop: 06/01/24 01:10 Sodium Chloride (Sodium Chloride 0.9% 100 Ml Bag) 50 ml IV PRN PRN PRN Reason: Blood transfusion prime and flush Stop: 06/01/24 12:17 Discontinued Medications Methylprednisolone Sodium Succinate (Methylprednisolone Sod Succ 40 Mg/Ml Inj) 40 mg IVP Q8H AZEB Last Admin: 05/31/24 11:12 Dose: 40 mg Methylprednisolone Sodium Succinate (Methylprednisolone Sod Succ 125 Mg/2 Ml Inj) 125 mg IVP ONCE ONE Stop: 05/31/24 11:37 Last Admin: 05/31/24 12:42 Dose: 125 mg Allergies No Known Allergies Allergy (Verified 05/30/24 22:40) Home Medications levothyroxine 25 mcg tablet 25 mcg PO DAILY 02/16/20 [History Confirmed 05/31/24] acetaminophen 500 mg capsule 1,000 mg (2 x 500 mg) PO Q6H PRN pain #30 caps 02/17/22 [Rx Confirmed 05/31/24] potassium chloride 20 mEq tablet,extended release 20 meq PO BID #10 tabs 03/22/22 [Rx Confirmed 05/31/24] bisacodyl 10 mg rectal suppository (Dulcolax (bisacodyl)) 10 mg MI DAILY PRN Constipation 05/31/24 [History Confirmed 05/31/24] citalopram 20 mg tablet 20 mg PO DAILY 05/31/24 [History Confirmed 05/31/24] loperamide 2 mg tablet (Imodium A-D) 2 mg PO Q4H PRN Diarrhea 05/31/24 [History Confirmed 05/31/24] magnesium hydroxide 400 mg/5 mL oral suspension (Milk of Magnesia) 30 ml PO DAILY PRN Constipation 05/31/24 [History Confirmed 05/31/24] melatonin 1 mg tablet 1 mg PO BEDTIME 05/31/24 [History Confirmed 05/31/24] mirtazapine 15 mg tablet 15 mg PO BEDTIME 05/31/24 [History Confirmed 05/31/24] ondansetron HCl 4 mg tablet 4 mg PO Q4H PRN Nausea 05/31/24 [History Confirmed 05/31/24] Discharge Plan Discharge Patient Disposition: Xfer Other Condition: Stable Prescriptions: No Action levothyroxine 25 mcg tablet 25 mcg PO DAILY potassium chloride 20 mEq tablet extended release 20 meq PO BID Qty: 10 0RF acetaminophen 500 mg capsule 1,000 mg PO Q6H PRN (Reason: pain) Qty: 30 0RF ondansetron HCl 4 mg tablet 4 mg PO Q4H PRN (Reason: Nausea) loperamide [Imodium A-D] 2 mg Tablet 2 mg PO Q4H PRN (Reason: Diarrhea) Rx Instructions: administer after each loose stool until symptoms controlled; do not exceed 8 mg per 24 hrs citalopram 20 mg tablet 20 mg PO DAILY magnesium hydroxide [Milk of Magnesia] 400 mg/5 mL Suspension 30 ml PO DAILY PRN (Reason: Constipation) bisacodyl [Dulcolax (bisacodyl)] 10 mg Suppository 10 mg MI DAILY PRN (Reason: Constipation) mirtazapine 15 mg tablet 15 mg PO BEDTIME melatonin 1 mg Tablet 1 mg PO BEDTIME Referrals: Promise Cardenas FNP [Primary Care Provider] - Transfer Attestations Time Spent in Transfer Care: greater than 30 min Status at Transfer: Cognitive status at transfer: cognitively intact ; Behavioral status at transfer: cooperative ; Quality Metrics Clinical Quality Measures [ No reported AMI, CVA or VTE this stay] Coding Level of Care Code Acute Code for Chg Fwd Diagnoses Anemia D64.9 Anemia type: unspecified type Hyperbilirubinemia E80.6 Jaundice R17 Hypertension I10 DM type 2 (diabetes mellitus, type 2) E11.9
[2024-05-31 18:16] LABS: Glucose Point of Care 193 mg/dL (70-110)
[2024-05-31 19:44] LABS: Basophils % 0.4 %; Eosinophils # 0.1 10^3/uL (0.0-0.8); Eosinophils % 1.7 %; Hematocrit 27.7 % (36-47); Lymphocytes # 0.5 10^3/uL (0.8-4.8); Lymphocytes % 5.8 %; Mean Corpuscular HGB Conc 30.3 g/dL (30-55); Mean Corpuscular Hemoglobin 36.2 pg (27-33); Mean Corpuscular Volume 119.4 fl (85-98); Mean Platelet Volume 9.7 fL (7.4-10.4); Monocytes # 0.1 10^3/uL (0.2-0.9); Monocytes % 1.2 %; Neutrophils # 7.24 10^3/uL (1.8-7.7); Neutrophils % 89.1 %; Nucleated Red Blood Cells # 0.1 /100WBC; Platelet Count 258 10^3/cmm (157-399); Red Blood Count 2.32 10^6/uL (3.85-5.65); Red Cell Distribution Width 30.3 % (12.1-15.1); White Blood Count 8.13 10^3/uL (3.29-11.43)
[2024-05-31 20:26] LABS: Glucose Point of Care 206 mg/dL (70-110)
[2024-05-31] MEDS: sennosides 8.6 mg Tablet 17.2 MG PO (20:30)
[2024-06-01] VITALS (8 sets, daily range): BP systolic 117–151; BP diastolic 65–79; PULSE 6–70; RESP 16–19; TEMP 36.4–36.8; O2SAT 64–99; BMI 35.4
[2024-06-01 04:29] LABS: Basophils % 0.3 %; Eosinophils # 0.1 10^3/uL (0.0-0.8); Eosinophils % 0.9 %; Hematocrit 27.1 % (36-47); Lymphocytes # 0.6 10^3/uL (0.8-4.8); Lymphocytes % 9.4 %; Mean Corpuscular HGB Conc 30.6 g/dL (30-55); Mean Corpuscular Hemoglobin 37.7 pg (27-33); Mean Corpuscular Volume 123.2 fl (85-98); Mean Platelet Volume 9.9 fL (7.4-10.4); Monocytes # 0.4 10^3/uL (0.2-0.9); Monocytes % 6.7 %; Neutrophils # 5.16 10^3/uL (1.8-7.7); Neutrophils % 80.8 %; Nucleated Red Blood Cells % 0.6 %; Platelet Count 258 10^3/cmm (157-399); Red Cell Distribution Width 30.3 % (12.1-15.1); White Blood Count 6.39 10^3/uL (3.29-11.43)
[2024-06-01 04:48] LABS: Alanine Aminotransferase 17 U/L (0-33); Albumin Level 3.7 g/dL (3.5-5.2); Alkaline Phosphatase 75 U/L (35-105); Aspartate Amino Transferase 26 U/L (0-32); Blood Urea Nitrogen 19 mg/dL (8-23); Calcium 8.8 mg/dL (8.5-10.5); Carbon Dioxide 23 mmol/L (22-29); Chloride 105 mmol/L (98-107); Creatinine Clr Calc Pharmacy 80.6218; Glucose 140 mg/dL (65-115); Magnesium 2.3 mg/dL (1.7-2.3); Osmolality Calculated 297 mOsm/kg (285-295); Phosphorus 4.1 mg/dL (2.5-4.5); Sodium 141 mmol/L (136-145); Total Bilirubin 2.7 mg/dL (0.15-1.2); Total Protein 6.7 g/dL (6.6-8.7)
[2024-06-01 04:54] LABS: Anion Gap 17.7 (5-19); Potassium 4.7 mmol/L (3.5-5.1)
[2024-06-01 06:34] LABS: Glucose Point of Care 146 mg/dL (70-110)
[2024-06-01] MEDS: amlodipine 10 mg Tablet PO (08:31)
[2024-06-01] MEDS: levothyroxine 25 mcg Tablet PO (08:31)
[2024-06-01] MEDS: insulin lispro 100 unit/1 mL SUBCUT ×3 (08:32→20:58)
--- NOTE | 2024-06-01 09:03 | PC.CHAP ---
Pastoral Care Encounter/Spiritual Assessment Type of Contact [] Declined nurse research visit [] Patient/Family/Request visit [] Outpatient visit [] Follow-up visit [] Physician referral [] Code/Alert [x] Routine visit [] Staff referral [] Actively dying [x] Patient sleeping [] Family support [] [] Out of room [] Palliative care [] [] Receiving care in room [] Pre-surgical visit [] Trauma [] Long length of stay [] ICU visit [] Other: Relational/Emotional Strength [] Patient feels connected with others/family/visitors/staff [] Distress [] Loneliness/isolation [] Abandonment Spirituality of Patient [] Person of Neda [] Attends Faith of their Neda [] Believes in Prayer [] Reads Bible or Yazdanism materials [] There are Spiritual issues to be addressed [employer] Space Salesperson Interventions [x] Prayer [] Active listening [] Non-anxious presence [] Spiritual/emotional support [] Crisis/trauma care [] Spiritual counseling [] Bereavement support [] Provided bereavement packet [] Provided Bible/devotional materials [] Provided toy/stuffed animal, coloring book to patient or family member [] Provided Communion [] Anointing/[place] [] Salvation [] Completed spiritual assessment [] Other: Impact on Illness or Injury [] Angry [] Fearful [] Anxious [] Often cries [] Exhaustion [] Unable to work [] Unable to attend gnosticism [] Unable to walk/stand [] Unable to read [] Unable to drive [] Unable to eat/drink [] Unable to sleep [] Unable to be with family [] Patient intubated [] Other: Summary Time spent with patient
[2024-06-01] MEDS: folic acid 5 mg/ml MDV 10mL 1 MG IVP (10:35)
[2024-06-01 11:20] LABS: Glucose Point of Care 131 mg/dL (70-110)
[2024-06-01] MEDS: methylPREDNISolone sod succ 125 mg/2 mL INJ IVP (11:34)
[2024-06-01 16:34] LABS: Glucose Point of Care 273 mg/dL (70-110)
--- NOTE | 2024-06-01 18:08 | P.PN_ITS ---
Subjective 2 Subjective: No acute interim complaints. Still waiting on transfer to [facility]. Hemoglobin improved today at 8.3. Vitals/I&O/Wt Last Vital Signs Temp 98.1 F 06/01/24 16:00 Pulse 62 06/01/24 16:00 Resp 17 06/01/24 16:00 BP 145/76 06/01/24 16:00 Pulse Ox 95 06/01/24 16:00 O2 Del Method Room Air 06/01/24 16:00 O2 Flow Rate 3 06/01/24 08:00 06/01/24 06/01/24 06/01/24 06:59 14:59 22:59 Intake Total 480 / 2140 720 / 720 240 / 960 Output Total 200 / 800 450 / 450 Balance 280 / 1340 270 / 270 240 / 510 Weight last 48 hrs Weight 105.914 kg Weight 105.007 kg Weight 105.37 kg Weight 81.647 kg Physical Exam 2 Narrative: General: No acute distress, AO x3 HEENT: PERRLA, pupils bilaterally equal and reactive, icterus present Chest: Normal vesicular breath sounds, no added sounds, equal good air entry bilaterally CVS: S1-S2 regular, no murmurs, no tachycardia, no gallops, no rubs Abdomen: Soft, nontender, no organomegaly, bowel sounds present Neuro: No focal deficits, no facial deformity, AO x3, power 5/5 in all limbs Data 06/01/24 03:19 06/01/24 03:19 A&P Assessment and plan (1) Anemia: Hemoglobin 6.1, previously normal Presentation highly suspicious for hemolysis Check direct bilirubin in the setting of hyperbilirubinemia Check reticulocyte count, LDH, and haptoglobin Check iron, B12 and folate levels Request peripheral smear Direct Samina test Transfuse 2 packed red blood cells Trend hemoglobin May need hematology consultation pending clinical course Qualifiers: Anemia type: unspecified type Qualified Code(s): D64.9 - Anemia, unspecified (2) Hyperbilirubinemia: Total bilirubin 3.6 Direct bilirubin ordered (3) Jaundice: Jaundice secondary to hyperbilirubinemia Workup as above (4) Hypertension: Continue home blood pressure regiment (5) DM type 2 (diabetes mellitus, type 2): Hold medications Sliding-scale insulin correction Plan DVT prophylaxis: SCD June 01, 2024 Hemoglobin improved at 8.3 today. Platelets are 258. T. bili at 2.7 improving from 4.1. Received Solu-Medrol 125 mg IV push today. Patient awaiting transfer to [facility].Add protonix 40mg dailu for PUD ppx with high dose steroids PDMP PDMP Reviewed: Not Reviewed Attestations 2 Medical Necessity Statement*: awaiting transfer to [facility] for heme/onc Coding Level of Care Code Acute Code for Chg Fwd Diagnoses Anemia D64.9 Anemia type: unspecified type Hyperbilirubinemia E80.6 Jaundice R17 Hypertension I10 DM type 2 (diabetes mellitus, type 2) E11.9
[2024-06-01 20:42] LABS: Glucose Point of Care 269 mg/dL (70-110)
[2024-06-01] MEDS: sennosides 8.6 mg Tablet 17.2 MG PO (20:58)
[2024-06-02] VITALS (8 sets, daily range): BP systolic 126–182; BP diastolic 63–76; PULSE 54–74; RESP 17–18; TEMP 36.5–36.7; O2SAT 92–98
[2024-06-02 05:00] LABS: Basophils % 0.3 %; Hematocrit 26.7 % (36-47); Lymphocytes # 0.6 10^3/uL (0.8-4.8); Lymphocytes % 7.6 %; Mean Corpuscular HGB Conc 31.8 g/dL (30-55); Mean Corpuscular Hemoglobin 39.2 pg (27-33); Mean Platelet Volume 9.9 fL (7.4-10.4); Monocytes # 0.6 10^3/uL (0.2-0.9); Monocytes % 8.2 %; Nucleated Red Blood Cells % 0 %; Platelet Count 341 10^3/cmm (157-399); Red Blood Count 2.17 10^6/uL (3.85-5.65); Red Cell Distribution Width 28.4 % (12.1-15.1); White Blood Count 7.59 10^3/uL (3.29-11.43)
[2024-06-02 05:13] LABS: Alanine Aminotransferase 20 U/L (0-33); Albumin Level 3.8 g/dL (3.5-5.2); Alkaline Phosphatase 72 U/L (35-105); Anion Gap 16.2 (5-19); Aspartate Amino Transferase 19 U/L (0-32); Blood Urea Nitrogen 24 mg/dL (8-23); Calcium 9.1 mg/dL (8.5-10.5); Carbon Dioxide 24 mmol/L (22-29); Chloride 105 mmol/L (98-107); Creatinine Clr Calc Pharmacy 80.9858; Globulin 2.9 g/dL (1.3-4.6); Glucose 140 mg/dL (65-115); Lactate Dehydrogenase 414 U/L (135-214); Osmolality Calculated 298 mOsm/kg (285-295); Potassium 4.2 mmol/L (3.5-5.1); Sodium 141 mmol/L (136-145); Total Bilirubin 1.9 mg/dL (0.15-1.2); Total Protein 6.7 g/dL (6.6-8.7)
[2024-06-02 05:42] LABS: Add RBC Morph Yes; Anisocytosis 2+; Poikilocytosis 1+; RBC Morph Comp No; Slide Review Slide Review Perform
[2024-06-02 06:22] LABS: Glucose Point of Care 170 mg/dL (70-110)
[2024-06-02] MEDS: insulin lispro 100 unit/1 mL SUBCUT ×4 (08:02→21:16)
[2024-06-02] MEDS: pantoprazole DR 40 mg Tablet PO (08:03)
[2024-06-02] MEDS: amlodipine 10 mg Tablet PO (08:03)
[2024-06-02] MEDS: levothyroxine 25 mcg Tablet PO (08:03)
[2024-06-02] MEDS: methylPREDNISolone sod succ 125 mg/2 mL INJ IVP (08:03)
[2024-06-02] MEDS: folic acid 5 mg/ml MDV 10mL 1 MG IVP (08:13)
--- NOTE | 2024-06-02 09:34 | PC.CHAP ---
Pastoral Care Encounter/Spiritual Assessment Type of Contact [] Declined lathe set up person visit [] Patient/Family/Request visit [] Outpatient visit [] Follow-up visit [] Physician referral [] Code/Alert [x] Routine visit [] Staff referral [] Actively dying [] Patient sleeping [] Family support [] [] Out of room [] Palliative care [] [] Receiving care in room [] Pre-surgical visit [] Trauma [] Long length of stay [] ICU visit [] Other: Relational/Emotional Strength [x] Patient feels connected with others/family/visitors/staff [] Distress [] Loneliness/isolation [] Abandonment Spirituality of Patient [x] Person of Neda [] Attends Hoahaoism of their Neda [x] Believes in Prayer [] Reads Bible or Jewish materials [] There are Spiritual issues to be addressed Supervisor [employer] Interventions [x] Prayer [x] Active listening [] Non-anxious presence [x] Spiritual/emotional support [] Crisis/trauma care [] Spiritual counseling [] Bereavement support [] Provided bereavement packet [] Provided Bible/devotional materials [] Provided toy/stuffed animal, coloring book to patient or family member [] Provided Communion [] Anointing/[place] [] Salvation [x] Completed spiritual assessment [] Other: Impact on Illness or Injury [] Angry [] Fearful [] Anxious [] Often cries [] Exhaustion [] Unable to work [] Unable to attend bahai [] Unable to walk/stand [] Unable to read [] Unable to drive [] Unable to eat/drink [] Unable to sleep [] Unable to be with family [] Patient intubated [] Other: Summary Time spent with patient 5 min
[2024-06-02 11:36] LABS: Glucose Point of Care 142 mg/dL (70-110)
[2024-06-02 16:40] LABS: Glucose Point of Care 233 mg/dL (70-110)
--- NOTE | 2024-06-02 19:13 | PM.PN ---
Subjective Subjective: no acute interim events, Hb and t. bili remain stable , unabl to trabsfer due to inclement weather Vitals/I&O/Wt Last Vital Signs Temp 98.0 F 06/02/24 16:40 Pulse 66 06/02/24 16:40 Resp 18 06/02/24 16:40 BP 147/71 06/02/24 16:40 Pulse Ox 97 06/02/24 16:40 O2 Del Method Nasal Cannula 06/02/24 16:40 O2 Flow Rate 2 06/02/24 19:08 06/02/24 06/02/24 06/02/24 06:59 14:59 22:59 Intake Total 240 / 1300 840 / 840 480 / 1320 Output Total 600 / 600 Balance 240 / 850 240 / 240 480 / 720 Weight last 48 hrs Weight 105.914 kg Weight 105.914 kg Physical Exam Narrative: General: No acute distress, AO x3 HEENT: PERRLA, pupils bilaterally equal and reactive, icterus present Chest: Normal vesicular breath sounds, no added sounds, equal good air entry bilaterally CVS: S1-S2 regular, no murmurs, no tachycardia, no gallops, no rubs Abdomen: Soft, nontender, no organomegaly, bowel sounds present Neuro: No focal deficits, no facial deformity, AO x3, power 5/5 in all limbs Data 06/02/24 04:14 06/02/24 04:14 A&P Assessment and plan (1) Anemia: Hemoglobin 6.1, previously normal Presentation highly suspicious for hemolysis Check direct bilirubin in the setting of hyperbilirubinemia Check reticulocyte count, LDH, and haptoglobin Check iron, B12 and folate levels Request peripheral smear Direct Samina test Transfuse 2 packed red blood cells Trend hemoglobin May need hematology consultation pending clinical course Qualifiers: Anemia type: unspecified type Qualified Code(s): D64.9 - Anemia, unspecified (2) Hyperbilirubinemia: Total bilirubin 3.6 Direct bilirubin ordered (3) Jaundice: Jaundice secondary to hyperbilirubinemia Workup as above (4) Hypertension: Continue home blood pressure regiment (5) DM type 2 (diabetes mellitus, type 2): Hold medications Sliding-scale insulin correction Plan DVT prophylaxis: SCD June 01, 2024 Hemoglobin improved at 8.3 today. Platelets are 258. T. bili at 2.7 improving from 4.1. Received Solu-Medrol 125 mg IV push today. Patient awaiting transfer to [facility].Add protonix 40mg dailu for PUD ppx with high dose steroids 06/02/24 Hb stable at 8.7, T . bili stable, will transition iv steroids to po prednisone 1mg/kg qd over next 24 hrs. Pt unable to transfer due to inclement weather PDMP PDMP Reviewed: Not Reviewed Attestations Medical Necessity Statement*: transition iv to po steroids, assess for stability Coding Level of Care Code Acute Code for Chg Fwd Diagnoses Anemia D64.9 Anemia type: unspecified type Hyperbilirubinemia E80.6 Jaundice R17 Hypertension I10 DM type 2 (diabetes mellitus, type 2) E11.9
[2024-06-02 20:33] LABS: Glucose Point of Care 269 mg/dL (70-110)
[2024-06-02] MEDS: sennosides 8.6 mg Tablet 17.2 MG PO (21:16)
[2024-06-03] VITALS (9 sets, daily range): BP systolic 115–146; BP diastolic 64–79; PULSE 57–88; RESP 16–19; TEMP 36.3–36.8; O2SAT 93–95
[2024-06-03 06:05] LABS: Hematocrit 24.5 % (36-47); Lymphocytes # 0.8 10^3/uL (0.8-4.8); Lymphocytes % 12.4 %; Mean Corpuscular HGB Conc 32.2 g/dL (30-55); Mean Corpuscular Hemoglobin 39.7 pg (27-33); Mean Corpuscular Volume 123.1 fl (85-98); Mean Platelet Volume 9.8 fL (7.4-10.4); Monocytes # 0.7 10^3/uL (0.2-0.9); Monocytes % 11.1 %; Neutrophils # 4.66 10^3/uL (1.8-7.7); Neutrophils % 75.7 %; Nucleated Red Blood Cells % 0 %; Platelet Count 289 10^3/cmm (157-399); Red Blood Count 1.99 10^6/uL (3.85-5.65); Red Cell Distribution Width 26.5 % (12.1-15.1); White Blood Count 6.15 10^3/uL (3.29-11.43)
[2024-06-03 06:27] LABS: Glucose Point of Care 108 mg/dL (70-110)
[2024-06-03 06:35] LABS: Add RBC Morph Yes; Slide Review Slide Review Perform
[2024-06-03 06:36] LABS: Anisocytosis 2+; Macrocytosis 2+; Pathology Refferal No; Poikilocytosis 1+; Polychromasia 1+; RBC Morph Comp No
[2024-06-03 06:39] LABS: Alanine Aminotransferase 21 U/L (0-33); Albumin Level 3.6 g/dL (3.5-5.2); Alkaline Phosphatase 64 U/L (35-105); Anion Gap 15.9 (5-19); Aspartate Amino Transferase 17 U/L (0-32); Blood Urea Nitrogen 24 mg/dL (8-23); Calcium 8.9 mg/dL (8.5-10.5); Carbon Dioxide 25 mmol/L (22-29); Chloride 105 mmol/L (98-107); Creatinine Clr Calc Pharmacy 80.9674; Globulin 2.6 g/dL (1.3-4.6); Glucose 105 mg/dL (65-115); Osmolality Calculated 298 mOsm/kg (285-295); Potassium 3.9 mmol/L (3.5-5.1); Sodium 142 mmol/L (136-145); Total Bilirubin 1.6 mg/dL (0.15-1.2); Total Protein 6.2 g/dL (6.6-8.7)
[2024-06-03] MEDS: amlodipine 10 mg Tablet PO (08:12)
[2024-06-03] MEDS: levothyroxine 25 mcg Tablet PO (08:13)
[2024-06-03] MEDS: pantoprazole DR 40 mg Tablet PO (08:13)
[2024-06-03] MEDS: predniSONE 20 mg Tablet 50 MG PO ×2 (08:13→17:28)
[2024-06-03] MEDS: folic acid 5 mg/ml MDV 10mL 1 MG IVP (09:49)
--- NOTE | 2024-06-03 10:03 | PC.SOCIAL ---
IMM Updated Updated pt on IMM. No questions voiced. Provided pt a copy. Initialed, dated, & timed a copy & placed in chart.
[2024-06-03 10:58] LABS: Glucose Point of Care 212 mg/dL (70-110)
[2024-06-03 11:59] LABS: Reticulocyte % 18.2 % (0.5-2.0)
[2024-06-03 12:23] LABS: Lactate Dehydrogenase 330 U/L (135-214)
--- NOTE | 2024-06-03 15:21 | P.PN_ITS ---
Subjective 2 Subjective: hemoglobin at 7.9 today. T. bili down to 1.6. Patient states she feels a little better today. Pathology report available Medications: Reviewed: Yes Vitals/I&O/Wt Last Vital Signs Temp 97.7 F 06/03/24 12:03 Pulse 66 06/03/24 12:03 Resp 18 06/03/24 12:03 BP 115/71 06/03/24 12:03 Pulse Ox 94 06/03/24 12:03 O2 Del Method Room Air 06/03/24 12:03 O2 Flow Rate 2 06/02/24 19:08 06/03/24 06/03/24 06/03/24 06:59 14:59 22:59 Intake Total 0 / 1320 240 / 240 Output Total 200 / 800 400 / 400 250 / 650 Balance -200 / 520 -160 / -160 -250 / -410 Weight last 48 hrs Weight 105.868 kg Weight 105.914 kg Physical Exam 2 Narrative: General: No acute distress, AO x3 HEENT: PERRLA, pupils bilaterally equal and reactive, icterus present Chest: Normal vesicular breath sounds, no added sounds, equal good air entry bilaterally CVS: S1-S2 regular, no murmurs, no tachycardia, no gallops, no rubs Abdomen: Soft, nontender, no organomegaly, bowel sounds present Neuro: No focal deficits, no facial deformity, AO x3, power 5/5 in all limbs Data 06/03/24 05:33 06/03/24 05:33 A&P Assessment and plan (1) Anemia: Hemoglobin 6.1, previously normal Presentation highly suspicious for hemolysis Check direct bilirubin in the setting of hyperbilirubinemia Check reticulocyte count, LDH, and haptoglobin Check iron, B12 and folate levels Request peripheral smear Direct Samina test Transfuse 2 packed red blood cells Trend hemoglobin May need hematology consultation pending clinical course Qualifiers: Anemia type: unspecified type Qualified Code(s): D64.9 - Anemia, unspecified (2) Hyperbilirubinemia: Total bilirubin 3.6 Direct bilirubin ordered (3) Jaundice: Jaundice secondary to hyperbilirubinemia Workup as above (4) Hypertension: Continue home blood pressure regiment (5) DM type 2 (diabetes mellitus, type 2): Hold medications Sliding-scale insulin correction Plan DVT prophylaxis: SCD June 01, 2024 Hemoglobin improved at 8.3 today. Platelets are 258. T. bili at 2.7 improving from 4.1. Received Solu-Medrol 125 mg IV push today. Patient awaiting transfer to [facility].Add protonix 40mg dailu for PUD ppx with high dose steroids 06/02/24 Hb stable at 8.7, T . bili stable, will transition iv steroids to po prednisone 1mg/kg qd over next 24 hrs. Pt unable to transfer due to inclement weather June 03, 2024 Hemoglobin at 7.9, T. bili is improving. LDH trending down at 330 pathology report available today notes the presence of cold autoantibody. No circulating blasts noted. Left shift with myelocytes and metamyelocytes. Very rare nucleated red blood cells are seen. Patient's care plan was discussed with hematology team at [facility] where she is still on a wait list. Appropriate to transition from IV to oral prednisone today. Currently dosed at 1 mg/kg daily in 2 divided doses. Continue to trend hemoglobin, once trend is towards increasing site patient may be safely able to discharge. Transfusion threshold to be at 7.0. Ordered cold agglutining test as recommended by hematology. PDMP PDMP Reviewed: Not Reviewed Attestations 2 Medical Necessity Statement*: Hemolytic anemia, transition from IV to oral steroids, closely monitor hemoglobin trend. Once uptrending patient may be able to discharge to follow-up as outpatient. Coding Level of Care Code Acute Code for Chg Fwd Diagnoses Anemia D64.9 Anemia type: unspecified type Hyperbilirubinemia E80.6 Jaundice R17 Hypertension I10 DM type 2 (diabetes mellitus, type 2) E11.9
[2024-06-03 16:33] LABS: Glucose Point of Care 212 mg/dL (70-110)
[2024-06-03] MEDS: insulin lispro 100 unit/1 mL SUBCUT ×2 (17:27→22:07)
[2024-06-03 20:36] LABS: Glucose Point of Care 254 mg/dL (70-110)
[2024-06-03] MEDS: sennosides 8.6 mg Tablet 17.2 MG PO (21:35)
[2024-06-04 04:00] VITALS: BP 153/83; PULSE 68; RESP 16; TEMP 36.4; O2SAT 93
[2024-06-04 04:56] LABS: Reticulocyte % 14.7 % (0.5-2.0)
[2024-06-04 05:31] LABS: Alanine Aminotransferase 23 U/L (0-33); Albumin Level 3.6 g/dL (3.5-5.2); Alkaline Phosphatase 69 U/L (35-105); Anion Gap 17.1 (5-19); Aspartate Amino Transferase 16 U/L (0-32); Blood Urea Nitrogen 20 mg/dL (8-23); Calcium 8.9 mg/dL (8.5-10.5); Carbon Dioxide 23 mmol/L (22-29); Chloride 105 mmol/L (98-107); Globulin 2.5 g/dL (1.3-4.6); Glucose 166 mg/dL (65-115); Osmolality Calculated 298 mOsm/kg (285-295); Potassium 4.1 mmol/L (3.5-5.1); Sodium 141 mmol/L (136-145); Total Bilirubin 1.4 mg/dL (0.15-1.2); Total Protein 6.1 g/dL (6.6-8.7)
[2024-06-04 05:32] LABS: Lactate Dehydrogenase 324 U/L (135-214)
[2024-06-04 05:43] LABS: Basophils % 0.2 %; Eosinophils # 0.1 10^3/uL (0.0-0.8); Eosinophils % 1.4 %; Hematocrit 27.6 % (36-47); Lymphocytes # 0.4 10^3/uL (0.8-4.8); Lymphocytes % 7.2 %; Mean Corpuscular HGB Conc 30.8 g/dL (30-55); Mean Corpuscular Hemoglobin 34.8 pg (27-33); Mean Corpuscular Volume 113.1 fl (85-98); Mean Platelet Volume 9.6 fL (7.4-10.4); Monocytes # 0.2 10^3/uL (0.2-0.9); Monocytes % 4.5 %; Neutrophils # 4.15 10^3/uL (1.8-7.7); Neutrophils % 85.7 %; Nucleated Red Blood Cells % 0 %; Platelet Count 252 10^3/cmm (157-399); Red Blood Count 2.44 10^6/uL (3.85-5.65); Red Cell Distribution Width 21.2 % (12.1-15.1); White Blood Count 4.85 10^3/uL (3.29-11.43)
[2024-06-04 06:21] LABS: Glucose Point of Care 164 mg/dL (70-110)
[2024-06-04 07:39] VITALS: BP 138/63; PULSE 63; RESP 17; TEMP 36.4; O2SAT 93
[2024-06-04] MEDS: amlodipine 10 mg Tablet PO (08:40)
[2024-06-04] MEDS: levothyroxine 25 mcg Tablet PO (08:40)
[2024-06-04] MEDS: insulin lispro 100 unit/1 mL SUBCUT (08:40)
[2024-06-04] MEDS: predniSONE 20 mg Tablet 50 MG PO (08:40)
[2024-06-04] MEDS: pantoprazole DR 40 mg Tablet PO (08:40)
[2024-06-04] MEDS: folic acid 5 mg/ml MDV 10mL 1 MG IVP (08:44)
[2024-06-04 11:30] LABS: Glucose Point of Care 134 mg/dL (70-110)
--- NOTE | 2024-06-04 11:36 | P.DS_ITS ---
Discharge Providers Date of Admission: 06/01/24 10:24 Date of Discharge: June 04, 2024 Attending Provider at Admission: Tee Houston MD Attending Provider at Discharge: Bre Sher MD Primary Care Provider: BITA Blackwell Diagnoses at Discharge Discharge Diagnosis (1) Anemia: Status: Acute Qualifiers: Anemia type: unspecified type Qualified Code(s): D64.9 - Anemia, unspecified (2) Hyperbilirubinemia: Status: Acute (3) Jaundice: Status: Acute (4) Hypertension: Status: Acute (5) DM type 2 (diabetes mellitus, type 2): Status: Acute (6) Autoimmune hemolytic anemia: Status: Acute Reason for Visit Reason for Visit: LOW HGB Hospital Course Hospital Course Patient was admitted to the hospital on May 31, 2024 with new onset jaundice that has been going on for last 1 week. Hemoglobin on admission 6.1. Labs indicated hemolytic anemia. Haptoglobin is 10, reticulocyte count 30%, LDH high indicating intravascular hemolysis. Etiology unknown. Samina test was positive. She received blood transfusion during course of the admission. Peripheral smear sent to pathology for review showed presence of left shift with nucleated red blood cells. Cold autoantibody was positive. 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 Given the need for expedited hematology evaluation, patient was to be transferred to [facility], however remained on a wait list for many days due to nonavailability of her bed. Case was discussed in consult with hematology at [facility]. Rec ommended starting high-dose steroids. Patient received methylprednisolone 125 mg IV between May 31 to June 03, 2024. On June 03 she transition to prednisone 1 mg/kg daily. CT abdomen pelvis was obtained this morning which shows splenomegaly. Patient is overall clinically stable and improved at this time. Her hemoglobin improved to 8.7. LDH is improving at 324. T. bili has improved to 1.4. She is being discharged today with prednisone 50 mg twice daily along with PUD prophylaxis. Recommended to continue prednisone for the next week and then taper down to 40 mg twice daily. Further steroid taper at the direction of hematology. Expedited her appointment has been arranged for Saturday, June 08, 2024 Physical Exam 2 Narrative: General: No acute distress, AO x2-3 HEENT: PERRLA, pupils bilaterally equal and reactive, pallors not present Chest: Normal vesicular breath sounds, no added sounds, equal good air entry bilaterally CVS: S1-S2 regular, no murmurs, no tachycardia, no gallops, no rubs Abdomen: Soft, nontender, no organomegaly, bowel sounds present Neuro: No focal deficits, no facial deformity, AO x2-3, power 5/5 in all limbs Discharge Data Studies Completed and Pending Completed Studies During Hospitalization Category Date Time Status CT abdomen pelvis w con* [id number] Stat Cat Scan 05/31/24 09:05 Completed Pending at discharge Category Date Time Status Cold Hemagglutinins Routine Lab 06/03/24 13:03 Received Occult Blood Stool [Immunochemical Fecal OCB] Routine Lab 05/30/24 22:59 Ordered SARS Covid-2 Antigen Stat Lab 06/04/24 11:08 Ordered Radiology Impressions Abdomen/Pelvis CT 05/31/24 09:05 IMPRESSION: 1. Fatty infiltration of the liver. 2. Splenomegaly. 3. Please see above comments for additional details. COMMENTS: Consistent with the [employer]'s Incidental Findings Committee white paper (J Am Amado Radiol 2018): Any incidental renal lesion less than 1 cm or classified as too small to characterize, or any incidental cystic renal lesion characterized as simple-appearing, is likely benign. No follow-up imaging is recommended for these lesions per consensus recommendations based on imaging criteria. Laboratory Results WBC 4.85 10^3/uL (3.29-11.43) 06/04/24 04:40 RBC 2.44 10^6/uL (3.85-5.65) L 06/04/24 04:40 Hgb 8.50 g/dL (11.27-16.99) L 06/04/24 04:40 Hct 27.6 % (36-47) L 06/04/24 04:40 MCV 113.1 fl (85-98) H D 06/04/24 04:40 MCH 34.8 pg (27-33) H D 06/04/24 04:40 MCHC 30.8 g/dL (30-55) 06/04/24 04:40 RDW 21.2 % (12.1-15.1) H 06/04/24 04:40 Plt Count 252 10^3/cmm (157-399) 06/04/24 04:40 MPV 9.6 fL (7.4-10.4) 06/04/24 04:40 Neut % (Auto) 85.7 % 06/04/24 04:40 Lymph % (Auto) 7.2 % 06/04/24 04:40 [place] % (Auto) 4.5 % 06/04/24 04:40 Eos % (Auto) 1.4 % 06/04/24 04:40 Baso % (Auto) 0.2 % 06/04/24 04:40 Reticulocyte % (Auto) 14.7 % (0.5-2.0) H 06/04/24 04:40 Neut # (Auto) 4.15 10^3/uL (1.8-7.7) 06/04/24 04:40 Lymph # (Auto) 0.4 10^3/uL (0.8-4.8) L 06/04/24 04:40 [place] # (Auto) 0.2 10^3/uL (0.2-0.9) 06/04/24 04:40 Eos # (Auto) 0.1 10^3/uL (0.0-0.8) 06/04/24 04:40 Baso # (Auto) 0.0 10^3/uL (0.0-0.1) 06/04/24 04:40 Nucleated RBC % (auto) 0 % 06/04/24 04:40 Nucleated RBCs # 0.0 /100WBC 06/04/24 04:40 Pathologist Review No 06/03/24 05:33 Polychromasia 1+ H 06/03/24 05:33 Poikilocytosis 1+ H 06/03/24 05:33 Anisocytosis 2+ H 06/03/24 05:33 Macrocytosis 2+ H 06/03/24 05:33 Peripher Smr Path Cons Sent for review 05/30/24 22:51 Haptoglobin 10.0 mg/L (30-200) L 06/03/24 05:33 PT 13.60 SECONDS (12.1-14.9) 05/30/24 22:51 INR 0.97 (0.8-1.2) 05/30/24 22:51 APTT 33.7 SECONDS (23.9-36.7) 05/30/24 22:51 Sodium 141 mmol/L (136-145) 06/04/24 04:40 Potassium 4.1 mmol/L (3.5-5.1) 06/04/24 04:40 Chloride 105 mmol/L (98-107) 06/04/24 04:40 Carbon Dioxide 23 mmol/L (22-29) 06/04/24 04:40 Anion Gap 17.1 (5-19) 06/04/24 04:40 BUN 20 mg/dL (8-23) 06/04/24 04:40 Creatinine 0.6 mg/dL (0.5-0.9) 06/04/24 04:40 GFR Calculation Not Reportable 06/04/24 04:40 Glucose 166 mg/dL (65-115) H 06/04/24 04:40 POC Glucose 134 mg/dL (70-110) H 06/04/24 11:24 Calculated Osmolality 298 mOsm/kg (285-295) H 06/04/24 04:40 Calcium 8.9 mg/dL (8.5-10.5) 06/04/24 04:40 Phosphorus 4.1 mg/dL (2.5-4.5) 06/01/24 03:19 Magnesium 2.3 mg/dL (1.7-2.3) 06/01/24 03:19 Iron 88 ug/dL (37-145) 05/30/24 22:51 TIBC 216 mcg/dl 05/30/24 22:51 % Saturation 40.7 % (20-50) 05/30/24 22:51 Unsat Iron Binding 128 ug/dL (112-347) 05/30/24 22:51 Ferritin 707 ng/mL (15-150) H 05/30/24 22:51 Total Bilirubin 1.4 mg/dL (0.15-1.2) H 06/04/24 04:40 Direct Bilirubin 0.70 mg/dL (0.00-0.30) H 05/30/24 22:51 AST 16 U/L (0-32) 06/04/24 04:40 ALT 23 U/L (0-33) 06/04/24 04:40 Alkaline Phosphatase 69 U/L (35-105) 06/04/24 04:40 Lactate Dehydrogenase 324 U/L (135-214) H 06/04/24 04:40 C-Reactive Protein 27.4 mg/L (0.0-4.9) H 05/30/24 22:51 Total Protein 6.1 g/dL (6.6-8.7) L 06/04/24 04:40 Albumin 3.6 g/dL (3.5-5.2) 06/04/24 04:40 Globulin 2.5 g/dL (1.3-4.6) 06/04/24 04:40 Vitamin B12 903 pg/mL (232-1245) 05/31/24 10:09 Folate 5.8 ng/mL (4.8-37.3) 05/31/24 00:35 Blood Type O Positive 05/30/24 22:51 Rho(D) Type Rh positive 05/30/24 22:51 Antibody Screen Positive 05/30/24 22:51 Prewarmed Antibody Srcn Negative 05/30/24 22:51 Antibody Identification Cold Auto Antibody 05/30/24 22:51 Cold Antibody Screen Positive 05/30/24 23:57 ALINA, IgG Interpret Positive-igg 05/30/24 23:57 ALINA, Poly Interpret Pos-polyspecific 05/30/24 23:57 ALINA, Complement Interp Pos-complement 05/30/24 23:57 Crossmatch See Detail 05/30/24 22:51 Pre-Trans Antibody Scrn Cancelled 05/30/24 22:51 Vitals Last Vital Signs Temp 97.5 F L 06/04/24 07:39 Pulse 63 06/04/24 07:39 Resp 17 06/04/24 07:39 BP 138/63 06/04/24 07:39 Pulse Ox 93 06/04/24 07:39 O2 Del Method Room Air 06/04/24 07:39 O2 Flow Rate 2 06/02/24 19:08 Discharge Plan Discharge Patient Disposition: Xfer SNF Condition: Stable Prescriptions: New prednisone 20 mg Tablet 50 mg PO BID 14 Days Qty: 70 0RF Rx Instructions: 50mg bid for 1 week,reduce to 40mg BID the next week, further steroids per f/up with hematology amlodipine 10 mg Tablet 10 mg PO DAILY 30 Days Qty: 30 0RF pantoprazole 40 mg Tablet,Delayed Release (Dr/Ec) 40 mg PO DAILY 60 Days Qty: 60 0RF Continued levothyroxine 25 mcg tablet 25 mcg PO DAILY potassium chloride 20 mEq tablet extended release 20 meq PO BID Qty: 10 0RF ondansetron HCl 4 mg tablet 4 mg PO Q4H PRN (Reason: Nausea) loperamide [Imodium A-D] 2 mg Tablet 2 mg PO Q4H PRN (Reason: Diarrhea) Rx Instructions: administer after each loose stool until symptoms controlled; do not exceed 8 mg per 24 hrs citalopram 20 mg tablet 20 mg PO DAILY magnesium hydroxide [Milk of Magnesia] 400 mg/5 mL Suspension 30 ml PO DAILY PRN (Reason: Constipation) bisacodyl [Dulcolax (bisacodyl)] 10 mg Suppository 10 mg OR DAILY PRN (Reason: Constipation) mirtazapine 15 mg tablet 15 mg PO BEDTIME melatonin 1 mg Tablet 1 mg PO BEDTIME Changed acetaminophen 500 mg capsule 500 mg PO Q6H PRN (Reason: pain) Qty: 30 0RF Discharge Orders: Discharge Order (Routine); Ordered 06/04/24 Ordered By: Bre Sher Referrals: [facility] [Outside] Promise Cardenas FNP [Primary Care Provider] - Yoseph Retana MD [Hospitalist] - 06/08/24 8:00 am (first available oncologist. hemolytic anemia, started on high dse steroids in the hospital, need expedited outpatient appt ) Discharge Diet: Usual diet Discharge Activity: Resume usual activity Discharge Attestations Time Spent in Discharge Care*: greater than 30 min Status at Discharge: Cognitive status at discharge: cognitively intact , Behavioral status at discharge: cooperative , Quality Metrics Clinical Quality Measures [ No reported AMI, CVA or VTE this stay] Coding Level of Care Code Acute Code for Chg Fwd Diagnoses Anemia D64.9 Anemia type: unspecified type Hyperbilirubinemia E80.6 Jaundice R17 Hypertension I10 DM type 2 (diabetes mellitus, type 2) E11.9 Autoimmune hemolytic anemia D59.10
[2024-06-04 12:01] VITALS: BP 148/76; PULSE 62; RESP 17; TEMP 36.4; O2SAT 93
[2024-06-04 12:15] LABS: SARS Covid-2 Antigen Negative (Negative)
--- NOTE | 2024-06-04 12:55 | PC.NURSE ---
Attempted to call report X 4 and was unable to give report to anyone.
--- NOTE | 2024-06-04 13:22 | PC.NURSE ---
Report given to Melany at [facility] at this time.
[2024-06-04 16:34] VITALS: BP 148/76; PULSE 62; RESP 16; TEMP 36.7; O2SAT 94
[2024-06-06 09:45] LABS: Cold Hemagglutinins None Detected Titer (None Detected)
== END 2024-06-04 14:00 | disposition skilled nursing facility (03) | DRG 809 ==
LOC: ER 05-31 00:29 → MEDSURG 05-31 00:30
PROVIDERS: Internal Medicine; Admitting Provider Internal Medicine; Emergency Provider Emergency Medicine; PCP Nurse Practitioner Family; Visit Provider Student in an Organized Health Care Education/Training Program
DX: D59.12 Cold autoimmune hemolytic anemia (principal); R17 Unspecified jaundice; E80.6 Other disorders of bilirubin metabolism; I10 Essential (primary) hypertension; E11.9 Type 2 diabetes mellitus without complications; E03.9 Hypothyroidism, unspecified; Z86.16 Personal history of COVID-19; R79.89 Other specified abnormal findings of blood chemistry
CPT/HCPCS: 36415; 36416; 36430; 74177; 80053; 80503; 82248; 82607; 82728; 82746; 82962; 83010; 83540; 83550; 83615; 83735; 84100; 85025; 85045; 85610; 85730; 86140; 86157; 86850; 86870; 86880; 86900; 86920; 87426; 96372; 99285; G0378; J1815; J2405; J2919; J3490; J7512; P9016

== ENCOUNTER 2024-06-08 08:05 | Oncology outpatient (recurring) (ONCR) | payer MEDICARE, MEDICAID, SELFPAY ==
[2024-06-08 10:09] LABS: Basophils % 0.1 %; Eosinophils % 0.3 %; Hematocrit 35.6 % (36-47); Lymphocytes # 0.3 10^3/uL (0.8-4.8); Lymphocytes % 2.2 %; Mean Corpuscular HGB Conc 32.3 g/dL (30-55); Mean Corpuscular Hemoglobin 36.7 pg (27-33); Mean Corpuscular Volume 113.7 fl (85-98); Mean Platelet Volume 9.3 fL (7.4-10.4); Monocytes # 1.3 10^3/uL (0.2-0.9); Monocytes % 9.1 %; Neutrophils # 12.51 10^3/uL (1.8-7.7); Neutrophils % 87.6 %; Nucleated Red Blood Cells % 0 %; Platelet Count 335 10^3/cmm (157-399); Red Blood Count 3.13 10^6/uL (3.85-5.65); Red Cell Distribution Width 18.1 % (12.1-15.1); White Blood Count 14.28 10^3/uL (3.29-11.43)
[2024-06-08 10:27] LABS: Alanine Aminotransferase 42 U/L (0-33); Albumin Level 4.1 g/dL (3.5-5.2); Alkaline Phosphatase 79 U/L (35-105); Anion Gap 16.4 (5-19); Aspartate Amino Transferase 18 U/L (0-32); Blood Urea Nitrogen 27 mg/dL (8-23); Calcium 9.5 mg/dL (8.5-10.5); Carbon Dioxide 23 mmol/L (22-29); Chloride 105 mmol/L (98-107); Creatinine Clr Calc Pharmacy 80.3484; Globulin 2.4 g/dL (1.3-4.6); Glucose 160 mg/dL (65-115); Lactate Dehydrogenase 277 U/L (135-214); Osmolality Calculated 299 mOsm/kg (285-295); Potassium 4.4 mmol/L (3.5-5.1); Sodium 140 mmol/L (136-145); Total Bilirubin 1.5 mg/dL (0.15-1.2); Total Protein 6.5 g/dL (6.6-8.7)
[2024-06-09 21:03] LABS: ALBUMIN 4.3 g/dL (3.8-4.8); ALPHA 1 GLOBULIN 0.3 g/dL (0.2-0.3); ALPHA 2 GLOBULIN 0.5 g/dL (0.5-0.9); BETA 1 GLOBULIN 0.5 g/dL (0.4-0.6); BETA 2 GLOBULIN 0.3 g/dL (0.2-0.5); GAMMA GLOBULIN 1.1 g/dL (0.8-1.7)
[2024-06-11 23:49] LABS: Immunofixation Serum Normal pattern.
== END 2024-06-12 23:59 | disposition home or self-care (01) ==
PROVIDERS: PCP Nurse Practitioner Family; Visit Provider Internal Medicine Medical Oncology
DX: D59.10 Autoimmune hemolytic anemia, unspecified (principal); R41.3 Other amnesia
CPT/HCPCS: 36415; 80053; 83615; 84155; 84165; 85025; 86334; 99205

== ENCOUNTER 2024-06-16 10:24 | Outpatient (CLI) | payer MEDICARE, MEDICAID, SELFPAY ==
--- NOTE | 2024-06-16 10:30 | CT_ITS ---
WS: [id number] CT chest w con* [id number] HISTORY: autoimmune hemolytic anemia TECHNIQUE: Axial imaging performed through the thorax. Coronal and sagittal reformats are submitted. All CT scans at [facility] use at least one of these dose optimization techniques: automated exposure control; mA and/or kV adjustment per patient size (includes targeted exams where dose is matched to clinical indication); or iterative reconstruction. CONTRAST: Omnipaque 350; 100 mL IV. DLP: 525.48 mGy.cm COMPARISON: 02/17/2022 Lungs and central airway: Significant breathing motion artifact especially within the upper lung villagomez. Bilateral lower lobe linear areas of subsegmental atelectasis or scar. No pulmonary mass or nodule. Pleura: Normal. No pleural effusion. Heart and pericardium: Normal size heart with no pericardial effusion. Mediastinum and dixon: No mediastinum or hilar adenopathy. Vessels: Very mild atherosclerosis aorta. Normal size pulmonary artery and aorta. Chest wall and lower neck: No soft tissue masses. Upper abdomen: Mild hepatic steatosis. There are a few scattered areas of decreased attenuation within the liver. Cysts were described on recent CT of 05/31/2024. Largest cyst is 2.1 cm. No intrahepatic duct dilatation. LEFT adrenal nodule measures 2.3 x 1.5 cm and contains a tiny calcification. Adrenal nodule similar to prior remote 10/14/2021 exam. Osseous structures: Mild curvature and scoliosis thoracic spine. Mild deformity of the sternum. May be from a prior fracture. New deformity since 2021. CT/CT chest w con* [id number] IMPRESSION: 1. Thin platelike areas of atelectasis or scar at the lower lung villagomez. 2. No pulmonary mass or nodule. 3. No mediastinal or hilar adenopathy. 4. Long-term stability LEFT adrenal gland mass measures 2.3 x 1.5 cm.
[2024-06-16] MEDS: iohexol 350 mg/mL 500 mL Btl (per mL) IV (11:09)
== END 2024-06-16 10:25 | disposition home or self-care (01) ==
LOC: RAD 10:25
PROVIDERS: PCP Nurse Practitioner Family; Visit Provider Internal Medicine Medical Oncology
DX: D59.10 Autoimmune hemolytic anemia, unspecified (principal); R91.8 Other nonspecific abnormal finding of lung field; R93.89 Abnormal findings on diagnostic imaging of other specified body structures; I70.0 Atherosclerosis of aorta; K76.0 Fatty (change of) liver, not elsewhere classified; R93.2 Abnormal findings on diagnostic imaging of liver and biliary tract; K76.89 Other specified diseases of liver; M41.84 Other forms of scoliosis, thoracic region; M43.8X4 Other specified deforming dorsopathies, thoracic region; R93.7 Abnormal findings on diagnostic imaging of other parts of musculoskeletal system
CPT/HCPCS: 71260

== ENCOUNTER 2024-07-13 13:00 | Oncology outpatient (recurring) (ONCR) | payer MEDICARE, MEDICAID, SELFPAY ==
[2024-06-22 13:39] LABS: Basophils % 0.2 %; Eosinophils # 0.2 10^3/uL (0.0-0.8); Eosinophils % 1.6 %; Hematocrit 37.6 % (36-47); Lymphocytes # 1.1 10^3/uL (0.8-4.8); Lymphocytes % 9.2 %; Mean Corpuscular HGB Conc 30.9 g/dL (30-55); Mean Corpuscular Hemoglobin 33.9 pg (27-33); Mean Corpuscular Volume 109.9 fl (85-98); Mean Platelet Volume 9.1 fL (7.4-10.4); Monocytes # 1.1 10^3/uL (0.2-0.9); Monocytes % 8.9 %; Neutrophils # 9.55 10^3/uL (1.8-7.7); Neutrophils % 79.2 %; Nucleated Red Blood Cells % 0 %; Platelet Count 149 10^3/cmm (157-399); Red Blood Count 3.42 10^6/uL (3.85-5.65); Red Cell Distribution Width 14.7 % (12.1-15.1); White Blood Count 12.05 10^3/uL (3.29-11.43)
[2024-06-22 13:56] LABS: Alanine Aminotransferase 32 U/L (0-33); Albumin Level 3.4 g/dL (3.5-5.2); Alkaline Phosphatase 74 U/L (35-105); Anion Gap 11.9 (5-19); Aspartate Amino Transferase 15 U/L (0-32); Blood Urea Nitrogen 12 mg/dL (8-23); Calcium 8.9 mg/dL (8.5-10.5); Carbon Dioxide 29 mmol/L (22-29); Chloride 101 mmol/L (98-107); Globulin 2.8 g/dL (1.3-4.6); Glucose 124 mg/dL (65-115); Lactate Dehydrogenase 233 U/L (135-214); Osmolality Calculated 287 mOsm/kg (285-295); Potassium 3.9 mmol/L (3.5-5.1); Sodium 138 mmol/L (136-145); Total Bilirubin 1.2 mg/dL (0.15-1.2); Total Protein 6.2 g/dL (6.6-8.7)
[2024-06-23 06:59] LABS: PROTEIN, TOTAL 5.6 g/dL (6.1-8.1)
[2024-06-23 20:35] LABS: ALBUMIN 3.2 g/dL (3.8-4.8); ALPHA 1 GLOBULIN 0.4 g/dL (0.2-0.3); ALPHA 2 GLOBULIN 0.6 g/dL (0.5-0.9); BETA 1 GLOBULIN 0.4 g/dL (0.4-0.6); BETA 2 GLOBULIN 0.4 g/dL (0.2-0.5); GAMMA GLOBULIN 0.7 g/dL (0.8-1.7)
[2024-06-25 23:10] LABS: Immunofixation Serum Normal pattern.
[2024-07-13 13:18] LABS: Basophils # 0.1 10^3/uL (0.0-0.1); Basophils % 0.4 %; Eosinophils % 0.2 %; Hematocrit 25.6 % (36-47); Lymphocytes % 5.9 %; Mean Corpuscular HGB Conc 29.7 g/dL (30-55); Mean Corpuscular Hemoglobin 33.6 pg (27-33); Mean Corpuscular Volume 113.3 fl (85-98); Monocytes # 0.4 10^3/uL (0.2-0.9); Monocytes % 2.4 %; Neutrophils # 14.67 10^3/uL (1.8-7.7); Neutrophils % 86.2 %; Nucleated Red Blood Cells # 0.1 /100WBC; Nucleated Red Blood Cells % 0.6 %; Platelet Count 478 10^3/cmm (157-399); Red Blood Count 2.26 10^6/uL (3.85-5.65); Red Cell Distribution Width 19.4 % (12.1-15.1); White Blood Count 17.02 10^3/uL (3.29-11.43)
[2024-07-13 13:34] LABS: Alanine Aminotransferase 12 U/L (0-33); Albumin Level 3.9 g/dL (3.5-5.2); Alkaline Phosphatase 97 U/L (35-105); Anion Gap 14.6 (5-19); Aspartate Amino Transferase 13 U/L (0-32); Blood Urea Nitrogen 9 mg/dL (8-23); Calcium 9.1 mg/dL (8.5-10.5); Carbon Dioxide 27 mmol/L (22-29); Chloride 100 mmol/L (98-107); Globulin 2.9 g/dL (1.3-4.6); Glucose 214 mg/dL (65-115); Lactate Dehydrogenase 344 U/L (135-214); Osmolality Calculated 289 mOsm/kg (285-295); Potassium 4.6 mmol/L (3.5-5.1); Sodium 137 mmol/L (136-145); Total Bilirubin 1.5 mg/dL (0.15-1.2); Total Protein 6.8 g/dL (6.6-8.7)
== END 2024-07-13 23:59 | disposition home or self-care (01) ==
PROVIDERS: PCP Nurse Practitioner Family; Visit Provider Internal Medicine Medical Oncology
DX: Z53.9 Procedure and treatment not carried out, unspecified reason (principal); D59.10 Autoimmune hemolytic anemia, unspecified; R05.9 Cough, unspecified; Z79.899 Other long term (current) drug therapy; D72.829 Elevated white blood cell count, unspecified
CPT/HCPCS: 36415; 80053; 83615; 84155; 84165; 85025; 86334; 86850; 86870; 86900; 86920; 99214

== ENCOUNTER 2024-08-03 08:15 | Oncology outpatient (recurring) (ONCR) | payer MEDICARE, MEDICAID, SELFPAY ==
[2024-07-14] VITALS (8 sets, daily range): BP systolic 106–130; BP diastolic 53–78; PULSE 76–96; RESP 16; TEMP 36.4–37.1; O2SAT 94–100
[2024-07-14] MEDS: diphenhydrAMINE 25 mg Capsule PO (09:18)
[2024-07-14] MEDS: acetaminophen 325 mg Tablet 650 MG PO (09:18)
[2024-07-14] MEDS: sodium chloride 0.9% 250 mL Bag IV (09:19)
[2024-07-14] MEDS: FUROsemide 10 mg/mL SDV 2mL 20 MG IVP (12:32)
[2024-08-03 09:10] LABS: Basophils # 0.1 10^3/uL (0.0-0.1); Basophils % 0.6 %; Eosinophils # 0.3 10^3/uL (0.0-0.8); Eosinophils % 3.3 %; Hematocrit 30.7 % (36-47); Lymphocytes # 1.5 10^3/uL (0.8-4.8); Lymphocytes % 15.5 %; Mean Corpuscular Hemoglobin 35.5 pg (27-33); Mean Corpuscular Volume 118.5 fl (85-98); Mean Platelet Volume 9.4 fL (7.4-10.4); Monocytes # 0.6 10^3/uL (0.2-0.9); Monocytes % 6.4 %; Neutrophils % 73.6 %; Nucleated Red Blood Cells % 0 %; Platelet Count 327 10^3/cmm (157-399); Red Blood Count 2.59 10^6/uL (3.85-5.65); Red Cell Distribution Width 17.5 % (12.1-15.1); White Blood Count 9.66 10^3/uL (3.29-11.43)
[2024-08-03 09:26] LABS: Alanine Aminotransferase 16 U/L (0-33); Albumin Level 4.1 g/dL (3.5-5.2); Alkaline Phosphatase 88 U/L (35-105); Blood Urea Nitrogen 9 mg/dL (8-23); Carbon Dioxide 26 mmol/L (22-29); Chloride 103 mmol/L (98-107); Creatinine Clr Calc Pharmacy 80.2433; Globulin 2.8 g/dL (1.3-4.6); Glucose 148 mg/dL (65-115); Osmolality Calculated 289 mOsm/kg (285-295); Sodium 139 mmol/L (136-145); Total Bilirubin 1.6 mg/dL (0.15-1.2); Total Protein 6.9 g/dL (6.6-8.7)
[2024-08-03 09:34] LABS: Aspartate Amino Transferase 23 U/L (0-32); Lactate Dehydrogenase 401 U/L (135-214)
== END 2024-08-12 23:59 | disposition home or self-care (01) ==
PROVIDERS: Nurse Practitioner Family; PCP Nurse Practitioner Family; Visit Provider Internal Medicine Medical Oncology
DX: Z53.9 Procedure and treatment not carried out, unspecified reason; D64.9 Anemia, unspecified; D59.10 Autoimmune hemolytic anemia, unspecified; Z79.52 Long term (current) use of systemic steroids
CPT/HCPCS: 36415; 36430; 80053; 83615; 85025; 86850; 86870; 86900; 86920; 99214; J1940; J7050; J9999; P9016

== ENCOUNTER 2024-09-03 11:15 | Oncology outpatient (recurring) (ONCR) | payer MEDICARE, MEDICAID, SELFPAY ==
[2024-08-17 09:21] LABS: Basophils % 0.2 %; Eosinophils % 0.1 %; Hematocrit 35.4 % (36-47); Lymphocytes # 0.7 10^3/uL (0.8-4.8); Lymphocytes % 3.6 %; Mean Corpuscular HGB Conc 30.8 g/dL (30-55); Mean Corpuscular Hemoglobin 35.3 pg (27-33); Mean Corpuscular Volume 114.6 fl (85-98); Neutrophils # 17.12 10^3/uL (1.8-7.7); Neutrophils % 89.9 %; Nucleated Red Blood Cells % 0 %; Platelet Count 285 10^3/cmm (157-399); Red Blood Count 3.09 10^6/uL (3.85-5.65); Red Cell Distribution Width 14.9 % (12.1-15.1); White Blood Count 19.05 10^3/uL (3.29-11.43)
[2024-08-17 09:36] LABS: Alanine Aminotransferase 20 U/L (0-33); Albumin Level 4.1 g/dL (3.5-5.2); Alkaline Phosphatase 97 U/L (35-105); Anion Gap 17.5 (5-19); Aspartate Amino Transferase 13 U/L (0-32); Blood Urea Nitrogen 27 mg/dL (8-23); Calcium 9.2 mg/dL (8.5-10.5); Carbon Dioxide 27 mmol/L (22-29); Chloride 102 mmol/L (98-107); Globulin 2.2 g/dL (1.3-4.6); Glucose 143 mg/dL (65-115); Lactate Dehydrogenase 211 U/L (135-214); Osmolality Calculated 302 mOsm/kg (285-295); Potassium 4.5 mmol/L (3.5-5.1); Sodium 142 mmol/L (136-145); Total Protein 6.3 g/dL (6.6-8.7)
[2024-09-03 11:30] LABS: Basophils # 0.1 10^3/uL (0.0-0.1); Basophils % 0.4 %; Eosinophils # 0.1 10^3/uL (0.0-0.8); Eosinophils % 0.4 %; Hematocrit 40.4 % (36-47); Lymphocytes # 0.8 10^3/uL (0.8-4.8); Lymphocytes % 5.1 %; Mean Corpuscular HGB Conc 30.9 g/dL (30-55); Mean Corpuscular Hemoglobin 34.7 pg (27-33); Mean Corpuscular Volume 112.2 fl (85-98); Mean Platelet Volume 8.6 fL (7.4-10.4); Monocytes # 0.7 10^3/uL (0.2-0.9); Monocytes % 4.7 %; Neutrophils # 13.17 10^3/uL (1.8-7.7); Neutrophils % 88.4 %; Nucleated Red Blood Cells % 0 %; Platelet Count 239 10^3/cmm (157-399); Red Cell Distribution Width 12.6 % (12.1-15.1)
[2024-09-03 11:47] LABS: Alanine Aminotransferase 18 U/L (0-33); Alkaline Phosphatase 78 U/L (35-105); Anion Gap 18.4 (5-19); Aspartate Amino Transferase 12 U/L (0-32); Blood Urea Nitrogen 28 mg/dL (8-23); Carbon Dioxide 24 mmol/L (22-29); Chloride 102 mmol/L (98-107); Creatinine Clr Calc Pharmacy 82.5755; Globulin 2.4 g/dL (1.3-4.6); Glucose 135 mg/dL (65-115); Lactate Dehydrogenase 196 U/L (135-214); Osmolality Calculated 298 mOsm/kg (285-295); Potassium 4.4 mmol/L (3.5-5.1); Sodium 140 mmol/L (136-145); Total Bilirubin 0.8 mg/dL (0.15-1.2); Total Protein 6.4 g/dL (6.6-8.7)
== END 2024-09-12 23:59 | disposition home or self-care (01) ==
PROVIDERS: Nurse Practitioner Family; PCP Nurse Practitioner Family; Visit Provider Internal Medicine Medical Oncology
DX: Z53.9 Procedure and treatment not carried out, unspecified reason; D59.10 Autoimmune hemolytic anemia, unspecified
CPT/HCPCS: 36415; 80053; 83615; 85025; 99214

== ENCOUNTER 2024-10-06 14:15 | Oncology outpatient (recurring) (ONCR) | payer MEDICARE, MEDICAID, SELFPAY ==
[2024-09-24 11:58] LABS: Basophils # 0.1 10^3/uL (0.0-0.1); Basophils % 0.5 %; Eosinophils # 0.1 10^3/uL (0.0-0.8); Eosinophils % 0.3 %; Hematocrit 41.6 % (36-47); Lymphocytes # 1.3 10^3/uL (0.8-4.8); Lymphocytes % 8.3 %; Mean Corpuscular HGB Conc 31.5 g/dL (30-55); Mean Corpuscular Volume 104.8 fl (85-98); Monocytes # 0.8 10^3/uL (0.2-0.9); Monocytes % 5.4 %; Neutrophils # 12.88 10^3/uL (1.8-7.7); Neutrophils % 84.4 %; Nucleated Red Blood Cells % 0 %; Platelet Count 279 10^3/cmm (157-399); Red Blood Count 3.97 10^6/uL (3.85-5.65); Red Cell Distribution Width 12.6 % (12.1-15.1); White Blood Count 15.27 10^3/uL (3.29-11.43)
[2024-09-24 12:23] LABS: Alanine Aminotransferase 20 U/L (0-33); Albumin Level 4.1 g/dL (3.5-5.2); Alkaline Phosphatase 90 U/L (35-105); Anion Gap 17.7 (5-19); Aspartate Amino Transferase 15 U/L (0-32); Blood Urea Nitrogen 21 mg/dL (8-23); Calcium 9.3 mg/dL (8.5-10.5); Carbon Dioxide 26 mmol/L (22-29); Chloride 99 mmol/L (98-107); Creatinine Clr Calc Pharmacy 83.2929; Globulin 2.8 g/dL (1.3-4.6); Glucose 118 mg/dL (65-115); Lactate Dehydrogenase 222 U/L (135-214); Osmolality Calculated 292 mOsm/kg (285-295); Potassium 3.7 mmol/L (3.5-5.1); Sodium 139 mmol/L (136-145); Total Bilirubin 0.6 mg/dL (0.15-1.2); Total Protein 6.9 g/dL (6.6-8.7)
[2024-09-27 20:04] LABS: Immunofixation Serum Normal pattern.
[2024-09-28 15:04] LABS: PROTEIN, TOTAL 8.9 g/dL (6.1-8.1)
[2024-09-29 10:09] LABS: ALBUMIN 5.5 g/dL (3.8-4.8); ALPHA 1 GLOBULIN 0.4 g/dL (0.2-0.3); ALPHA 2 GLOBULIN 0.8 g/dL (0.5-0.9); BETA 1 GLOBULIN 0.6 g/dL (0.4-0.6); BETA 2 GLOBULIN 0.5 g/dL (0.2-0.5); GAMMA GLOBULIN 1.1 g/dL (0.8-1.7)
[2024-10-06 14:58] LABS: Basophils # 0.1 10^3/uL (0.0-0.1); Basophils % 0.5 %; Eosinophils # 0.1 10^3/uL (0.0-0.8); Hematocrit 39.3 % (36-47); Lymphocytes % 19.5 %; Mean Corpuscular HGB Conc 31.3 g/dL (30-55); Mean Corpuscular Hemoglobin 32.3 pg (27-33); Mean Corpuscular Volume 103.1 fl (85-98); Mean Platelet Volume 9.2 fL (7.4-10.4); Monocytes % 9.6 %; Neutrophils # 7.19 10^3/uL (1.8-7.7); Neutrophils % 68.6 %; Nucleated Red Blood Cells % 0 %; Platelet Count 252 10^3/cmm (157-399); Red Blood Count 3.81 10^6/uL (3.85-5.65); Red Cell Distribution Width 13.1 % (12.1-15.1); Reticulocyte % 4.1 % (0.5-2.0); White Blood Count 10.46 10^3/uL (3.29-11.43)
[2024-10-06 15:15] LABS: Alanine Aminotransferase 15 U/L (0-33); Albumin Level 3.9 g/dL (3.5-5.2); Alkaline Phosphatase 89 U/L (35-105); Anion Gap 14.5 (5-19); Aspartate Amino Transferase 13 U/L (0-32); Blood Urea Nitrogen 19 mg/dL (8-23); Calcium 9.2 mg/dL (8.5-10.5); Carbon Dioxide 31 mmol/L (22-29); Chloride 99 mmol/L (98-107); Creatinine Clr Calc Pharmacy 84.1899; Glucose 112 mg/dL (65-115); Lactate Dehydrogenase 252 U/L (135-214); Osmolality Calculated 295 mOsm/kg (285-295); Potassium 3.5 mmol/L (3.5-5.1); Sodium 141 mmol/L (136-145); Total Bilirubin 0.9 mg/dL (0.15-1.2); Total Protein 6.9 g/dL (6.6-8.7)
== END 2024-10-12 23:59 | disposition home or self-care (01) ==
PROVIDERS: Internal Medicine; PCP Nurse Practitioner Family; Visit Provider Internal Medicine Medical Oncology
DX: Z53.9 Procedure and treatment not carried out, unspecified reason; D58.9 Hereditary hemolytic anemia, unspecified; Z87.891 Personal history of nicotine dependence
CPT/HCPCS: 36415; 80053; 83010; 83615; 84155; 84165; 85025; 85045; 86334; 86880; 99213

== ENCOUNTER 2024-10-11 16:59 | Emergency (ER) | payer MEDICARE, MEDICAID, SELFPAY ==
--- OUTSIDE RECORDS SUMMARY | 2024-10-11 17:05 | XMS_ITS | Clinical Summary ---
Author Organization [facility] Address [address] [place] [address] Phone Care Team Providers Care Bow Repairer Custom Name Role Phone Unavailable Primary Care Provider Unavailabl e Allergies No known active allergies Medications amLODIPine (NORVASC) 10 mg tablet 07/07/2024 Active citalopram (CeleXA) 20 mg tablet 07/07/2024 Active levothyroxine 25 mcg tablet 07/07/2024 Active mirtazapine (REMERON) 15 mg tablet 07/07/2024 Active ondansetron (ZOFRAN) 4 mg Tablet 05/16/2024 Active pantoprazole (PROTONIX) 40 mg Tablet, Delayed Release (E.C.) 07/07/2024 Acti ve potassium CHLORIDE (K-DUR,KLOR-CON M20) 20 mEq Extended Release tablet 07/07/2024 Active Encounters Date Type Department Care Team Description 09/29/2024 External Device Data [facility]CTION Provider, Abstract 09/03/2024 External Device Data [facility] Provider, Abstract 09/02/2024 External Device Data [facility] Provider, Abstract 09/01/2024 External Device Data [facility] Provider, Abstract 07/21/2024 External Device Data [facility] Provider, Abstract 07/21/2024 External Device Data [facility] Provider, Abstract 07/21/2024 External Device Data [facility] Provider, Abstract 07/17/2024 6:56 AM CDT - 07/17/2024 11:59 PM CDT Hospital Encounter [facility] Interventional Radiology [address] [place] [address] [place] [address] Joshua Martinez MD Reece, Joshua Steven, PA-C Discharge Disposition: Home or Self Care 07/16/2024 Telephone [facility] Interventional Radiology [address] [place] [address] [place] [id number] Michael Serna MD Procedure from Last 3 Months Social History Tobacco Use Types Packs/Day Years Used Date Smoking Tobacco: Former Cigarettes Smokeless Tobacco: Never Tobacco Cessation:Counseling Given: Not Answered Comments Unknown Sex and Gender Information Value Date Recorded Sex Assigned at Not on file Legal Sex Female 8:38 AM CDT Gender Identity Not on file Sexual Orientation Not on file Last Filed Vital Signs Vital Sign Reading Time Taken Comments Blood Pressure 138/74 07/17/2024 8:35 AM CDT Pulse 88 07/17/2024 8:35 AM CDT Temperature 36.1 C (97 F) 07/17/2024 8:35 AM CDT Respiratory Rate 16 07/17/2024 8:35 AM CDT Oxygen Saturation 96% 07/17/2024 8:35 AM CDT Inhaled Oxygen Concentration - - Weight 90.7 kg (200 lb) 07/17/2024 7:13 AM CDT Height 172.7 cm (5' 8 ) 07/17/2024 7:13 AM CDT Body Mass Index 30.41 07/17/2024 7:13 AM CDT Plan of Treatment Health Maintenance Due Date Last Done Comments DTAP/TDAP/TD VACCINES (1 - Tdap) 07/01/1970 BREAST CANCER SCREENING 1991 COLORECTAL SCREENING 07/01/1996 Colorectal Cancer Screening 07/01/1996 FIT-DNA Q 3 years 07/01/1996 FIT/FOBT Q 1 year 07/01/1996 Flex Sig/CT Colonography Q 5 years 07/01/1996 PNEUMOCOCCAL VACCINE 50+ YEARS (1 of 1 - PCV) 07/02/19 02 ZOSTER VACCINE (1 of 2) 07/01/2001 OSTEOPOROSIS SCREENING 07/01/2016 INFLUENZA VACCINE (#1) 2023 RSV VACCINE (60+ or ) (1 - 1-dose 75+ series) 07/01/2026 Procedures Procedure Name Priority Date/Time Associated Diagnosis Comments IR BIOPSY BONE MARROW Routine 07/17/2024 8:00 AM CDT Anemia, autoimmune hemolytic (CMS/HCC) FLOW CYTOMETRY REPORT Routine 07/17/2024 8:00 AM CDT BONE MARROW ASPIRATION & BIOPSY Pathology 07/17/2024 8:00 AM CDT CELL COUNT, BONE MARROW Pathology 07/17/2024 8:00 AM CDT FLOW CYTOMETRY PANEL Routine 07/17/2024 8:00 AM CDT DIFFERENTIAL, MANUAL Stat 07/17/2024 7:12 AM CDT CBC WITH DIFFERENTIAL Stat 07/17/2024 7:12 AM CDT from Last 3 Months Results * IR BIOPSY BONE MARROW (07/17/2024 8:00 AM CDT) Anatomical Region Laterality Modality X-Ray Angiograph y 07/17/2024 8:00 AM CDT Impressions 07/17/2024 9:26 AM CDT IMPRESSION: Please see below. Exam: IR BIOPSY BONE MARROW Date/Time of Exam: 07/17/2024 8:00 AM Reason For Exam: See Diagnosis. This procedure was performed and preliminary findings dictated by Gerard Bermudez PA-C. Supervision and final interpretation by Dr. Serna. CONSENT: Risks, benefits, and alternatives of the procedure were discussed with the patient. Specific risks of bone marrow aspiration and /or core biopsy of the posterior iliac crest include, but not limited to: bleeding, hematoma, discomfort at the site of the biopsy, and infection. Procedure may need to be repeated in the event the sample obtained is inadequate or non-diagnostic. Additional complications of anesthesia include, but not limited to: allergic/drug reaction and breathing problems. Written informed consent was obtained from the patient. Description of Procedure: A time out was performed to verify the patient and procedure. The patient was placed in a prone position, and fluoroscopy was utilized to evaluate the Right posterior iliac crest for needle insertion site. The area was marked, prepped, and draped in the usual sterile fashion. All elements of maximal sterile barrier technique, including hand hygiene and cutaneous antisepsis with an antisepsis agent, were used. Local anesthesia was achieved with 1% lidocaine overlying the proposed needle course. Under fluoroscopic guidance, a [employer] needle was advanced into the bone space via power drill. Approximately 10 mL of bone marrow aspirate as well as a bone biopsy were collected at that time and sent to the laboratory for ordered specimens. Patient tolerated the procedure well without complication. Estimated Blood Loss: Minimal Narrative Procedure Note Michael Serna MD - 07/17/2024 IMPRESSION: Please see below. Exam: IR BIOPSY BONE MARROW Date/Time of Exam: 07/17/2024 8:00 AM Reason For Exam: See Diagnosis. This procedure was performed and preliminary findings dictated by Gerard Bermudez PA-C. Supervision and final interpretation by Dr. Serna. CONSENT: Risks, benefits, and alternatives of the procedure were discussed with the patient. Specific risks of bone marrow aspiration and /or core biopsy of the posterior iliac crest include, but not limited to: bleeding, hematoma, discomfort at the site of the biopsy, and infection. Procedure may need to be repeated in the event the sample obtained is inadequate or non-diagnostic. Additional complications of anesthesia include, but not limited to: allergic/drug reaction and breathing problems. Written informed consent was obtained from the patient. Description of Procedure: A time out was performed to verify the patient and procedure. The patient was placed in a prone position, and fluoroscopy was utilized to evaluate the Right posterior iliac crest for needle insertion site. The area was marked, prepped, and draped in the usual sterile fashion. All elements of maximal sterile barrier technique, including hand hygiene and cutaneous antisepsis with an antisepsis agent, were used. Local anesthesia was achieved with 1% lidocaine overlying the proposed needle course. Under fluoroscopic guidance, a Jamshidi needle was advanced into the bone space via power drill. Approximately 10 mL of bone marrow aspirate as well as a bone biopsy were collected at that time and sent to the laboratory for ordered specimens. Patient tolerated the procedure well without complication. Estimated Blood Loss: Minimal Joshua Martinez MD IR ORDERABLES Final Result * CELL COUNT, BONE MARROW (07/17/2024 8:00 AM CDT) Bone marrow ALL BONE MARROW / Unknown Collection / Unknown 07/17/2024 8:00 AM CDT 07/17/2024 8:21 AM CDT Gerard Bermudez PA-C HEMATOLOGY ORDERABLES F inal Result Performing Organization Address [facility] Co de Phone Number [facility] CLIA # [id number] [address] [address] * FLOW CYTOMETRY PANEL (07/17/2024 8:00 AM CDT) Pathologist [facility] FLOW CYTOMETRY INTERP See Separate Pathology Report 07/20/2024 8:04 AM CDT [facility] Bone marrow ALL BONE MARROW / Unknown Collection / Unknown 07/17/2024 8:00 AM CDT 07/17/2024 9:02 AM CDT us Gerard Bermudez PA-C PATHOLOGY/CYTOLOGY ORDE RABLES Final Result Performing Organization Address [facility] Co de Phone Number [facility] CLIA # [id number] [address] [address] * BONE MARROW ASPIRATION & BIOPSY (07/17/2024 8:00 AM CDT) Pathologist [facility] CASE REPORT Surgical Pathology Report Case: [id number] Authorizing Provider: Gerard Bermudez PA-C Collected: 07/17/2024 08:00 AM Ordering Location: [facility] Interventional Received: 07/17/2024 08:21 AM Radiology [address] [place] Pathologist: Ludy Gilliland MD Specimens: A) - Bone marrow, right posterior iliac crest, clot B) - Bone marrow, right posterior iliac crest, biopsy C) - Peripheral Blood Smear 9:13 AM CDT [facility] FINAL DIAGNOSIS A/B/C. Bone marrow and peripheral blood; aspirate, clot, and core biopsies; right posterior iliac crest - Markedly hypercellular for age marrow with myeloid and megakaryocyte predominant trilineage hyperplasia, including mild megakaryocyte atypia - No significant increase in interstitial reticulin fibrosis, abnormal lymphoid infiltrates or increase in blasts - Decreased stainable iron stores - See diagnosis comment REV:JP Gilliland MD [id number] 9:13 AM T [facility] at 0913 CDT Preliminary result electronically signed by Ludy Gilliland MD on 07/21/2024 at 0815 CDT DIAGNOSIS COMMENT Although the histologic features raised consideration for an underlying chronic myeloid neoplasm, no genetic abnormalities are identified by either karyotype or the NeoType MDS/CMML panel. Given these negative studies, the changes are favored to be reactive in nature. 9:13 AM T [facility] GROSS DESCRIPTION A. Received fresh in a syringe labeled Kirby is a single syringe containing approximately 2 mL of dark partially clotted bone marrow. The marrow is filtered to form a 2.6 x 1.2 x 0.2 cm clot. The clot is sectioned and entirely submitted in A1. B. Received in formalin labeled Kirby are 2 fragments of red-plascencia bone consistent with fragmented core, altogether measuring 1.2 cm in length by 0.3 cm in diameter. The specimen is submitted entirely in B1, following light decalcification. Mee Ruiz 9:13 AM T [facility] MICROSCOPIC DESCRIPTION Peripheral Blood CBC (07/17/2024): Hgb 10.3 g/dL; RBC 3.14 x10(12)/L; MCV 108.6 fL; RDW 21.2%; WBC 15.38 x10(9)/L; PLT 385 x10(9)/L. Automated white blood cell differential %: neutrophils 79.6; lymphocytes 10.0; monocytes 6.9; eosinophils 0.4, basophils 0.6, immature granulocytes 2.5. Peripheral smear: Red blood cells show mild macrocytic anemia with a dual population of microcytes and macrocytes. Polychromasia is moderately increased. Only rare schistocytes seen. White blood cells are quantitatively increased, predominantly due to absolute neutropenia and absolute monocytosis. The neutrophils show complete maturation with no dysplasia and no circulating blast. The monocytes are polymorphous. Platelets are quantitatively normal with mostly normal morphology. Occasional large forms are seen. No significant platelet clumps. Bone Marrow Aspirate/Touch Imprint Quality: Cellular. M:E ratio: Increased, 5:1 Erythroid precursors: Slightly megaloblastoid with minimal terminal dyserythropoiesis (occasional binucleated forms. Granulocytic/monocytic precursors: Normal maturation; blasts not increased (<3%). Megakaryocytes: Majority show normal cytology although a minor subset of extremely large forms with normal-appearing nuclei are seen. Rare dwarf forms and small binucleate forms also present. Lymphocytes: Not increased; No cytologic atypia. Plasma cells: Not increased (<5%); No cytologic atypia. Bone Marrow Biopsy/Clot Quality: Adequate. Cellularity: Markedly hypercellular, 90% Erythroid precursors: Quantity mildly increased; normal distribution. Granulocytic/monocytic precursors: Quantity markedly increased; progressive maturation; normal distribution. Megakaryocytes: Quantity markedly increased; normal morphology. Loose aggregates present but no tight clusters. Lymphocytes: No lymphoid infiltrates. Plasma cells: Not increased. Special Studies Iron stain: Adequate storage iron. Sideroblasts present; ring sideroblasts not identified. Reticulin stain (block B1): Focal mild increase in interstitial reticulin fibrosis (0-1+ out of 3+) Flow cytometry: No diagnostic immunophenotypic abnormalities. A separate report is available ([id number]). Karyotype: Normal female karyotype (46,XX[20]); see scanned report for full details NeoType MDS/CMML profile: No pathogenic mutations are detected. See scanned report for full details. 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 5 9:13 AM [facility] COMMENT The [facility] voice-activated dictation system may have been used in the creation of this report. Inherent to this system is the possibility of errors in syntax, grammar, punctuation, or other areas that could impact interpretation. If there are interpretive questions about the report, please contact the performing pathologist. Unless gross only is specified in the diagnosis, the microscopic examination substantiates the above cited diagnosis. The performance characteristics of all immunohistochemical stains cited in this report (if any) were determined by the Diagnostic Immunohist[facility] Laboratory of [facility] in compliance with CLIA'88 regulations. Some of these tests rely on the use of analyte specific reagents and are subject to specific labeling requirements by the FDA. All controls show appropriate reactivity. This testing was developed by the [facility]ohist[facility] of [facility]. It has not been cleared or approved by the FDA. The FDA has determined that such clearance or approval is not necessary. 9:13 AM CDT [facility] Bone marrow ALL BONE MARROW / Unknown Collection / Unknown 07/17/2024 8:00 AM CDT 07/17/2024 8:21 AM CDT Bone marrow specimen (specimen) ALL BONE MARROW / Unknown 07/17/2024 8:00 AM CDT 07/17/2024 8:21 AM CDT Bone marrow specimen (specimen) (Peripheral Blood Smear) 07/17/2024 8:00 AM CDT 07/17/2024 8:21 AM CDT Gerard Bermudez PA-C PATHOLOGY/CYTOLOGY ORDE [facility] Final Result [id number] [address] [place] [address] * FLOW CYTOMETRY REPORT (07/17/2024 8:00 AM CDT) CASE REPORT Surgical Pathology Report Case: [id number] Authorizing Provider: Gerard Bermudez PA-C Collected: 07/17/2024 08:00 AM Ordering Location: [facility] Received: 07/17/2024 09:34 AM Radiology [place] Pathologist: Jourdan Bragg MD Specimen: Bone marrow 7:28 AM CDT [facility] FINAL DIAGNOSIS FLOW CYTOMETRIC ANALYSIS. FINAL PATHOLOGY DIAGNOSIS IN SEPARATE REPORT. SPECIMEN: - Bone marrow aspirate INTERPRETATION: - No diagnostic immunophenotypic abnormalities detected - This is ONLY an interpretation of the flow cytometry study; for the final/integrated pathology diagnosis see bone marrow case [id number] Jourdan Bragg MD [id number] 7:28 AM CDT [facility] at 0728 CDT DIAGNOSIS COMMENT No immunophenotypic evidence of a T- or B-cell lymphoproliferative disorder, acute leukemia, increase in blasts, or plasma cell neoplasm is identified. Myeloproliferative neoplasms and myelodysplastic syndromes may not show antigenic abnormalities on myeloid cells and cannot be ruled out by flow cytometry. Please correlate the result with morphological findings, other pertinent laboratory data and clinical information. 5 7:28 AM CDT [facility] IMMUNOPHENOTYPIC ANALYSIS Lymphocytes are 6.1% of total analyzed events. T-cells (70% of lymphoid cells) show a CD4/CD8 ratio of about 2.6 without overt phenotypic abnormality. NK-cells (11% of lymphoid cells) are unremarkable. Mature B-cells (14% of lymphoid cells) are polyclonal (kappa:lambda 1.2). CP02-pzvydhbf events (0.8% of total cells) are not increased. Plasma cells are not increased and show unremarkable surface marker expression. There is a small, indistinct population of hematagones. Monocytes appropriately express CD14 and CD64, with a small subset showing partial CD56 expression. Granulocytes show phenotypic evidence of maturation without dysmaturation. Markers analyzed: CD2, CD3, CD4, CD5, CD7, CD8, CD10, CD11b, CD11c, CD13, CD14, CD16, CD19, CD20, CD23, CD33, CD34, CD38, CD45, CD56, CD57, CD64, CD117, HLA-DR, surface kappa, surface lambda (total = 26) 7:28 AM CDT [facility] COMMENT Flow cytometry was performed at [facility] flow lab ([address] [place] [address] [place], 2nd floor, room #[id number] in [place], [place]) and interpreted in-house at [facility] in [facility]. 5 7:28 AM CDT [facility] Bone marrow ALL BONE MARROW / Unknown Collection / Unknown 07/17/2024 8:00 AM CDT 07/17/2024 9:34 AM CDT Gerard Bermudez PA-C PATHOLOGY/CYTOLOGY [facility] Final Result [facility] CLIA # [id number] [facility] [address] * MANUAL DIFFERENTIAL (07/17/2024 7:12 AM CDT) [facility] PLATELET EST. Adequate 07/17/2024 7:55 AM CDT [facility] ANISOCYTOSIS 2+ /hpf 07/17/2024 7:55 AM CDT [facility] POIKILOCYTES 2+ /hpf 07/17/2024 7:55 AM CDT [facility] MACROCYTES 2+ /hpf 07/17/2024 7:55 AM CDT [facility] POLYCHROMASIA 2+ /hpf 07/17/2024 7:55 AM CDT [facility] Blood Venipuncture / Unknown 07/17/2024 7:12 AM CDT 07/17/2024 7:31 AM CDT Michael Serna MD HEMATOLOGY ORDERABLES COM Final Result [facility] CLIA # [id number] [address] [place] [address] * (ABNORMAL) CBC WITH DIFFERENTIAL (07/17/2024 7:12 AM CDT) [facility] WBC 15.4(H) 4.8 - 10.8 K/uL 07/17/2024 7:55 AM CDT [facility] RBC 3.14(L) 4.60 - 6.20 M/uL 07/17/2024 7:55 AM CDT [facility] HEMOGLOBIN 10.3(L) 14.0 - 18.0 g/dL 07/17/2024 7:55 AM CDT [facility] HEMATOCRIT 34.1(L) 41.0 - 53.0 % 07/17/2024 7:55 AM CDT [facility] MCV 108.6(H) 84.0 - 103.0 fL 07/17/2024 7:55 AM [facility] MCH 32.8 27.0 - 34.0 pg 07/17/2024 7:55 AM [facility] MCHC 30.2 30.0 - 35.0 g/dL 07/17/2024 7:55 AM [facility] PLATELETS 385 140 - 440 K/uL 07/17/2024 7:55 AM [facility] MPV 9.4 8.9 - 12.8 fL 07/17/2024 7:55 AM [facility] RDW 21.2(H) 11.0 - 14.5 % 07/17/2024 7:55 AM [facility] RDW-STDEV 81.9(H) 37.0 - 54.0 fL 07/17/2024 7:55 AM [facility] NEUTROPHILS 80(H) 42 - 75 % 07/17/2024 7:55 AM [facility] LYMPHOCYTES 10(L) 24 - 44 % 07/17/2024 7:55 AM [facility] MONOCYTES 7 2 - 10 % 07/17/2024 7:55 AM [facility] EOSINOPHILS 0 0 - 7 % 07/17/2024 7:55 AM [facility] BASOPHILS 1 0 - 1 % 07/17/2024 7:55 AM [facility] IMMATURE GRANULOCYTES 3(H) 0 - 2 % 07/17/2024 7:55 AM [facility] NEUTROPHIL ABSOLUTE 12.25(H) 2.00 - 8.00 K/uL 07/17/2024 7:55 AM [facility] LYMPHOCYTE ABSOLUTE 1.54 1.20 - 4.00 K/uL 07/17/2024 7:55 AM [facility] MONOCYTE ABSOLUTE 1.06(H) 0.10 - 0.60 K/uL 07/17/2024 7:55 AM [facility] EOSINOPHIL ABSOLUTE 0.06 0.00 - 0.70 K/uL 07/17/2024 7:55 AM CDT [facility] BASOPHILS ABSOLUTE 0.09 0.00 - 0.20 K/uL 07/17/2024 7:55 AM CDT [facility] IMMATURE GRANULOCYTES ABSOLUTE 0.38(H) 0.00 - 0.10 K/uL 07/17/2024 7:55 AM CDT [facility] SMEAR REVIEWED: SR - See Smear Review on Manual Diff. 07/17/2024 7:55 AM CDT [facility] Blood Venipuncture / Unknown 07/17/2024 7:12 AM CDT 07/17/2024 7:31 AM CDT Michael Serna MD HEMATOLOGY ORDERABLES Final Res ult [facility] CLIA # [id number] [facility] [address] from Last 3 Months Insurance MEDICARE PART A AND B MEDICAID [place]
[2024-10-11 17:06] VITALS: BP 155/78; PULSE 98; RESP 18; TEMP 36.7; O2SAT 97
--- NOTE | 2024-10-11 17:12 | CTR_ITS ---
PROCEDURE INFORMATION: Exam: CT Head Without Contrast Exam date and time: 10/11/2024 5:26 PM Age: 74 years old Clinical indication: Altered mental status/memory loss; Confusion or disorientation; [facility] arrival from [facility] with confusion TECHNIQUE: Imaging protocol: Computed tomography of the head without contrast. Radiation optimization: All CT scans at this facility use at least one of these dose optimization techniques: automated exposure control; mA and/or kV adjustment per patient size (includes targeted exams where dose is matched to clinical indication); or iterative reconstruction. COMPARISON: CT head wo con* [id number] 02/17/2022 3:08 AM RADIATION DOSE METRICS: Total DLP (mGy-cm): 1127.88 FINDINGS: Brain: No evidence for acute intracranial hemorrhage, mass effect, or acute infarct by CT. 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 [id number] generalized cerebral atrophy. Mild presumed chronic small-vessel ischemic changes in the cerebral white matter. Cerebral ventricles: No ventriculomegaly. Paranasal sinuses: Visualized sinuses are unremarkable. No fluid levels. Mastoid air cells: Visualized mastoid air cells are well aerated. Bones: Unremarkable. No acute fracture. Soft tissues: Unremarkable. Vasculature: Calcific changes in both carotid siphons. CT/CT head wo con* [id number] IMPRESSION: No acute intracranial abnormality.
--- NOTE | 2024-10-11 17:13 | W.ED.EXTPRO ---
HPI - Extremity Problem General: Chief complaint: Extremity Problem,Nontraumatic Stated complaint: cellulitis ivy lower ext Time Seen by Provider: 10/11/24 17:12 History of Present Illness: Chief complaint per EMS is patient has worsening infection in her legs despite antibiotics and doing some abnormal things and wandering. Patient states that is her personality. She states that she was just joking with the staff when she tried to put her foot in front of a cart. She states she did not have any injury. She states her legs are getting better. Per EMS patient was on Bactrim for 2 days and was not improving so they switched to clindamycin and she has had 2 doses. Patient states her legs itch but do not hurt worse than they were and she thinks they are about the same or better. She denies any headache or chest pain or shortness of breath or cough or fever or abdominal pain vomiting or diarrhea. She denies any focal weakness. Denies any vision change. Related Data Home Medications ?Medication ?Instructions ?Recorded ?Confirmed levothyroxine 25 mcg tablet 25 mcg PO DAILY 02/16/20 10/06/24 bisacodyl 10 mg rectal suppository [address] DAILY PRN Constipation 05/31/24 10/06/24 (Dulcolax (bisacodyl)) citalopram 20 mg tablet 20 mg PO DAILY 05/31/24 10/06/24 loperamide 2 mg tablet (Imodium 2 mg PO Q4H PRN Diarrhea 05/31/24 10/06/24 A-D) melatonin 1 mg tablet 1 mg PO BEDTIME 05/31/24 10/06/24 mirtazapine 15 mg tablet 15 mg PO BEDTIME 05/31/24 10/06/24 ondansetron HCl 4 mg tablet 4 mg PO Q4H PRN Nausea 05/31/24 10/06/24 chlorthalidone 25 mg tablet 25 mg PO DAILY 09/24/24 10/06/24 magnesium hydroxide 400 mg/5 mL 5 ml PO DAILY PRN 09/24/24 10/06/24 oral suspension (Milk of Magnesia) pantoprazole 40 mg tablet,delayed mg PO 09/24/24 10/06/24 release Previous Rx's ?Medication ?Instructions ?Recorded potassium chloride 20 mEq 20 meq PO BID #10 tabs 03/22/22 tablet,extended release acetaminophen 500 mg capsule 500 mg PO Q6H PRN pain #30 caps 06/04/24 Allergies Allergy/AdvReac Type Severity Reaction Status Date / Time No Known Allergies Allergy Verified 10/06/24 14:47 PFSH ED PFSH: Medical History Pneumonia due to COVID-19 virus Cellulitis Hypothyroidism DM type 2 (diabetes mellitus, type 2) Hypertension Surgical History No significant past surgical history Family History Denies family history of Anemia Social History Smoking and tobacco/nicotine status: former use of tobacco/nicotine Quit status (tobacco/nicotine): has quit using Year quit tobacco: quit 15-20 years ago Substance/Drug Use: never Physical Exam Narrative: EXAM NARRATIVE: Patient is alert talkative interactive. Pupils equal reactive and normal conjunctivo-. No drift in her arms or legs. No abdominal tenderness guarding or rebound. Lung sounds are clear and normal respiratory pattern. Heart regular rhythm. Skin appears normal except for on her shins bilaterally she has erythema that appears more dull and improving. She has intact peripheral pulses. She moves her legs freely. No calf tenderness. Mild edema both legs. She moves her back freely and has no tenderness over her back. Neck is supple. Speech is clear. She has brisk intact [id number]. Intact visual villagomez grossly. No facial droop. Speech is clear. No aphasia. Course Vital Signs: Vital signs: Vital Signs Temperature 98.1 F 10/11/24 17:06 Pulse Rate 87 10/11/24 19:46 Respiratory Rate 18 10/11/24 17:06 Blood Pressure 145/74 10/11/24 19:46 Pulse Oximetry 93 10/11/24 19:46 Oxygen Delivery Me thod Room Air 10/11/24 19:00 MDM - Extremity (Nontraumatic) Medical Decision Making Patient presents from the long term by EMS. They state that the nurse said that the infection in the legs was getting worse and the patient was found wandering earlier today and had put her foot in front of a cart and seemed to be not acting her normal self today so wanted her checked out. The patient tells me that is her personality. She states that she was just joking with the staff when she put her foot in from the cart. She denies any injury. She laughs and tells me the story about it. She has no focal findings on exam and NIH stroke scale is 0. She is alert and oriented and can tell me what month it is and what year it is. She does have findings consistent with cellulitis on her legs bilaterally however the erythema is dull is not hot and it appears older and responding to therapy on exam. Patient has no complaints here except for she states where the skin is healing on her anterior shins she has some itching but she states she is not having pain in that area. Will get a CT of her head and check CBC CMP and urinalysis. Head CT negative for acute process per radiology. Patient EKG to my interpretation shows sinus rhythm with rate [address] segment changes. Patient denies any chest pain or chest discomfort to suggest cardiac ischemia. Patient CBC CMP and urinalysis do not show significant abnormality. Patient requesting discharge back to nursing facility. She is alert oriented and shows capacity. Will have patient continue current antibiotic therapy. Advised patient limits of ED evaluation and signs symptoms of concern to watch and return for. Lab Data 10/11/24 17:28 10/11/24 17:[address] 10/11/24 17:12 IMPRESSION: No acute intracranial abnormality. Laboratory Results WBC 9.86 10^3/uL (3.29-11.43) 10/11/24 17: RBC 3.57 10^6/uL (3.85-5.65) L 10/11/24 17:28 Hgb 11.40 g/dL (11.27-16.99) 10/11/24 17: Hct 36.1 % (36-47) 10/11/24 17:28 MCV 101.1 fl (85-98) H 10/11/24 17:28 MCH 31.9 pg (27-33) 10/11/24 17: MCHC 31.6 g/dL (30-55) 10/11/24 17:28 RDW 13.2 % (12.1-15.1) 10/11/24 17:28 Plt Count 286 10^3/cmm (157-399) 10/11/24 17:28 MPV 9.2 fL (7.4-10.4) 10/11/24 17:28 Neut % (Auto) 72.4 % 10/11/24 17:28 Lymph % (Auto) 15.3 % 10/11/24 17:28 Boyle % (Auto) 8.8 % 10/11/24 17:28 Eos % (Auto) 2.2 % 10/11/24 17:28 Baso % (Auto) 0.7 % 10/11/24 17:28 Neut # (Auto) 7.13 10^3/uL (1.8-7.7) 10/11/24 17:28 Lymph # (Auto) 1.5 10^3/uL (0.8-4.8) 10/11/24 17:28 Boyle # (Auto) 0.9 10^3/uL (0.2-0.9) 10/11/24 17:28 Eos # (Auto) 0.2 10^3/uL (0.0-0.8) 10/11/24 17:28 Baso # (Auto) 0.1 10^3/uL (0.0-0.1) 10/11/24 17: Nucleated RBC % (auto) 0 % 10/11/24 17: Nucleated RBCs # 0.0 /100WBC 10/11/24 17:28 Sodium 137 mmol/L (136-145) 10/11/24 17:28 Potassium 4.0 mmol/L (3.5-5.1) 10/11/24 17:28 Chloride 99 mmol/L (98-107) 10/11/24 17:28 Carbon Dioxide 23 mmol/L (22-29) 10/11/24 17:28 Anion Gap 19.0 (5-19) 10/11/24 17:28 BUN 15 mg/dL (8-23) 10/11/24 17:28 Creatinine 0.7 mg/dL (0.5-0.9) 10/11/24 17:28 GFR Calculation Not Reportable 10/11/24 17:28 Glucose 145 mg/dL (65-115) H 10/11/24 17:28 Calculated Osmolality 287 mOsm/kg (285-295) 10/11/24 17:28 Calcium 9.3 mg/dL (8.5-10.5) 10/11/24 17:28 Total Bilirubin 0.7 mg/dL (0.15-1.2) 10/11/24 17:28 AST 19 U/L (0-32) 10/11/24 17:28 ALT 16 U/L (0-33) 10/11/24 17:28 Alkaline Phosphatase 91 U/L (35-105) 10/11/24 17:28 Total Protein 6.8 g/dL (6.6-8.7) 10/11/24 17:28 Albumin 3.9 g/dL (3.5-5.2) 10/11/24 17:28 Globulin 2.9 g/dL (1.3-4.6) 10/11/24 17:28 Urine Color Yellow (Yellow) 10/11/24 17:15 Urine Appearance Clear (CLEAR) 10/11/24 17:15 Urine pH 6.0 (5-7) 10/11/24 17:15 Ur Specific [place] 1.017 (1.005-1.030) 10/11/24 17:15 Urine Protein Negative (Negative) 10/11/24 17:15 Urine Glucose (UA) Negative (Normal) 10/11/24 17:15 Urine Ketones Negative (Negative) 10/11/24 17:15 Urine Blood Negative (Negative) 10/11/24 17:15 Urine Nitrate Negative (Negative) 10/11/24 17:15 Urine Bilirubin Negative (Negative) 10/11/24 17:15 Urine Urobilinogen 1.0 mg/dL (Negative) 10/11/24 17:15 Ur Leukocyte Esterase Negative (Negative) 10/11/24 17:15 Urine RBC 0-2 /hpf (0-2) 10/11/24 17:15 Urine WBC 0-5 /hpf (0-5) 10/11/24 17:15 Ur Squamous Epith Cells 0-5 /hpf (0-5) 10/11/24 17:15 Amorphous Sediment Not Reportable 10/11/24 17:15 Urine Bacteria None seen /hpf (NONE) 10/11/24 17:15 Hyaline Casts 0.40 /lpf 10/11/24 17:15 All radiology interpretation(s) finalized by discharge Discharge Plan Discharge Patient Disposition: Rehab Fac w Plan Readm Clinical Impression: Cellulitis Qualifiers: Site of cellulitis of extremity: lower extremity Laterality: right Condition: Stable Prescriptions: No Action chlorthalidone 25 mg tablet 25 mg PO DAILY magnesium hydroxide [Milk of Magnesia] 400 mg/5 mL suspension 5 ml PO DAILY PRN pantoprazole 40 mg tablet,delayed release (DR/EC) PO levothyroxine 25 mcg tablet 25 mcg PO DAILY potassium chloride 20 mEq tablet extended release 20 meq PO BID Qty: 10 0RF ondansetron HCl 4 mg tablet 4 mg PO Q4H PRN (Reason: Nausea) loperamide [Imodium A-D] 2 mg Tablet 2 mg PO Q4H PRN (Reason: Diarrhea) Rx Instructions: administer after each loose stool until symptoms controlled; do not exceed 8 mg per 24 hrs citalopram 20 mg tablet 20 mg PO DAILY bisacodyl [Dulcolax (bisacodyl)] 10 mg Suppository [address] DAILY PRN (Reason: Constipation) mirtazapine 15 mg tablet 15 mg PO BEDTIME melatonin 1 mg Tablet 1 mg PO BEDTIME acetaminophen 500 mg capsule 500 mg PO Q6H PRN (Reason: pain) Qty: 30 0RF Referrals: Promise Cardenas, HEALTH MANAGER [Primary Care Provider, Unknown] Activity Restrictions/Additional Instructions: Come back if fever, increased redness or swelling or pain, weakness on one side, change in mental status, any worse or concerns. Please follow-up on your test results with your doctor. Keep your legs elevated. Print Language: Jordanian Coding Level of Care Code ED Sap Basis for Presley Hamilton
--- NOTE | 2024-10-11 17:40 | ECG_ITS ---
[facility]11 Pat Name: Kenyatta Kirby Department: Room: Gender: Female [employer] Unload: : 1950 Requested By: Jacinto Lubin Order Number: [id number] Cesilia MD: Jorge Luis Schultz M.D. Measurements Intervals Hermon Rate: 90 P: 10 OK: 138 QRS: -27 QRSD: 87 T: 18 QT: 358 QTc: 439 Interpretive Statements SINUS RHYTHM MODERATE VOLTAGE CRITERIA FOR LVH, CONSIDER NORMAL VARIANT [MEETS CRITERIA IN ONE OF: R(aVL), S(V1), R(V5), R(V5/V6)+S(V1)] POSSIBLE ANTERIOR MYOCARDIAL INFARCTION , PROBABLY OLD [30 ms Q WAVE IN V3/V4, OR R < 0.2 mV IN V4] Compared to ECG 04/19/2022 22:56:33 Sinus arrhythmia no longer present Myocardial infarct finding still present Electronically Signed On 10-15-2024 09:10:53 CDT by Jorge Luis Schultz M.D. [email or web address]
[2024-10-11 17:43] LABS: Basophils # 0.1 10^3/uL (0.0-0.1); Basophils % 0.7 %; Eosinophils # 0.2 10^3/uL (0.0-0.8); Eosinophils % 2.2 %; Hematocrit 36.1 % (36-47); Lymphocytes # 1.5 10^3/uL (0.8-4.8); Lymphocytes % 15.3 %; Mean Corpuscular HGB Conc 31.6 g/dL (30-55); Mean Corpuscular Hemoglobin 31.9 pg (27-33); Mean Corpuscular Volume 101.1 fl (85-98); Mean Platelet Volume 9.2 fL (7.4-10.4); Monocytes # 0.9 10^3/uL (0.2-0.9); Monocytes % 8.8 %; Neutrophils # 7.13 10^3/uL (1.8-7.7); Neutrophils % 72.4 %; Nucleated Red Blood Cells % 0 %; Platelet Count 286 10^3/cmm (157-399); Red Blood Count 3.57 10^6/uL (3.85-5.65); Red Cell Distribution Width 13.2 % (12.1-15.1); White Blood Count 9.86 10^3/uL (3.29-11.43)
[2024-10-11 17:53] VITALS: BP 177/82; PULSE 90; O2SAT 94
[2024-10-11 18:00] VITALS: BP 152/65; PULSE 81; O2SAT 92
[2024-10-11 18:00] LABS: Alanine Aminotransferase 16 U/L (0-33); Albumin Level 3.9 g/dL (3.5-5.2); Alkaline Phosphatase 91 U/L (35-105); Blood Urea Nitrogen 15 mg/dL (8-23); Calcium 9.3 mg/dL (8.5-10.5); Carbon Dioxide 23 mmol/L (22-29); Chloride 99 mmol/L (98-107); Globulin 2.9 g/dL (1.3-4.6); Glucose 145 mg/dL (65-115); Osmolality Calculated 287 mOsm/kg (285-295); Sodium 137 mmol/L (136-145); Total Bilirubin 0.7 mg/dL (0.15-1.2); Total Protein 6.8 g/dL (6.6-8.7)
[2024-10-11 18:05] LABS: Bilirubin Urine Negative (Negative); Blood Urine Negative (Negative); Glucose Urine UA Negative (Normal); Ketones Urine Negative (Negative); Leukocyte Esterase Urine Negative (Negative); Nitrate Urine Negative (Negative); Protein Urine Negative (Negative); Specific Gravity, Urine 1.017 (1.005-1.030); Urine Appearance Clear (CLEAR); Urine Color Yellow (Yellow)
[2024-10-11 18:05] LABS: Aspartate Amino Transferase 19 U/L (0-32)
[2024-10-11 18:11] LABS: Add Urine Microscopic? YES; Bacteria Urine None Seen /hpf; RBC Urine 0-2 /hpf (0-2); Squamous Epithelial Cell Urine 0-5 /hpf (0-5); WBC Urine 0-5 /hpf (0-5)
--- NOTE | 2024-10-11 18:14 | PC.NURSE ---
Wound care, pt came in with giana wrapped bilat lower legs, with kerlix and abd pads over cellulitis areas anterior. This nurse placed clean new abd pads to shins bilat, wrapped with kerlix and then wrapped with pt's giana wraps.
[2024-10-11 18:30] VITALS: BP 134/92; PULSE 80; O2SAT 92
[2024-10-11 19:00] VITALS: BP 147/65; PULSE 82; O2SAT 93
[2024-10-11 19:46] VITALS: BP 145/74; PULSE 87; O2SAT 93
== END 2024-10-11 20:15 ==
PROVIDERS: Emergency Provider Emergency Medicine; PCP Nurse Practitioner Family
DX: L03.115 Cellulitis of right lower limb (principal); Z87.891 Personal history of nicotine dependence; E11.9 Type 2 diabetes mellitus without complications; I10 Essential (primary) hypertension
CPT/HCPCS: 36415; 70450; 80053; 81001; 85025; 93005; 99284

== ENCOUNTER 2024-11-09 11:40 | Oncology outpatient (recurring) (ONCR) | payer MEDICARE, MEDICAID, SELFPAY ==
[2024-11-09 12:35] LABS: Hematocrit 28.3 % (36-47); Hemoglobin 8.90 g/dL (11.27-16.99); Mean Corpuscular HGB Conc 31.4 g/dL (30-55); Mean Corpuscular Hemoglobin 36.2 pg (27-33); Mean Corpuscular Volume 115.0 fl (85-98); Nucleated Red Blood Cells % 0.2 %; Platelet Count 294 10^3/cmm (157-399); Red Blood Count 2.46 10^6/uL (3.85-5.65); White Blood Count 11.30 10^3/uL (3.29-11.43)
[2024-11-09 12:53] LABS: Alanine Aminotransferase 12 U/L (0-33); Albumin Level 3.9 g/dL (3.5-5.2); Alkaline Phosphatase 93 U/L (35-105); Anion Gap 15.4 (5-19); Aspartate Amino Transferase 16 U/L (0-32); Blood Urea Nitrogen 14 mg/dL (8-23); Calcium 9.3 mg/dL (8.5-10.5); Carbon Dioxide 27 mmol/L (22-29); Chloride 99 mmol/L (98-107); Creatinine Clr Calc Pharmacy 83.6516; Ferritin 933 ng/mL (15-150); Globulin 3.0 g/dL (1.3-4.6); Glucose 117 mg/dL (65-115); Iron 71 ug/dL (37-145); Osmolality Calculated 288 mOsm/kg (285-295); Potassium 3.4 mmol/L (3.5-5.1); Sodium 138 mmol/L (136-145); Total Iron Binding Capacity 222 mcg/dl; Total Protein 6.9 g/dL (6.6-8.7); Unsaturated Iron Binding 151 ug/dL (112-347)
[2024-11-10 07:39] LABS: PROTEIN, TOTAL 6.2 g/dL (6.1-8.1)
[2024-11-11 08:30] LABS: ALPHA 1 GLOBULIN 0.4 g/dL (0.2-0.3); ALPHA 2 GLOBULIN 0.4 g/dL (0.5-0.9); BETA 1 GLOBULIN 0.4 g/dL (0.4-0.6); BETA 2 GLOBULIN 0.4 g/dL (0.2-0.5)
== END 2024-11-12 23:59 | disposition home or self-care (01) ==
PROVIDERS: PCP Nurse Practitioner Family; Visit Provider Internal Medicine Medical Oncology
DX: D59.10 Autoimmune hemolytic anemia, unspecified (principal); D58.9 Hereditary hemolytic anemia, unspecified; Z87.891 Personal history of nicotine dependence; R16.1 Splenomegaly, not elsewhere classified; Z79.899 Other long term (current) drug therapy
CPT/HCPCS: 36415; 80053; 82728; 83010; 83540; 83550; 83615; 84155; 84165; 85025; 85045; 86334; 99214

== ENCOUNTER 2024-11-30 12:45 | Oncology outpatient (recurring) (ONCR) | payer MEDICARE, MEDICAID, SELFPAY ==
[2024-11-30 13:15] LABS: Hematocrit 30.5 % (36-47); Hemoglobin 9.70 g/dL (11.27-16.99); Mean Corpuscular HGB Conc 31.8 g/dL (30-55); Mean Corpuscular Hemoglobin 35.5 pg (27-33); Mean Corpuscular Volume 111.7 fl (85-98); Nucleated Red Blood Cells % 0 %; Platelet Count 285 10^3/cmm (157-399); Red Blood Count 2.73 10^6/uL (3.85-5.65); White Blood Count 11.20 10^3/uL (3.29-11.43)
[2024-11-30 13:38] LABS: Alanine Aminotransferase 13 U/L (0-33); Albumin Level 3.8 g/dL (3.5-5.2); Alkaline Phosphatase 91 U/L (35-105); Aspartate Amino Transferase 17 U/L (0-32); Blood Urea Nitrogen 12 mg/dL (8-23); Calcium 9.2 mg/dL (8.5-10.5); Carbon Dioxide 29 mmol/L (22-29); Chloride 98 mmol/L (98-107); Creatinine Clr Calc Pharmacy 85.8043; Globulin 2.7 g/dL (1.3-4.6); Glucose 145 mg/dL (65-115); Osmolality Calculated 286 mOsm/kg (285-295); Sodium 137 mmol/L (136-145); Total Protein 6.5 g/dL (6.6-8.7)
[2024-11-30 13:40] LABS: Anion Gap 13.8 (5-19); Potassium 3.8 mmol/L (3.5-5.1)
== END 2024-12-13 23:59 | disposition home or self-care (01) ==
PROVIDERS: PCP Nurse Practitioner Family; Visit Provider Nurse Practitioner Family
DX: D59.10 Autoimmune hemolytic anemia, unspecified (principal); L97.529 Non-pressure chronic ulcer of other part of left foot with unspecified severity; L03.116 Cellulitis of left lower limb; L03.115 Cellulitis of right lower limb; R60.0 Localized edema; Z79.52 Long term (current) use of systemic steroids; Z79.899 Other long term (current) drug therapy; Z87.891 Personal history of nicotine dependence
CPT/HCPCS: 36415; 80053; 83010; 83615; 85025; 85045; 99214

== ENCOUNTER 2025-01-04 13:30 | Oncology outpatient (recurring) (ONCR) | payer MEDICARE, MEDICAID, SELFPAY ==
[2024-12-21 14:39] LABS: Hematocrit 34.8 % (36-47); Hemoglobin 10.90 g/dL (11.27-16.99); Mean Corpuscular HGB Conc 31.3 g/dL (30-55); Mean Corpuscular Hemoglobin 33.7 pg (27-33); Mean Corpuscular Volume 107.7 fl (85-98); Nucleated Red Blood Cells % 0 %; Platelet Count 288 10^3/cmm (157-399); Red Blood Count 3.23 10^6/uL (3.85-5.65); White Blood Count 12.44 10^3/uL (3.29-11.43)
[2024-12-21 14:56] LABS: Alanine Aminotransferase 14 U/L (0-33); Albumin Level 4.2 g/dL (3.5-5.2); Alkaline Phosphatase 102 U/L (35-105); Anion Gap 14.0 (5-19); Aspartate Amino Transferase 13 U/L (0-32); Blood Urea Nitrogen 28 mg/dL (8-23); Calcium 9.1 mg/dL (8.5-10.5); Carbon Dioxide 34 mmol/L (22-29); Chloride 94 mmol/L (98-107); Creatinine Clr Calc Pharmacy 85.1430; Globulin 2.5 g/dL (1.3-4.6); Glucose 179 mg/dL (65-115); Osmolality Calculated 298 mOsm/kg (285-295); Potassium 3.0 mmol/L (3.5-5.1); Sodium 139 mmol/L (136-145); Total Protein 6.7 g/dL (6.6-8.7)
[2024-12-21 14:57] LABS: Lactate (Lactic Acid level) 2.7 mmol/L (0.5-2.2)
[2024-12-23 15:35] VITALS: BP 142/79; PULSE 78; RESP 18; TEMP 36.4; O2SAT 98
[2025-01-04 13:50] LABS: Hematocrit 39.3 % (36-47); Hemoglobin 12.90 g/dL (11.27-16.99); Mean Corpuscular HGB Conc 32.8 g/dL (30-55); Mean Corpuscular Hemoglobin 34.5 pg (27-33); Mean Corpuscular Volume 105.1 fl (85-98); Nucleated Red Blood Cells % 0 %; Platelet Count 251 10^3/cmm (157-399); Red Blood Count 3.74 10^6/uL (3.85-5.65); White Blood Count 14.90 10^3/uL (3.29-11.43)
[2025-01-04 14:09] LABS: Alanine Aminotransferase 17 U/L (0-33); Albumin Level 4.2 g/dL (3.5-5.2); Alkaline Phosphatase 110 U/L (35-105); Anion Gap 17.6 (5-19); Aspartate Amino Transferase 13 U/L (0-32); Blood Urea Nitrogen 25 mg/dL (8-23); Calcium 9.5 mg/dL (8.5-10.5); Carbon Dioxide 31 mmol/L (22-29); Chloride 94 mmol/L (98-107); Creatinine Clr Calc Pharmacy 85.4456; Globulin 2.8 g/dL (1.3-4.6); Glucose 298 mg/dL (65-115); Osmolality Calculated 303 mOsm/kg (285-295); Potassium 3.6 mmol/L (3.5-5.1); Sodium 139 mmol/L (136-145); Total Protein 7.0 g/dL (6.6-8.7)
== END 2025-01-12 23:59 | disposition home or self-care (01) ==
PROVIDERS: Nurse Practitioner; PCP Nurse Practitioner Family; Visit Provider Nurse Practitioner Family
DX: Z53.9 Procedure and treatment not carried out, unspecified reason; D59.10 Autoimmune hemolytic anemia, unspecified; Z87.891 Personal history of nicotine dependence; Z79.52 Long term (current) use of systemic steroids; R60.0 Localized edema
CPT/HCPCS: 36415; 80053; 83010; 83605; 83615; 85025; 85045; 96365; 96366; 99213; 99214; J3480; J7040; J9999

== ENCOUNTER 2025-01-23 01:12 | Inpatient (IN) | payer MEDICARE, MEDICAID, SELFPAY ==
[2025-01-23] VITALS (29 sets, daily range): BP systolic 99–206; BP diastolic 51–142; PULSE 89–123; RESP 16–25; TEMP 36.2–37.2; O2SAT 91–100; BMI 48.6
--- OUTSIDE RECORDS SUMMARY | 2025-01-23 01:46 | XMS_ITS | Clinical Summary ---
Author Organization [facility] Address [address] [place] [address] Phone Care Team Providers Care Inclusion Paraeducator Name Role Phone Unavailable Primary Care Provider [...] Encounters Date Type Department Care Team Description 01/05/2025 External Device Data [facility] ABSTRACTION Provider, Abstract 12/29/2024 External Device Data [facility] ABSTRACTION Provider, Abstract 12/02/2024 External Device Data [facility] ABSTRACTION Provider, Abstract 11/17/2024 External Device Data [facility] ABSTRACTION Provider, Abstract 10/28/2024 External Device Data [facility] ABSTRACTION Provider, Abstract 10/28/2024 External Device Data [facility] ABSTRACTION Provider, Abstract from Last 3 Months Social History Tobacco [...] 07/01/2001 OSTEOPOROSIS SCREENING 07/01/2016 INFLUENZA VACCINE (#1) 2024 RSV VACCINE (60+ or ) (1 - 1-dose 75+ series) 07/01/2026 Insurance MEDICARE PART A [place] B [place]
--- NOTE | 2025-01-23 01:52 | XRR_ITS ---
PROCEDURE INFORMATION: Exam: XR Chest Exam date and time: 01/23/2025 2:13 AM Age: 74 years old Clinical indication: Other: AMS TECHNIQUE: Imaging protocol: Radiologic exam of the chest. Views: 1 view. COMPARISON: CT chest w con* [id number] 06/16/2024 10:54 AM FINDINGS: Lungs: No consolidation or pulmonary edema. Pleural spaces: No pleural effusion. No pneumothorax. Heart/Mediastinum: Cardiomediastinal silhouette is normal in size. Bones/joints: No acute fractures. XR/XR chest 1V portable [id number] IMPRESSION: No acute findings.
[2025-01-23 02:33] LABS: Add Urine Microscopic? NO
[2025-01-23 02:46] LABS: Charge for UA Resulting for Rev; Glucose Urine UA 4+ (Normal); Nitrate Urine Negative (Negative); Specific Gravity, Urine 1.010 (1.005-1.030)
--- NOTE | 2025-01-23 02:59 | CTR_ITS ---
PROCEDURE INFORMATION: Exam: CT Head Without Contrast Exam date and time: 01/23/2025 3:22 AM Age: 74 years old Clinical indication: Injury or trauma; Fall; Blunt trauma (contusions or hematomas); Consciousness not specified; Additional info: AMS TECHNIQUE: Imaging protocol: Computed tomography of the head without contrast. Radiation optimization: All CT scans at this facility use at least one of these dose optimization techniques: automated exposure control; mA and/or kV adjustment per patient size (includes targeted exams where dose is matched to clinical indication); or iterative reconstruction. COMPARISON: CT head wo con* [id number] 10/11/2024 5:26 PM RADIATION DOSE METRICS: Total DLP (mGy-cm): 1241.6 FINDINGS: Brain: There is no evidence of acute intracranial hemorrhage, subacute or chronic ischemic infarct, acute intra-axial or extra-axial fluid collection, mass effect, or midline shift. Chronic microvascular ischemic changes in bilateral periventricular white matter. Cerebral ventricles: No ventriculomegaly. Paranasal sinuses: Partially visualized sinuses are unremarkable. No fluid levels. Mastoid air cells: Visualized mastoid air cells are well aerated. Bones: Unremarkable. No acute fracture. Soft tissues: Unremarkable. CT/CT head wo con* [id number] IMPRESSION: 1. No acute intracranial findings. 2. Chronic microvascular ischemic changes in bilateral periventricular white matter.
--- NOTE | 2025-01-23 02:59 | XRR_ITS ---
PROCEDURE INFORMATION: Exam: XR Right Shoulder Exam date and time: 01/23/2025 3:04 AM Age: 74 years old Clinical indication: Injury or trauma; Fall; Blunt trauma (contusions or hematomas); Shoulder; Right; Additional info: Fall pain R shoulder TECHNIQUE: Imaging protocol: Radiologic exam of the right shoulder. Views: 2 or more views. COMPARISON: CR (CHEST, ) 01/23/2025 2:13 AM FINDINGS: Bones/joints: Acute or subacute displaced fracture of the right humerus head and neck. No dislocation. Soft tissues: Normal. XR/XR shoulder RT min 2V* [id number] IMPRESSION: Acute or subacute displaced fracture of the right humerus head and neck.
[2025-01-23 03:10] LABS: Hematocrit 40.9 % (36-47); Hemoglobin 13.30 g/dL (11.27-16.99); Mean Corpuscular HGB Conc 32.5 g/dL (30-55); Mean Corpuscular Hemoglobin 32.9 pg (27-33); Mean Corpuscular Volume 101.2 fl (85-98); Nucleated Red Blood Cells % 0 %; Platelet Count 275 10^3/cmm (157-399); Red Blood Count 4.04 10^6/uL (3.85-5.65); White Blood Count 24.88 10^3/uL (3.29-11.43)
--- NOTE | 2025-01-23 03:12 | CTR_ITS ---
PROCEDURE INFORMATION: Exam: CT Cervical Spine Without Contrast Exam date and time: 01/23/2025 3:22 AM Age: 74 years old Clinical indication: Injury or trauma; Fall; Blunt trauma; Additional info: Fall neck pain TECHNIQUE: Imaging protocol: Computed tomography of the cervical spine without contrast. Radiation optimization: All CT scans at this facility use at least one of these dose optimization techniques: automated exposure control; mA and/or kV adjustment per patient size (includes targeted exams where dose is matched to clinical indication); or iterative reconstruction. COMPARISON: CT head wo con* [id number] 10/11/2024 5:26 PM RADIATION DOSE METRICS: Total DLP (mGy-cm): 1177.1 FINDINGS: Bones: No acute fracture. Normal alignment. No significant disc bulge or herniation. No severe spinal canal stenosis. No significant neural foraminal narrowing. Lungs: Lung apices are normal. Soft tissues: Unremarkable. CT/CT cervical spin wo con* [id number] IMPRESSION: No acute cervical spine findings.
[2025-01-23 03:30] LABS: Alanine Aminotransferase 25 U/L (0-33); Albumin Level 4.5 g/dL (3.5-5.2); Alkaline Phosphatase 134 U/L (35-105); Anion Gap 20.1 (5-19); Aspartate Amino Transferase 19 U/L (0-32); Blood Urea Nitrogen 22 mg/dL (8-23); Calcium 9.9 mg/dL (8.5-10.5); Carbon Dioxide 29 mmol/L (22-29); Chloride 94 mmol/L (98-107); Creatinine Clr Calc Pharmacy 95.3122; Globulin 2.6 g/dL (1.3-4.6); Glucose 319 mg/dL (65-115); Osmolality Calculated 306 mOsm/kg (285-295); Potassium 3.1 mmol/L (3.5-5.1); Sodium 140 mmol/L (136-145); Total Protein 7.1 g/dL (6.6-8.7)
[2025-01-23 03:56] LABS: Lactic Sepsis W/Reflex 4.7 mmol/L (0.5-2.2)
[2025-01-23 03:57] LABS: Reflex Lactate Order REFLEX LACTIC ORDERD
[2025-01-23] MEDS: SODIUM CHLORIDE 0.9% 3728.52 ML IV (04:05)
--- NOTE | 2025-01-23 04:17 | CTR_ITS ---
PROCEDURE INFORMATION: Exam: CT Chest With Contrast; Diagnostic Exam date and time: 01/23/2025 4:23 AM Age: 74 years old Clinical indication: Abdominal pain; Generalized; Chest wall pain; Additional info: Abd pain SOB leukocytosis TECHNIQUE: Imaging protocol: Diagnostic computed tomography of the chest with contrast. Radiation optimization: All CT scans at this facility use at least one of these dose optimization techniques: automated exposure control; mA and/or kV adjustment per patient size (includes targeted exams where dose is matched to clinical indication); or iterative reconstruction. Contrast material: OMNIPAQUE 350; Contrast volume: 100 ml; Contrast route: INTRAVENOUS (IV); COMPARISON: CT chest w con* [id number] 06/16/2024 10:54 AM RADIATION DOSE METRICS: Total DLP (mGy-cm): 2827.75 FINDINGS: Lungs: Small dependent bibasilar atelectasis. No lobar consolidation, pulmonary edema or lung mass. Pleural spaces: Unremarkable. No pneumothorax. No pleural effusion. Heart: Unremarkable. No cardiomegaly. No pericardial effusion. Lymph nodes: Unremarkable. No enlarged lymph nodes. Vasculature: Unremarkable. No aortic aneurysm. Bones/joints: Acute or subacute displaced comminuted fracture of the right humerus head and neck. An old healed fracture of the manubrium. Soft tissues: Unremarkable. PROCEDURE INFORMATION: Exam: CT Abdomen And Pelvis With Contrast Exam date and time: 01/23/2025 4:23 AM Age: 74 years old Clinical indication: Abdominal pain; Generalized; Chest wall pain; Additional info: Abd pain SOB leukocytosis TECHNIQUE: Imaging protocol: Computed tomography of the abdomen and pelvis with contrast. Radiation optimization: All CT scans at this facility use at least one of these dose optimization techniques: automated exposure control; mA and/or kV adjustment per patient size (includes targeted exams where dose is matched to clinical indication); or iterative reconstruction. Contrast material: OMNIPAQUE 350; Contrast volume: 100 ml; Contrast route: INTRAVENOUS (IV); COMPARISON: CT abdomen pelvis w con* [id number] 05/31/2024 9:40 AM RADIATION DOSE METRICS: Total DLP (mGy-cm): 2827.75 FINDINGS: Liver: Stable benign-appearing 2.5 cm cyst in the right lobe of the liver. Gallbladder and biliary ducts: No gallstones, gallbladder wall thickening or pericholecystic fluid. Common bile duct is not dilated. Pancreas: Unremarkable. No significant pancreatic duct dilation. Spleen: Several small calcifications in the spleen. No splenomegaly. Adrenal glands: Normal. No adrenal mass. Kidneys and ureters: Stable simple appearing cysts in bilateral kidneys, measuring up to 1.5 cm in diameter. The kidneys are otherwise unremarkable. No follow up imaging is recommended. Stomach and bowel: No evidence of bowel obstruction, ileus, diverticulitis or colitis. No significant mucosal thickening. Appendix: No CT evidence of appendicitis. Intraperitoneal space: No free air or fluid in the abdomen. No abnormal fluid collection. Vasculature: Unremarkable. No abdominal aortic aneurysm. Lymph nodes: No abdominal lymphadenopathy. Urinary bladder: Unremarkable as visualized. Reproductive: Previous hysterectomy. Bones/joints: Acute or subacute displaced subcapital fracture of the right femoral neck. Soft tissues: Unremarkable. CT/CT chest abdpel w/*[id number] IMPRESSION: 1. Acute or subacute displaced comminuted fracture of the right humerus head and neck. 2. No other acute findings. IMPRESSION: 1. Acute or subacute displaced subcapital fracture of the right femoral neck. 2. Otherwise, no acute findings.
--- NOTE | 2025-01-23 04:20 | W.ED.FALL ---
HPI - Fall General: Chief Complaint: Fall Stated Complaint: fall - R shoulder pain Time Seen by Provider: 01/23/25 02:53 History of Present Illness: Patient is an elderly female with history of dementia who [facility]. Staff report that the patient has been complaining of urinary urgency but has been unable to void. long-term staff attempted to place a catheter but were unsuccessful. The patient has also been complaining of right shoulder pain. There is concern for a possible fall today, though details are unclear. Staff note that the patient usually ambulates independently but today has been refusing to get up and go eat, representing a change in her baseline functional status. The patient repeatedly states that she doesn't feel good but is unable to elaborate beyond urinary complaints when questioned. Related Data Home Medications ?Medication ?Instructions ?Recorded ?Confirmed levothyroxine 25 mcg tablet 25 mcg PO DAILY 02/16/20 01/23/25 bisacodyl 10 mg rectal suppository 10 mg NJ DAILY PRN Constipation 05/31/24 01/23/25 (Dulcolax (bisacodyl)) citalopram 20 mg tablet 20 mg PO DAILY 05/31/24 01/23/25 loperamide 2 mg tablet (Imodium 2 mg PO Q4H PRN Diarrhea 05/31/24 01/23/25 A-D) melatonin 1 mg tablet 1 mg PO BEDTIME 05/31/24 01/23/25 mirtazapine 15 mg tablet 15 mg PO BEDTIME 05/31/24 01/23/25 ondansetron HCl 4 mg tablet 4 mg PO Q4H PRN Nausea 05/31/24 01/23/25 chlorthalidone 25 mg tablet 25 mg PO DAILY 09/24/24 01/23/25 magnesium hydroxide 400 mg/5 mL 30 ml PO DAILY PRN Constipation 09/24/24 01/23/25 oral suspension (Milk of Magnesia) pantoprazole 40 mg tablet,delayed 40 mg PO DAILY 09/24/24 01/23/25 release furosemide 40 mg tablet (Lasix) 40 mg PO DAILY 12/21/24 01/23/25 sodium phosphates 19 gram-7 118 ml NJ DAILY PRN Constipation 01/23/25 01/23/25 gram/118 mL enema (Fleet Enema) Previous Rx's ?Medication ?Instructions ?Recorded potassium chloride 20 mEq 20 meq PO BID #10 tabs 12/08/22 tablet,extended release acetaminophen 500 mg capsule 500 mg PO Q6H PRN pain #30 caps 06/04/24 prednisone 10 mg tablet 10 mg PO DAILY #60 tabs 01/18/25 Allergies Allergy/AdvReac Type Severity Reaction Status Date / Time No Known Allergies Allergy Verified 01/18/25 11:19 PFSH ED PFSH: Medical History (Updated 01/23/25 @ 14:59 by Eddie Fall DO) Pneumonia due to COVID-19 virus Cellulitis Hypothyroidism DM type 2 (diabetes mellitus, type 2) Hypertension Surgical History No significant past surgical history Family History Denies family history of Anemia Social History Smoking and tobacco/nicotine status: former use of tobacco/nicotine Quit status (tobacco/nicotine): has quit using Year quit tobacco: quit 15-20 years ago Substance/Drug Use: never Physical Exam Const: GENERAL APPEARANCE: in distress; not comfortable NUTRITIONAL APPEARANCE: obese ORIENTATION/CONSCIOUSNESS: Yes awake and Yes oriented to person; not oriented to place and not oriented to time HENMT: COMMON NORMALS: normocephalic, atraumatic, external ears normal and Normal external nose present HEAD & SCALP: normocephalic and atraumatic FACE & SINUS: normal facial exam and face symmetric NOSE: Normal external nose present EXTERNAL EAR: Yes external ears normal Eye: COMMON NORMALS: Equal, round and reactive pupils present and EOMs intact bilaterally PUPIL: Yes Equal, round and reactive pupils present Neck/C-Spine: COMMON NORMALS: full ROM and no meningeal signs Chest: CHEST: Yes Symmetrical chest wall rise Resp: COMMON NORMALS: normal respiratory effort and clear to auscultation bilaterally AUSCULTATION: clear to auscultation bilaterally Cardio: COMMON NORMALS: regular rhythm RATE: tachycardic (mild) RHYTHM: regular rhythm GI: COMMON NORMALS: Normal to inspection, nondistended, normoactive bowel sounds present PALPATION: Yes Tenderness to palpation present (GI) (diffuse) Extremity: NARRATIVE EXTREMITY EXAM: mild chronic cellulitic change to anterior left leg. no open wound. pain with movement of right shoulder. Neuro: [place] COMA SCALE: document GCS findings [place] coma scale eye opening: Spontaneous [place] coma scale verbal response: Confused [place] coma scale motor response: Obey commands [place] coma scale total score: 14 SENSORIUM/ORIENTATION: Yes oriented to person, No oriented to place and No oriented to time MENINGEAL SIGNS: Yes no meningeal signs Course Vital Signs: Vital signs: Vital Signs Temperature 98.2 F 01/23/25 13:45 Pulse Rate 118 H 01/23/25 13:45 Respiratory Rate 16 01/23/25 13:45 Blood Pressure 107/51 01/23/25 13:45 Pulse Oximetry 99 01/23/25 13:45 Oxygen Delivery Me thod Room Air 01/23/25 13:45 MDM - Fall Medical Decision Making The patient appears to have significant baseline dementia. She is unable to answer most questions appropriately. She does have some tenderness Abdomen on exam. She does have pain with movement of her right shoulder. Initially, she was quite hypertensive. This normalized. She was a febrile. My blood cell count is 23 with 87% neutrophils. Her CRP is only 28. Like the acid, however was 4.7 initially and Sola to 5.8 despite fluid bolus. Her creatinine is 0.6. Electrolytes are not remarkable. Your analysis is negative for infection. Chest x-ray was negative for infiltrate. shoulder x-ray revealed fracture proximal humerus. CT of the head was negative. She has sent back for chest and pelvis CT given her lactic acidosis, which showed a displaced combined fracture the right humerus as well as a displaced subcapital fracture of the right femoral neck. Orthopedics was consulted. He will see the patient later this morning. spoke with the hospitalist, she has evaluated the patient as well. She was covered with a leia for severe sepsis with anabiotic coverage empirically after blood cultures, but she does not appear septic, and instead elevation and lactate and white blood cell count appears to be more of a reaction to trauma. Admission orders are written. Lab Data 01/23/25 14:06 01/23/25 02:50 Radiology Impressions Chest X-Ray 01/23/25 01:52 IMPRESSION: No acute findings. ADDENDUM: 01/23/25 0453 Acute or subacute displaced comminuted fracture of the right humerus head and neck. Head CT 01/23/25 02:59 IMPRESSION: 1. No acute intracranial findings. 2. Chronic microvascular ischemic changes in bilateral periventricular white matter. Shoulder X-Ray 01/23/25 02:59 IMPRESSION: Acute or subacute displaced fracture of the right humerus head and neck. Cervical Spine CT 01/23/25 03:12 IMPRESSION: No acute cervical spine findings. Chest/Abdomen/Pelvis CT 01/23/25 04:17 IMPRESSION: 1. Acute or subacute displaced comminuted fracture of the right humerus head and neck. 2. No other acute findings. IMPRESSION: 1. Acute or subacute displaced subcapital fracture of the right femoral neck. 2. Otherwise, no acute findings. Pelvis X-Ray 01/23/25 11:10 IMPRESSION: 1. Limited osseous detail to patient body habitus. CT evaluation of the pelvic bones should be considered for a more thorough assessment. 2. Intact appearing right hip prosthesis. Laboratory Results WBC 24.88 10^3/uL (3.29-11.43) H 01/23/25 02:50 RBC 4.04 10^6/uL (3.85-5.65) 01/23/25 02:50 Hgb 13.30 g/dL (11.27-16.99) 01/23/25 02:50 Hct 40.9 % (36-47) 01/23/25 02:50 MCV 101.2 fl (85-98) H 01/23/25 02:50 MCH 32.9 pg (27-33) 01/23/25 02:50 MCHC 32.5 g/dL (30-55) 01/23/25 02:50 RDW 13.4 % (12.1-15.1) 01/23/25 02:50 Plt Count 275 10^3/cmm (157-399) 01/23/25 02:50 MPV 9.2 fL (7.4-10.4) 01/23/25 02:50 Neut % (Auto) 87.0 % 01/23/25 02:50 Lymph % (Auto) 3.5 % 01/23/25 02:50 Hall % (Auto) 7.6 % 01/23/25 02:50 Eos % (Auto) 0.0 % 01/23/25 02:50 Baso % (Auto) 0.3 % 01/23/25 02:50 Neut # (Auto) 21.60 10^3/uL (1.8-7.7) H 01/23/25 02:50 Lymph # (Auto) 0.9 10^3/uL (0.8-4.8) 01/23/25 02:50 Hall # (Auto) 1.9 10^3/uL (0.2-0.9) H 01/23/25 02:50 Eos # (Auto) 0.0 10^3/uL (0.0-0.8) 01/23/25 02:50 Baso # (Auto) 0.1 10^3/uL (0.0-0.1) 01/23/25 02:50 Nucleated RBC % (auto) 0 % 01/23/25 02:50 Nucleated RBCs # 0.0 /100WBC 01/23/25 02:50 Sodium 140 mmol/L (136-145) 01/23/25 02:50 Potassium 3.1 mmol/L (3.5-5.1) L 01/23/25 02:50 Chloride 94 mmol/L (98-107) L 01/23/25 02:50 Carbon Dioxide 29 mmol/L (22-29) 01/23/25 02:50 Anion Gap 20.1 (5-19) H 01/23/25 02:50 BUN 22 mg/dL (8-23) 01/23/25 02:50 Creatinine 0.6 mg/dL (0.5-0.9) 01/23/25 02:50 GFR Calculation Not Reportable 01/23/25 02:50 Glucose 319 mg/dL (65-115) H 01/23/25 02:50 POC Glucose 293 mg/dL (70-110) H 01/23/25 07:32 Calculated Osmolality 306 mOsm/kg (285-295) H 01/23/25 02:50 Lactic Acid 4.7 mmol/L (0.5-2.2) H* 01/23/25 02:50 Lactic Acid (Sepsis) 5.8 mmol/L (0.5-2.2) H* 01/23/25 05:37 Calcium 9.9 mg/dL (8.5-10.5) 01/23/25 02:50 Total Bilirubin 0.9 mg/dL (0.15-1.2) 01/23/25 02:50 AST 19 U/L (0-32) 01/23/25 02:50 ALT 25 U/L (0-33) 01/23/25 02:50 Alkaline Phosphatase 134 U/L (35-105) H 01/23/25 02:50 C-Reactive Protein 28.2 mg/L (0.0-4.9) H 01/23/25 02:50 Total Protein 7.1 g/dL (6.6-8.7) 01/23/25 02:50 Albumin 4.5 g/dL (3.5-5.2) 01/23/25 02:50 Globulin 2.6 g/dL (1.3-4.6) 01/23/25 02:50 Urine Color Yellow (Yellow) 01/23/25 07:04 Urine Appearance Clear (CLEAR) 01/23/25 07:04 Urine pH 7 (5-7) 01/23/25 07:04 Ur Specific [place] 1.005 (1.005-1.030) 01/23/25 07:04 Urine Protein Neg (Negative) 01/23/25 07:04 Urine Glucose (UA) 4+ (Normal) H 01/23/25 07:04 Urine Ketones 1+ (Negative) H 01/23/25 07:04 Urine Blood Neg (Negative) 01/23/25 07:04 Urine Nitrate Negative (Negative) 01/23/25 07:04 Urine Bilirubin Neg (Negative) 01/23/25 07:04 Urine Urobilinogen Neg mg/dL (Negative) 01/23/25 07:04 Ur Leukocyte Esterase Negative (Negative) 01/23/25 07:04 Urine RBC 0-4 /hpf (0-2) H 01/23/25 07:04 Urine WBC 0-4 /hpf (0-5) H 01/23/25 07:04 Ur Squamous Epith Cells 0-4 /hpf (0-5) H 01/23/25 07:04 Amorphous Sediment Not Reportable 01/23/25 07:04 Urine Bacteria Trace /hpf (NONE) 01/23/25 07:04 All radiology interpretation(s) finalized by discharge Critical Care Time Critical Care Time: Critical Care Time: Yes Total Critical Care Time: 35 Attestation: This case had a high probability of a clinically significant, sudden, or life threatening deterioration of this patient's condition which required my full and direct attention, intervention and personal management.Time is independent of any procedures performed. Discharge Plan Discharge Patient Disposition: Admitted As Inpatient Admit Provider: Kayode Mandujano Clinical Impression: Lactic acidosis, Humeral fracture, Systemic inflammatory response syndrome (SIRS), Displaced fracture of right femoral neck Condition: Stable Coding Level of Care Code ED Administrative Judge for Presley Hamilton
[2025-01-23] MEDS: iohexol 350 mg/mL 500 mL Btl (per mL) IV (04:41)
[2025-01-23] MEDS: piperacillin-tazobactam 4.5 GM in sodium chloride 0.9% (plus) 50 ML IV (04:57)
--- NOTE | 2025-01-23 05:51 | PM.HP ---
Providers/Chief Complaint Admitting Physician: Kavita Subramanian MD--seen and evaluated after 12 midnight Primary Care Provider: Inderjit Balderas DO Chief Complaint: fall - R shoulder pain History of Present Illness Kenyatta Kirby is a 74 year old morbidly obese female with history of advanced dementia with confusion, presenting to the emergency room because she is more confused than her baseline. She also had fallen with pain in her right upper arm. Patient complaining of abdominal pain. Patient cannot give much of any other history. CT of the chest abdomen and pelvics were done and it was significant for large bladder Beltrán placed and he drained instantly 800 mL of urine urinalysis sent of the did not do microscopy a repeat urinalysis with microscopy sent please follow-up on microscopy for pyuria. Patient is very dry lactate was 5.8 and this could be also due to infection. White count much elevated at 29,000. Patient received 2 boluses of 2 L of normal saline and IV antibiotics of vancomycin and Zosyn. Must follow up and optimize accordingly. Hypokalemia of 3.1 replaced. Orthopedics consulted for humerus fracture for pinning. Patient is n.p.o. Review of Systems Narrative: System review is admitted as patient cannot give any history or be reliable. Medications/Allergies Home Medications ?Medication ?Instructions ?Recorded ?Confirmed ?Last Taken ?Type levothyroxine 25 mcg tablet 25 mcg PO DAILY 02/16/20 01/18/25 03/06/20 History potassium chloride 20 mEq 20 meq PO BID #10 tabs 03/22/22 01/18/25 Unknown Rx tablet,extended release bisacodyl 10 mg rectal suppository 10 mg RI DAILY PRN Constipation 05/31/24 01/18/25 Unknown History (Dulcolax (bisacodyl)) citalopram 20 mg tablet 20 mg PO DAILY 05/31/24 01/18/25 Unknown History loperamide 2 mg tablet (Imodium 2 mg PO Q4H PRN Diarrhea 05/31/24 01/18/25 Unknown History A-D) melatonin 1 mg tablet 1 mg PO BEDTIME 05/31/24 01/18/25 Unknown History mirtazapine 15 mg tablet 15 mg PO BEDTIME 05/31/24 01/18/25 Unknown History ondansetron HCl 4 mg tablet 4 mg PO Q4H PRN Nausea 05/31/24 01/18/25 Unknown History acetaminophen 500 mg capsule 500 mg PO Q6H PRN pain #30 caps 06/04/24 01/18/25 Unknown Rx chlorthalidone 25 mg tablet 25 mg PO DAILY 09/24/24 01/18/25 Unknown History magnesium hydroxide 400 mg/5 mL 5 ml PO DAILY PRN 09/24/24 01/18/25 Unknown History oral suspension (Milk of Magnesia) pantoprazole 40 mg tablet,delayed mg PO 09/24/24 01/18/25 Unknown History release furosemide 40 mg tablet (Lasix) 40 mg PO DAILY 12/21/24 01/18/25 Unknown History prednisone 10 mg tablet 10 mg PO DAILY #60 tabs 01/18/25 01/18/25 Unknown Rx Allergies Allergy/AdvReac Type Severity Reaction Status Date / Time No Known Allergies Allergy Verified 01/18/25 11:19 PFSH Acute PFSH: Medical History Pneumonia due to COVID-19 virus Cellulitis Hypothyroidism DM type 2 (diabetes mellitus, type 2) Hypertension Surgical History No significant past surgical history Family History Denies family history of Anemia Social History Smoking and tobacco/nicotine status: former use of tobacco/nicotine Quit status (tobacco/nicotine): has quit using Year quit tobacco: quit 15-20 years ago Substance/Drug Use: never Vitals/I&O/Wt Last Vital Signs Temp 98.8 F 01/23/25 01:13 Pulse 107 H 01/23/25 05:20 Resp 18 01/23/25 05:20 BP 146/96 01/23/25 05:20 Pulse Ox 91 01/23/25 05:20 O2 Del Method Room Air 01/23/25 05:20 01/22/25 01/22/25 01/23/25 14:59 22:59 06:59 Intake Total 50 / 50 Balance 50 / 50 Weight last 48 hrs Weight 124.284 kg Weight 145.15 kg Physical Exam Narrative: Generally patient is feeling very uncomfortable verbalizing I do not feel good my arm support and I do not feel good I have abdominal pain patient states Patient was nicholson scanned from chest abdomen and pelvics and it was noted with large bladder distended secondary to urinary retention HEENT normocephalic atraumatic neck neck is supple cardiovascular heart rate is regular lungs are pretty much clear abdomen soft nontender nondistended unremarkable. Extremities are significant for a right humerus fracture. No edema has good pulses neurology has no focality lab studies lab studies reviewed and noted as per above. Data 01/23/25 02:50 01/23/25 02:50 Micro: Microbiology 01/23/25 02:50 Blood Culture - Preliminary Blood SPECIMEN COLLECTED 01/23/25 02:27 Blood Culture - Preliminary Blood SPECIMEN COLLECTED A&P Assessment and plan 1. Urinary retention: 2. DM type 2 (diabetes mellitus, type 2): 3. Hypertension: 4. Leukocytosis: 5. Dehydration: 6. Humeral fracture: 7. Lactic acidosis: 8. Hyperglycemia: 9. Systemic inflammatory response syndrome (SIRS): Plan: #1 Right humerus fracture - Admit to general medical floor with orthopedics consultation - Humerus fracture is going to be pinned likely today - Pain management with morphine - Patient with nausea at this time and receiving Zofran - Must continue to treat and optimize #2 Lactic acidosis of 5.8 - IV hydration initiated - Anticipate a repeat lactate in 1 to 2 hours - This could be due to dehydration and infection from the source - Urinalysis repeated with microscopy, initial urinalysis did not include microscopy. - Patient receiving vancomycin and Zosyn here in the emergency room at this moment #3 Urinary retention - Patient had large bladder in the CT of the abdomen and pelvics with a drainage of instant 800 mL of urine - Microorganism at risk to grow in such environment - Follow up with microscopy from urinalysis on a repeat urinalysis #4 Dehydration - Patient had received 2 L of IV fluid in the emergency room - I have followed up with a gentle hydration at 75 mL/h of normal saline - Monitor IV fluid to avoid fluid overload #5 Hypoglycemia -Continue insulin sliding scale AC and at bedtime at this time - Obtain hemoglobin A1c #6 Abdominal pain reference hypogastric region -Abdominal pain likely due to severe cystitis - Beltrán to gravity for urinary retention - Continue antibiotics and remove Beltrán catheter when able to in the setting of urinary tract infection #7 Leukocytosis - White count of 29,000 I have repeated within few hours is down to 24,000 continue to treat and monitor - Follow-up blood cultures and urine culture and optimize accordingly #8 GI and DVT prophylaxis in place PDMP PDMP Reviewed: Not Reviewed Attestations Medical Necessity Statement*: Patient status post fall with humerus fracture with leukocytosis in need for repair reference pinning Coding Level of Care Code 95778 Diagnoses Urinary retention R33.9 DM type 2 (diabetes mellitus, type 2) E11.9 Hypertension I10 Leukocytosis D72.829 Dehydration E86.0 Humeral fracture S42.309A Lactic acidosis E87.20 Hyperglycemia R73.9 Systemic inflammatory response syndrome (SIRS) R65.10 Time Spent (min) 60
[2025-01-23 06:04] LABS: Lactic Acid level (Lactate) 5.8 mmol/L (0.5-2.2)
[2025-01-23] MEDS: ondansetron 2 mg/ML SDV 2 mL 4 MG IVP ×2 (06:54→08:42)
[2025-01-23] MEDS: pantoprazole 40 mg SDV IVP ×2 (06:56→18:02)
[2025-01-23] MEDS: morphine 4 mg/mL SDV 1 mL 2 MG IVP ×3 (06:58→18:00)
[2025-01-23] MEDS: doxycycline 100 MG in sodium chloride 0.9% (plus) 100 ML IV ×2 (07:00→18:03)
[2025-01-23 07:25] LABS: Glucose Urine UA 4+ (Normal); Nitrate Urine Negative (Negative); Specific Gravity, Urine 1.005 (1.005-1.030); UA Manual Slide Review YES
[2025-01-23] MEDS: fentaNYL 50 mcg/mL INJ 2mL IVP ×2 (09:01→09:11)
--- NOTE | 2025-01-23 09:14 | PM.CONSULT ---
Providers/Reason For Consult Consulting Physician/Specialty*: Hospitalist Reason for Consult*: Right hip fracture and right proximal humerus fracture Attending Physician: Kayode Mandujano DO Primary Care Provider: Inderjit Balderas DO History of Present Illness History of Present Illness Kenyatta Kirby is a 74 year old female comes from a retirement complaining of not feeling well. Has not been able to ambulate. I was consulted because she has a right hip fracture and a right proximal humerus fracture. She has a right femoral neck fracture. Review of Systems Narrative: System review is admitted as patient cannot give any history or be reliable. Medications/Allergies Home Medications ?Medication ?Instructions ?Recorded ?Confirmed ?Last Taken ?Type levothyroxine 25 mcg tablet 25 mcg PO DAILY 02/16/20 01/23/25 01/22/25 06:00 History potassium chloride 20 mEq 20 meq PO BID #10 tabs 03/22/22 01/23/25 01/22/25 18:00 Rx tablet,extended release bisacodyl 10 mg rectal suppository 10 mg [place] DAILY PRN Constipation 05/31/24 01/23/25 01/22/25 History (Dulcolax (bisacodyl)) citalopram 20 mg tablet 20 mg PO DAILY 05/31/24 01/23/25 01/22/25 History loperamide 2 mg tablet (Imodium 2 mg PO Q4H PRN Diarrhea 05/31/24 01/23/25 Unknown History A-D) melatonin 1 mg tablet 1 mg PO BEDTIME 05/31/24 01/23/25 01/22/25 19:00 History mirtazapine 15 mg tablet 15 mg PO BEDTIME 05/31/24 01/23/25 01/22/25 19:00 History ondansetron HCl 4 mg tablet 4 mg PO Q4H PRN Nausea 05/31/24 01/23/25 Unknown History acetaminophen 500 mg capsule 500 mg PO Q6H PRN pain #30 caps 06/04/24 01/23/25 Unknown Rx chlorthalidone 25 mg tablet 25 mg PO DAILY 09/24/24 01/23/25 01/22/25 History magnesium hydroxide 400 mg/5 mL 30 ml PO DAILY PRN Constipation 09/24/24 01/23/25 01/22/25 History oral suspension (Milk of Magnesia) pantoprazole 40 mg tablet,delayed 40 mg PO DAILY 09/24/24 01/23/25 01/22/25 History release furosemide 40 mg tablet (Lasix) 40 mg PO DAILY 12/21/24 01/23/25 01/22/25 History prednisone 10 mg tablet 10 mg PO DAILY #60 tabs 01/18/25 01/23/25 01/22/25 Rx sodium phosphates 19 gram-7 118 ml [place] DAILY PRN Constipation 01/23/25 01/23/25 Unknown History gram/118 mL enema (Fleet Enema) Allergies Allergy/AdvReac Type Severity Reaction Status Date / Time No Known Allergies Allergy Verified 01/18/25 11:19 Current Medications Generic Name Dose Route Start Last Admin Trade Name Freq PRN Reason Stop Dose Admin Fentanyl 50 mcg 01/23/25 08:54 01/23/25 09:11 Fentanyl 50 Mcg/Ml Inj 2ml IVP 50 mcg Q10M PRN Administration Preop Pain Doxycycline Hyclate 100 mg/ 100 mls @ 100 mls/hr 01/23/25 05:45 01/23/25 08:23 Sodium Chloride IV Infused Q12H AZEB Infusion Protocol Insulin Human Lispro 0 unit 01/23/25 08:00 01/23/25 07:41 Insulin Lispro 100 Unit/1 Ml SUBCUT Not Given WM&BEDTIME AZEB Protocol Morphine Sulfate 2 mg 01/23/25 05:39 01/23/25 06:58 Morphine 4 Mg/Ml Sdv 1 Ml IVP 2 mg Q4H PRN Administration SEVERE PAIN Ondansetron HCl 4 mg 01/23/25 05:39 01/23/25 08:42 Ondansetron 2 Mg/Ml Sdv 2 Ml IVP 4 mg Q8H PRN Administration vomiting, or N/V if npo Pantoprazole Sodium 40 mg 01/23/25 05:45 01/23/25 06:56 Pantoprazole 40 Mg Sdv IVP 40 mg Q12H AZEB Administration PFSH Acute PFSH: Medical History (Updated 01/23/25 @ 09:18 by Kayode Mandujano DO) Pneumonia due to COVID-19 virus Cellulitis Hypothyroidism DM type 2 (diabetes mellitus, type 2) Hypertension Surgical History No significant past surgical history Family History Denies family history of Anemia Social History Smoking and tobacco/nicotine status: former use of tobacco/nicotine Quit status (tobacco/nicotine): has quit using Year quit tobacco: quit 15-20 years ago Substance/Drug Use: never Vitals/I&O/Wt Last Vital Signs Temp 99.0 F 01/23/25 08:55 Pulse 105 H 01/23/25 08:55 Resp 17 01/23/25 09:11 BP 158/85 01/23/25 08:55 Pulse Ox 94 01/23/25 09:11 O2 Del Method Room Air 01/23/25 08:55 01/22/25 01/23/25 01/23/25 22:59 06:59 14:59 Intake Total 300 / 300 3897.27 / 3897.27 Output Total 1999 Balance 300 / 300 1897.27 / 1897.27 Weight last 48 hrs Weight 274 lb Weight 320 lb Physical Exam Const: COMMON NORMALS: alert EXAM LIMITATIONS: physical limitations GENERAL APPEARANCE: cooperative NUTRITIONAL APPEARANCE: obese ORIENTATION/CONSCIOUSNESS: Yes awake HENMT: COMMON NORMALS: normocephalic HEAD & SCALP: normocephalic Chest: CHEST: Yes Symmetrical chest wall rise GI: INSPECTION: Yes normal to inspection Extremity: GENERAL: Yes weight-bearing difficulty RIGHT LOWER EXTREMITY: Yes hip joint (Shortened and externally rotated) Neuro: SENSORIUM/ORIENTATION: Yes alert Data 01/23/25 02:50 01/23/25 02:50 Micro: Microbiology 01/23/25 02:50 Blood Culture - Preliminary Blood SPECIMEN COLLECTED 01/23/25 02:27 Blood Culture - Preliminary Blood SPECIMEN COLLECTED A&P Assessment and plan 1. Displaced fracture of right femoral neck: Patient is a right femoral neck fracture which was treated with a hemiarthroplasty. Patient also has a humerus fracture which was treated in sling. Discussed treatment of the hip hemiarthroplasty with the patient's [id number]. PDMP PDMP Reviewed: Not Reviewed Coding Level of Care Code Acute Code for Chg Fwd Diagnoses Displaced fracture of right femoral neck S72.001A
--- NOTE | 2025-01-23 09:15 | ANES.PREANE2 ---
Pre-Anesthetic Assessment Height/Weight: Height 1.73 m Weight 124.284 kg Temp Pulse Resp BP Pulse Ox O2 Del Method 99.0 F 105 H 17 158/85 94 Room Air 01/23/25 08:55 01/23/25 08:55 01/23/25 09:11 01/23/25 08:55 01/23/25 09:11 01/23/25 08:55 Operation Date: 01/23/25 09:50 Proposed Procedures p Hemiarthroplasty Hip Bipolar(Right) - Kayode Mandujano, DO Familial anesthetic complications: none Was Beta Fabrice taken within 24 hours: N/A Was Clonidine taken within 24 hours: N/A Last intake: > 8 hrs Social No alcohol and No tobacco Exam alert, oriented x 3, clear to auscultation bilaterally and regular rate & rhythm Airway Mallampati: Class IV Dentition: full CV/HEM Hypertension GI Gastroesophageal Reflux Disease Metabolic Diabetes Mellitus and Morbid Obesity Anesthetic Plan ASA status: 3 Anesthesia: General Risk of > 500 ml blood loss (7ml/kg in children): No Medications/Allergies Home Medications ?Medication ?Instructions ?Recorded ?Confirmed ?Last Taken ?Type levothyroxine 25 mcg tablet 25 mcg PO DAILY 02/16/20 01/23/25 01/22/25 06:00 History potassium chloride 20 mEq 20 meq PO BID #10 tabs 03/22/22 01/23/25 01/22/25 18:00 Rx tablet,extended release bisacodyl 10 mg rectal suppository 10 mg MN DAILY PRN Constipation 05/31/24 01/23/25 01/22/25 History (Dulcolax (bisacodyl)) citalopram 20 mg tablet 20 mg PO DAILY 05/31/24 01/23/25 01/22/25 History loperamide 2 mg tablet (Imodium 2 mg PO Q4H PRN Diarrhea 05/31/24 01/23/25 Unknown History A-D) melatonin 1 mg tablet 1 mg PO BEDTIME 05/31/24 01/23/25 01/22/25 19:00 History mirtazapine 15 mg tablet 15 mg PO BEDTIME 05/31/24 01/23/25 01/22/25 19:00 History ondansetron HCl 4 mg tablet 4 mg PO Q4H PRN Nausea 05/31/24 01/23/25 Unknown History acetaminophen 500 mg capsule 500 mg PO Q6H PRN pain #30 caps 06/04/24 01/23/25 Unknown Rx chlorthalidone 25 mg tablet 25 mg PO DAILY 09/24/24 01/23/25 01/22/25 History magnesium hydroxide 400 mg/5 mL 30 ml PO DAILY PRN Constipation 09/24/24 01/23/25 01/22/25 History oral suspension (Milk of Magnesia) pantoprazole 40 mg tablet,delayed 40 mg PO DAILY 09/24/24 01/23/25 01/22/25 History release furosemide 40 mg tablet (Lasix) 40 mg PO DAILY 12/21/24 01/23/25 01/22/25 History prednisone 10 mg tablet 10 mg PO DAILY #60 tabs 01/18/25 01/23/25 01/22/25 Rx sodium phosphates 19 gram-7 118 ml MN DAILY PRN Constipation 01/23/25 01/23/25 Unknown History gram/118 mL enema (Fleet Enema) Allergies Allergy/AdvReac Type Severity Reaction Status Date / Time No Known Allergies Allergy Verified 01/18/25 11:19 Current Medications Generic Name Dose Route Start Last Admin Trade Name Freq PRN Reason Stop Dose Admin Fentanyl 50 mcg 01/23/25 08:54 01/23/25 09:11 Fentanyl 50 Mcg/Ml Inj 2ml IVP 50 mcg Q10M PRN Administration Preop Pain Doxycycline Hyclate 100 mg/ 100 mls @ 100 mls/hr 01/23/25 05:45 01/23/25 08:23 Sodium Chloride IV Infused Q12H [facility] Infusion Protocol Insulin Human Lispro 0 unit 01/23/25 08:00 01/23/25 07:41 Insulin Lispro 100 Unit/1 Ml SUBCUT Not Given WM&BEDTIME [facility] Protocol Morphine Sulfate 2 mg 01/23/25 05:39 01/23/25 06:58 Morphine 4 Mg/Ml Sdv 1 Ml IVP 2 mg Q4H PRN Administration SEVERE PAIN Ondansetron HCl 4 mg 01/23/25 05:39 01/23/25 08:42 Ondansetron 2 Mg/Ml Sdv 2 Ml IVP 4 mg Q8H PRN Administration vomiting, or N/V if npo Pantoprazole Sodium 40 mg 01/23/25 05:45 01/23/25 06:56 Pantoprazole 40 Mg Sdv IVP 40 mg Q12H AZEB Administration PFSH Anesthesia Medical History (Updated 01/23/25 @ 09:18 by Kayode Mandujano DO) Pneumonia due to COVID-19 virus Cellulitis Hypothyroidism DM type 2 (diabetes mellitus, type 2) Hypertension Surgical History No significant past surgical history Family History Denies family history of Anemia Social History Smoking and tobacco/nicotine status: former use of tobacco/nicotine Quit status (tobacco/nicotine): has quit using Year quit tobacco: quit 15-20 years ago Substance/Drug Use: never Data Anesthesia 01/23/25 02:50 01/23/25 02:50 Short CBC 01/23/25 Range/Units 02:50 WBC 24.88 H (3.29-11.43) 10^3/uL Hgb 13.30 (11.27-16.99) g/dL Hct 40.9 (36-47) % MCV 101.2 H (85-98) fl Plt Count 275 (157-399) 10^3/cmm Neut % (Auto) 87.0 % Neut # (Auto) 21.60 H (1.8-7.7) 10^3/uL BMP 01/23/25 02:50 Sodium 140 Potassium 3.1 L Chloride 94 L Carbon Dioxide 29 BUN 22 Creatinine 0.6 Glucose 319 H Calcium 9.9 Liver Function 01/23/25 Range/Units 02:50 Total Bilirubin 0.9 (0.15-1.2) mg/dL AST 19 (0-32) U/L ALT 25 (0-33) U/L Alkaline Phosphatase 134 H (35-105) U/L Albumin 4.5 (3.5-5.2) g/dL Urine 01/23/25 01/23/25 Range/Units 01:51 07:04 Urine Color Yellow Yellow (Yellow) Urine Appearance Clear Clear (CLEAR) Urine pH 6 7 (5-7) Ur Specific [place] 1.010 1.005 (1.005-1.030) Urine Protein Neg Neg (Negative) Urine Glucose (UA) 4+ H 4+ H (Normal) Urine Ketones 1+ H 1+ H (Negative) Urine Nitrate Negative Negative (Negative) Urine Bilirubin Neg Neg (Negative) Ur Leukocyte Esterase Negative Negative (Negative) Urine RBC 0-4 H (0-2) /hpf Urine WBC 0-4 H (0-5) /hpf Coags 01/23/25 02:50 C-Reactive Protein 28.2 H Microbiology 01/23/25 02:50 Blood Culture - Preliminary Blood SPECIMEN COLLECTED 01/23/25 02:27 Blood Culture - Preliminary Blood SPECIMEN COLLECTED
--- NOTE | 2025-01-23 11:00 | PM.OP ---
Operative Report Date of procedure: January 23, 2025 Pre-op diagnosis: 1. Right hip hemiarthroplasty 2. Right proximal humerus fracture Post-op diagnosis: same Procedure done: 1. Right hip hemiarthroplasty 2. Nonoperative treatment of right proximal humerus Surgeon: Kayode Mandujano DO Estimated blood loss (mL): 30 Procedure: 1. Right hip hemiarthroplasty 2. Nonoperative treatment of right proximal humerus Patient is brought to the operative suite after undergoing anesthesia patient was placed in the lateral decubitus position. Right side was up. All areas impingement well-padded. Patient's prepped and draped in Roso fashion. Skin incision made over the right hip. IT bands identified a modified [place] approach was used abductor's and capsule were taken down anteriorly. Femoral neck cut was made proximal 1 fingerbreadth above the lesser trochanter. The femoral head was then removed. Measured to be 44. The attention was then brought to the proximal femur. The box lining machine feeder was used. Followed by the canal finder. Followed by the lateralizer. Canal was then broached to 4. A size 4 stem was placed with a -4 neck length and a femoral head. Hip was reduced felt to be stable positions. The capsule and abductors were sutured back to the femur IT band closed with FiberWire. Skin was closed with 0 Vicryl 2-0 Vicryl and ashley. Sterile dressings were applied and patient transferred the PACU in stable addition. Proximal humerus was treated with a sling.
--- NOTE | 2025-01-23 11:10 | XRR_ITS ---
PROCEDURE INFORMATION: Exam: XR Pelvis Exam date and time: 01/23/2025 11:09 AM Age: 74 years old Clinical indication: Device placement; Other: RT total hip; Prior surgery; Surgery date: Post-operative (0-2 days); Surgery type: RT hip; Additional info: Post op RT hip TECHNIQUE: Imaging protocol: Radiologic exam of the pelvis. Views: 1 or 2 view. COMPARISON: CT abdomen pelvis w con* [id number] 05/31/2024 9:40 AM FINDINGS: Limitations: Body habitus reduces osseous detail. Left iliac crest is not included on the image. Bones/joints: A right hip prosthesis is intact and normally positioned. No acute fracture or dislocation identified. Soft tissues: Unremarkable. XR/XR pelvis 1-2V* [id number] IMPRESSION: 1. Limited osseous detail to patient body habitus. CT evaluation of the pelvic bones should be considered for a more thorough assessment. 2. Intact appearing right hip prosthesis.
--- NOTE | 2025-01-23 11:35 | ANE.PACU2 ---
Inpatient post-anesthesia follow up: Airway intact: Yes Vital signs: Temperature 98.1 F Pulse Rate 87 Respiratory Rate 18 Blood Pressure 129/75 Pulse Oximetry 95 Oxygen Delivery Me thod Nasal Cannula Oxygen Flow Rate 4.5 Fraction of Inspir ed Oxygen Hydration adequate: Yes Nausea and vomiting: No Pain level: 1 Mental status: Baseline
[2025-01-23] MEDS: ceFAZolin 2,000 mg SDV 2000 MG IVP ×2 (13:00→20:35)
[2025-01-23] MEDS: sodium chlor 0.9% + KCl 40 mEq 40 MEQ/1,000 ML BAG 150 MEQ IV (13:02)
[2025-01-23 14:12] LABS: Hematocrit 36.6 % (36-47); Hemoglobin 11.40 g/dL (11.27-16.99); Mean Corpuscular HGB Conc 31.1 g/dL (30-55); Mean Corpuscular Hemoglobin 32.9 pg (27-33); Mean Corpuscular Volume 105.8 fl (85-98); Nucleated Red Blood Cells % 0 %; Platelet Count 259 10^3/cmm (157-399); Red Blood Count 3.46 10^6/uL (3.85-5.65); White Blood Count 23.21 10^3/uL (3.29-11.43)
--- NOTE | 2025-01-23 18:47 | P.PN_ITS ---
Subjective 2 Subjective: 74-year-old female found to valles ve right femoral neck fracture underwent repair by Dr. Mandujano today. She has had tachycardia and is mildly lethargic. Patient denies being on steroids recently. She does admit to being on diuretics. She states her pain is controlled and all she needs some water. Urine was negative for infection and blood cultures were sent. No obvious infection in the chest abdomen or pelvis. Patient has history of dementia and presented from nursing facility Vitals/I&O/Wt Last Vital Signs Temp 98.4 F 01/23/25 16:45 Pulse 118 H 01/23/25 16:45 Resp 18 01/23/25 18:00 BP 110/72 01/23/25 16:45 Pulse Ox 93 01/23/25 16:45 O2 Del Method Nasal Cannula 01/23/25 16:45 01/23/25 01/23/25 01/23/25 06:59 14:59 22:59 Intake Total 300 / 300 3997.27 / 3997.27 1000 / 4997.27 Output Total 3290 / 3290 300 / 3590 Balance 300 / 300 707.27 / 707.27 700 / 1407.27 Weight last 48 hrs Weight 124.284 kg Weight 145.15 kg Physical Exam 2 Narrative: General well-developed morbidly obese female in no acute cardiopulmonary stress CV regular rate and rhythm Lungs clear to auscultation on anterior exam Abdomen positive bowel tones soft obese nontender Right hip mildly tender there is mild swelling no significant bruising. Right humerus mild to moderately tender overlying the fracture proximal humerus Data 01/23/25 14:06 01/23/25 02:50 Micro: Microbiology 01/23/25 02:50 Blood Culture - Preliminary Blood SPECIMEN COLLECTED 01/23/25 02:27 Blood Culture - Preliminary Blood SPECIMEN COLLECTED A&P Assessment and plan 1. Urinary retention: Continue with Beltrán 2. DM type 2 (diabetes mellitus, type 2): Continue with sliding scale insulin start diabetic diet 3. Hypertension: Currently hypotensive will give stress dose steroids 4. Leukocytosis: Unclear etiology. Patient has lactic acidosis but is not on metformin. She will require additional fluid boluses 5. Dehydration: Fluid boluses for lactic acidosis 6. Humeral fracture: Sling as managed by Dr. Mandujano 7. Lactic acidosis: Additional fluid boluses and stress dose steroids 8. Systemic inflammatory response syndrome (SIRS): Unclear source PDMP PDMP Reviewed: Not Reviewed Attestations 2 Medical Necessity Statement*: Patient remains hospitalized for hypotension, tachycardia and recent hip fracture pending Coding Level of Care Code 39635 Diagnoses Urinary retention R33.9 DM type 2 (diabetes mellitus, type 2) E11.9 Hypertension I10 Leukocytosis D72.829 Dehydration E86.0 Humeral fracture S42.309A Lactic acidosis E87.20 Systemic inflammatory response syndrome (SIRS) R65.10 Time Spent (min) 35
[2025-01-23 19:34] LABS: Hematocrit 32.1 % (36-47); Hemoglobin 10.00 g/dL (11.27-16.99); Mean Corpuscular HGB Conc 31.2 g/dL (30-55); Mean Corpuscular Hemoglobin 32.9 pg (27-33); Mean Corpuscular Volume 105.6 fl (85-98); Nucleated Red Blood Cells % 0 %; Platelet Count 229 10^3/cmm (157-399); Red Blood Count 3.04 10^6/uL (3.85-5.65); White Blood Count 16.23 10^3/uL (3.29-11.43)
[2025-01-23 19:55] LABS: Blood Urea Nitrogen 13 mg/dL (8-23); Calcium 7.6 mg/dL (8.5-10.5); Carbon Dioxide 24 mmol/L (22-29); Chloride 106 mmol/L (98-107); Creatinine Clr Calc Pharmacy 87.0599; Glucose 180 mg/dL (65-115); Magnesium 1.3 mg/dL (1.7-2.3); Osmolality Calculated 299 mOsm/kg (285-295); Sodium 142 mmol/L (136-145)
[2025-01-23 19:57] LABS: Lactate (Lactic Acid level) 2.5 mmol/L (0.5-2.2)
[2025-01-23 20:08] LABS: Anion Gap 15.5 (5-19); Potassium 3.5 mmol/L (3.5-5.1)
[2025-01-23 20:29] LABS: Slide Review Slide Review Perform
[2025-01-23] MEDS: piperacillin-tazobactam 3.375 GM in sodium chloride 0.9% (plus) 50 ML IV (20:34)
[2025-01-23] MEDS: hydrocortisone 100 mg/2 mL SDV 50 MG IVP (20:51)
[2025-01-23] MEDS: magnesium sulfate premix 4 GM/100 ML PREMIX IV (22:18)
[2025-01-23] MEDS: sodium chlor 0.9% + KCl 20 mEq 20 MEQ/1,000 ML BAG 250 MEQ IV (22:22)
[2025-01-24] VITALS (10 sets, daily range): BP systolic 97–121; BP diastolic 59–74; PULSE 78–103; RESP 14–19; TEMP 36.8–38; O2SAT 93–96
[2025-01-24] MEDS: ceFAZolin 2,000 mg SDV 2000 MG IVP (03:14)
[2025-01-24] MEDS: hydrocortisone 100 mg/2 mL SDV 50 MG IVP ×2 (03:14→12:30)
[2025-01-24] MEDS: piperacillin-tazobactam 3.375 GM in sodium chloride 0.9% (plus) 50 ML IV ×3 (03:14→21:07)
[2025-01-24] MEDS: pantoprazole 40 mg SDV IVP ×2 (05:05→15:57)
[2025-01-24 05:07] LABS: Hematocrit 32.4 % (36-47); Hemoglobin 9.80 g/dL (11.27-16.99); Mean Corpuscular HGB Conc 30.2 g/dL (30-55); Mean Corpuscular Hemoglobin 33.2 pg (27-33); Mean Corpuscular Volume 109.8 fl (85-98); Nucleated Red Blood Cells % 0 %; Platelet Count 203 10^3/cmm (157-399); Red Blood Count 2.95 10^6/uL (3.85-5.65); White Blood Count 13.88 10^3/uL (3.29-11.43)
[2025-01-24] MEDS: morphine 4 mg/mL SDV 1 mL 2 MG IVP ×2 (05:07→15:58)
[2025-01-24] MEDS: doxycycline 100 MG in sodium chloride 0.9% (plus) 100 ML IV ×2 (05:07→16:10)
[2025-01-24 05:30] LABS: Alanine Aminotransferase 14 U/L (0-33); Albumin Level 2.9 g/dL (3.5-5.2); Alkaline Phosphatase 64 U/L (35-105); Anion Gap 10.8 (5-19); Aspartate Amino Transferase 16 U/L (0-32); Blood Urea Nitrogen 14 mg/dL (8-23); Calcium 7.5 mg/dL (8.5-10.5); Carbon Dioxide 21 mmol/L (22-29); Chloride 108 mmol/L (98-107); Creatinine Clr Calc Pharmacy 87.0599; Globulin 2.4 g/dL (1.3-4.6); Glucose 221 mg/dL (65-115); Magnesium 2.3 mg/dL (1.7-2.3); Osmolality Calculated 289 mOsm/kg (285-295); Potassium 3.8 mmol/L (3.5-5.1); Sodium 136 mmol/L (136-145); Total Protein 5.3 g/dL (6.6-8.7)
[2025-01-24 05:57] LABS: Estmated Average Glucose 117; Hemoglobin A1C 5.7 % (4.0-6.0)
--- NOTE | 2025-01-24 10:11 | P.PN_ITS ---
Subjective 2 Subjective: Patient resting comfortably in bed Vitals/I&O/Wt Last Vital Signs Temp 98.3 F 01/24/25 07:17 Pulse 87 01/24/25 07:17 Resp 18 01/24/25 07:17 BP 105/59 01/24/25 07:17 Pulse Ox 94 01/24/25 07:17 O2 Del Method Nasal Cannula 01/24/25 07:17 O2 Flow Rate 3 01/24/25 08:00 01/23/25 01/24/25 01/24/25 22:59 06:59 14:59 Intake Total 2390 / 6387.27 1490 / 7877.27 600 / 600 Output Total 300 / 3590 950 / 4540 Balance 2090 / 2797.27 540 / 3337.27 600 / 600 Weight last 48 hrs Weight 274 lb Weight 274 lb Weight 320 lb Physical Exam 2 Narrative: Dressing clean dry and intact Sling in place in right shoulder Data 01/24/25 04:58 01/24/25 04:58 Micro: Microbiology 01/23/25 02:50 Blood Culture - Preliminary Blood NEGATIVE TO DATE 01/23/25 02:27 Blood Culture - Preliminary Blood NEGATIVE TO DATE A&P Assessment and plan 1. Displaced fracture of right femoral neck: Postop day #1 right hip hemiarthroplasty Right arm in sling Eliquis for DVT prophylaxis Up with physical therapy PDMP PDMP Reviewed: Not Reviewed Attestations 2 Medical Necessity Statement*: Per primary service Coding Level of Care Code Acute Code for Chg Fwd Diagnoses Displaced fracture of right femoral neck S72.001A
[2025-01-24 13:41] LABS: Thyroid Stimulating Hormone 0.60 uIU/mL (0.27-4.20)
--- NOTE | 2025-01-24 14:02 | P.PN_ITS ---
Subjective 2 Subjective: Patient resting comfortably in bed. He denies cough dysuria or belly pain. Patient is aware that she is from [facility] but denies memory trouble. 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 She tells me that her next of kin is Dar Ferro and Luis Ferro brothers both of whom she states are in [place] but does not want me to notify them and states that she is not close to them. Patient tells me that she was once but has no children. I see that Luis is listed as next of kin. Patient initially told me that she in the case of active process of dying would want let me go but then she reconsidered and stated that she wanted to be saved so we decided with full code and per her discussion would not want prolonged life support Patient told me that she fell on Saturday but her told her today was Saturday she told me that she fell on Saturday. She denies that it was Saturday a week ago. Vitals/I&O/Wt Last Vital Signs Temp 98.2 F 01/24/25 11:48 Pulse 95 01/24/25 11:48 Resp 19 H 01/24/25 11:48 BP 120/72 01/24/25 11:48 Pulse Ox 96 01/24/25 11:48 O2 Del Method Nasal Cannula 01/24/25 11:48 O2 Flow Rate 3 01/24/25 08:00 01/23/25 01/24/25 01/24/25 22:59 06:59 14:59 Intake Total 2390 / 6387.27 1490 / 7877.27 600 / 600 Output Total 300 / 3590 950 / 4540 Balance 2090 / 2797.27 540 / 3337.27 600 / 600 Weight last 48 hrs Weight 124.284 kg Weight 124.284 kg Weight 145.15 kg Physical Exam 2 Narrative: General well-developed morbidly obese female in no acute cardiopulmonary stress CV regular rate and rhythm Lungs clear to auscultation on anterior exam Abdomen positive bowel tones soft obese nontender Right hip mildly tender there is mild swelling no significant bruising. Right calf with some edema but not overt cellulitis. This is accompanied by 1+ to 2+ edema Right humerus mild to moderately tender overlying the fracture proximal humerus Patient is alert and oriented to [facility] but did not know the date or year she guessed 1981 then said 1991 and when I reported 2024 she jokingly despaired herself. She did not know her date of 1950 and her age 74. Data 01/24/25 04:58 01/24/25 04:58 Micro: Microbiology 01/23/25 02:50 Blood Culture - Preliminary Blood NEGATIVE TO DATE 01/23/25 02:27 Blood Culture - Preliminary Blood NEGATIVE TO DATE A&P Assessment and plan 1. Displaced fracture of right femoral neck: Status post repair. Mild drop in hematocrit. Will continue with anticoagulation 2. Urinary retention: Continue with Beltrán UA negative for infection. Patient had urinary urgency but was unable to void and [facility] staff were unable to place a catheter. CT scan showed large bladder and Beltrán placed returned 800 mL of urine immediately. Urine positive for glucose urea but negative for pyuria leukocyte esterase or nitrates 3. Systemic inflammatory response syndrome (SIRS): Unclear source. Patient with some erythema over the right leg but not overt cellulitis. Will continue current antibiotics until that is clearly resolving. start incentive spirometry. Blood cultures negative at 24 hours 4. DM type 2 (diabetes mellitus, type 2): Continue with sliding scale insulin start diabetic diet 5. Hypertension: Currently hypotensive will give stress dose steroids 6. Leukocytosis: Unclear etiology. Patient has lactic acidosis but is not on metformin. She will require additional fluid boluses 7. Dehydration: Fluid boluses for lactic acidosis 8. Humeral fracture: Sling as managed by Dr. Mandujano 9. Lactic acidosis: Resolved will discontinue steroids 10. Morbid obesity with BMI of 40.0-44.9, adult: Patient was counseled regarding her fall, weakness and morbid obesity and she is interested in following a diabetic weight loss diet no concentrated sweets caloric drinks, desserts and limited calories at 1800 torito. PDMP PDMP Reviewed: Not Reviewed Attestations 2 Medical Necessity Statement*: Patient david in hospital for therapy and anticipate to return [facility] to [facility] facility in 1 to 2 days pending resolution of white count and determination of antibiotic course Coding Level of Care Code 02979 Diagnoses Displaced fracture of right femoral neck S72.001A Urinary retention R33.9 Systemic inflammatory response syndrome (SIRS) R65.10 DM type 2 (diabetes mellitus, type 2) E11.9 Hypertension I10 Leukocytosis D72.829 Dehydration E86.0 Humeral fracture S42.309A Lactic acidosis E87.20 Morbid obesity with BMI of 40.0-44.9, adult E66.01; Z68.41 Time Spent (min) 40
[2025-01-24] MEDS: potassium phosphate (mMol PO4) 15 MMOL in sodium chloride 0.9% (100 ml) 100 ML 47 MMOL IV (16:09)
[2025-01-24] MEDS: APIXABAN 2.5 MG TABLET PO (21:07)
[2025-01-24] MEDS: ondansetron 2 mg/ML SDV 2 mL 4 MG IVP (21:32)
[2025-01-25] VITALS (7 sets, daily range): BP systolic 105–129; BP diastolic 64–75; PULSE 84–93; RESP 17–24; TEMP 36.7–37.3; O2SAT 95–96; BMI 45.3
[2025-01-25 04:13] LABS: Hematocrit 28.8 % (36-47); Hemoglobin 8.70 g/dL (11.27-16.99); Mean Corpuscular HGB Conc 30.2 g/dL (30-55); Mean Corpuscular Hemoglobin 33.0 pg (27-33); Mean Corpuscular Volume 109.1 fl (85-98); Nucleated Red Blood Cells % 0 %; Platelet Count 184 10^3/cmm (157-399); Red Blood Count 2.64 10^6/uL (3.85-5.65); White Blood Count 11.19 10^3/uL (3.29-11.43)
[2025-01-25 04:26] LABS: Alanine Aminotransferase 10 U/L (0-33); Albumin Level 3.0 g/dL (3.5-5.2); Alkaline Phosphatase 62 U/L (35-105); Anion Gap 14.2 (5-19); Aspartate Amino Transferase 14 U/L (0-32); Blood Urea Nitrogen 14 mg/dL (8-23); Calcium 8.1 mg/dL (8.5-10.5); Carbon Dioxide 26 mmol/L (22-29); Chloride 108 mmol/L (98-107); Creatinine Clr Calc Pharmacy 87.0599; Globulin 1.9 g/dL (1.3-4.6); Glucose 180 mg/dL (65-115); Osmolality Calculated 305 mOsm/kg (285-295); Potassium 3.2 mmol/L (3.5-5.1); Sodium 145 mmol/L (136-145); Total Protein 4.9 g/dL (6.6-8.7)
[2025-01-25 04:31] LABS: Magnesium 2.0 mg/dL (1.7-2.3)
[2025-01-25] MEDS: piperacillin-tazobactam 3.375 GM in sodium chloride 0.9% (plus) 50 ML IV ×3 (05:10→19:51)
[2025-01-25] MEDS: doxycycline 100 MG in sodium chloride 0.9% (plus) 100 ML IV ×2 (05:11→16:54)
[2025-01-25] MEDS: pantoprazole 40 mg SDV IVP ×2 (05:11→16:52)
[2025-01-25] MEDS: APIXABAN 2.5 MG TABLET PO ×2 (08:33→21:08)
--- NOTE | 2025-01-25 09:34 | PC.CHAP ---
Pastoral Care Encounter/Spiritual Assessment Type of Contact [] Declined farmworker fruit visit [] Patient/Family/Request visit [] Outpatient visit [] Follow-up visit [] Physician referral [] Code/Alert [x] Routine visit [] Staff referral [] Actively dying [] Patient sleeping [] Family support [] [] Out of room [] Palliative care [] [] Receiving care in room [] Pre-surgical visit [] Trauma [] Long length of stay [] ICU visit [] Other: Relational/Emotional Strength [] Patient feels connected with others/family/visitors/staff [] Distress [] Loneliness/isolation [] Abandonment Spirituality of Patient [x] Person of Neda [] Attends Mandaen of their Neda [x] Believes in Prayer [] Reads Bible or Episcopal materials [] There are Spiritual issues to be addressed Stove Cleaner Interventions [x] Prayer [x] Active listening [] Non-anxious presence [] Spiritual/emotional support [] Crisis/trauma care [] Spiritual counseling [] Bereavement support [] Provided bereavement packet [x] Provided Bible/devotional materials [] Provided toy/stuffed animal, coloring book to patient or family member [] Provided Communion [] Anointing/[place] [] Salvation [x] Completed spiritual assessment [] Other: Impact on Illness or Injury [] Angry [] Fearful [] Anxious [] Often cries [] Exhaustion [] Unable to work [] Unable to attend scientology [] Unable to walk/stand [] Unable to read [] Unable to drive [] Unable to eat/drink [] Unable to sleep [] Unable to be with family [] Patient intubated [] Other: Summary Time spent with patient 5 min
--- NOTE | 2025-01-25 10:19 | PC.SOCIAL ---
IMM Update pg 2 of IMM Updated and reviewed w/ patient. Copy provided and copy dated, initialed and placed in chart.
--- NOTE | 2025-01-25 17:03 | P.PN_ITS ---
Subjective 2 Subjective: No acute overnight events. Medications: Reviewed: Yes Vitals/I&O/Wt Last Vital Signs Temp 98.5 F 01/25/25 15:32 Pulse 86 01/25/25 15:32 Resp 17 01/25/25 15:32 BP 119/69 01/25/25 15:32 Pulse Ox 95 01/25/25 15:32 O2 Del Method Nasal Cannula 01/25/25 15:32 O2 Flow Rate 4.5 01/25/25 04:39 01/25/25 01/25/25 01/25/25 06:59 14:59 22:59 Intake Total 606.667 / 1701.667 340 / 340 50 / 390 Output Total 800 / 1250 300 / 300 200 / 500 Balance -193.333 / 451.667 40 / 40 -150 / -110 Weight last 48 hrs Weight 135.488 kg Weight 124.284 kg Physical Exam 2 Narrative: General: No acute distress, AO x3 HEENT: PERRLA, pupils bilaterally equal and reactive, pallors not present Chest: Normal vesicular breath sounds, no added sounds, equal good air entry bilaterally CVS: S1-S2 regular, no murmurs, no tachycardia, no gallops, no rubs Abdomen: Soft, nontender, no organomegaly, bowel sounds present Neuro: No focal deficits, no facial deformity, AO x3, power 5/5 in all limbs Data 01/25/25 03:09 01/25/25 03:09 A&P Assessment and plan 1. Displaced fracture of right femoral neck: Status post repair. Mild drop in hematocrit. Will continue with anticoagulation 2. Urinary retention: Continue with Beltrán UA negative for infection. Patient had urinary urgency but was unable to void and custodial staff were unable to place a catheter. CT scan showed large bladder and Beltrán placed returned 800 mL of urine immediately. Urine positive for glucose urea but negative for pyuria leukocyte esterase or nitrates 3. Systemic inflammatory response syndrome (SIRS): Unclear source. Patient with some erythema over the right leg but not overt cellulitis. Will continue current antibiotics until that is clearly resolving. start incentive spirometry. Blood cultures negative at 24 hours 4. DM type 2 (diabetes mellitus, type 2): Continue with sliding scale insulin start diabetic diet 5. Hypertension: Currently hypotensive will give stress dose steroids 6. Leukocytosis: Unclear etiology. Patient has lactic acidosis but is not on metformin. She will require additional fluid boluses 7. Dehydration: Fluid boluses for lactic acidosis 8. Humeral fracture: Sling as managed by Dr. Mandujano 9. Lactic acidosis: Resolved will discontinue steroids 10. Morbid obesity with BMI of 40.0-44.9, adult: Patient was counseled regarding her fall, weakness and morbid obesity and she is interested in following a diabetic weight loss diet no concentrated sweets caloric drinks, desserts and limited calories at 1800 torito. Plan: January 25, 2025 Chart reviewed. 74-year-old lady with history of advanced dementia with confusion, [place], presenting to the emergency room because she was more confused than her baseline. CT of the chest abdomen and pelvics were done and it was significant for large bladder Beltrán placed and he drained instantly 800 mL of urine. Patient had leukocytosis at 29,000 along with elevated lactate at 5.8. She received iv Zosyn and vancomycin. She was found to have a right femoral neck fracture for which she underwent hemiarthroplasty on January 23, 2025. She also has a right humerus fracture which is being managed conservatively.Leukocytosis was thought to be related to cellulitis for which she is currently on abx Zosyn and doxycycline. CXR negative. UA negative. Leukocytosis now resolved. PDMP PDMP Reviewed: Not Reviewed Attestations 2 Medical Necessity Statement*: Continue abx, ongoing disposition planning Coding Level of Care Code Acute Code for Chg Fwd Diagnoses Displaced fracture of right femoral neck S72.001A Urinary retention R33.9 Systemic inflammatory response syndrome (SIRS) R65.10 DM type 2 (diabetes mellitus, type 2) E11.9 Hypertension I10 Leukocytosis D72.829 Dehydration E86.0 Humeral fracture S42.309A Lactic acidosis E87.20 Morbid obesity with BMI of 40.0-44.9, adult E66.01; Z68.41
[2025-01-26] VITALS (8 sets, daily range): BP systolic 102–123; BP diastolic 59–73; PULSE 67–82; RESP 16–18; TEMP 36.4–37.2; O2SAT 92–100
[2025-01-26] MEDS: piperacillin-tazobactam 3.375 GM in sodium chloride 0.9% (plus) 50 ML IV (05:16)
[2025-01-26] MEDS: pantoprazole 40 mg SDV IVP (05:18)
[2025-01-26 05:51] LABS: Hematocrit 30.6 % (36-47); Hemoglobin 9.10 g/dL (11.27-16.99); Mean Corpuscular HGB Conc 29.7 g/dL (30-55); Mean Corpuscular Hemoglobin 32.6 pg (27-33); Mean Corpuscular Volume 109.7 fl (85-98); Nucleated Red Blood Cells % 0 %; Platelet Count 201 10^3/cmm (157-399); Red Blood Count 2.79 10^6/uL (3.85-5.65); White Blood Count 9.76 10^3/uL (3.29-11.43)
[2025-01-26 06:19] LABS: Alanine Aminotransferase 10 U/L (0-33); Albumin Level 3.1 g/dL (3.5-5.2); Alkaline Phosphatase 68 U/L (35-105); Blood Urea Nitrogen 17 mg/dL (8-23); Calcium 8.4 mg/dL (8.5-10.5); Carbon Dioxide 23 mmol/L (22-29); Chloride 107 mmol/L (98-107); Creatinine Clr Calc Pharmacy 92.3701; Globulin 2.0 g/dL (1.3-4.6); Glucose 174 mg/dL (65-115); Osmolality Calculated 302 mOsm/kg (285-295); Sodium 143 mmol/L (136-145); Total Protein 5.1 g/dL (6.6-8.7)
[2025-01-26 06:22] LABS: Anion Gap 17.1 (5-19); Aspartate Amino Transferase 24 U/L (0-32); Potassium 4.1 mmol/L (3.5-5.1)
[2025-01-26 07:28] LABS: Slide Review Slide Review Perform
[2025-01-26] MEDS: APIXABAN 2.5 MG TABLET PO (08:04)
[2025-01-26 10:13] LABS: SARS Covid-2 Antigen Negative (Negative)
[2025-01-26] MEDS: FUROsemide 10 mg/mL SDV 4mL 40 MG IVP (12:10)
[2025-01-26] MEDS: morphine 4 mg/mL SDV 1 mL 2 MG IVP (12:14)
--- NOTE | 2025-01-26 13:18 | PC.NURSE ---
This nurse called report to ZELDA Mann at [phone].
--- NOTE | 2025-01-26 14:05 | PM.DCS ---
Discharge Providers Date of Admission: 01/23/25 11:26 Date of Discharge: January 26, 2025 Attending Provider at Admission: Kayode Mandujano DO Attending Provider at Discharge: Bre Sher MD Primary Care Provider: Inderjit Balderas DO Diagnoses at Discharge Discharge Diagnosis 1. Displaced fracture of right femoral neck: 2. Urinary retention: 3. Systemic inflammatory response syndrome (SIRS): 4. DM type 2 (diabetes mellitus, type 2): 5. Hypertension: 6. Leukocytosis: 7. Dehydration: 8. Humeral fracture: 9. Lactic acidosis: 10. Morbid obesity with BMI of 40.0-44.9, adult: Reason for Visit Reason for Visit: fall - R shoulder pain Hospital Course Hospital Course 74-year-old lady with history of advanced dementia with confusion, OR resident, presenting to the emergency room because she was more confused than her baseline. CT of the chest abdomen and pelvics were done and it was significant for large bladder Beltrán placed and he drained instantly 800 mL of urine. Patient had leukocytosis at 29,000 along with elevated lactate at 5.8. She received iv Zosyn and vancomycin. She was found to have a right femoral neck fracture for which she underwent hemiarthroplasty on January 23, 2025. She also has a right humerus fracture which is being managed conservatively.Leukocytosis was thought to be related to cellulitis for which she is currently on abx Zosyn and doxycycline. Transitioned to oral augmentin and doxycycline at discharge. LE swelling noted for which lasix has been increased to 40mg BID for 10 days, then reduce back to her usual dose of 40mg daily. CXR negative. UA negative. Leukocytosis now resolved. Physical Exam Narrative: General: No acute distress, AO x2, at baseline per report HEENT: PERRLA, pupils bilaterally equal and reactive, pallors not present Chest: Normal vesicular breath sounds, no added sounds, equal good air entry bilaterally CVS: S1-S2 regular, no murmurs, no tachycardia, no gallops, no rubs Abdomen: Soft, nontender, no organomegaly, bowel sounds present Neuro: No focal deficits, no facial deformity, AO x3, power 5/5 in all limbs Extremities: B/L LE edema Discharge Data Studies Completed and Pending Completed Studies During Hospitalization Category Date Time Status CT cervical spin wo con* [id number] Stat Cat Scan 01/23/25 03:[address] chest abdomen pelvis [CT chest abdpel w/*[id number] Cat Scan 01/23/25 04:17 Completed ] Stat CT head wo con* [id number] Stat Cat Scan 01/23/25 02:59 Completed XR chest 1V portable [id number] Stat Exams 01/23/25 01:52 Completed XR pelvis 1-2V* [id number] Stat Exams 01/23/25 11:10 Completed XR shoulder RT min 2V* [id number] Stat Exams 01/23/25 02:59 Completed Pending at discharge Category Date Time Status Blood Culture Stat Lab 01/23/25 02:50 Results Radiology Impressions Chest X-Ray 01/23/25 01:52 IMPRESSION: No acute findings. ADDENDUM: 01/23/25 [id number] Acute or subacute displaced comminuted fracture of the right humerus head and neck. Head CT 01/23/25 02:59 IMPRESSION: 1. No acute intracranial findings. 2. Chronic microvascular ischemic changes in bilateral periventricular white matter. Shoulder X-Ray 01/23/25 02:59 IMPRESSION: Acute or subacute displaced fracture of the right humerus head and neck. Cervical Spine CT 01/23/25 03:12 IMPRESSION: No acute cervical spine findings. Chest/Abdomen/Pelvis CT 01/23/25 04:17 IMPRESSION: 1. Acute or subacute displaced comminuted fracture of the right humerus head and neck. 2. No other acute findings. IMPRESSION: 1. Acute or subacute displaced subcapital fracture of the right femoral neck. 2. Otherwise, no acute findings. Pelvis X-Ray 01/23/25 11:10 IMPRESSION: 1. Limited osseous detail to patient body habitus. CT evaluation of the pelvic bones should be considered for a more thorough assessment. 2. Intact appearing right hip prosthesis. Laboratory Results WBC 9.76 10^3/uL (3.29-11.43) 01/26/25 05:42 RBC 2.79 10^6/uL (3.85-5.65) L 01/26/25 05:42 Hgb 9.10 g/dL (11.27-16.99) L 01/26/25 05:42 Hct 30.6 % (36-47) L 01/26/25 05:42 MCV 109.7 fl (85-98) H 01/26/25 05:42 MCH 32.6 pg (27-33) 01/26/25 05:42 MCHC 29.7 g/dL (30-55) L 01/26/25 05:42 RDW 13.7 % (12.1-15.1) 01/26/25 05:42 Plt Count 201 10^3/cmm (157-399) 01/26/25 05:42 MPV 9.4 fL (7.4-10.4) 01/26/25 05:42 Neut % (Auto) 78.6 % 01/26/25 05:42 Lymph % (Auto) 10.5 % 01/26/25 05:42 [place] % (Auto) 8.3 % 01/26/25 05:42 Eos % (Auto) 1.5 % 01/26/25 05:42 Baso % (Auto) 0.3 % 01/26/25 05:42 Neut # (Auto) 7.67 10^3/uL (1.8-7.7) 01/26/25 05:42 Lymph # (Auto) 1.0 10^3/uL (0.8-4.8) 01/26/25 05:42 [place] # (Auto) 0.8 10^3/uL (0.2-0.9) 01/26/25 05:42 Eos # (Auto) 0.2 10^3/uL (0.0-0.8) 01/26/25 05:42 Baso # (Auto) 0.0 10^3/uL (0.0-0.1) 01/26/25 05:42 Nucleated RBC % (auto) 0 % 01/26/25 05:42 Nucleated RBCs # 0.0 /100WBC 01/26/25 05:42 Sodium 143 mmol/L (136-145) 01/26/25 05:42 Potassium 4.1 mmol/L (3.5-5.1) 01/26/25 05:42 Chloride 107 mmol/L (98-107) 01/26/25 05:42 Carbon Dioxide 23 mmol/L (22-29) 01/26/25 05:42 Anion Gap 17.1 (5-19) 01/26/25 05:42 BUN 17 mg/dL (8-23) 01/26/25 05:42 Creatinine 0.5 mg/dL (0.5-0.9) 01/26/25 05:42 GFR Calculation Not Reportable 01/26/25 05:42 Glucose 174 mg/dL (65-115) H 01/26/25 05:42 POC Glucose 230 mg/dL (70-110) H 01/26/25 11:10 Estimat Average Glucose 117 01/24/25 04:58 Hemoglobin A1c 5.7 % (4.0-6.0) 01/24/25 04:58 Calculated Osmolality 302 mOsm/kg (285-295) H 01/26/25 05:42 Lactic Acid 4.7 mmol/L (0.5-2.2) H* 01/23/25 02:50 Lactic Acid (Sepsis) 5.8 mmol/L (0.5-2.2) H* 01/23/25 05:37 Lactate 2.5 mmol/L (0.5-2.2) H 01/23/25 19:21 Calcium 8.4 mg/dL (8.5-10.5) L 01/26/25 05:42 Phosphorus 1.8 mg/dL (2.5-4.5) L 01/25/25 03:09 Magnesium 2.0 mg/dL (1.7-2.3) 01/25/25 03:09 Total Bilirubin 0.8 mg/dL (0.15-1.2) 01/26/25 05:42 AST 24 U/L (0-32) 01/26/25 05:42 ALT 10 U/L (0-33) 01/26/25 05:42 Alkaline Phosphatase 68 U/L (35-105) 01/26/25 05:42 C-Reactive Protein 28.2 mg/L (0.0-4.9) H 01/23/25 02:50 Total Protein 5.1 g/dL (6.6-8.7) L 01/26/25 05:42 Albumin 3.1 g/dL (3.5-5.2) L 01/26/25 05:42 Globulin 2.0 g/dL (1.3-4.6) 01/26/25 05:42 Folate 10.4 ng/mL (4.8-37.3) 01/24/25 16:18 TSH 0.60 uIU/mL (0.27-4.20) 01/24/25 04:58 Urine Color Yellow (Yellow) 01/23/25 07:04 Urine Appearance Clear (CLEAR) 01/23/25 07:04 Urine pH 7 (5-7) 01/23/25 07:04 Ur Specific [place] 1.005 (1.005-1.030) 01/23/25 07:04 Urine Protein Neg (Negative) 01/23/25 07:04 Urine Glucose (UA) 4+ (Normal) H 01/23/25 07:04 Urine Ketones 1+ (Negative) H 01/23/25 07:04 Urine Blood Neg (Negative) 01/23/25 07:04 Urine Nitrate Negative (Negative) 01/23/25 07:04 Urine Bilirubin Neg (Negative) 01/23/25 07:04 Urine Urobilinogen Neg mg/dL (Negative) 01/23/25 07:04 Ur Leukocyte Esterase Negative (Negative) 01/23/25 07:04 Urine RBC 0-4 /hpf (0-2) H 01/23/25 07:04 Urine WBC 0-4 /hpf (0-5) H 01/23/25 07:04 Ur Squamous Epith Cells 0-4 /hpf (0-5) H 01/23/25 07:04 Amorphous Sediment Not Reportable 01/23/25 07:04 Urine Bacteria Trace /hpf (NONE) 01/23/25 07:04 SARS-CoV-2 Ag (Rapid) Negative (Negative) 01/26/25 09:08 Vitals Last Vital Signs Temp 97.6 F 01/26/25 11:36 Pulse 81 01/26/25 11:36 Resp 18 01/26/25 12:14 BP 111/73 01/26/25 11:36 Pulse Ox 92 01/26/25 11:36 O2 Del Method Nasal Cannula 01/26/25 11:36 O2 Flow Rate 3 01/26/25 08:16 Discharge Plan Discharge Patient Disposition: Xfer SNF Condition: Stable Prescriptions: New doxycycline monohydrate 100 mg Tablet 100 mg PO BID 7 Days Qty: 14 0RF Eliquis 2.5 mg Tablet 2.5 mg PO BID@0900,2100 30 Days Qty: 30 0RF amoxicillin-pot clavulanate 875-125 mg tablet 1 tab PO BID 7 Days Qty: 14 0RF Continued chlorthalidone 25 mg tablet 25 mg PO DAILY magnesium hydroxide [Milk of Magnesia] 400 mg/5 mL suspension 30 ml PO DAILY PRN (Reason: Constipation) pantoprazole 40 mg tablet,delayed release (DR/EC) 40 mg PO DAILY prednisone 10 mg tablet 10 mg PO DAILY Qty: 60 2RF levothyroxine 25 mcg tablet 25 mcg PO DAILY potassium chloride 20 mEq tablet extended release 20 meq PO BID Qty: 10 0RF ondansetron HCl 4 mg tablet 4 mg PO Q4H PRN (Reason: Nausea) loperamide [Imodium A-D] 2 mg Tablet 2 mg PO Q4H PRN (Reason: Diarrhea) Rx Instructions: administer after each loose stool until symptoms controlled; do not exceed 8 mg per 24 hrs citalopram 20 mg tablet 20 mg PO DAILY bisacodyl [Dulcolax (bisacodyl)] 10 mg Suppository 10 mg [place] DAILY PRN (Reason: Constipation) mirtazapine 15 mg tablet 15 mg PO BEDTIME melatonin 1 mg Tablet 1 mg PO BEDTIME acetaminophen 500 mg capsule 500 mg PO Q6H PRN (Reason: pain) Qty: 30 0RF Fleet Enema 19-7 gram/118 mL Enema 118 ml [place] DAILY PRN (Reason: Constipation) Changed furosemide [Lasix] 40 mg tablet 40 mg PO BIDWM 10 Days Qty: 10 0RF Rx Instructions: take 40mg BID for 10 days, then reduce dose to once daily Discharge Order = DC NOW: Discharge Order (Routine); Ordered 01/26/25 Ordered By: Bre Sher Referrals: [facility] [Outside] Kayode Mandujano DO [Physician, Orthopedics] - 02/09/25 2:15 pm Referral Note: Patient Instructions: Doxycycline (By mouth), Amoxicillin/Clavulanate Potassium (By mouth), Apixaban (By mouth), Acute Wound Care (DC), Opioid Safety, Post Anesthesia Care, Patient Portal & [place] Instructions Activity Restrictions/Additional Instructions: You are being discharged from the hospital today during which time you have been under the care of Dr. Mandujano. You had a right femoral neck fracture. You were treated for this injury with right hip hemiarthroplasty. You may resume you normal diet (including any special diets as directed by your primary doctor) as well as your home medications. You should follow up with you primary doctor if you have any questions regarding medication you took prior to your stay in the hospital. You may take your pain medication as prescribed. After the first few days, take your pain medication as needed. Do not drive or drink alcohol while taking your pain medication. Your injury may increase your risk of developing a blood clot,or DVT, in your arm or leg. This could potentially dislodge and travel to your lungs and become a life threatening condition called apulmonary embolus,or PE. You have been prescribed Eliquis to be taken to prevent this. Frequent movement of the legs will also help prevent this from occurring. If you develop any new or worsening cough, chestpain, bloody sputum or shortness of breath, call 911 or go to the EmergencyRoom. Always keep your surgical incision/dressing clean and dry. If you experience increasing pain at your incision site, redness, swelling, increasing discharge, foul odors, or fevers (greater than 100.4), night sweats or chills you should call the office at the above number. If you feel this is an emergency you should be evaluated in the Emergency Department of a nearby hospital. Orthopedic Patient Instructions Summary: Weight Bearing: As tolerated for the right leg nonweightbearing for the right upper extremity Activity: As tolerated. Diet: Regular. Wound Care: Keep dressing clean and dry. Anticoagulation: Eliquis Pain Medication: Take only as needed. Ice, rest and elevation will be of great benefit. Please plan to follow-up [facility] Dr Mandujano in 2 weeks. You will need to call the clinic [phone] to schedule this visit. Thank you far allowing me to participate in your care. Do not hesitate to call the office with any questions or concerns. Discharge Attestations Time Spent in Discharge Care*: greater than 30 min Status at Discharge: Cognitive status at discharge: cognitively intact, Behavioral status at discharge: cooperative, Quality Metrics Clinical Quality Measures [ No reported AMI, CVA or VTE this stay] Coding Level of Care Code Acute Code for Chg Fwd Diagnoses Displaced fracture of right femoral neck S72.001A Urinary retention R33.9 Systemic inflammatory response syndrome (SIRS) R65.10 DM type 2 (diabetes mellitus, type 2) E11.9 Hypertension I10 Leukocytosis D72.829 Dehydration E86.0 Humeral fracture S42.309A Lactic acidosis E87.20 Morbid obesity with BMI of 40.0-44.9, adult E66.01; Z68.41
== END 2025-01-26 14:39 | disposition skilled nursing facility (03) | DRG 522 ==
LOC: ER 03:58 → ER IP 07:37 → OR 08:25 → MEDSURG 11:27
PROVIDERS: Internal Medicine; Admitting Provider Orthopaedic Surgery; Emergency Provider Emergency Medicine; PCP Internal Medicine; Visit Provider Student in an Organized Health Care Education/Training Program
PROC: 0SRR0JZ Replacement of Right Hip Joint, Femoral Surface with Synthetic Substitute, Open Approach (ICD-10-PCS; principal; 2025-01-23 09:20)
DX: S72.001A Fracture of unspecified part of neck of right femur, initial encounter for closed fracture (principal); S42.301A Unspecified fracture of shaft of humerus, right arm, initial encounter for closed fracture; R65.10 Systemic inflammatory response syndrome (SIRS) of non-infectious origin without acute organ dysfunction; E87.20 Acidosis, unspecified; Z68.42 Body mass index [BMI] 45.0-49.9, adult; W19.XXXA Unspecified fall, initial encounter; R33.9 Retention of urine, unspecified; I10 Essential (primary) hypertension; E86.0 Dehydration; E66.01 Morbid (severe) obesity due to excess calories; F03.90 Unspecified dementia, unspecified severity, without behavioral disturbance, psychotic disturbance, mood disturbance, and anxiety; E03.9 Hypothyroidism, unspecified; E11.649 Type 2 diabetes mellitus with hypoglycemia without coma
CPT/HCPCS: 36415; 36416; 70450; 71045; 71260; 72125; 72170; 73030; 74177; 80048; 80053; 81001; 81003; 82746; 82962; 83036; 83605; 83735; 84100; 84443; 85025; 86140; 87040; 87426; 96365; 96367; 96372; 96375; 97161; 97167; 97530; 99285; C1776; J0690; J1720; J1815; J1938; J2270; J2405; J2470; J2543; J2704; J3010; J3373; J3475; J3480; J3490; J7030; J9999

== ENCOUNTER 2025-01-30 21:47 | Emergency (ER) | payer MEDICARE, MEDICAID, SELFPAY ==
--- NOTE | 2025-01-30 21:36 | XRR_ITS ---
PROCEDURE INFORMATION: Exam: XR Right Hip Exam date and time: 01/30/2025 9:48 PM Age: 74 years old Clinical indication: Injury or trauma; Blunt trauma (contusions or hematomas); Right; Prior surgery; Surgery date: <1 month; Surgery type: RT myesha 01/23/2025; [facility]. C/O RT hip pain. TECHNIQUE: Imaging protocol: Radiologic exam of the right hip. Views: 1 view hip with pelvis when performed. COMPARISON: CR (PELVIS, ) 01/23/2025 11:09 AM FINDINGS: Bones/joints: Right hip arthroplasty. There is a 2.9 mm lucency seen on the AP view of the right hip between the medial aspect of the proximal femoral prosthesis and proximal femur medially. This should be correlated clinically. Left hip unremarkable. Demineralization consistent with the patient's age. Soft tissues: Skin clips lateral to the right iliac crest. XR/XR hip RT 2-3V wo/w pel* [id number] IMPRESSION: Right hip arthroplasty. 2.9 mm lucency seen between medial aspect of the proximal femoral component in the adjacent femur. This should be correlated clinically. Demineralization. No definite acute bony abnormality seen in the left hip or pelvis.
[2025-01-30 21:43] VITALS: BP 148/66; PULSE 65; RESP 16; TEMP 37; O2SAT 92; BMI 43.3
[2025-01-30 21:48] VITALS: BP 148/66; PULSE 65; RESP 16; TEMP 37; O2SAT 92
--- OUTSIDE RECORDS SUMMARY | 2025-01-30 21:50 | XMS_ITS | Clinical Summary ---
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
--- OUTSIDE RECORDS SUMMARY | 2025-01-30 21:50 | XMS_ITS | Data Portability ---
Author Organization QUIANA Luis Garcia [facility] Address [address] [address] Assessment No assessment recorded. Plan of Treatment Reminders Order Date Submit Date Provider Last Modified By Organization Details Last Modified Time Details Appointments None record ed. Lab None record ed. Referral None record ed. Procedures None record ed. Surgeries None record ed. Imaging None record ed. Medication Orders None record ed. Patient TargetsNo targets recorded. Patient Instructions Encounter Date Encounter Id Patient Instructions Last Modified By Organization Details Last Modified Time 11/09/2024 [id number] Edema improved. Mood good, no complaints. [email or web address] Not available 11/09/2024 14:48:28 11/23/2024 [id number] Following with hematology, on prednisone. Doing well. Mood good. [email or web address] Not available 11/23/2024 14:46:10 12/03/2024 [id number] 3+ weeping edema to bilateral lower legs. Will schedule lasix 40 in addition to her hctz. Not available 12/03/2024 12:36:03 12/17/2024 [id number] edema improving, mood good. [email or web address] Not available 12/17/2024 13:36:35 Reason for Referral None Reported. Results Created Date Observation Date Name Description Value Unit Range Abnormal Flag Note LastModifiedBy Organization Detail LastModifiedTime Result Notes None recorded. Problems Name Problem SNOMED Code Status Onset Date Resolution Date Notes Provider Name and Address Organization Details Recorded Time Abdomina l hysterec shon Completed 201802/11/2019 Hysterec shon; Abdomina l - Status is Inactive ; 02/12/20 10:36AM by Antolin Hernandez CMT, Annotati on/Adden dum; Promoted ; acuity set as *; Not Available [facility] 03:14:42 Hypothyr oidism 60672371 Active 2022 ANTOLIN HERNANDEZ [facility] 5 11:57:53 Anxiety 61553719 Active 2022 ANTOLIN HERNANDEZ [facility] 5 11:57:42 Dementia 19465257 Active 2023 ANTOLIN HERNANDEZ [facility] 5 11:57:45 [facility] [place] 24635983 Active 2023 ANTOLIN DAVID [facility] 5 11:57:50 Depressi ve disorder 23710078 Active 2023 ANTOLIN DAVID [facility] 5 11:57:48 Anemia 750673033 Active 2024 ANTOLIN DAVID [facility] 5 11:59:08 Bilatera l lower limb edema 318164083 Active 2024 FELIBERTO WALLACE [facility] 5 12:32:02 Cellulit is of right lower limb 20747967273 492937 Active 2024 FELIBERTO WALLACE [facility] 5 11:52:24 Autoimmu ne hemolyti c anemia 452155525 Active 2024 ANTOLIN DAVID [facility] 5 11:39:38 Open fracture of upper end of humerus 15842108 Active 2024 IZABEL PENA [facility] 5 11:36:37 Closed fracture of hip 834289647 Active 2024 [facility] 11:42:31 Chronic anemia 722245773 Active 2024 [facility] 11:43:53 Type 2 diabetes mellitus 44228410 [facility] 20[facility] 11:44:32 Acute urinary tract infectio n 820791921 Active 2024 [facility] 11:44:45 Acute retentio n of urine 171148574 Active 2024 [facility] 11:45:36 Cellulit is of lower leg 595249116 Active 2024 [facility] 11:46:53 Problem Notes None recorded. Procedures Surgical History Date Name Laterality Status Provider Name and Address Organization Details Recorded Time 10/11/2024 CT of head completed ANTOLIN HERNANDEZ [facility] 10/13/2024 00:03:28 Imaging Results None recorded. Procedure Notes None recorded. Medical Equipment None Reported. Medications Name Sig Start Date Stop Date Status Note LastModified by Organization Details LastModified Time citalopra m 10 mg tablet active Not Available Not Available Not Available ondansetr on HCl 4 mg tablet active Not Available Not Available No t Available levothyro xine 25 mcg tablet TAKE 1 TABLET BY MOUTH EVERY DAY active Not Available Not Available No t Available citalopra m 20 mg tablet active Not Available Not Available Not Available potassium chloride ER 20 mEq tablet,ex tended release(p art/cryst ) active Not Available Not Available Not Available amlodipin e 10 mg tablet TAKE 1 TABLET BY MOUTH EVERY DAY 04/25 completed Not Available Not Available Not Available cephalexi n 500 mg capsule TAKE 1 CAPSULE BY MOUTH TWICE DAILY 12/25 completed Not Available Not Available Not Available promethaz ine 25 mg tablet TAKE 1/2 TABLET BY MOUTH 3 TIMES DAILY active Not Available Not Available No t Available mirtazapi ne 15 mg tablet active Not Available Not Available Not Available nystatin 100,000 unit/gram topical powder active Not Available Not Available Not Available ondansetr on 4 mg disintegr ating tablet TAKE 1 TABLET BY MOUTH THREE TIMES DAILY NEEDED FOR NAUSEA AND VOMITING active Not Available Not Available No t Available hydroxyzi ne pamoate 25 mg capsule TAKE 1 CAPSULE BY MOUTH EVERY 6 HOURS NEEDED FOR ANXIETY active Not Available Not Available No t Available escitalop lizzy 10 mg tablet TAKE 1 TABLET BY MOUTH EVERY DAY active Not Available Not Available No t Available mirtazapi ne 7.5 mg tablet active Not Available Not Available Not Available [facility] Levothyro xine Sodium daily 01/08 completed Recorded 09/29/19 22 1:04PM by BITA Del Castillo, Office Visit; Refill Quantity : 90; Tablet; Not Available Not Available Not Available escitalop lizzy oxalate daily 01/08 completed Recorded 09/29/19 22 1:04PM by BITA Del Castillo, Office Visit; Refill Quantity : 90; Tablet; Not Available Not Available Not Available Januvia 100 mg tablet active Not Available Not Available Not Available amlodipin e besylate (bulk) daily 01/08 completed 69164; Recorded 04/26/19 23 8:20AM by Daisy Trent (Authori karand through Jignesh Mkcnight MD), Refill Request; Refill Quantity : 90; Tablet; Not Available Not Available Not Available potassium chloride ER 20 mEq tablet,ex tended release TAKE 1 TABLET BY MOUTH TWICE A DAY active Not Available Not Available No t Available Paxlovid 150 mg-100 mg tablets in a dose pack (Moderate Renal Dose) active Not Available Not Available Not Available Vitals Date Recorded Heart rate Respiratory rate Body temperature Oxygen saturation Oxygen saturation in Arterial blood by Pulse oximetry Systolic And Diastolic Provider Name and Address Organization Details Last Updated DateTime 5 75 /min 20 /min 98.5 [degF] 95 % 95 % 140/68 mm[Hg] FELIBERTO WALLACE [facility] 5 14:43:38 Date Recorded Heart rate Respiratory rate Body temperature Oxygen saturation Oxygen saturation in Arterial blood by Pulse oximetry Systolic And Diastolic Provider Name and Address Organization Details Last Updated DateTime 5 74 /min 18 /min 97.6 [degF] 98 % 98 % 136/66 mm[Hg] FELIBERTO WALLACE [facility] 5 14:43:48 Date Recorded Heart rate Respiratory rate Body temperature Oxygen saturation Oxygen saturation in Arterial blood by Pulse oximetry Systolic And Diastolic Provider Name and Address Organization Details Last Updated DateTime 5 66 /min 17 /min 98.3 [degF] 95 % 95 % 140/75 mm[Hg] FELIBERTO WALLACE [facility] 5 12:27:15 Date Recorded Heart rate Respiratory rate Body temperature Oxygen saturation Oxygen saturation in Arterial blood by Pulse oximetry Systolic And Diastolic Provider Name and Address Organization Details Last Updated DateTime 5 70 /min 20 /min 97.8 [degF] 96 % 96 % 136/71 mm[Hg] FELIBERTO WALLACE [facility] 5 13:34:45 Date Recorded Body weight Oxygen saturation Oxygen saturation in Arterial blood by Pulse oximetry Heart rate Respiratory rate Body temperature Systolic And Diastolic Provider Name and Address Organization Details Last Updated DateTime 5 297745. 31 g 98 % 98 % 79 /min 20 /min 97.4 [degF] 132/64 mm[Hg] IZABEL PENA [facility] 5 11:31:15 Social History Question Answer Notes LastModified by Organizat ion Details LastModified Time Tobacco Smoking Status Unknown If Ever Smoked FELIBERTO WALLACE [facility] 10/09/2022 13:35:19 Are You Blind Or Do You Have Difficulty Seeing? No Information not available 10/09/2022 Are You Deaf Or Do You Have Serious Difficulty Hearing? No [email or web address] Information not available 10/09/2022 Do You Have Difficulty Walking Or Climbing Stairs? Yes [email or web address] Information not available 10/09/2022 Sex: Unknown Functional Status Question Answer Note LastModified by Organizat ion Details LastModified Time Are you able to walk independently without assistance or assistive devices? YESASSIST [email or web address] Information not available 10/09/2022 Do you have difficulty doing errands alone? Yes Information not available 10/09/2022 Are you able to care for yourself independently? No [email or web address] Information not available 10/09/2022 Do you have difficulty dressing, bathing, grooming, or toileting? Yes [email or web address] Information not available 10/09/2022 Mental Status Question Answer Note LastModified by Organization D etails LastModified Time Do you have difficulty concentrating, remembering or making decisions? Yes [email or web address] Information no t available 10/09/2022 Family History Relationship Description Onset Age of this Age Resolved Age Notes LastModified by Organization Details LastModified Time Father Cerebrovascu lar accident age 74 [email or web address] Not available 00:02:07 Father Type 2 diabetes mellitus [email or web address] Not available 10/13 00:02:27 Mother Essential hypertension Not available 00:02:50 Medical History No medical history recorded. Gynecological HistoryNo gynecological history recorded. Obstetrics History GPAL:G 0 P 0 0 0 0 Immunizations Vaccine Type Date Status Note Provider Nam e and Address Organization Details Recorded Time COVID-19, mRNA, LNP-S, PF, 100 mcg/0.5mL dose or 50 mcg/0.25mL dose 06/02/2021 completed Not Available [facility] 3 02:39:42 COVID-19, mRNA, LNP-S, PF, 100 mcg/0.5mL dose or 50 mcg/0.25mL dose 06/30/2021 completed Not Available [facility] 5 11:24:22 COVID-19, mRNA, LNP-S, bivalent, PF, 50 mcg/0.5 mL or 25mcg/0.25 mL dose 09/18/2022 completed Not Available [facility] 11:24:22 Past Encounters Encounter ID Performer Location Encounter Start Date Encounter Closed Date Diagnosis/Indication Diagnosis SNOMED-CT Code Diagnosis ICD10 Code Diagnosis IMO Codes Diagnosis Note [id number] Inderjit DO Sherrie [facility] ([facility]) [address] [phone] 07/03/2022 13:30:56 07/09/2022 18:20:25 Hypokalemia 34110372 E87.6 Dementia 11721715 F03.90 [id number] Inderjit Balderas DO [facility] ([facility]) [address] [place] [address] 5 09/14/2022 16:19:01 12/12/2022 10:03:56 [id number] Inderjit Balderas DO [facility]) [address] [place], [place] [address] 10/09/2022 08:18:11 10/15/2022 17:43:23 Dementia 12718583 F03.90 Type 2 mandeep betes mellitus 35312891 E11.9 Hypothyroidism 89072179 E03.9 Anxiety 96288848 F41.9 [id number] Inderjit Balderas DO [facility] ([facility]) [address] [place] [address] 5 10/09/2022 15:12:50 10/23/2022 08:41:45 [id number] Inderjit Balderas DO [facility]) [address] [place], [place] [address] 11/06/2022 08:11:44 11/22/2022 10:36:33 Type 2 diabetes mellitus 96984287 E11.9 Anxiety state 225470130 F41.9 Hypothyroidism 59173241 E03.9 Dementia 87033758 F03.90 [id number] Inderjit Balderas DO [facility]) [address] [place], [place] [address] 12/04/2022 09:06:16 12/13/2022 06:52:14 Dementia 92011141 F03.90 Anxiety 27152796 F41.9 Hypothyroidism 37206533 E03.9 [id number] Inderjit Balderas DO [facility] ([facility]) [address] [place], [place] [address] 01/08/2023 09:01:11 01/16/2023 14:41:47 Type 2 diabetes mellitus 79586222 E11.9 Anxiety 05134436 F41.9 Hypothyroidism 43601452 E03.9 [id number] Inderjit Balderas [facility] ([facility]) [address] [place] [address] 5 02/12/2023 13:37:48 02/20/2023 12:38:43 Anxiety state 815545191 F41.9 Type 2 mandeep betes mellitus 33764563 E11.9 Dementia 04962365 F03.90 [id number] Inderjit Balderas [facility] ([facility]) [address] [place] [address] 5 03/14/2023 08:21:32 03/19/2023 12:39:01 Anxiety state 266291314 F41.9 Dementia 81353647 F03.90 Hypothyroidism 52273676 E03.9 [id number] Inderjit Balderas [facility] ([facility]) [address] [place] [address] 5 04/04/2023 09:00:09 04/15/2023 19:06:32 Type 2 diabetes mellitus 85262000 E11.9 Dementia 05491709 F03.A0 [id number] Inderjit Balderas [facility] ([facility]) [address] [place] [address] 5 04/25/2023 08:19:25 04/29/2023 11:57:06 Hypothyroidism 55726091 E03.9 Type 2 mandeep betes mellitus 65986247 E11.9 Dementia 28373262 F03.A0 Anxiety 70404334 F41.9 Essential hypertension 08110711 I10 [id number] Inderjit Balderas [facility] ([facility]) [address] [place] [address] 5 05/28/2023 08:02:45 06/03/2023 12:38:34 Anxiety state 238471180 F41.9 Dementia 61453396 F03.A0 Essential hypertension 61030882 I10 [id number] Inderjit Balderas [facility] ([facility]) [address] [place] [address] 5 07/11/2023 08:18:18 07/16/2023 11:12:39 Type 2 diabetes mellitus 73801404 E11.9 Hypothyroidism 54512741 E03.9 [id number] Inderjit BalderasDO [facility]) [address] [place] [address] 5 08/13/2023 08:12:12 08/15/2023 16:12:45 Anxiety state 981476733 F41.9 Type 2 mandeep betes mellitus 16347115 E11.9 Dementia 64092096 F03.A0 [id number] Inderjit Balderas DO [facility]) [address] [place] [address] 5 09/10/2023 13:40:25 09/14/2023 22:12:59 Type 2 diabetes mellitus 95804125 E11.9 Dementia 00860154 F03.A0 [id number] Inderjit Balderas DO [facility]) [address] [place] [address] 5 09/26/2023 08:17:12 09/30/2023 14:46:24 Anxiety state 029452752 F41.9 Type 2 mandeep betes mellitus 84878526 E11.9 Dementia 46085241 F03.A0 Cough 50608966 R05.9 [id number] Inderjit Balderas DO [facility]) [address] [place] [address] 5 10/29/2023 08:25:43 10/29/2023 16:55:40 Type 2 diabetes mellitus 46443666 E11.9 Anxiety 19714094 F41.9 Mass of tongue 952008867 R22.0 [id number] Inderjit Balderas DO [facility] ([facility]) [address] [place] [address] 5 11/19/2023 08:03:51 11/19/2023 16:07:05 Type 2 diabetes mellitus 95697245 E11.9 Dementia 41173588 F03.A0 Anxiety 95483308 F41.9 [id number] Inderjit Balderas [facility] ([facility]) [address] [place] [address] 5 12/26/2023 10:52:28 12/26/2023 15:51:11 Dementia 63081036 F03.A0 Depressive disorder 3548 9007 F32.9 [id number] Inderjit Balderas DO [facility] ([facility]) [address] [place], [place] [address] 01/21/2024 08:04:50 01/21/2024 16:50:52 Depressive disorder 74545479 F32.9 Anxiety 65749665 F41.9 Dementia 36536498 F03.A0 Essential hypertension 21049320 I10 [id number] Inderjit Balderas [facility] ([facility]) [address] [place] [address] 5 02/20/2024 08:49:51 02/20/2024 16:30:57 Depressive disorder 96461147 F32.9 Anxiety 64116205 F41.9 [id number] Inderjit Balderas [facility]) [address] [place] [address] 5 03/31/2024 08:31:34 04/02/2024 11:26:55 Depressive disorder 33051037 F32.9 Hypothyroidism 17605179 E03.9 [id number] Inderjit Balderas [facility] ([facility]) [address] [place] [address] 5 04/30/2024 08:05:59 05/07/2024 09:39:03 Anxiety state 128581428 F41.9 Type 2 mandeep betes mellitus 79304867 E11.9 Dementia 29490746 F03.A0 Essential hypertension 79553033 I10 [id number] Inderjit Balderas [facility] ([facility]) [address] [place] [address] 5 06/08/2024 08:22:49 06/09/2024 12:44:23 Hospital inpatient stay within past 30 days 2341580392 106 Z76.89 Hemolytic anemia 3988117 9 D59.4 Dementia 72254142 F03.A0 Depressive disorder 3548 9007 F32.9 Essential hypertension 08262216 I10 [id number] Inderjit Balderas [facility] ([facility]) [address] [place] [address] 5 06/18/2024 08:42:46 06/23/2024 23:21:59 Anemia 658552773 D64.9 Dementia 85583274 F03.A0 [id number] Inderjit Balderas DO [facility] ([facility]) [address] [place], [place] [address] 08/20/2024 12:05:50 08/26/2024 07:43:50 Depressive disorder 26410931 F32.9 Anxiety 12646983 F41.9 Dementia 65799247 F03.A0 Anemia 270348648 D64.9 [id number] Inderjit Balderas [facility] ([facility]) [address] [place], [place] [address] 09/17/2024 08:44:04 09/23/2024 09:17:44 Bilateral lower limb edema 635601777 R60.0 2870728 Dementia 50296085 F03.A0 Anxiety 76962119 F41.9 [id number] Inderjit Balderas [facility] ([facility]) [address] [place], [place] [address] 10/08/2024 07:56:00 10/13/2024 15:00:18 Cellulitis of right lower limb 5256639034 6297345 L03.596 0239145 [id number] Inderjit Balderas [facility] ([facility]) [address] [place], [place] [address] 11/09/2024 14:06:15 11/18/2024 13:33:51 Depressive disorder 55566946 F32.9 Dementia 62070161 F03.A0 Bilateral lower limb edema 256127303 R60.0 7525820 [id number] Inderjit Balderas [facility] ([facility]) [address] [place], [place] [address] 11/23/2024 14:42:20 11/30/2024 16:41:32 Anxiety 08282746 F41.9 Depressive disorder 3548 9007 F32.9 Hemolytic anemia 6377026 9 D59.4 [id number] Inderjit Balderas [facility] ([facility]) [address] [place], [place] [address] 12/03/2024 11:35:47 12/09/2024 17:22:45 Bilateral lower limb edema 610341279 R60.0 7276923 [id number] Inderjit Balderas DO [facility] ([facility]) [address] [place] [address] 12/17/2024 07:53:55 12/21/2024 15:59:43 Depressive disorder 98836436 F32.9 Dementia 23944503 F03.A0 Anxiety 32429355 F41.9 Essential hypertension 50725112 I10 Bilateral lower limb edema 062319826 R60.0 1468007 Health Concerns Section Related Observation LastModified by Organization Detai ls LastModified Time None Recorded Concern Status LastModified by Organization Details LastModified Time None Recorded Advance Directives Directive None Recorded Payers Insurance Date Sequence Insurance Name Policy Number Policy Danielle Covered Member ID Danielle Member ID Guarantor Name 01/27/2025 1 [place] [facility] Kenyatta L Kirby [id number] Kenyatta L Kirby 08/15/2023 2 [place] - [facility]MEDICARE) Kenyatta L Kirby [id number] Kenyatta L Kirby 01/27/2025 2 [place] Kenyatta L Kirby [id number] Kenyatta L Kirby 01/27/2025 [place] - [facility]MEDICARE) Kenyatta L Kirby [id number] Kenyatta L Kirby 01/27/2025 [place] [facility] ([place]) Kenyatta L Kirby [id number] Kenyatta L Kirby Notes Date Note Type Note Provider Name and Address Organization Details Recorded Time 11/10/19 25 text/htm l EdemaReported by PatientHPIFor location, patient reportsble. For quality, patient reportslegs swell equally. For severity, patient reportssevereandpitting 2+.ROS as noted in the HPI Edema improved, cellulitis resolved. Inderjit Balderas DO [address] [place] [address], [phone], [facility], [facility] 11/17/2024 17:53:51 11/24/19 25 text/htm l EdemaReported by PatientHPIFor location, patient reportsble. For quality, patient reportslegs swell equally. For severity, patient reportssevereandpitting 2+.ROS as noted in the HPI no complaints per staff or patient. Inderjit Balderas DO [address] [place] [address], [phone], [facility] 11/29/2024 16:01:55 12/04/19 25 text/htm l EdemaReported by PatientHPIFor location, patient reportsble. For quality, patient reportslegs swell equally. For severity, patient reportssevereandpitting 2+.ROS as noted in the HPI seen by hematology recently, concerned about edema and redness in legs. Inderjit Balderas DO [address] [place] [address], [phone], [facility] 12/09/2024 13:28:42 12/18/19 25 text/htm l EdemaReported by PatientHPIFor location, patient reportsble. For quality, patient reportslegs swell equally. For severity, patient reportssevereandpitting 2+.ROS as noted in the HPI edema improving. Inderjit Balderas DO [address] [place] [address], [phone], [facility] 12/20/2024 13:56:14 01/28/20 25 text/htm l Fall UCReported by PatientHPIFor location of injury, patient reportsshoulder,hip, andright. For severity of pain, patient reportsmoderate. For onset/timing, patient reports4 days ago. For context, patient reportslost balance. For alleviating factors, patient reportslying downandrest. For aggravating factors, patient reportsmovementandstanding. new admit Not Available Not Available Not Available OBGyn Episode No OBEpisode recorded.
--- NOTE | 2025-01-30 21:53 | W.ED.FALL ---
HPI - Fall General: Chief Complaint: Fall Stated Complaint: FALL Source: patient and EMS Mode of arrival: EMS Limitations: no limitations History of Present Illness: 74-year-old female who history of a right hip surgery 1 week ago who is currently at [facility] [place] patient had had a ground-level fall onto that hip at [place]. Patient has no bleeding from the wound at this time she complains of no pain. [place] 1 to have the hip checked out she denies hitting her head or denies any other injuries. Related Data Home Medications ?Medication ?Instructions ?Recorded ?Confirmed levothyroxine 25 mcg tablet 25 mcg PO DAILY 02/16/20 01/23/25 bisacodyl 10 mg rectal suppository 10 mg OR DAILY PRN Constipation 05/31/24 01/23/25 (Dulcolax (bisacodyl)) citalopram 20 mg tablet 20 mg PO DAILY 05/31/24 01/23/25 loperamide 2 mg tablet (Imodium 2 mg PO Q4H PRN Diarrhea 05/31/24 01/23/25 A-D) melatonin 1 mg tablet 1 mg PO BEDTIME 05/31/24 01/23/25 mirtazapine 15 mg tablet 15 mg PO BEDTIME 05/31/24 01/23/25 ondansetron HCl 4 mg tablet 4 mg PO Q4H PRN Nausea 05/31/24 01/23/25 chlorthalidone 25 mg tablet 25 mg PO DAILY 09/24/24 01/23/25 magnesium hydroxide 400 mg/5 mL 30 ml PO DAILY PRN Constipation 09/24/24 01/23/25 oral suspension (Milk of Magnesia) pantoprazole 40 mg tablet,delayed 40 mg PO DAILY 09/24/24 01/23/25 release sodium phosphates 19 gram-7 118 ml OR DAILY PRN Constipation 01/23/25 01/23/25 gram/118 mL enema (Fleet Enema) Previous Rx's ?Medication ?Instructions ?Recorded potassium chloride 20 mEq 20 meq PO BID #10 tabs 03/22/22 tablet,extended release acetaminophen 500 mg capsule 500 mg PO Q6H PRN pain #30 caps 06/04/24 prednisone 10 mg tablet 10 mg PO DAILY #60 tabs 01/18/25 amoxicillin 875 mg-potassium 1 tab PO BID 7 days #14 tabs 01/26/25 clavulanate 125 mg tablet apixaban 2.5 mg tablet (Eliquis) 2.5 mg PO BID@0900,2100 30 days 01/26/25 #30 tabs doxycycline monohydrate 100 mg 100 mg PO BID 7 days #14 tabs 01/26/25 tablet furosemide 40 mg tablet (Lasix) 40 mg PO BIDWM 10 days #10 tabs 01/26/25 Allergies Allergy/AdvReac Type Severity Reaction Status Date / Time No Known Allergies Allergy Verified 01/18/25 11:19 PFSH ED PFSH: Medical History Morbid obesity with BMI of 40.0-44.9, adult Pneumonia due to COVID-19 virus Cellulitis Hypothyroidism DM type 2 (diabetes mellitus, type 2) Hypertension Surgical History No significant past surgical history Family History Denies family history of Anemia Social History Smoking and tobacco/nicotine status: former use of tobacco/nicotine Quit status (tobacco/nicotine): has quit using Year quit tobacco: quit 15-20 years ago Substance/Drug Use: never Physical Exam Const: COMMON NORMALS: no acute distress, patient oriented x3 and healthy appearing HENMT: COMMON NORMALS: normocephalic and atraumatic HEAD & SCALP: normocephalic and atraumatic Neck/C-Spine: COMMON NORMALS: full ROM and supple Chest: COMMONS NORMALS: normal inspection of the chest Resp: COMMON NORMALS: normal respiratory effort, No retractions, No use of accessory muscles and clear to auscultation bilaterally AUSCULTATION: clear to auscultation bilaterally Cardio: COMMON NORMALS: regular rate, regular rhythm and No murmurs present (Cardio) RATE: regular rate RHYTHM: regular rhythm GI: COMMON NORMALS: Normal to inspection, nondistended, normoactive bowel sounds present, Soft to palpation, non-tender and no masses PALPATION: Yes Soft to palpation Extremity: COMMON NORMALS: normal to inspection and full ROM NARRATIVE EXTREMITY EXAM: Incision clean dry and intact with no bleeding Neuro: COMMON NORMALS: patient oriented x3, moves all extremities and no focal motor deficits Psych: COMMON NORMALS: mental status grossly normal, Normal thought process present and cooperative THOUGHT PROCESS: Normal thought process present Skin: COMMON NORMALS: no rashes or lesions noted and no wounds GENERAL SKIN EXAM: no rashes or lesions noted Course Vital Signs: Vital signs: Vital Signs Temperature 98.6 F 01/30/25 21:48 Pulse Rate 65 01/30/25 21:48 Respiratory Rate 16 01/30/25 21:48 Blood Pressure 148/66 01/30/25 21:48 Pulse Oximetry 92 01/30/25 21:48 MDM - Fall Medical Decision Making Patient presents here [facility] a fall [facility] she has no pain in her hip her incision is clean dry intact and not bleeding at this time x-ray shows no acute abnormality she has no other injuries from her fall she stable for discharge back to the [facility]. Medical Records I reviewed the patient's medical records. XR interpretation done by ED provider, pending radiology final review ED provider radiology interpretation(s): xr hip no acute abnormality Discharge Plan Discharge Patient Disposition: Home Clinical Impression: Fall Condition: Stable Prescriptions: No Action chlorthalidone 25 mg tablet 25 mg PO DAILY magnesium hydroxide [Milk of Magnesia] 400 mg/5 mL suspension 30 ml PO DAILY PRN (Reason: Constipation) pantoprazole 40 mg tablet,delayed release (DR/EC) 40 mg PO DAILY prednisone 10 mg tablet 10 mg PO DAILY Qty: 60 2RF levothyroxine 25 mcg tablet 25 mcg PO DAILY potassium chloride 20 mEq tablet extended release 20 meq PO BID Qty: 10 0RF ondansetron HCl 4 mg tablet 4 mg PO Q4H PRN (Reason: Nausea) loperamide [Imodium A-D] 2 mg Tablet 2 mg PO Q4H PRN (Reason: Diarrhea) Rx Instructions: administer after each loose stool until symptoms controlled; do not exceed 8 mg per 24 hrs citalopram 20 mg tablet 20 mg PO DAILY bisacodyl [Dulcolax (bisacodyl)] 10 mg Suppository 10 mg OR DAILY PRN (Reason: Constipation) mirtazapine 15 mg tablet 15 mg PO BEDTIME melatonin 1 mg Tablet 1 mg PO BEDTIME acetaminophen 500 mg capsule 500 mg PO Q6H PRN (Reason: pain) Qty: 30 0RF Fleet Enema 19-7 gram/118 mL Enema 118 ml OR DAILY PRN (Reason: Constipation) doxycycline monohydrate 100 mg Tablet 100 mg PO BID 7 Days Qty: 14 0RF Eliquis 2.5 mg Tablet 2.5 mg PO BID@0900,2100 30 Days Qty: 30 0RF amoxicillin-pot clavulanate 875-125 mg tablet 1 tab PO BID 7 Days Qty: 14 0RF furosemide [Lasix] 40 mg tablet 40 mg PO BIDWM 10 Days Qty: 10 0RF Rx Instructions: take 40mg BID for 10 days, then reduce dose to once daily Discharge Orders: Discharge ED (Routine); Ordered 01/30/25 Ordered By: Naa Celaya Referrals: Inderjit Balderas DO [Primary Care Provider, Internal Medicine] - 4-7 days Discharge Diet: Advance as tolerated Discharge Activity: Resume usual activity Patient Instructions: Fall Prevention (ED) Print Language: [place] Citizen Coding Level of Care Code ED Periodontal Assistant for Presley Hamilton
[2025-01-30 22:51] VITALS: BP 166/88; PULSE 86; RESP 16; O2SAT 91
== END 2025-01-30 22:54 | disposition home or self-care (01) ==
PROVIDERS: Emergency Provider Emergency Medicine; PCP Internal Medicine
DX: M25.551 Pain in right hip (principal); Z79.01 Long term (current) use of anticoagulants; Z96.641 Presence of right artificial hip joint; Z98.890 Other specified postprocedural states; E11.9 Type 2 diabetes mellitus without complications; I10 Essential (primary) hypertension; Z87.891 Personal history of nicotine dependence
CPT/HCPCS: 73502; 99283

== ENCOUNTER 2025-02-08 09:30 | Oncology outpatient (recurring) (ONCR) | payer MEDICARE, MEDICAID, SELFPAY ==
[2025-01-18 10:47] LABS: Hematocrit 37.2 % (36-47); Hemoglobin 11.90 g/dL (11.27-16.99); Mean Corpuscular HGB Conc 32.0 g/dL (30-55); Mean Corpuscular Hemoglobin 32.9 pg (27-33); Mean Corpuscular Volume 102.8 fl (85-98); Nucleated Red Blood Cells % 0 %; Platelet Count 253 10^3/cmm (157-399); Red Blood Count 3.62 10^6/uL (3.85-5.65); White Blood Count 13.53 10^3/uL (3.29-11.43)
[2025-01-18 11:05] LABS: Alanine Aminotransferase 19 U/L (0-33); Albumin Level 4.0 g/dL (3.5-5.2); Alkaline Phosphatase 110 U/L (35-105); Anion Gap 19.4 (5-19); Aspartate Amino Transferase 15 U/L (0-32); Blood Urea Nitrogen 23 mg/dL (8-23); Calcium 9.0 mg/dL (8.5-10.5); Carbon Dioxide 29 mmol/L (22-29); Chloride 93 mmol/L (98-107); Globulin 2.7 g/dL (1.3-4.6); Glucose 312 mg/dL (65-115); Osmolality Calculated 302 mOsm/kg (285-295); Potassium 3.4 mmol/L (3.5-5.1); Sodium 138 mmol/L (136-145); Total Protein 6.7 g/dL (6.6-8.7)
[2025-02-08 09:48] LABS: Hematocrit 33.7 % (36-47); Hemoglobin 10.50 g/dL (11.27-16.99); Mean Corpuscular HGB Conc 31.2 g/dL (30-55); Mean Corpuscular Hemoglobin 34.8 pg (27-33); Mean Corpuscular Volume 111.6 fl (85-98); Nucleated Red Blood Cells % 0.7 %; Platelet Count 512 10^3/cmm (157-399); Red Blood Count 3.02 10^6/uL (3.85-5.65); White Blood Count 13.44 10^3/uL (3.29-11.43)
[2025-02-08 10:09] LABS: Alanine Aminotransferase 19 U/L (0-33); Albumin Level 3.9 g/dL (3.5-5.2); Alkaline Phosphatase 175 U/L (35-105); Anion Gap 17.5 (5-19); Aspartate Amino Transferase 26 U/L (0-32); Blood Urea Nitrogen 29 mg/dL (8-23); Calcium 9.3 mg/dL (8.5-10.5); Carbon Dioxide 28 mmol/L (22-29); Chloride 97 mmol/L (98-107); Creatinine Clr Calc Pharmacy 87.2395; Globulin 3.1 g/dL (1.3-4.6); Glucose 318 mg/dL (65-115); Osmolality Calculated 306 mOsm/kg (285-295); Potassium 3.5 mmol/L (3.5-5.1); Sodium 139 mmol/L (136-145); Total Protein 7.0 g/dL (6.6-8.7)
== END 2025-02-12 23:59 | disposition home or self-care (01) ==
PROVIDERS: Nurse Practitioner; PCP Internal Medicine; Visit Provider Nurse Practitioner Family
DX: Z53.9 Procedure and treatment not carried out, unspecified reason; D59.10 Autoimmune hemolytic anemia, unspecified; Z87.891 Personal history of nicotine dependence; Z79.52 Long term (current) use of systemic steroids
CPT/HCPCS: 36415; 80053; 83010; 83615; 85025; 85045; 99213; 99214

== ENCOUNTER → 2025-02-11 08:04 | Outpatient (BNVA) | payer MEDICARE, MEDICAID, SELFPAY | PROVIDERS: PCP Internal Medicine; Visit Provider Orthopaedic Surgery | DX: Z98.890 Other specified postprocedural states (principal) | CPT/HCPCS: 73030; 73502; 99024 ==

== ENCOUNTER 2025-03-01 09:15 | Oncology outpatient (recurring) (ONCR) | payer MEDICARE, MEDICAID, SELFPAY ==
[2025-03-01 10:02] LABS: Hematocrit 31.5 % (36-47); Hemoglobin 9.30 g/dL (11.27-16.99); Mean Corpuscular HGB Conc 29.5 g/dL (30-55); Mean Corpuscular Hemoglobin 33.3 pg (27-33); Mean Corpuscular Volume 112.9 fl (85-98); Nucleated Red Blood Cells % 0 %; Platelet Count 309 10^3/cmm (157-399); Red Blood Count 2.79 10^6/uL (3.85-5.65); White Blood Count 14.49 10^3/uL (3.29-11.43)
[2025-03-01 10:23] LABS: Alanine Aminotransferase 16 U/L (0-33); Albumin Level 3.7 g/dL (3.5-5.2); Alkaline Phosphatase 133 U/L (35-105); Anion Gap 16.4 (5-19); Aspartate Amino Transferase 20 U/L (0-32); Blood Urea Nitrogen 34 mg/dL (8-23); Calcium 9.4 mg/dL (8.5-10.5); Carbon Dioxide 31 mmol/L (22-29); Chloride 99 mmol/L (98-107); Globulin 3.3 g/dL (1.3-4.6); Glucose 263 mg/dL (65-115); Osmolality Calculated 313 mOsm/kg (285-295); Potassium 3.4 mmol/L (3.5-5.1); Sodium 143 mmol/L (136-145); Total Protein 7.0 g/dL (6.6-8.7)
[2025-03-01 10:52] LABS: Slide Review Slide Review Perform
== END 2025-03-14 23:59 | disposition home or self-care (01) ==
PROVIDERS: Nurse Practitioner; PCP Internal Medicine; Visit Provider Nurse Practitioner Family
DX: D59.10 Autoimmune hemolytic anemia, unspecified (principal); R11.0 Nausea; Z87.891 Personal history of nicotine dependence; Z79.52 Long term (current) use of systemic steroids; Z79.899 Other long term (current) drug therapy
CPT/HCPCS: 36415; 80053; 83010; 83615; 85025; 85045; 99213; Q0162

== ENCOUNTER 2025-03-02 08:02 | Inpatient (IN) | payer MEDICARE, MEDICAID, SELFPAY ==
[2025-03-02] VITALS (11 sets, daily range): BP systolic 101–130; BP diastolic 51–73; PULSE 73–98; RESP 17–26; TEMP 36.3–38.9; O2SAT 93–98; BMI 51.7; BMI 39.4
--- NOTE | 2025-03-02 08:16 | ECG_ITS ---
[email or web address] Test Date: 2025-03-02 Pat Name: Kenyatta Kirby Department: Room: Gender: Female [place]: : 1950 Requested By: Alireza Ramos Order Number: [id number] Cesilia MD: Lincoln Merrill M.D. Measurements Intervals [place] Rate: 96 P: 0 OR: 136 QRS: -22 QRSD: 89 T: 14 QT: 344 QTc: 436 Interpretive Statements SINUS RHYTHM LOW QRS VOLTAGE IN PRECORDIAL LEADS [QRS DEFLECTION < 1.0 mV IN CHEST LEADS] MODERATE VOLTAGE CRITERIA FOR LVH, CONSIDER NORMAL VARIANT [MEETS CRITERIA IN ONE OF: R(aVL), S(V1), R(V5), R(V5/V6)+S(V1)] POSSIBLE ANTERIOR MYOCARDIAL INFARCTION , PROBABLY OLD [30 ms Q WAVE IN V3/V4, OR R < 0.2 mV IN V4] Compared to ECG 10/11/2024 17:40:31 Low QRS voltage now present Myocardial infarct finding still present Electronically Signed On 03-03-2025 08:52:46 MANAGER OF PHARMACY by Lincoln Merrill M.D. [email or web address]
--- NOTE | 2025-03-02 08:29 | W.ED.FEVER ---
Documented by User: Alireza Spencer DO 03/04/25 06:24 HPI - Fever General: Chief Complaint: Fever Stated Complaint: O2 Low Time Seen by Provider: 03/02/25 08:04 History of Present Illness: 74-year-old female presents to the emergency room from local [facility] with temp of 101 O2 sats of 82% on room air per the fpc. Patient has baseline dementia is aware of place and person but cannot really give any other history. Patient is aware of her birthdate her name and where she lives she understands she is at the hospital which does not understand why she generally answers in the negative to all review of system questions. On arrival here she is satting 98% on room air temp is 102 Related Data Home Medications ?Medication ?Instructions ?Recorded ?Confirmed levothyroxine 25 mcg tablet 25 mcg PO DAILY 02/16/20 03/02/25 bisacodyl 10 mg rectal suppository 10 mg MD DAILY PRN Constipation 05/31/24 03/02/25 (Dulcolax (bisacodyl)) citalopram 20 mg tablet 20 mg PO DAILY 05/31/24 03/02/25 loperamide 2 mg tablet (Imodium 2 mg PO Q4H PRN Diarrhea 05/31/24 03/02/25 A-D) melatonin 1 mg tablet 1 mg PO BEDTIME PRN Sleep 05/31/24 03/02/25 mirtazapine 15 mg tablet 15 mg PO BEDTIME 05/31/24 03/02/25 ondansetron HCl 4 mg tablet 4 mg PO Q4H PRN Nausea 05/31/24 03/02/25 magnesium hydroxide 400 mg/5 mL 30 ml PO DAILY PRN Constipation 09/24/24 03/02/25 oral suspension (Milk of Magnesia) pantoprazole 40 mg tablet,delayed 40 mg PO DAILY 09/24/24 03/02/25 release sodium phosphates 19 gram-7 118 ml MD DAILY PRN Constipation 01/23/25 03/02/25 gram/118 mL enema (Fleet Enema) food supplemt, lactose-reduced 1 ea PO DAILY 03/02/25 03/02/25 insulin aspart U-100 100 unit/mL See Rx Instructions .Route .COMPLEX 03/02/25 03/02/25 (3 mL) subcutaneous pen insulin aspart U-100 100 unit/mL 5 unit SUBCUT TID 03/02/25 03/02/25 subcutaneous solution insulin glargine-yfgn 100 unit/mL 10 unit SUBCUT BEDTIME 03/02/25 03/02/25 (3 mL) subcutaneous pen Previous Rx's ?Medication ?Instructions ?Recorded potassium chloride 20 mEq 20 meq PO BID #10 tabs 03/22/22 tablet,extended release acetaminophen 500 mg capsule 500 mg PO Q6H PRN pain #30 caps 06/04/24 prednisone 10 mg tablet 10 mg PO DAILY #60 tabs 01/18/25 furosemide 40 mg tablet (Lasix) 40 mg PO BIDWM 10 days #10 tabs 01/26/25 Remove [place] #1 ea 02/11/25 Allergies Allergy/AdvReac Type Severity Reaction Status Date / Time No Known Allergies Allergy Verified 03/01/25 09:59 Review of Systems General: Reports: ROS unobtainable due to mental status (Chronic dementia) [facility] ED PFSH: Medical History Morbid obesity with BMI of 40.0-44.9, adult Pneumonia due to COVID-19 virus Cellulitis Hypothyroidism DM type 2 (diabetes mellitus, type 2) Hypertension Surgical History No significant past surgical history Family History Denies family history of Anemia Social History (Reviewed 03/02/25 @ 11:36 by Alicia Hess, MAIL SORTER AND DELIVERY, TECHNICAL SUPPORT MANAGER) Smoking and tobacco/nicotine status: former use of tobacco/nicotine Quit status (tobacco/nicotine): has quit using Year quit tobacco: quit 15-20 years ago Substance/Drug Use: never Physical Exam Const: COMMON NORMALS: no acute distress GENERAL APPEARANCE: cooperative and comfortable ORIENTATION/CONSCIOUSNESS: Yes awake, Yes oriented to person and Yes oriented to place HENMT: COMMON NORMALS: normocephalic, atraumatic and hearing grossly normal bilaterally HEAD & SCALP: normocephalic and atraumatic Resp: COMMON NORMALS: normal respiratory effort, No retractions, No use of accessory muscles and clear to auscultation bilaterally AUSCULTATION: clear to auscultation bilaterally Cardio: COMMON NORMALS: regular rate, regular rhythm and No murmurs present (Cardio) RATE: regular rate RHYTHM: regular rhythm GI: COMMON NORMALS: Soft to palpation and No hepatosplenomegaly present AUSCULTATION: Yes normoactive bowel sounds PALPATION: Yes Soft to palpation, No Tenderness to palpation present (GI), No Guarding due to palpation present (GI) and Yes No hepatosplenomegaly present Extremity: COMMON NORMALS: normal to inspection, capillary refill normal, no clubbing, cyanosis or edema, no calf tenderness and no pedal edema Neuro: SENSORIUM/ORIENTATION: Yes oriented to person and Yes oriented to place Skin: COMMON NORMALS: no rashes or lesions noted GENERAL SKIN EXAM: no rashes or lesions noted Course Vital Signs: Vital signs: Vital Signs Temperature 98.4 F 03/04/25 04:00 Pulse Rate 80 03/04/25 04:00 Respiratory Rate 16 03/04/25 04:00 Blood Pressure 172/77 03/04/25 04:00 Pulse Oximetry 91 03/04/25 04:00 Oxygen Delivery Me thod Room Air 03/04/25 04:00 Oxygen Flow Rate 3 03/03/25 07:29 MDM - Fever Medical Decision Making Patient presents with encephalopathy. Her oxygen saturations have been normal since she arrived here. Auscultation of her lungs are normal. Blood sugar elevated. Patient has a history of autoimmune hemolytic anemia her hemoglobin is decreased her haptoglobin is lowered from previous testing. 1 unit of blood ordered. Urine shows signs of cystitis. Lactic acid slightly elevated At 2.3. Blood pressure remains stable. She has been given blood she also given IV fluids. Did not give full sepsis bolus as patient does not meet septic shock criteria also believe it would be detrimental to her at this point. Patient is encephalopathic as well. Discussed with hospitalist orders written Medical Records Oncology HPI Oncology HPI: She was seen emergency room May 30, 2024 for jaundice. Hemoglobin was 6.1. Hematocrit was 19.0. Reticulocyte count was 30.7%. Haptoglobin was 10. LDH was 551. Total bilirubin was 3.6. Samina test was positive for IgG and complement. Cold agglutinin screen was also positive. But cold agglutinin test was negative. CT abdomen pelvis she has splenomegaly.No lymphadenopathy. Spleen size was 15.4 cm. Patient received Solumedrol and later prednisone 1 mg/kg. At time of discharge hemoglobin was 8.5. LDH was 324. She was discharged on prednisone but only take of short while. Bone marrow biopsy July 17, 2024. Hypercellular bone marrow. 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 But no sign of lymphoma or leukemia. 08/17/2024 interval history: Ms. Kirby is here for a 2-week follow-up visit. Continues prednisone 40 mg daily, but reports she is not taking any medications at this time. She lives at [facility] [place] and is a poor historian. Reports good energy and appetite with no fever or night sweats. Denies shortness of breath, cough, or chest pain. Chronic bilateral lower extremity edema. Denies GI or symptoms. No headaches or dizziness. Reports sleeping well. Prednisone dose reduced to 30 Mg p.o. daily from 08/17/2024, then reduced to 10 Mg p.o. daily from 09/24/2024 - 09/30/2024 for 7 days then stopped. - Labs 09/03/2024 showed WBC 14.9, N88, L 5%, hemoglobin 12.5, MCV 112, platelet 239, creatinine 0.6, T. bili 0.8, LDH 196, albumin 4, - Labs 09/24/2024 showed WBC 15.27, hemoglobin 13.1, MCV 104, platelet 279, CMP pending, SPEP pending 09/24/24: here for follow-up. She currently lives in a fpc. She does not remember anything about her medications. Her fpc papers show she is on prednisone 20 Mg daily. We tried to call fpc but no one picked up the phone. We needed to verify her prednisone dose of 20 Mg daily currently. Per fpc papers, she received last dose prednisone 20 Mg on 09/23/2024 Denies any pain. No dyspnea. No fever Prednisone dose reduced to 10 Mg p.o. daily from 09/24/2024 - 09/30/24, for 7 days, then stopped. Restarted prednisone due to significant anemia. Currently dose is 20 mg daily. Patient to have lower extremity cellulitis and swelling. Had a good response of hemoglobin up to 12.9. No Active Chemotherapy Lab Data 03/03/25 14:00 03/03/25 05:12 Laboratory Results WBC 9.56 10^3/uL (3.29-11.43) 03/02/25 08:33 RBC 2.35 10^6/uL (3.85-5.65) L 03/02/25 08:33 Hgb 7.70 g/dL (11.27-16.99) L 03/02/25 08:33 Hct 26.3 % (36-47) L 03/02/25 08:33 MCV 111.9 fl (85-98) H 03/02/25 08:33 MCH 32.8 pg (27-33) 03/02/25 08:33 MCHC 29.3 g/dL (30-55) L 03/02/25 08:33 RDW 15.2 % (12.1-15.1) H 03/02/25 08:33 Plt Count 258 10^3/cmm (157-399) 03/02/25 08:33 MPV 9.2 fL (7.4-10.4) 03/02/25 08:33 Neut % (Auto) 78.4 % 03/02/25 08:33 Lymph % (Auto) 9.3 % 03/02/25 08:33 [place] % (Auto) 11.3 % 03/02/25 08:33 Eos % (Auto) 0.0 % 03/02/25 08:33 Baso % (Auto) 0.2 % 03/02/25 08:33 Neut # (Auto) 7.49 10^3/uL (1.8-7.7) 03/02/25 08:33 Lymph # (Auto) 0.9 10^3/uL (0.8-4.8) 03/02/25 08:33 [place] # (Auto) 1.1 10^3/uL (0.2-0.9) H 03/02/25 08:33 Eos # (Auto) 0.0 10^3/uL (0.0-0.8) 03/02/25 08:33 Baso # (Auto) 0.0 10^3/uL (0.0-0.1) 03/02/25 08:33 Nucleated RBC % (auto) 0 % 03/02/25 08:33 Nucleated RBCs # 0.0 /100WBC 03/02/25 08:33 Haptoglobin 97.0 mg/L (30-200) 03/02/25 08:33 Sodium 143 mmol/L (136-145) 03/02/25 08:33 Potassium 3.8 mmol/L (3.5-5.1) 03/02/25 08:33 Chloride 101 mmol/L (98-107) 03/02/25 08:33 Carbon Dioxide 35 mmol/L (22-29) H 03/02/25 08:33 Anion Gap 10.8 (5-19) 03/02/25 08:33 BUN 38 mg/dL (8-23) H 03/02/25 08:33 Creatinine 0.9 mg/dL (0.5-0.9) 03/02/25 08:33 GFR Calculation Not Reportable 03/02/25 08:33 Glucose 218 mg/dL (65-115) H 03/02/25 08:33 POC Glucose 234 mg/dL (70-110) H 03/02/25 08:22 Estimat Average Glucose 80 03/02/25 08:33 Hemoglobin A1c 4.4 % (4.0-6.0) 03/02/25 08:33 Calculated Osmolality 312 mOsm/kg (285-295) H 03/02/25 08:33 Lactic Acid 2.3 mmol/L (0.5-2.2) H 03/02/25 08:33 Calcium 9.0 mg/dL (8.5-10.5) 03/02/25 08:33 Iron 33 ug/dL (37-145) L 03/02/25 08:33 TIBC 174 mcg/dl 03/02/25 08:33 % Saturation 18.9 % (20-50) L 03/02/25 08:33 Unsat Iron Binding 141 ug/dL (112-347) 03/02/25 08:33 Ferritin 1815 ng/mL (15-150) H 03/02/25 08:33 Total Bilirubin 1.6 mg/dL (0.15-1.2) H 03/02/25 08:33 AST 19 U/L (0-32) 03/02/25 08:33 ALT 17 U/L (0-33) 03/02/25 08:33 Alkaline Phosphatase 97 U/L (35-105) 03/02/25 08:33 Lactate Dehydrogenase 348 U/L (135-214) H 03/02/25 08:33 Creatine Kinase 15 U/L (26-192) L 03/02/25 08:33 Total Protein 6.5 g/dL (6.6-8.7) L 03/02/25 08:33 Albumin 3.4 g/dL (3.5-5.2) L 03/02/25 08:33 Globulin 3.1 g/dL (1.3-4.6) 03/02/25 08:33 Urine Color Yellow (Yellow) 03/02/25 08:46 Urine Appearance Cloudy (CLEAR) A 03/02/25 08:46 Urine pH 5.5 (5-7) 03/02/25 08:46 Ur Specific [place] 1.012 (1.005-1.030) 03/02/25 08:46 Urine Protein Trace (Negative) A 03/02/25 08:46 Urine Glucose (UA) Negative (Normal) 03/02/25 08:46 Urine Ketones Negative (Negative) 03/02/25 08:46 Urine Blood Negative (Negative) 03/02/25 08:46 Urine Nitrate Negative (Negative) 03/02/25 08:46 Urine Bilirubin Negative (Negative) 03/02/25 08:46 Urine Urobilinogen 1.0 mg/dL (Negative) 03/02/25 08:46 Ur Leukocyte Esterase 2+ (Negative) A 03/02/25 08:46 Urine RBC 0-2 /hpf (0-2) 03/02/25 08:46 Urine WBC 51-100 /hpf (0-5) H 03/02/25 08:46 Ur Squamous Epith Cells 0-5 /hpf (0-5) 03/02/25 08:46 Amorphous Sediment Not Reportable 03/02/25 08:46 Urine Bacteria None seen /hpf (NONE) 03/02/25 08:46 Hyaline Casts 7.42 /lpf 03/02/25 08:46 U Random Total Protein 15 mg/dL 03/02/25 08:46 Ur Random Sodium 21 mmol/L 03/02/25 08:46 Ur Random Potassium 66 mmol/L 03/02/25 08:46 Ur Random Chloride 63 mmol/L 03/02/25 08:46 Urine Creatinine 64 mg/dL (28-217) 03/02/25 08:46 Serum Ketones Negative (Negative) 03/02/25 08:33 Influenza A (PCR) Negative (Negative) 03/02/25 08:25 Influenza Type B (PCR) Negative (Negative) 03/02/25 08:25 RSV (PCR) Negative (Negative) 03/02/25 08:25 SARS-CoV-2 (PCR) Negative (Negative) 03/02/25 08:25 Blood Type O Positive 03/02/25 09:32 Rho(D) Type Rh positive 03/02/25 09:32 Antibody Screen Positive 03/02/25 09:32 Prewarmed Antibody Srcn Negative 03/02/25 09:32 Antibody Identification Cold Auto Antibody 03/02/25 09:32 Cold Antibody Screen Positive 03/02/25 09:32 Crossmatch See Detail 03/02/25 09:32 Discharge Plan Discharge Patient Disposition: Admitted As Inpatient Admit Provider: Chicho Arzate Clinical Impression: Sepsis, Cystitis, Autoimmune hemolytic anemia, Morbid obesity with BMI of 40.0-44.9, adult, Hyperbilirubinemia, DM type 2 (diabetes mellitus, type 2), Acute metabolic encephalopathy Condition: Stable Coding Level of Care Code ED Professor Of Economics for Chg Fwd Documented by User: AYDEN Feliz, TECHNICAL SUPPORT MANAGER 03/03/25 22:06 HPI - Fever General: Chief Complaint: Fever Stated Complaint: O2 Low Time Seen by Provider: 03/02/25 08:04 Related Data Home Medications ?Medication ?Instructions ?Recorded ?Confirmed levothyroxine 25 mcg tablet 25 mcg PO DAILY 02/16/20 03/02/25 bisacodyl 10 mg rectal suppository 10 mg MD DAILY PRN Constipation 05/31/24 03/02/25 (Dulcolax (bisacodyl)) citalopram 20 mg tablet 20 mg PO DAILY 05/31/24 03/02/25 loperamide 2 mg tablet (Imodium 2 mg PO Q4H PRN Diarrhea 05/31/24 03/02/25 A-D) melatonin 1 mg tablet 1 mg PO BEDTIME PRN Sleep 05/31/24 03/02/25 mirtazapine 15 mg tablet 15 mg PO BEDTIME 05/31/24 03/02/25 ondansetron HCl 4 mg tablet 4 mg PO Q4H PRN Nausea 05/31/24 03/02/25 magnesium hydroxide 400 mg/5 mL 30 ml PO DAILY PRN Constipation 09/24/24 03/02/25 oral suspension (Milk of Magnesia) pantoprazole 40 mg tablet,delayed 40 mg PO DAILY 09/24/24 03/02/25 release sodium phosphates 19 gram-7 118 ml MD DAILY PRN Constipation 01/23/25 03/02/25 gram/118 mL enema (Fleet Enema) food supplemt, lactose-reduced 1 ea PO DAILY 03/02/25 03/02/25 insulin aspart U-100 100 unit/mL See Rx Instructions .Route .COMPLEX 03/02/25 03/02/25 (3 mL) subcutaneous pen insulin aspart U-100 100 unit/mL 5 unit SUBCUT TID 03/02/25 03/02/25 subcutaneous solution insulin glargine-yfgn 100 unit/mL 10 unit SUBCUT BEDTIME 03/02/25 03/02/25 (3 mL) subcutaneous pen Previous Rx's ?Medication ?Instructions ?Recorded potassium chloride 20 mEq 20 meq PO BID #10 tabs 03/22/22 tablet,extended release acetaminophen 500 mg capsule 500 mg PO Q6H PRN pain #30 caps 06/04/24 prednisone 10 mg tablet 10 mg PO DAILY #60 tabs 01/18/25 furosemide 40 mg tablet (Lasix) 40 mg PO BIDWM 10 days #10 tabs 01/26/25 Remove [place] #1 ea 02/11/25 Allergies Allergy/AdvReac Type Severity Reaction Status Date / Time No Known Allergies Allergy Verified 03/01/25 09:59 PFS ED PFSH: Medical History Morbid obesity with BMI of 40.0-44.9, adult Pneumonia due to COVID-19 virus Cellulitis Hypothyroidism DM type 2 (diabetes mellitus, type 2) Hypertension Surgical History No significant past surgical history Family History Denies family history of Anemia Social History (Reviewed 03/02/25 @ 11:36 by Alicia Hess, MAIL SORTER AND DELIVERY, TECHNICAL SUPPORT MANAGER) Smoking and tobacco/nicotine status: former use of tobacco/nicotine Quit status (tobacco/nicotine): has quit using Year quit tobacco: quit 15-20 years ago Substance/Drug Use: never Course Vital Signs: Vital signs: Vital Signs Temperature 98.4 F 03/04/25 04:00 Pulse Rate 80 03/04/25 04:00 Respiratory Rate 16 03/04/25 04:00 Blood Pressure 172/77 03/04/25 04:00 Pulse Oximetry 91 03/04/25 04:00 Oxygen Delivery Me thod Room Air 03/04/25 04:00 Oxygen Flow Rate 3 03/03/25 07:29 MDM - Fever Lab Data 03/03/25 14:00 03/03/25 05:12 Laboratory Results WBC 9.56 10^3/uL (3.29-11.43) 03/02/25 08:33 RBC 2.35 10^6/uL (3.85-5.65) L 03/02/25 08:33 Hgb 7.70 g/dL (11.27-16.99) L 03/02/25 08:33 Hct 26.3 % (36-47) L 03/02/25 08:33 MCV 111.9 fl (85-98) H 03/02/25 08:33 MCH 32.8 pg (27-33) 03/02/25 08:33 MCHC 29.3 g/dL (30-55) L 03/02/25 08:33 RDW 15.2 % (12.1-15.1) H 03/02/25 08:33 Plt Count 258 10^3/cmm (157-399) 03/02/25 08:33 MPV 9.2 fL (7.4-10.4) 03/02/25 08:33 Neut % (Auto) 78.4 % 03/02/25 08:33 Lymph % (Auto) 9.3 % 03/02/25 08:33 [place] % (Auto) 11.3 % 03/02/25 08:33 Eos % (Auto) 0.0 % 03/02/25 08:33 Baso % (Auto) 0.2 % 03/02/25 08:33 Neut # (Auto) 7.49 10^3/uL (1.8-7.7) 03/02/25 08:33 Lymph # (Auto) 0.9 10^3/uL (0.8-4.8) 03/02/25 08:33 [place] # (Auto) 1.1 10^3/uL (0.2-0.9) H 03/02/25 08:33 Eos # (Auto) 0.0 10^3/uL (0.0-0.8) 03/02/25 08:33 Baso # (Auto) 0.0 10^3/uL (0.0-0.1) 03/02/25 08:33 Nucleated RBC % (auto) 0 % 03/02/25 08:33 Nucleated RBCs # 0.0 /100WBC 03/02/25 08:33 Haptoglobin 97.0 mg/L (30-200) 03/02/25 08:33 Sodium 143 mmol/L (136-145) 03/02/25 08:33 Potassium 3.8 mmol/L (3.5-5.1) 03/02/25 08:33 Chloride 101 mmol/L (98-107) 03/02/25 08:33 Carbon Dioxide 35 mmol/L (22-29) H 03/02/25 08:33 Anion Gap 10.8 (5-19) 03/02/25 08:33 BUN 38 mg/dL (8-23) H 03/02/25 08:33 Creatinine 0.9 mg/dL (0.5-0.9) 03/02/25 08:33 GFR Calculation Not Reportable 03/02/25 08:33 Glucose 218 mg/dL (65-115) H 03/02/25 08:33 POC Glucose 234 mg/dL (70-110) H 03/02/25 08:22 Estimat Average Glucose 80 03/02/25 08:33 Hemoglobin A1c 4.4 % (4.0-6.0) 03/02/25 08:33 Calculated Osmolality 312 mOsm/kg (285-295) H 03/02/25 08:33 Lactic Acid 2.3 mmol/L (0.5-2.2) H 03/02/25 08:33 Calcium 9.0 mg/dL (8.5-10.5) 03/02/25 08:33 Iron 33 ug/dL (37-145) L 03/02/25 08:33 TIBC 174 mcg/dl 03/02/25 08:33 % Saturation 18.9 % (20-50) L 03/02/25 08:33 Unsat Iron Binding 141 ug/dL (112-347) 03/02/25 08:33 Ferritin 1815 ng/mL (15-150) H 03/02/25 08:33 Total Bilirubin 1.6 mg/dL (0.15-1.2) H 03/02/25 08:33 AST 19 U/L (0-32) 03/02/25 08:33 ALT 17 U/L (0-33) 03/02/25 08:33 Alkaline Phosphatase 97 U/L (35-105) 03/02/25 08:33 Lactate Dehydrogenase 348 U/L (135-214) H 03/02/25 08:33 Creatine Kinase 15 U/L (26-192) L 03/02/25 08:33 Total Protein 6.5 g/dL (6.6-8.7) L 03/02/25 08:33 Albumin 3.4 g/dL (3.5-5.2) L 03/02/25 08:33 Globulin 3.1 g/dL (1.3-4.6) 03/02/25 08:33 Urine Color Yellow (Yellow) 03/02/25 08:46 Urine Appearance Cloudy (CLEAR) A 03/02/25 08:46 Urine pH 5.5 (5-7) 03/02/25 08:46 Ur Specific [place] 1.012 (1.005-1.030) 03/02/25 08:46 Urine Protein Trace (Negative) A 03/02/25 08:46 Urine Glucose (UA) Negative (Normal) 03/02/25 08:46 Urine Ketones Negative (Negative) 03/02/25 08:46 Urine Blood Negative (Negative) 03/02/25 08:46 Urine Nitrate Negative (Negative) 03/02/25 08:46 Urine Bilirubin Negative (Negative) 03/02/25 08:46 Urine Urobilinogen 1.0 mg/dL (Negative) 03/02/25 08:46 Ur Leukocyte Esterase 2+ (Negative) A 03/02/25 08:46 Urine RBC 0-2 /hpf (0-2) 03/02/25 08:46 Urine WBC 51-100 /hpf (0-5) H 03/02/25 08:46 Ur Squamous Epith Cells 0-5 /hpf (0-5) 03/02/25 08:46 Amorphous Sediment Not Reportable 03/02/25 08:46 Urine Bacteria None seen /hpf (NONE) 03/02/25 08:46 Hyaline Casts 7.42 /lpf 03/02/25 08:46 U Random Total Protein 15 mg/dL 03/02/25 08:46 Ur Random Sodium 21 mmol/L 03/02/25 08:46 Ur Random Potassium 66 mmol/L 03/02/25 08:46 Ur Random Chloride 63 mmol/L 03/02/25 08:46 Urine Creatinine 64 mg/dL (28-217) 03/02/25 08:46 Serum Ketones Negative (Negative) 03/02/25 08:33 Influenza A (PCR) Negative (Negative) 03/02/25 08:25 Influenza Type B (PCR) Negative (Negative) 03/02/25 08:25 RSV (PCR) Negative (Negative) 03/02/25 08:25 SARS-CoV-2 (PCR) Negative (Negative) 03/02/25 08:25 Blood Type O Positive 03/02/25 09:32 Rho(D) Type Rh positive 03/02/25 09:32 Antibody Screen Positive 03/02/25 09:32 Prewarmed Antibody Srcn Negative 03/02/25 09:32 Antibody Identification Cold Auto Antibody 03/02/25 09:32 Cold Antibody Screen Positive 03/02/25 09:32 Crossmatch See Detail 03/02/25 09:32 All radiology interpretation(s) finalized by discharge Discharge Plan Discharge Patient Disposition: Admitted As Inpatient Admit Provider: Chicho Arzate Clinical Impression: Sepsis, Cystitis, Autoimmune hemolytic anemia, Morbid obesity with BMI of 40.0-44.9, adult, Hyperbilirubinemia, DM type 2 (diabetes mellitus, type 2), Acute metabolic encephalopathy Condition: Stable Coding Level of Care Code ED Professor Of Economics for Sarayg Joy
[2025-03-02 08:45] LABS: Hematocrit 26.3 % (36-47); Hemoglobin 7.70 g/dL (11.27-16.99); Mean Corpuscular HGB Conc 29.3 g/dL (30-55); Mean Corpuscular Hemoglobin 32.8 pg (27-33); Mean Corpuscular Volume 111.9 fl (85-98); Nucleated Red Blood Cells % 0 %; Platelet Count 258 10^3/cmm (157-399); Red Blood Count 2.35 10^6/uL (3.85-5.65); White Blood Count 9.56 10^3/uL (3.29-11.43)
[2025-03-02 09:08] LABS: Alanine Aminotransferase 17 U/L (0-33); Albumin Level 3.4 g/dL (3.5-5.2); Alkaline Phosphatase 97 U/L (35-105); Anion Gap 10.8 (5-19); Aspartate Amino Transferase 19 U/L (0-32); Blood Urea Nitrogen 38 mg/dL (8-23); Calcium 9.0 mg/dL (8.5-10.5); Carbon Dioxide 35 mmol/L (22-29); Chloride 101 mmol/L (98-107); Globulin 3.1 g/dL (1.3-4.6); Glucose 218 mg/dL (65-115); Lactic Sepsis W/Reflex 2.3 mmol/L (0.5-2.2); Osmolality Calculated 312 mOsm/kg (285-295); Potassium 3.8 mmol/L (3.5-5.1); Sodium 143 mmol/L (136-145); Total Protein 6.5 g/dL (6.6-8.7)
[2025-03-02 09:18] LABS: Glucose Urine UA Negative (Normal); Nitrate Urine Negative (Negative); Specific Gravity, Urine 1.012 (1.005-1.030)
[2025-03-02 09:22] LABS: Add Urine Microscopic? YES
[2025-03-02 09:23] LABS: Ketone (Acetest) Serum Negative (Negative)
[2025-03-02] MEDS: cefTRIAXone 1,000 mg SDV 1000 MG IVP (09:31)
[2025-03-02 09:50] LABS: Respiratory Syncytial Virus Ce NEGATIVE (Negative); SARS-CoV-2 PCR NEGATIVE (Negative)
[2025-03-02 10:26] LABS: Reflex Lactate Order REFLEX LACTIC ORDERD
[2025-03-02 11:19] LABS: Base Excess VBG 8.8 mmol/L (-3.0-3.0); Blood Gas Operator Identificat WALCI; Blood Gas Sample Type Venous; HCO3 VBG 33.0 mmol/L (24-28); PCO2 VBG 43.4 mmHg (41-51); PO2 VBG 45.8 mmHg (25-40); Venous Blood Gas Hematocrit 24.4 % (37-47); pH VBG 7.49 (7.32-7.42)
--- NOTE | 2025-03-02 11:34 | PM.HP ---
Providers/Chief Complaint Admitting Physician: Chicho Arzate MD Primary Care Provider: Inderjit Balderas DO Chief Complaint: O2 Low History of Present Illness Kenyatta Kirby is a 74 year old female with pmhx of HTN, DM, dementia, cellulitis, hypothyroidism, pneumonia, COVID, and obesity presenting with complaints of fever. Patient is a resident of a longterm. This morning upon assessment she had O2 saturations of 82% on room air and a temperature of 101F. EMS was called and she was transported to [facility] ED for assessment. Will admit to the hospitalist service for further evaluation and treatment. In the ED, BP 105/151, HR 87, RR 26, T102, O2 saturation 94% on room air. WBC 9.56, Hgb 7.70, PLT 258. Glucose 218. Lactic 2.3. AST/ALT WNL. Total bilirubin 1.6. ALP WNL. BUN 38, creatinine 0.9. Urinalysis; cloudy, trace protein, 2+ leukocytes, WBC 51?100. COVID and flu negative. Review of Systems General: Reports: ROS unobtainable due to mental status (Chronic dementia) Medications/Allergies Home Medications ?Medication ?Instructions ?Recorded ?Confirmed ?Last Taken ?Type levothyroxine 25 mcg tablet 25 mcg PO DAILY 02/16/20 03/01/25 01/22/25 06:00 History potassium chloride 20 mEq 20 meq PO BID #10 tabs 03/22/22 03/01/25 01/22/25 18:00 Rx tablet,extended release bisacodyl 10 mg rectal suppository 10 mg AL DAILY PRN Constipation 05/31/24 03/01/25 01/22/25 History (Dulcolax (bisacodyl)) citalopram 20 mg tablet 20 mg PO DAILY 05/31/24 03/01/25 01/22/25 History loperamide 2 mg tablet (Imodium 2 mg PO Q4H PRN Diarrhea 05/31/24 03/01/25 Unknown History A-D) melatonin 1 mg tablet 1 mg PO BEDTIME 05/31/24 03/01/25 01/22/25 19:00 History mirtazapine 15 mg tablet 15 mg PO BEDTIME 05/31/24 03/01/25 01/22/25 19:00 History ondansetron HCl 4 mg tablet 4 mg PO Q4H PRN Nausea 05/31/24 03/01/25 Unknown History acetaminophen 500 mg capsule 500 mg PO Q6H PRN pain #30 caps 06/04/24 03/01/25 Unknown Rx chlorthalidone 25 mg tablet 25 mg PO DAILY 09/24/24 03/01/25 01/22/25 History magnesium hydroxide 400 mg/5 mL 30 ml PO DAILY PRN Constipation 09/24/24 03/01/25 01/22/25 History oral suspension (Milk of Magnesia) pantoprazole 40 mg tablet,delayed 40 mg PO DAILY 09/24/24 03/01/25 01/22/25 History release prednisone 10 mg tablet 10 mg PO DAILY #60 tabs 01/18/25 03/01/25 01/22/25 Rx sodium phosphates 19 gram-7 118 ml AL DAILY PRN Constipation 01/23/25 03/01/25 Unknown History gram/118 mL enema (Fleet Enema) furosemide 40 mg tablet (Lasix) 40 mg PO BIDWM 10 days #10 tabs 01/26/25 03/01/25 01/22/25 Rx Remove Sarah #1 ea 02/11/25 03/01/25 Unknown Rx Allergies Allergy/AdvReac Type Severity Reaction Status Date / Time No Known Allergies Allergy Verified 03/01/25 09:59 PFSH Acute PFSH: Medical History Morbid obesity with BMI of 40.0-44.9, adult Pneumonia due to COVID-19 virus Cellulitis Hypothyroidism DM type 2 (diabetes mellitus, type 2) Hypertension Surgical History No significant past surgical history Family History Denies family history of Anemia Social History Smoking and tobacco/nicotine status: former use of tobacco/nicotine Quit status (tobacco/nicotine): has quit using Year quit tobacco: quit 15-20 years ago Substance/Drug Use: never Vitals/I&O/Wt Last Vital Signs Temp 102.0 F H 03/02/25 08:03 Pulse 87 03/02/25 10:00 Resp 26 H 03/02/25 10:00 BP 105/51 03/02/25 10:00 Pulse Ox 94 03/02/25 10:00 O2 Del Method Room Air 03/02/25 10:00 Weight last 48 hrs Weight 154.221 kg Physical Exam Const: COMMON NORMALS: no acute distress HENMT: OTHER: PERRLA, pupils bilaterally equal and reactive Chest: OTHER: Normal vesicular breath sounds, no added sounds, equal good air entry bilaterally Cardio: OTHER: S1-S2 regular, no murmurs, no tachycardia, no gallops, no rubs GI: OTHER: Soft, nontender, no organomegaly, bowel sounds present Extremity: OTHER: Bilateral lower extremity edema Neuro: OTHER: AAOx2 self and place, No focal deficits, no facial deformity Data 03/02/25 08:33 03/02/25 08:33 Micro: Microbiology 03/02/25 08:33 Blood Culture - Preliminary Blood SPECIMEN COLLECTED 03/02/25 08:31 Blood Culture - Preliminary Blood SPECIMEN COLLECTED A&P Assessment and plan 1. Hypoxia: O2 saturations 82% on room air Supplemental O2 to keep saturations greater than 92% VBG pending Pulse oximetry 2. Fever: T102?103 Suspect UTI Blood cultures and urine cultures Rocephin started in ED Floranex IVF 3. UTI (urinary tract infection): Urinalysis; cloudy, trace protein, 2+ leukocytes, WBC 51?100 Urine studies Rocephin Floranex IVF I&O 4. Hypotension: 105/51, HR 87 EKG Telemetry IVF BP monitoring 5. DM type 2 (diabetes mellitus, type 2): glucose likely impacted secondary to acute illness Glucose 218 A1c 6. Hemolytic anemia: Chronic Hgb 7.7 TIBC, ferritin levels Transfuse to keep BP greater than 7 CBC 7. Hypothyroidism: Continue home levothyroxine PDMP PDMP Reviewed: Not Reviewed Attestations Medical Necessity Statement*: Continued hospitalization for two midnights s/t hypoxia at 82% and sepsis rule out - etiology possibly recurrent UTI. Patient is hypotensive with fever and abnormal urinalysis. IV antibiotics on board. Diagnoses Hypoxia R09.02 Fever R50.9 UTI (urinary tract infection) N39.0 Hypotension I95.9 DM type 2 (diabetes mellitus, type 2) E11.9 Hemolytic anemia D58.9 Hypothyroidism E03.9 Time Spent (min) 70
[2025-03-02 11:44] LABS: Iron 33 ug/dL (37-145); Total Iron Binding Capacity 174 mcg/dl; Unsaturated Iron Binding 141 ug/dL (112-347)
[2025-03-02 11:45] LABS: Estmated Average Glucose 80; Hemoglobin A1C 4.4 % (4.0-6.0)
[2025-03-02 11:55] LABS: Ferritin 1815 ng/mL (15-150)
[2025-03-02 12:02] LABS: Lactic Acid level (Lactate) 0.8 mmol/L (0.5-2.2)
[2025-03-02 12:48] LABS: Potassium, Radom Urine 66 mmol/L; Urine Random Chloride 63 mmol/L; Urine Random Sodium 21 mmol/L
[2025-03-02] MEDS: lactobacillus 1 Tablet 1 TAB PO (13:14)
[2025-03-02] MEDS: MELATONIN 3 MG TABLET PO (20:03)
[2025-03-03] VITALS (13 sets, daily range): BP systolic 115–138; BP diastolic 56–76; PULSE 68–86; RESP 15–18; TEMP 36.5–37.1; O2SAT 90–100
[2025-03-03 05:23] LABS: Hematocrit 23.8 % (36-47); Hemoglobin 6.90 g/dL (11.27-16.99); Mean Corpuscular HGB Conc 29.0 g/dL (30-55); Mean Corpuscular Hemoglobin 33.8 pg (27-33); Mean Corpuscular Volume 116.7 fl (85-98); Nucleated Red Blood Cells % 0 %; Platelet Count 222 10^3/cmm (157-399); Red Blood Count 2.04 10^6/uL (3.85-5.65); White Blood Count 8.86 10^3/uL (3.29-11.43)
[2025-03-03 05:44] LABS: Anion Gap 11.3 (5-19); Blood Urea Nitrogen 31 mg/dL (8-23); Calcium 8.3 mg/dL (8.5-10.5); Carbon Dioxide 30 mmol/L (22-29); Chloride 109 mmol/L (98-107); Glucose 198 mg/dL (65-115); Lactic Sepsis W/Reflex 0.7 mmol/L (0.5-2.2); Osmolality Calculated 316 mOsm/kg (285-295); Potassium 3.3 mmol/L (3.5-5.1); Sodium 147 mmol/L (136-145)
[2025-03-03] MEDS: cefTRIAXone 1,000 mg SDV 1000 MG IVP (07:51)
--- NOTE | 2025-03-03 09:37 | PC.CHAP ---
Pastoral Care Encounter/Spiritual Assessment Type of Contact [] Declined linter tender visit [] Patient/Family/Request visit [] Outpatient visit [] Follow-up visit [] Physician referral [] Code/Alert [] Routine visit [] Staff referral [] Actively dying [] Patient sleeping [] Family support [] [] Out of room [] Palliative care [] [x] Receiving care in room [] Pre-surgical visit [] Trauma [] Long length of stay [] ICU visit [] Other: Relational/Emotional Strength [] Patient feels connected with others/family/visitors/staff [] Distress [] Loneliness/isolation [] Abandonment Spirituality of Patient [] Person of Neda [] Attends Sikhism of their Neda [] Believes in Prayer [] Reads Bible or Methodist materials [] There are Spiritual issues to be addressed Medical Transcriber Interventions [] Prayer [] Active listening [] Non-anxious presence [] Spiritual/emotional support [] Crisis/trauma care [] Spiritual counseling [] Bereavement support [] Provided bereavement packet [] Provided Bible/devotional materials [] Provided toy/stuffed animal, coloring book to patient or family member [] Provided Communion [] Anointing/[place] [] Salvation [] Completed spiritual assessment [] Other: Impact on Illness or Injury [] Angry [] Fearful [] Anxious [] Often cries [] Exhaustion [] Unable to work [] Unable to attend baptism [] Unable to walk/stand [] Unable to read [] Unable to drive [] Unable to eat/drink [] Unable to sleep [] Unable to be with family [] Patient intubated [] Other: Summary Time spent with patient
--- NOTE | 2025-03-03 11:00 | P.PN_ITS ---
Subjective 2 Subjective: Follow-up. She is a 74-year-old female who was admitted to because of apparent altered mental status, etc. Patient reports no new complaints. Otherwise, she was not able to answer most of my questions. She is currently getting treatment for sepsis, while being closely monitored. Vitals/I&O/Wt Last Vital Signs Temp 97.8 F 03/03/25 10:27 Pulse 80 03/03/25 10:27 Resp 16 03/03/25 10:27 BP 115/62 03/03/25 10:27 Pulse Ox 97 03/03/25 10:27 O2 Del Method Nasal Cannula 03/03/25 07:29 O2 Flow Rate 3 03/03/25 07:29 03/02/25 03/03/25 03/03/25 22:59 06:59 14:59 Intake Total 999 1240 / 1240 Balance 999 1240 / 1240 Weight last 48 hrs Weight 118.983 kg Weight 117.753 kg Weight 154.221 kg Physical Exam 2 Narrative: General: Drowsy/moderately lethargic. Morbidly obese patient in bed. Moderately cooperative. Neuro: Oriented x 2 only. Cranial 2-12 grossly intact. Chest/Resp: Normal respiratory chest movts; no obvious respiratory distress. CVS: Rhythm: Regular heart rate and rhythm. GI: Non-distended; No obvious organomegaly. Extremities: No obvious pitting pedal edema. Skin: Moderately dehydrated. No obvious new rashes or new skin lesions in exposed areas of the skin. Data 03/03/25 14:00 03/03/25 05:12 Micro: Microbiology 03/02/25 08:33 Blood Culture - Preliminary Blood NEGATIVE TO DATE 03/02/25 08:31 Blood Culture - Preliminary Blood NEGATIVE TO DATE A&P Assessment and plan 1. Acute metabolic encephalopathy: 2. UTI (urinary tract infection): 3. Morbid obesity with BMI of 40.0-44.9, adult: 4. Autoimmune hemolytic anemia: 5. DM type 2 (diabetes mellitus, type 2): 6. Hypertension: Plan: 1. Acute metabolic encephalopathy likely due to acute UTI: Is resolving. Continue ongoing IV antibiotics, pending final urine culture. 2. Severe anemia from known other hemolytic anemia: Patient had 1 unit of PRBCs as at when I saw her. We will check CBC after this. 3. Clinically dehydration: I will cautiously rehydrate patient with intravenous normal saline at 100 cc/h, x 1 liter, only. Repeat CBC and BMP in the morning 4. Type diabetes mellitus+ hypertension + morbid obesity: Currently stable. We are holding antihypertensives, given the presenting and subsisting sepsis- like picture. In line with this, I am also holding patient's ongoing oral Lasix. Blood sugar appears stable and abnormal. The blood sugar becomes important, we can always control blood sugar with basal- prandial insulin, which she takes at home. PDMP PDMP Reviewed: Not Reviewed Attestations 2 Medical Necessity Statement*: Patient admitted for apparent severe clinical condition, as outlined in the Assessment & Plan section above. Patient will need up to 2 midnight stay, estimated, at least, to adequately and appropriately treat and optimally control above-named clinical conditions,. Coding Level of Care Code Acute Code for g Fwd Diagnoses Acute metabolic encephalopathy G93.41 UTI (urinary tract infection) N39.0 Morbid obesity with BMI of 40.0-44.9, adult E66.01; Z68.41 Autoimmune hemolytic anemia D59.10 DM type 2 (diabetes mellitus, type 2) E11.9 Hypertension I10
[2025-03-03 14:07] LABS: Hematocrit 29.1 % (36-47); Hemoglobin 8.60 g/dL (11.27-16.99); Mean Corpuscular HGB Conc 29.6 g/dL (30-55); Mean Corpuscular Hemoglobin 32.2 pg (27-33); Mean Corpuscular Volume 109.0 fl (85-98); Nucleated Red Blood Cells % 0.6 %; Platelet Count 278 10^3/cmm (157-399); Red Blood Count 2.67 10^6/uL (3.85-5.65); White Blood Count 10.59 10^3/uL (3.29-11.43)
[2025-03-03] MEDS: MELATONIN 3 MG TABLET PO (21:17)
[2025-03-04 04:00] VITALS: BP 172/77; PULSE 80; RESP 16; TEMP 36.9; O2SAT 91
[2025-03-04] MEDS: cefTRIAXone 1,000 mg SDV 1000 MG IVP (04:17)
[2025-03-04 07:44] VITALS: BP 127/76; PULSE 80; RESP 18; TEMP 37; O2SAT 90
[2025-03-04 10:49] VITALS: BP 122/74; PULSE 84; RESP 18; TEMP 36.9; O2SAT 90
[2025-03-04 15:37] LABS: Anion Gap 11.0 (5-19); Blood Urea Nitrogen 22 mg/dL (8-23); Calcium 9.0 mg/dL (8.5-10.5); Carbon Dioxide 31 mmol/L (22-29); Chloride 102 mmol/L (98-107); Glucose 190 mg/dL (65-115); Osmolality Calculated 300 mOsm/kg (285-295); Potassium 3.0 mmol/L (3.5-5.1); Sodium 141 mmol/L (136-145)
--- NOTE | 2025-03-04 15:52 | P.PN_ITS ---
Subjective 2 Subjective: Patient seen again this morning on the medical floor. She looks much more awake and alert today, compared to yesterday. She is not able to ask a lot of questions, but is apparently pretty much awake. The nurse reports that she is mainly drinking liquid, and not eating a lot of solid food. Otherwise, it appears as though she is getting closer back to her baseline. Vitals/I&O/Wt Last Vital Signs Temp 98.4 F 03/04/25 10:49 Pulse 84 03/04/25 10:49 Resp 18 03/04/25 10:49 BP 122/74 03/04/25 10:49 Pulse Ox 90 03/04/25 10:49 O2 Del Method Room Air 03/04/25 10:49 O2 Flow Rate 3 03/03/25 07:29 03/04/25 03/04/25 03/04/25 06:59 14:59 22:59 Intake Total 350 / 2740 120 / 120 Balance 350 / 2740 120 / 120 Weight last 48 hrs Weight 120.656 kg Weight 118.983 kg Physical Exam 2 Narrative: General: Awake and alert. Cooperative. Chest/Resp: Normal respiratory chest movts; no obvious respiratory distress. CVS: Regular heart rate and rhythm. GI: Non-distended; No obvious organomegaly. Extremities: No obvious pitting pedal edema. Skin: No obvious new rashes or new skin lesions. Data 03/03/25 14:00 03/04/25 15:02 Micro: Microbiology 03/02/25 08:46 Urine Culture - Preliminary Urine,Clean Catch <5,000 cols/ml mixed urogenital marvin A&P Assessment and plan 1. Acute hypokalemia: Will need potassium replacement 2. Acute metabolic encephalopathy: 3. UTI (urinary tract infection): Suspected, but not coughing. Urine cultures so far essentially negative 4. Morbid obesity with BMI of 40.0-44.9, adult: 5. Hemolytic anemia: Partially corrected anemia with PRBCs transfusion. 6. DM type 2 (diabetes mellitus, type 2): Otherwise stable at this time. 7. Hypertension: Stable. Plan: I was hoping to discharge patient today, but she is remarkably hypokalemic, with a potassium of 3.0, compared to 3.3 yesterday. As a result, I am going to replace potassium with 20 mill equivalents IV, in addition to ongoing oral replacement. The hyperglycemia is not well-controlled at this time. I am starting patient back on her regular dose of 5 units of insulin with every meal, in addition to the basal insulin of 10 units of Lantus starting now, which I could increase to 15 units qAM, if needed. I already have magnesium level currently being checked; if this is low, we will replace intravenously. Recheck BMP in the morning, and if this remains stable, patient would be discharged. Of note, patient has a urine culture whose growth of microbial organisms is insignificant. If everything else tomorrow turns out okay tomorrow morning, we could discharge patient on empiric antibiotics for UTI, the negative urine culture not withstanding. That is a decision that I would make tomorrow, anyway. PDMP PDMP Reviewed: Not Reviewed Attestations 2 Medical Necessity Statement*: Patient admitted for apparent severe clinical condition, as outlined in the Assessment & Plan section above. Patient will need up to 2 midnight stay, estimated, at least, to adequately and appropriately treat and optimally control above-named clinical conditions,. Coding Level of Care Code Acute Code for Chg Fwd Diagnoses Acute hypokalemia E87.6 Acute metabolic encephalopathy G93.41 UTI (urinary tract infection) N39.0 Morbid obesity with BMI of 40.0-44.9, adult E66.01; Z68.41 Hemolytic anemia D58.9 DM type 2 (diabetes mellitus, type 2) E11.9 Hypertension I10
[2025-03-04] MEDS: potassium chloride premix 100 ML 50 MEQ IV (16:08)
[2025-03-04 16:31] VITALS: BP 115/81; PULSE 81; RESP 18; TEMP 37.1; O2SAT 91
[2025-03-04 16:33] LABS: Magnesium 1.8 mg/dL (1.7-2.3)
[2025-03-04] MEDS: insulin glargine 100 units/1 mL 10 UNIT SUBCUT (18:15)
[2025-03-04 20:00] VITALS: BP 132/80; PULSE 83; PULSE 84; RESP 17; TEMP 37.6; O2SAT 92
[2025-03-04] MEDS: MELATONIN 3 MG TABLET PO (21:00)
[2025-03-04 23:44] VITALS: BP 130/78; PULSE 78; RESP 16; TEMP 36.9; O2SAT 92
[2025-03-05 04:00] VITALS: BP 137/83; PULSE 80; RESP 16; TEMP 37.1; O2SAT 95
[2025-03-05] MEDS: cefTRIAXone 1,000 mg SDV 1000 MG IVP (05:06)
[2025-03-05] MEDS: insulin glargine 100 units/1 mL 10 UNIT SUBCUT (06:18)
[2025-03-05 06:40] LABS: Anion Gap 13.9 (5-19); Blood Urea Nitrogen 18 mg/dL (8-23); Calcium 8.7 mg/dL (8.5-10.5); Carbon Dioxide 27 mmol/L (22-29); Chloride 104 mmol/L (98-107); Creatinine Clr Calc Pharmacy 85.4456; Glucose 210 mg/dL (65-115); Magnesium 1.7 mg/dL (1.7-2.3); Osmolality Calculated 302 mOsm/kg (285-295); Sodium 142 mmol/L (136-145)
[2025-03-05 06:52] LABS: Potassium 2.9 mmol/L (3.5-5.1)
[2025-03-05 08:00] VITALS: BP 135/88; BP 171/78; PULSE 78; PULSE 85; PULSE 89; RESP 16; RESP 17; TEMP 37.1; TEMP 37.2; O2SAT 93
[2025-03-05] MEDS: magnesium sulfate premix 2 GM/50 ML PIGGYBACK IV (09:02)
[2025-03-05] MEDS: lidocaine 1% 5 ML in potassium chloride premix 100 ML 52.5 ML IV ×2 (09:02→10:58)
--- NOTE | 2025-03-05 09:49 | PC.SOCIAL ---
IMM Update pg 2 of IMM updated and reviewed w/ patient. copy provided and copy dated, initialed and placed in chart.
[2025-03-05 12:00] VITALS: BP 169/90; PULSE 81; RESP 18; TEMP 37.1; O2SAT 93
[2025-03-05 13:48] LABS: Potassium 3.9 mmol/L (3.5-5.1)
--- NOTE | 2025-03-05 14:16 | PM.PN ---
Vitals/I&O/Wt Last Vital Signs Temp 98.7 F 03/05/25 12:00 Pulse 81 03/05/25 12:00 Resp 18 03/05/25 12:00 BP 169/90 03/05/25 12:00 Pulse Ox 93 03/05/25 12:00 O2 Del Method Room Air 03/05/25 12:00 O2 Flow Rate 3 03/03/25 07:29 03/04/25 03/05/25 03/05/25 22:59 06:59 14:59 Intake Total 220 / 340 380 / 380 Balance 220 / 340 380 / 380 Weight last 48 hrs Weight 120.202 kg Weight 120.656 kg Data 03/03/25 14:00 03/05/25 13:18 Micro: Microbiology 03/02/25 08:46 Urine Culture - Final Urine,Clean Catch Proteus mirabilis 03/05/25 02:00 Occult Blood (FIT) - Final Stool A&P PDMP PDMP Reviewed: Not Reviewed Coding Level of Care Code Acute Code for Chg Fwd
--- NOTE | 2025-03-05 16:16 | PC.NURSE ---
Discharge report called report given to anabell at [facility] at 16:00 they are working on transport now
[2025-03-05 16:17] VITALS: BP 169/90; PULSE 81; RESP 18; TEMP 36.6; O2SAT 93
--- NOTE | 2025-03-05 16:56 | P.DS_ITS ---
Discharge Providers Date of Admission: 03/02/25 10:46 Date of Discharge: March 05, 2025 Attending Provider at Admission: Chicho Arzate MD Attending Provider at Discharge: Chicho Arzate MD Primary Care Provider: Inderjit Balderas DO Diagnoses at Discharge Discharge Diagnosis 1. UTI (urinary tract infection): 2. Acute hypokalemia: 3. Acute metabolic encephalopathy: 4. Morbid obesity with BMI of 40.0-44.9, adult: 5. Hemolytic anemia: 6. DM type 2 (diabetes mellitus, type 2): 7. Hypertension: Reason for Visit Reason for Visit: Altered mentation Brief History: Patient presented with some with symptoms. UTI was diagnosed with a urine culture. Therefore, IV Unasyn was started, while other symptoms were treated empirically. Hospital Course Hospital Course Given finding of anemia, she was transfused 1 unit of PRBCs, which helped to bring hemoglobin level from below 8.0 mg% to above 8 mg%. Deficient electrolytes, specifically the potassium and magnesium were replaced. For the past 24 to 48 hours, the patient has been back to her baseline. Given stable symptoms, she is therefore discharged today. Of note, urine culture was negative for any findings. However, given good response to Rocephin, patient is continued on at the oral cephalexin. Physical Exam Narrative: General: Awake and alert patient. Resp: No obvious respiratory distress or difficulty breathing. Skin: No obvious rashes or new skin lesions. All other physical findings essentially within normal limits. Discharge Data Studies Completed and Pending Pending at discharge Category Date Time Status Antibody Identification Stat Lab 03/02/25 09:32 Results Blood Culture Stat Lab 03/02/25 08:33 Results Leukocyte Reduced RBC Stat Lab 03/02/25 09:32 Results Type and Screen Stat Lab 03/02/25 09:32 Results VBG [Venous Blood Gas] Routine Lab 03/02/25 11:15 Results Vitals Last Vital Signs Temp 97.8 F 03/05/25 16:17 Pulse 81 03/05/25 16:17 Resp 18 03/05/25 16:17 BP 169/90 03/05/25 16:17 Pulse Ox 93 03/05/25 16:17 O2 Del Method Room Air 03/05/25 12:00 O2 Flow Rate 3 03/03/25 07:29 Discharge Plan Discharge Patient Disposition: Xfer SNF Condition: Stable Prescriptions: New cephalexin 500 mg capsule 500 mg PO Q8H Qty: 20 0RF Continued magnesium hydroxide [Milk of Magnesia] 400 mg/5 mL suspension 30 ml PO DAILY PRN (Reason: Constipation) pantoprazole 40 mg tablet,delayed release (DR/EC) 40 mg PO DAILY (DME) Remove Sarah See Rx Instructions .Route .MEDSUPPLY Qty: 1 0RF Rx Instructions: As directed levothyroxine 25 mcg tablet 25 mcg PO DAILY potassium chloride 20 mEq tablet extended release 20 meq PO BID Qty: 10 0RF insulin aspart U-100 100 unit/mL Solution 5 unit SUBCUT TID food supplemt, lactose-reduced Liquid 1 ea PO DAILY insulin glargine-yfgn 100 unit/mL (3 mL) Insulin Pen 10 unit SUBCUT BEDTIME insulin aspart U-100 100 unit/mL (3 mL) Insulin Pen See Rx Instructions .ROUTE .COMPLEX Rx Instructions: 150-200=0 units 201-250=2 units 251-300=4 units 301-350=6 units 351-400=8 units Subcutaneously every morning and at bedtime ondansetron HCl 4 mg tablet 4 mg PO Q4H PRN (Reason: Nausea) loperamide [Imodium A-D] 2 mg Tablet 2 mg PO Q4H PRN (Reason: Diarrhea) Rx Instructions: administer after each loose stool until symptoms controlled; do not exceed 8 mg per 24 hrs citalopram 20 mg tablet 20 mg PO DAILY bisacodyl [Dulcolax (bisacodyl)] 10 mg Suppository 10 mg [place] DAILY PRN (Reason: Constipation) mirtazapine 15 mg tablet 15 mg PO BEDTIME melatonin 1 mg Tablet 1 mg PO BEDTIME PRN (Reason: Sleep) acetaminophen 500 mg capsule 500 mg PO Q6H PRN (Reason: pain) Qty: 30 0RF Fleet Enema 19-7 gram/118 mL Enema 118 ml IL DAILY PRN (Reason: Constipation) furosemide [Lasix] 40 mg tablet 40 mg PO BIDWM 10 Days Qty: 10 0RF Rx Instructions: take 40mg BID for 10 days, then reduce dose to once daily Discontinued prednisone 10 mg tablet 10 mg PO DAILY Qty: 60 2RF Discharge Order = DC NOW: Discharge Order (Routine); Ordered 03/05/25 Ordered By: Chicho Arzate Referrals: Inderjit Balderas DO [Primary Care Provider, Internal Medicine] Discharge Diet: Advance as tolerated and Diabetic Discharge Activity: Resume usual activity and Increase activity as tolerated Patient Instructions: Urinary Tract Infection in Women (DC), Hemolytic Anemia (DC), Encephalopathy (DC), Opioid Safety, Patient Portal & [place] Instructions Activity Restrictions/Additional Instructions: Follow-up with primary care provider within the next 1 to 2 weeks. Discharge Attestations Time Spent in Discharge Care*: greater than 30 min Status at Discharge: Cognitive status at discharge: cognitively intact , Behavioral status at discharge: cooperative , Quality Metrics Clinical Quality Measures [ No reported AMI, CVA or VTE this stay] Coding Level of Care Code Acute Code for Chg Fwd Diagnoses UTI (urinary tract infection) N39.0 Acute hypokalemia E87.6 Acute metabolic encephalopathy G93.41 Morbid obesity with BMI of 40.0-44.9, adult E66.01; Z68.41 Hemolytic anemia D58.9 DM type 2 (diabetes mellitus, type 2) E11.9 Hypertension I10
== END 2025-03-05 17:27 | disposition skilled nursing facility (03) | DRG 689 ==
LOC: ER 08:36 → MEDSURG 10:48
PROVIDERS: Clinical Nurse Specialist Acute Care; Admitting Provider Family Medicine; Emergency Provider Family Medicine; PCP Internal Medicine; Visit Provider Family Medicine
DX: N39.0 Urinary tract infection, site not specified (principal); G93.41 Metabolic encephalopathy; Z68.41 Body mass index [BMI] 40.0-44.9, adult; D59.10 Autoimmune hemolytic anemia, unspecified; E87.6 Hypokalemia; E66.01 Morbid (severe) obesity due to excess calories; E11.9 Type 2 diabetes mellitus without complications; I10 Essential (primary) hypertension; E03.9 Hypothyroidism, unspecified; F03.90 Unspecified dementia, unspecified severity, without behavioral disturbance, psychotic disturbance, mood disturbance, and anxiety; R09.02 Hypoxemia; I95.9 Hypotension, unspecified; E86.0 Dehydration; Z79.4 Long term (current) use of insulin; Z87.01 Personal history of pneumonia (recurrent); Z86.16 Personal history of COVID-19
CPT/HCPCS: 36415; 36416; 36430; 80048; 80053; 81001; 82009; 82274; 82436; 82550; 82570; 82728; 82803; 82962; 83010; 83036; 83540; 83550; 83605; 83615; 83735; 84132; 84133; 84156; 84300; 85025; 86850; 86870; 86900; 86920; 87040; 87077; 87086; 87186; 87637; 93005; 96372; 96374; 97161; 97167; 97530; 99285; J0696; J1815; J3475; J3480; J7030; J7512; J9999; P9016

== ENCOUNTER 2025-03-15 11:43 | Emergency (ER) | payer MEDICARE, MEDICAID, SELFPAY ==
[2025-03-15] VITALS (15 sets, daily range): BP systolic 103–132; BP diastolic 53–72; PULSE 82–88; RESP 14–16; TEMP 36.8–37.4; O2SAT 95–100; BMI 27.3
--- NOTE | 2025-03-15 11:47 | XR_ITS ---
WS: [id number] Exam: XR chest 1V portable [id number] Date/Time of Exam: 03/15/2025 11:48 AM Reason For Exam: Shortness of breath Comparison 01/23/2025. The lungs are clear and fully inflated. Unremarkable cardiomediastinal silhouette for technique. Areas of plaque atelectasis in the lower lung zones. No pleural effusions. Bony structures are intact. XR/XR chest 1V portable [id number] IMPRESSION: 1. No acute cardiopulmonary finding.
--- NOTE | 2025-03-15 11:47 | W.ED.SOB ---
HPI - SOB/Dyspnea General: Chief Complaint: Shortness of Breath/Dyspnea Stated Complaint: low o2 Time Seen by Provider: 03/15/25 11:43 History of Present Illness: HPI Narrative: 74-year-old female with a history of hypothyroidism, morbid obesity, recent right femoral neck fracture, autoimmune hemolytic anemia, hyperbilirubinemia, diabetes and hypertension who [facility] with concern for low oxygen saturations. She is in a penitentiary for rehab after shoulder surgery. However presentation here oxygen saturation is fine. H she says she is been mildly short of breath. No cough. No fevers. No altered mental status. No nausea or vomiting. No abdominal pain. Related Data Home Medications ?Medication ?Instructions ?Recorded ?Confirmed levothyroxine 25 mcg tablet 25 mcg PO DAILY 02/16/20 03/02/25 bisacodyl 10 mg rectal suppository 10 mg MA DAILY PRN Constipation 05/31/24 03/02/25 (Dulcolax (bisacodyl)) citalopram 20 mg tablet 20 mg PO DAILY 05/31/24 03/02/25 loperamide 2 mg tablet (Imodium 2 mg PO Q4H PRN Diarrhea 05/31/24 03/02/25 A-D) melatonin 1 mg tablet 1 mg PO BEDTIME PRN Sleep 05/31/24 03/02/25 mirtazapine 15 mg tablet 15 mg PO BEDTIME 05/31/24 03/02/25 ondansetron HCl 4 mg tablet 4 mg PO Q4H PRN Nausea 05/31/24 03/02/25 magnesium hydroxide 400 mg/5 mL 30 ml PO DAILY PRN Constipation 09/24/24 03/02/25 oral suspension (Milk of Magnesia) pantoprazole 40 mg tablet,delayed 40 mg PO DAILY 09/24/24 03/02/25 release sodium phosphates 19 gram-7 118 ml MA DAILY PRN Constipation 01/23/25 03/02/25 gram/118 mL enema (Fleet Enema) food supplemt, lactose-reduced 1 ea PO DAILY 03/02/25 03/02/25 insulin aspart U-100 100 unit/mL See Rx Instructions .Route .COMPLEX 03/02/25 03/02/25 (3 mL) subcutaneous pen insulin aspart U-100 100 unit/mL 5 unit SUBCUT TID 03/02/25 03/02/25 subcutaneous solution insulin glargine-yfgn 100 unit/mL 10 unit SUBCUT BEDTIME 03/02/25 03/02/25 (3 mL) subcutaneous pen Previous Rx's ?Medication ?Instructions ?Recorded potassium chloride 20 mEq 20 meq PO BID #10 tabs 03/22/22 tablet,extended release acetaminophen 500 mg capsule 500 mg PO Q6H PRN pain #30 caps 06/04/24 furosemide 40 mg tablet (Lasix) 40 mg PO BIDWM 10 days #10 tabs 01/26/25 Remove [place] #1 ea 02/11/25 cephalexin 500 mg capsule 500 mg PO Q8H #20 caps 03/05/25 Allergies Allergy/AdvReac Type Severity Reaction Status Date / Time No Known Allergies Allergy Verified 03/01/25 09:59 Review of Systems Narrative: Constitutional symptoms: Negative except as documented in HPI. Skin symptoms: Negative except as documented in HPI. Eye symptoms: Negative except as documented in HPI. ENMT symptoms: Negative except as documented in HPI. Respiratory symptoms: Negative except as documented in HPI. Cardiovascular symptoms: Negative except as documented in HPI. Gastrointestinal symptoms: Negative except as documented in HPI. Genitourinary symptoms: Negative except as documented in HPI. Musculoskeletal symptoms: Negative except as documented in HPI. Neurologic symptoms: Negative except as documented in HPI. Psychiatric symptoms: Negative except as documented in HPI. Endocrine symptoms: Negative except as documented in HPI. PFS ED PFSH: Medical History (Updated 03/15/25 @ 15:15 by Radha Cardenas MD) Hypothyroidism Morbid obesity with BMI of 40.0-44.9, adult Pneumonia due to COVID-19 virus Cellulitis DM type 2 (diabetes mellitus, type 2) Hypertension Surgical History No significant past surgical history Family History Denies family history of Anemia Social History Smoking and tobacco/nicotine status: former use of tobacco/nicotine Quit status (tobacco/nicotine): has quit using Year quit tobacco: quit 15-20 years ago Substance/Drug Use: never Physical Exam Narrative: EXAM NARRATIVE: General: Alert, no acute distress. Skin: Warm, dry. Head: Normocephalic, atraumatic. Neck: Supple, trachea midline. Eye: Extraocular movements are intact. Ears, nose, mouth and throat: mucosa moist. Cardiovascular: Regular, Normal peripheral perfusion. Respiratory: Lungs are clear to auscultation, respirations are non-labored, breath sounds are equal, Symmetrical chest wall expansion. Gastrointestinal: Soft, Nontender, Non distended Musculoskeletal: Normal ROM, no deformity. Neurological: Alert and oriented, No focal neurological deficit observed. Psychiatric: Cooperative, appropriate mood & affect. Course Vital Signs: Vital signs: Vital Signs Temperature 99.3 F 03/15/25 11:44 Pulse Rate 84 03/15/25 13:51 Respiratory Rate 16 03/15/25 13:51 Blood Pressure 132/57 03/15/25 11:44 Pulse Oximetry 99 03/15/25 13:51 Oxygen Delivery Me thod Room Air 03/15/25 11:44 MDM - SOB/Dyspnea Medical Decision Making Medical decision making Patient's reason for coming to the emergency room: Social determinants: I reviewed the patient's medical record. 74-year-old female with a history of hypothyroidism, morbid obesity, recent right femoral neck fracture, autoimmune hemolytic anemia, hyperbilirubinemia, diabetes and hypertension. I reviewed the patient's current home meds Patient is not on any anticoagulation. Alternate historians: None Differential diagnosis for patient with shortness of breath includes but is not limited to and based on the above HPI, review of systems and physical exam: Pneumonia. Bronchitis. Asthma or COPD with acute exacerbation. Acute coronary syndrome / IA. Pulmonary embolism. Anxiety. Congestive heart failure. Viral infections including influenza and Covid-19. Atrial fibrillation. Anxiety. Pleural effusion. Pneumothorax. Orders placed to evaluate differential diagnosis based on the above differential, HPI and physical exam Chest x-ray: No acute process. No infiltrate. No pneumothorax. This was reviewed and interpreted by myself the emergency room physician. I also reviewed the radiology report. EKG: Time 1323. Rate 82. Normal sinus rhythm, nonspecific ST changes, no ectopy, normal MA & QRS intervals, This was reviewed and interpreted by myself the ER physician at 1328 Lab Review: Laboratory results were reviewed and interpreted by myself the emergency room physician. No leukocytosis. No renal failure. Patient is anemic with a hemoglobin of 6.2. She has autoimmune anemia and this is not uncommon. She is not requiring oxygen. Assessment of risk: Level of risk: High risk patient. Multiple comorbidities. Hospitalization considerations: Did consider hospitalization but he is not requiring any oxygen and her vital signs are normal so we will transfuse and send back to [facility]. She has known cause for her anemia. Reexamination: Patient remained stable. No increased work of breathing. No altered mental status. No focal motor deficits. Consultation: I spoke with Dr. Martinez about the patient. This seems to be more of a gradual decrease in her hemoglobin and she does not appear to be hemolyzing so no steroids at this time. 2 units and follow-up in clinic. Assessment and plan: Anemia ? 2 units PRBCs in the emergency room. - Discharged home - Discussed plan with patient. Answered any questions. - Evaluation and treatment of this problem were appropriate in the emergency setting. Lab Data 03/15/25 12:05 03/15/25 12:05 Labs/Radiology: Radiology Impressions Chest X-Ray 03/15/25 11:47 IMPRESSION: 1. No acute cardiopulmonary finding. Laboratory Results WBC 9.86 10^3/uL (3.29-11.43) 03/15/25 12:05 RBC 1.68 10^6/uL (3.85-5.65) L 03/15/25 12:05 Hgb 6.20 g/dL (11.27-16.99) L* 03/15/25 12:05 Hct 21.2 % (36-47) L 03/15/25 12:05 MCV 126.2 fl (85-98) H 03/15/25 12:05 MCH 36.9 pg (27-33) H 03/15/25 12:05 MCHC 29.2 g/dL (30-55) L 03/15/25 12:05 RDW 24.5 % (12.1-15.1) H 03/15/25 12:05 Plt Count 380 10^3/cmm (157-399) 03/15/25 12:05 MPV 9.4 fL (7.4-10.4) 03/15/25 12:05 Neut % (Auto) 69.9 % 03/15/25 12:05 Lymph % (Auto) 19.9 % 03/15/25 12:05 Heard % (Auto) 7.2 % 03/15/25 12:05 Eos % (Auto) 0.7 % 03/15/25 12:05 Baso % (Auto) 0.4 % 03/15/25 12:05 Neut # (Auto) 6.89 10^3/uL (1.8-7.7) 03/15/25 12:05 Lymph # (Auto) 2.0 10^3/uL (0.8-4.8) 03/15/25 12:05 Heard # (Auto) 0.7 10^3/uL (0.2-0.9) 03/15/25 12:05 Eos # (Auto) 0.1 10^3/uL (0.0-0.8) 03/15/25 12:05 Baso # (Auto) 0.0 10^3/uL (0.0-0.1) 03/15/25 12:05 Nucleated RBC % (auto) 1.2 % 03/15/25 12:05 Nucleated RBCs # 0.1 /100WBC 03/15/25 12:05 Sodium 139 mmol/L (136-145) 03/15/25 12:05 Potassium 3.4 mmol/L (3.5-5.1) L 03/15/25 12:05 Chloride 101 mmol/L (98-107) 03/15/25 12:05 Carbon Dioxide 27 mmol/L (22-29) 03/15/25 12:05 Anion Gap 14.4 (5-19) 03/15/25 12:05 BUN 12 mg/dL (8-23) 03/15/25 12:05 Creatinine 0.8 mg/dL (0.5-0.9) 03/15/25 12:05 GFR Calculation Not Reportable 03/15/25 12:05 Glucose 102 mg/dL (65-115) 03/15/25 12:05 Calculated Osmolality 288 mOsm/kg (285-295) 03/15/25 12:05 Lactic Acid 1.0 mmol/L (0.5-2.2) 03/15/25 12:05 Calcium 8.7 mg/dL (8.5-10.5) 03/15/25 12:05 Total Bilirubin 1.8 mg/dL (0.15-1.2) H 03/15/25 12:05 AST 18 U/L (0-32) 03/15/25 12:05 ALT 13 U/L (0-33) 03/15/25 12:05 Alkaline Phosphatase 94 U/L (35-105) 03/15/25 12:05 Troponin T Baseline 27 ng/L (0-10) H 03/15/25 12:05 Troponin T 120 Minute 24.75 ng/L (0-10) H 03/15/25 13:52 Delta Troponin T -2.25 ABS# (0-10) L 03/15/25 13:52 Total Protein 6.4 g/dL (6.6-8.7) L 03/15/25 12:05 Albumin 3.6 g/dL (3.5-5.2) 03/15/25 12:05 Globulin 2.8 g/dL (1.3-4.6) 03/15/25 12:05 Urine Color Yellow (Yellow) 03/15/25 12:11 Urine Appearance Clear (CLEAR) 03/15/25 12:11 Urine pH 5.5 (5-7) 03/15/25 12:11 Ur Specific [place] 1.007 (1.005-1.030) 03/15/25 12:11 Urine Protein Negative (Negative) 03/15/25 12:11 Urine Glucose (UA) Negative (Normal) 03/15/25 12:11 Urine Ketones Negative (Negative) 03/15/25 12:11 Urine Blood Negative (Negative) 03/15/25 12:11 Urine Nitrate Negative (Negative) 03/15/25 12:11 Urine Bilirubin Negative (Negative) 03/15/25 12:11 Urine Urobilinogen 0.2 mg/dL (Negative) 03/15/25 12:11 Ur Leukocyte Esterase Negative (Negative) 03/15/25 12:11 Urine RBC 0-2 /hpf (0-2) 03/15/25 12:11 Urine WBC 0-5 /hpf (0-5) 03/15/25 12:11 Ur Squamous Epith Cells 0-5 /hpf (0-5) 03/15/25 12:11 Amorphous Sediment Not Reportable 03/15/25 12:11 Urine Bacteria None seen /hpf (NONE) 03/15/25 12:11 Hyaline Casts 1.21 /lpf 03/15/25 12:11 Influenza A (PCR) Negative (Negative) 03/15/25 12:23 Influenza Type B (PCR) Negative (Negative) 03/15/25 12:23 RSV (PCR) Negative (Negative) 03/15/25 12:23 SARS-CoV-2 (PCR) Negative (Negative) 03/15/25 12:23 Blood Type O Positive 03/15/25 13:14 Rho(D) Type Rh positive 03/15/25 13:14 Antibody Screen Positive 03/15/25 13:14 Prewarmed Antibody Srcn Negative 03/15/25 13:14 Antibody Identification Cold Auto Antibody 03/15/25 13:14 Crossmatch See Detail 03/15/25 13:14 All radiology interpretation(s) finalized by discharge Discharge Plan Discharge Patient Disposition: Home Clinical Impression: Autoimmune hemolytic anemia Anemia Qualifiers: Anemia type: unspecified type Qualified Code(s): D64.9 - Anemia, unspecified Condition: Stable Prescriptions: No Action magnesium hydroxide [Milk of Magnesia] 400 mg/5 mL suspension 30 ml PO DAILY PRN (Reason: Constipation) pantoprazole 40 mg tablet,delayed release (DR/EC) 40 mg PO DAILY (DME) Remove Sarah See Rx Instructions .Route .MEDSUPPLY Qty: 1 0RF Rx Instructions: As directed levothyroxine 25 mcg tablet 25 mcg PO DAILY potassium chloride 20 mEq tablet extended release 20 meq PO BID Qty: 10 0RF insulin aspart U-100 100 unit/mL Solution 5 unit SUBCUT TID food supplemt, lactose-reduced Liquid 1 ea PO DAILY insulin glargine-yfgn 100 unit/mL (3 mL) Insulin Pen 10 unit SUBCUT BEDTIME insulin aspart U-100 100 unit/mL (3 mL) Insulin Pen See Rx Instructions .ROUTE .COMPLEX Rx Instructions: 150-200=0 units 201-250=2 units 251-300=4 units 301-350=6 units 351-400=8 units Subcutaneously every morning and at bedtime cephalexin 500 mg capsule 500 mg PO Q8H Qty: 20 0RF ondansetron HCl 4 mg tablet 4 mg PO Q4H PRN (Reason: Nausea) loperamide [Imodium A-D] 2 mg Tablet 2 mg PO Q4H PRN (Reason: Diarrhea) Rx Instructions: administer after each loose stool until symptoms controlled; do not exceed 8 mg per 24 hrs citalopram 20 mg tablet 20 mg PO DAILY bisacodyl [Dulcolax (bisacodyl)] 10 mg Suppository 10 mg MA DAILY PRN (Reason: Constipation) mirtazapine 15 mg tablet 15 mg PO BEDTIME melatonin 1 mg Tablet 1 mg PO BEDTIME PRN (Reason: Sleep) acetaminophen 500 mg capsule 500 mg PO Q6H PRN (Reason: pain) Qty: 30 0RF Fleet Enema 19-7 gram/118 mL Enema 118 ml MA DAILY PRN (Reason: Constipation) furosemide [Lasix] 40 mg tablet 40 mg PO BIDWM 10 Days Qty: 10 0RF Rx Instructions: take 40mg BID for 10 days, then reduce dose to once daily Discharge Orders: Discharge ED (Routine); Ordered 03/15/25 Ordered By: Radha Cardenas Referrals: Inderjit Balderas DO [Primary Care Provider, Internal Medicine] Discharge Diet: Usual diet Discharge Activity: Increase activity as tolerated Patient Instructions: Anemia (ED), Opioid Safety, Pain Management, Patient Portal & [place] Instructions Activity Restrictions/Additional Instructions: Thank you for choosing [facility] for your healthcare needs today. You have been screened and evaluated and felt safe for discharge. Health conditions do change or evolve sometimes and as such it is important that you follow up with your Primary Doctor to be re checked, 3-5 days is a general good time frame for follow up. You are always welcome to return to the ED for re assessment if your symptoms are worsening or you have new concerns Print Language: Italian Coding Level of Care Code ED Shoe St[employer] Repairer for Presley Hamilton
[2025-03-15 12:21] LABS: Hematocrit 21.2 % (36-47); Mean Corpuscular HGB Conc 29.2 g/dL (30-55); Mean Corpuscular Hemoglobin 36.9 pg (27-33); Mean Corpuscular Volume 126.2 fl (85-98); Nucleated Red Blood Cells % 1.2 %; Platelet Count 380 10^3/cmm (157-399); Red Blood Count 1.68 10^6/uL (3.85-5.65); White Blood Count 9.86 10^3/uL (3.29-11.43)
--- OUTSIDE RECORDS SUMMARY | 2025-03-15 12:27 | XMS_ITS ---
Author Organization [facility] Care Team Providers Care Filteration Operator Name Role Phone Inderjit Balderas Unavailable Unavailable Allergies and adverse reactions No Known Allergies Care Team Name Role Address Phone Organization Dates Inderjit Balderas PCP [address], [address], [place] (Office): : : [facility] 03/05/2025 - present Encounters Encounter Type Code Code System Description Performer Discharge Disposition Service Delivery Location Date Ambulatory Encounter CPT Code = [id number] Closed fracture of intracapsular section of femur Maximus Peoples [facility] Address: [address], [place], [address], [facility]. 03/05 Ambulatory Encounter CPT Code = 12226 S42.309D ICD 10 UNSPECIFIED FRACTURE OF SHAFT OF HUMERUS, UNSPECIFIED ARM, SUBSEQUENT ENCOUNTER FOR FRACTURE WITH ROUTINE HEALING Maximus Peoples [facility] Address: [address], [place], [address], [facility]. 03/05 Ambulatory Encounter CPT Code = [id number] Fracture of upper end of humerus [facility] Address: [address], [place], [address], [facility]. 03/05 Ambulatory Encounter CPT Code = [id number] Attention to prosthetic replacement of articulation of bone [facility] Address: [address], [place], [address], [facility]. 03/05 Ambulatory Encounter CPT Code = [id number] Prosthetic arthroplasty of hip [facility] Address: [address], [place], [address], [facility]. 03/05 Ambulatory Encounter CPT Code = [id number] Type 2 diabetes mellitus without complication [facility] Address: [address], [place], [address], [place]. 03/05 Ambulatory Encounter CPT Code = [id number] Morbid obesity [facility] Address: [address], [place], [address], [facility]. 03/05 Ambulatory Encounter CPT Code = [id number] Anemia [facility] Address: [address], [place], [address], [place]. 03/05 Ambulatory Encounter CPT Code = [id number] Urinary tract infectious disease [facility] Address: [address], [place], [address], [facility]. 03/05 Ambulatory Encounter CPT Code = [id number] Hypoxemia [facility] Address: [address], [place], [address], [facility]. 03/05 Ambulatory Encounter CPT Code = [id number] Low blood pressure [facility] Address: [address], [place], [address], [facility]. 03/05 Ambulatory Encounter CPT Code = [id number] Localized edema [facility] Address: [address], [place], [address], [place]. 03/05 Ambulatory Encounter CPT Code = [id number] Cellulitis of right lower limb [facility] Address: [address], [place], [address], [place]. 03/05 Ambulatory Encounter CPT Code = [id number] Cellulitis of left lower limb [facility] Address: [address], [place], [address], [facility]. 03/05 Ambulatory Encounter CPT Code = [id number] Insomnia [facility] Address: [address], [place], [address], [place]. 03/05 Ambulatory Encounter CPT Code = [id number] Depressive disorder [facility] Address: [address], [place], [address], [facility]. 03/05 Ambulatory Encounter CPT Code = [id number] Anxiety disorder [facility] Address: [address], [place], [address], [place]. 03/05 Ambulatory Encounter CPT Code = [id number] Dementia [facility] Address: [address], [place], [address], [place]. 03/05 Ambulatory Encounter CPT Code = [id number] Essential hypertension [facility] Address: [address], [place], [address], [facility]. 03/05 Ambulatory Encounter CPT Code = [id number] Hypothyroidism [facility] Address: [address], [place], [address], [facility]. 03/05 Ambulatory Encounter CPT Code = [id number] Closed fracture of intracapsular section of femur Johnathan Nielsen Discharge to [facility] Address: [address], [place], [address], [facility]. 01/26 Ambulatory Encounter CPT Code = 14937 S42.309D ICD 10 UNSPECIFIED FRACTURE OF SHAFT OF HUMERUS, UNSPECIFIED ARM, SUBSEQUENT ENCOUNTER FOR FRACTURE WITH ROUTINE HEALING Johnathan Nielsen Discharge to [facility] Address: [address], [place], [address], [facility]. 01/26 Ambulatory Encounter CPT Code = [id number] Fracture of upper end of humerus Johnathan Nielsen Discharge to [facility] Address: [address], [place], [address], [facility]. 01/26 Ambulatory Encounter CPT Code = [id number] Attention to prosthetic replacement of articulation of bone Johnathan Nielsen Discharge to [facility] Address: [address], [place], [address], [facility]. 01/26 Ambulatory Encounter CPT Code = [id number] Prosthetic arthroplasty of hip Johnathan Nielsen Discharge to [facility] Address: [address], [place], [address], [facility]. 01/26 Ambulatory Encounter CPT Code = [id number] Type 2 diabetes mellitus without complication Johnathan Nielsen Discharge to [facility] Address: [address], [place], [address], [facility]. 01/26 Ambulatory Encounter CPT Code = [id number] Morbid obesity Johnathan Nielsen Discharge to [facility] Address: [address], [place], [address], [facility]. 01/26 Ambulatory Encounter CPT Code = [id number] Anemia Johnathan Nielsen Discharge to [facility] Address: [address] [place], [address], [place]. 01/26 Ambulatory Encounter CPT Code = [id number] Localized edema Johnathan Nielsen Discharge to [facility] Address: [address], [place], [address], [facility]. 01/26 Ambulatory Encounter CPT Code = [id number] Cellulitis of right lower limb Johnathan Nielsen Discharge to [facility] Address: [address], [place], [address], [facility]. 01/26 Ambulatory Encounter CPT Code = 76613 [id number] Cellulitis of left lower limb Johnathan Nielsen Discharge to [facility] Address: [address], [place], [address], [place]. 01/26 Ambulatory Encounter CPT Code = [id number] Insomnia Johnathan Nielsen Discharge to [facility] Address: [address], [place], [address], [facility]. 01/26 Ambulatory Encounter CPT Code = [id number] Depressive disorder Johnathan Nielsen Discharge to [facility] Address: [address], [place], [address], [facility]. 01/26 Ambulatory Encounter CPT Code = [id number] Anxiety disorder Johnathan Nielsen Discharge to [facility] Address: [address], [place], [address], [facility]. 01/26 Ambulatory Encounter CPT Code = [id number] Dementia Johnathan Nielsen Discharge to [facility] Address: [address] [place], [address]. 01/26 Ambulatory Encounter CPT Code = [id number] Essential hypertension Johnathan Nielsen Discharge to [facility] Address: [address], [place], [address]. 01/26 Ambulatory Encounter CPT Code = [id number] Hypothyroidism Johnathan Nielsen Discharge to [facility] Address: [address], [place], [address], [facility]. 01/26 Goals Section Goals Description Status Target Date The resident will be free of infection, pain or bleeding in the oral cavity by review date. Active 05/08/2025 The resident will be free of symptoms of dehydration and maintain moist mucous membranes, good skin turgor. Active 05/08/2025 The resident will have impro marco a mood state (SPECIFY: happier, calmer appearance, no s/sx of depression, anxiety or sadness) through the review date. Active 05/08/2025 The resident will have intac t skin, free of redness, blisters or discoloration by/through review date. Active 05/08/2025 The resident will have no co mplications related to diabetes through the review date. Active 05/08/2025 The resident will improve cu rrent level of cognitive function through the review date. Active 05/08/2025 The resident will improve cu rrent level of function in (SPECIFY ADLs) through the review date. Resident will be able to: (SPECIFY) Active 05/08/2025 The resident will maintain a dequate nutritional status as evidenced by no further weight gain, healing of surgical wound, labs wnl Active 05/08/2025 The resident will not sustai n serious injury through the review date. Active 05/08/2025 The resident will remain berna e from s/sx of hypertension through the review date. Active 05/08/2025 The resident will remain berna e from skin breakdown due to incontinence and brief use through the review date. Active The resident will show decre ased episodes (SPECIFY) of s/sx of depression (SPECIFY) through the review date. Active 05/08/19 The resident will verbalize adequate relief of pain or ability to cope with incompletely relieved pain through the review date. Active 05/08/2025 Functional Status Code Name Recorded Time Value Entered By 4 steps 03/05/2025 Not assessed blambert Ambulation 03/14/2025 Not assessed mjohnson Ambulation 03/14/2025 Extensive Assistance mjohnso n Ambulation 03/14/2025 Not assessed mjohnson Ambulation 03/14/2025 Not assessed mjohnson Bathing 03/11/2025 Not assessed sdeforest Dressing 03/14/2025 Extensive Assistance eduardo pollard Eating 02/24/2025 Independent kmcvey Feeding or Eating 03/14/2025 Independent mjohnson Toileting 03/15/2025 Extensive Assistance ckight Transferring 03/14/2025 Extensive Assistance eduardo pollard Immunizations Immunization Status Vaccine Details Vaccine Code CodeSystem Date Notes Influenza completed Influenza, high-dose, split virus, quadrivalent, injectable, preservative free lotNumber: [id number] expiry: 10/12/2025 Mfg: [employer] Given 0.5 ml intramuscularly 197 CVX created date: 5 consent date: administe red date: 5 Educated by Mely Reyna RN on 02/08/2025 Influenza completed Influenza, high-dose, split virus, quadrivalent, injectable, preservative free Given Left Deltoid 197 CVX created date: 5 administe red date: 4 seqirus [id number] Influenza completed Influenza, high-dose, split virus, quadrivalent, injectable, preservative free Given Right Deltoid 197 CVX created date: 5 administe red date: 3 seqirus [id number] TB 2 Step Mantoux Skin Test completed tuberculin skin test; unspecified formulation Step 2 of Multi-step with next step required 98 CVX created date: 5 administe red date: 3 PAR [id number] Ex: 09/05 LFA TB 2 Step Mantoux Skin Test completed tuberculin skin test; unspecified formulation Step 1 of Multi-step with next step required 98 CVX created date: 5 administe red date: 3 SARS-COV-2 (COVID-19) completed SARS-COV-2 (COVID-19) vaccine, mRNA, spike protein, LNP, preservative free, 100 mcg/0.5mL dose or 50 mcg/0.25mL dose Mfg: MODERNA Step 0 of Multi-step with next step required 207 CVX created date: 5 administe red date: 2 Moderna SARS-COV-2 (COVID-19) completed SARS-COV-2 (COVID-19) vaccine, mRNA, spike protein, LNP, preservative free, 100 mcg/0.5mL dose or 50 mcg/0.25mL dose Mfg: MODERNA Step 0 of Multi-step with next step required 207 CVX created date: 5 administe red date: 2 Moderna COVID-19 Moderna Booster completed SARS-COV-2 (COVID-19) vaccine, mRNA, spike protein, LNP, preservative free, 100 mcg/0.5mL dose or 50 mcg/0.25mL dose Mfg: MODERNA Given Left Deltoid 207 CVX created date: 5 administe red date: 4 [id number] Moderna COVID-19 Moderna Booster completed SARS-COV-2 (COVID-19) vaccine, mRNA, spike protein, LNP, preservative free, 100 mcg/0.5mL dose or 50 mcg/0.25mL dose Mfg: MODERNA 207 CVX created date: 5 administe red date: 3 Moderna Bi-Valent [id number] Pneumococcal conjugate PCV20, polysaccharide [id number] conjugate, adjuvant, PF completed Pneumococcal conjugate vaccine 20-valent (PCV20), polysaccharide [id number] conjugate, adjuvant, preservative free 216 CVX created date: 5 administe red date: 3 [id number] 02/05 Medications Section Medication Name Status Code CodeSystem Dose Route Frequency Admin Type Sig Text Start Date End Date Indication Insulin Aspart Subcutaneou s Solution Pen-injecto r 100 UNIT/ML active 05563 RXNORM n/a n/a Subcut aneous every morning and at bedtime Routin e Injec t as per slidi ng scale : if 150 - 200 = 0 units ; 201 - 250 = 2 units ; 251 - 300 = 4 units ; 301 - 350 = 6 units ; 351 - 400 = 8 units , subcu taneo usly every morni ng and at bedti me relat ed to TYPE 2 DIABE MICHAEL KAYA LAURENTS WITHO UT COMPL ICATI ONS (E11. 9) AND Injec t 5 unit subcu taneo usly befor e meals relat ed to TYPE 2 DIABE MICHAEL LEAL WITHO UT COMPL ICATI ONS (E11. 9) 2024 - - 17612 02 RXNORM 5 unit Subcut aneous before meals Routin e Injec t as per slidi ng scale : if 150 - 200 = 0 units ; 201 - 250 = 2 units ; 251 - 300 = 4 units ; 301 - 350 = 6 units ; 351 - 400 = 8 units , subcu taneo usly every morni ng and at bedti me relat ed to TYPE 2 DIABE MICHAEL LEAL WITHO UT COMPL ICATI ONS (E11. 9) AND Injec t 5 unit subcu taneo usly befor e meals relat ed to TYPE 2 DIABE MICHAEL LAURENTS WITHO UT COMPL ICATI ONS (E11. 9) 2024 - - Insulin Glargine-yf gn 100 UNIT/ML Solution pen-injecto r aborted 89225 71 RXNORM 15 unit Subcut aneous at bedtime Routin e Injec t 15 unit subcu taneo usly at bedti me relat ed to TYPE 2 DIABE MICHAEL LEAL WITHO UT COMPL ICATI ONS (E11. 9) *[facility]* *DO NOT MIX WITH OTHER INSUL INS* *EXPI RES 28 DAYS AFTER OPENI NG*([facility]) 03/05 - Potassium Chloride ER Tablet Extended Release 10 [place] [address] 3 RXNORM 4 table t Oral every 4 hours Routin e Give 4 table t by mouth every 4 hours for low potas sium until 02/18 05:00 Give 40 meq q 4hrs x's 4 doses 02/18 low potassium Potassium Chloride ER Oral Tablet Extended Release complet ed 40 mEq Oral one time only One Time Only Give 40 mEq by mouth one time only for suppl ement for 1 Day 02/26 supplement Insulin Glargine-yf gn 100 UNIT/ML Solution pen-injecto r aborted 09361 71 RXNORM 10 unit Subcut aneous at bedtime Routin e Injec t 10 unit subcu taneo usly at bedti me relat ed to TYPE 2 DIABE MICHAEL MELLI TUS WITHO UT COMPL ICATI ONS (E11. 9) *[facility]* *DO NOT MIX WITH OTHER INSUL INS* *EXPI RES 28 DAYS AFTER OPENI NG*([facility]) 03/08 - Ensure Oral Liquid active 237 ml Oral one time a day Routin e Give 237 ml by mouth one time a day for nutri chary l suppl ement 2024 - nutritional supplement Cephalexin Oral Capsule [place] [address] 4 RXNORM 1 capsu le Oral every 8 hours Routin e Give 1 capsu le by mouth every 8 hours for UTI until 03/12 09:00 03/12 UTI Rebecca-Lanta Maximum Strength Oral Suspension 400-400-40 MG/5ML complet ed 30 ml Oral as needed PRN Give 30 ml by mouth every 4 hours as neede d for Indig estio n until 03/09 23:59 03/10 Indigestion Insulin Glargine-yf gn 100 UNIT/ML Solution pen-injecto r active 64092 71 RXNORM 15 unit Subcut aneous at bedtime Routin e Injec t 15 unit subcu taneo usly at bedti me relat ed to TYPE 2 DIABE MICHAEL MELLI TUS WITHO UT COMPL ICATI ONS (E11. 9) *[facility]* *DO NOT MIX WITH OTHER INSUL INS* *EXPI RES 28 DAYS AFTER OPENI NG*([facility]) 2024 - - FUROSEMIDE TAB 40MG active 23367 8 RXNORM 1 table t Oral one time a day Routin e Give 1 table t by mouth one time a day for reten tion of urine with meals 2024 - retention of urine PANTOPRAZOL E TAB 40MG active 16496 0 RXNORM 1 table t Oral one time a day Routin e Give 1 table t by mouth one time a day for Indig estio n 2024 - Indigestion ACETAMIN TAB 500MG active 1 table t Oral as needed PRN Give 1 table t by mouth every 6 hours as neede d for Pain 2024 - Pain BISACODYL SUP 10MG active 9 RXNORM 1 suppo sitor y Rectal as needed PRN Inser t 1 suppo sitor y recta lly every 24 hours as neede d for Const ipati on 2024 - Constipatio n CITALOPRAM TAB 20MG active 1 RXNORM 1 table t Oral one time a day Routin e Give 1 table t by mouth one time a day relat ed to CAROLEE ELDER , UNSPE CIFIE D (F32. A);AN XIETY DISOR VIPUL, UNSPE CIFIE D (F41. 9) 2024 - - LEVOTHYROXI N TAB 25MCG active 27915 0 RXNORM 1 table t Oral one time a day Routin e Give 1 table t by mouth one time a day relat ed to [facility] HYROI JAYLA, UNSPE CIFIE D (E03. 9) 2024 - - MILK OF MAGN HANK 1200/15 active 30 ml Oral as needed PRN Give 30 ml by mouth every 24 hours as neede d for Const ipati on 2024 - Constipatio n ONDANSETRON TAB 4MG active 2 RXNORM 1 table t Oral as needed PRN Give 1 table t by mouth every 4 hours as neede d for Nause a and Vomit ing 2024 - Nausea and Vomiting POT CHLORIDE TAB 20MEQ ER active 67082 94 RXNORM 1 table t Oral two times a day Routin e Give 1 table t by mouth two times a day for Suppl ement 2024 - Supplement MELATONIN TAB 1MG active 5 RXNORM 1 table t Oral at bedtime Routin e Give 1 table t by mouth at bedti me relat ed to NICHOLAS LOZADA D (G47. 00) 2024 - - CHLORTHALID TAB 25MG aborted 9 RXNORM 1 table t Oral one time a day Routin e Give 1 table t by mouth one time a day for Edema 02/25 Edema Fleet Enema Rectal Enema active 118 ml Rectal as needed PRN Inser t 118 ml recta lly every 24 hours as neede d for const ipati on 2024 - constipatio n Sarna Sensitive External Lotion 1 % active n/a n/a Topica l two times a day Routin e Apply to BLE topic ally two times a day for Dry Skin/ Itchi ng Apply to BLE BID for Dry skin/ itchi ng 2024 - Dry Skin/Itchin g PREDNISONE TAB 10MG aborted 25769 5 RXNORM 1 table t Oral one time a day Routin e Give 1 table t by mouth one time a day relat ed to CELLU LITIS OF RIGHT LOWER LIMB (L03. 115); CELLU LITIS OF LEFT LOWER LIMB (L03. 116) 03/05 - Mirtazapine Oral Tablet 15 MG aborted 22991 5 RXNORM 1 table t Oral at bedtime Routin e Give 1 table t by mouth at bedti me relat ed to DEPRE ELDER , UNSPE CIFIE D (F32. A) 03/15 - Eliquis Oral Tablet 2.5 [place] [address] 41 RXNORM 1 table t Oral two times a day Routin e Give 1 table t by mouth two times a day for fx of shaft of R humer us and fx of R femur for 30 Days 02/26 fx of shaft of R humerus and fx of R femur FUROSEMIDE TAB 40MG aborted 28974 8 RXNORM 1 table t Oral two times a day Routin e Give 1 table t by mouth two times a day for reten tion of urine for 10 Days with meals AND Give 1 table t by mouth one time a day for reten tion of urine with meals 03/11 retention of urine 37742 8 RXNORM 1 table t Oral one time a day Routin e Give 1 table t by mouth two times a day for reten tion of urine for 10 Days with meals AND Give 1 table t by mouth one time a day for reten tion of urine with meals 03/11 retention of urine Loperamide HCl Oral Tablet 2 MG aborted 01346 0 RXNORM 1 table t Oral as needed PRN Give 1 table t by mouth every 4 hours as neede d for diarr hea give after each loose stool until sympt oms contr olled ; do not excee d 8mg per 24hr 02/15 diarrhea Ensure Plus Oral Liquid aborted 237 ml Oral with meals Routin e Give 237 ml by mouth with meals for suppl ement 03/05 supplement Insulin Aspart Subcutaneou s Solution Pen-injecto r 100 UNIT/ML aborted 22648 02 RXNORM n/a n/a Subcut aneous every morning and at bedtime Routin e Injec t as per slidi ng scale : if 150 - 200 = 0 units ; 201 - 250 = 2 units ; 251 - 300 = 4 units ; 301 - 350 = 6 units ; 351 - 400 = 8 units , subcu taneo usly every morni ng and at bedti me relat ed to TYPE 2 DIABE MICHAEL LEAL WITHO UT COMPL ICATI ONS (E11. 9) 02/15 - Lantus SoloStar Subcutaneou s Solution Pen-injecto r 100 UNIT/ML aborted 58169 2 RXNORM 15 unit Subcut aneous at bedtime Routin e Injec t 15 unit subcu taneo usly at bedti me relat ed to TYPE 2 DIABE MICHAEL LEAL WITHO UT COMPL ICATI ONS (E11. 9) 02/15 - Mental Status Section Date Assessment Total Score Description 03/09/2025 BIMS 14 cognitively int act CAM 0 No delirium ind icated PHQ-9 00 03/02/2025 CAM 0 No delirium ind icated Insurance Providers Coverage Status Coverage Type Relationship to Subscriber Member Identifier Subscriber Identifier Group Identifier Payer Identifier and Other information 2025 Code: 1 Code System OID:84 [id number]. 3.221.5 Code System Name: Source of Payment Typology (PHDSC) Display: Medicare Translation : Code: [place] Code System: OID:84 0.1.818274. 6.255.1336 Code System Name: Insurance Type Code ([id number]) Display Name: Medicare Part A Code: SELF Code System Name: HL7 RoleCode Code System OID:[id number] .337137.5.111 Display Name: Self [id number] Root: [id number] Payer Name: Medicare Address: [facility] Country: [place] Code: 2 Code System OID:..84 [id number]. 3.221.5 Code System Name: Source of Payment Typology (PHDSC) Display: Medicaid Translation : Code: 48 Code System: OID:2..84 [id number]. 6.255.1336 Code System Name: Insurance Type Code ([id number]) Display Name: Medicaid Plan of Treatment Section Interventions Intervention Code Code System Display Name Proposed D ate Problems Problem # Description Date of onset Resolved Date Code CodeSystem Concern Status 1 HYPOTENSION, UNSPECIFIED 03/05/[id number] active 2 HYPOXEMIA 03/05/[address] active 3 URINARY TRACT INFECTION, SITE NOT SPECIFIED 03/05/[address] active 4 AFTERCARE FOLLOWING JOINT REPLACEMENT SURGERY 01/27/[address] active 5 LOCALIZED EDEMA 01/27/[address] active 6 MORBID (SEVERE) OBESITY DUE TO EXCESS CALORIES 01/27/[address] active 7 PRESENCE OF RIGHT ARTIFICIAL HIP JOINT 01/27/[address] active 8 UNSPECIFIED FRACTURE OF UPPER END OF RIGHT HUMERUS, SUBSEQUENT ENCOUNTER FOR FRACTURE WITH ROUTINE HEALING 01/27/[address] active 9 UNSPECIFIED INTRACAPSULAR FRACTURE OF RIGHT FEMUR, SUBSEQUENT ENCOUNTER FOR CLOSED FRACTURE WITH ROUTINE HEALING 01/27/2020090009 SNOMED CT active 10 CELLULITIS OF LEFT LOWER LIMB 10/12/[id number] active 11 CELLULITIS OF RIGHT LOWER LIMB 10/12/[address] active 12 INSOMNIA, UNSPECIFIED 08/14/[address] active 13 ANEMIA, UNSPECIFIED 06/04/[address] active 14 OTHER DISORDERS OF BILIRUBIN METABOLISM 02/08/20/[address] completed 15 PERSONAL HISTORY OF COVID-19 07/28/19 23 06/05/[id number] completed 16 COVID-19 07/15/19 23 06/05/[id number] completed 17 ANXIETY DISORDER, UNSPECIFIED 07/10/[address] active 18 DEPRESSION, UNSPECIFIED 07/10/[address] active 19 UNSPECIFIED DEMENTIA, UNSPECIFIED SEVERITY, WITHOUT BEHAVIORAL DISTURBANCE, PSYCHOTIC DISTURBANCE, MOOD DISTURBANCE, AND ANXIETY 06/05/[address] active 20 ESSENTIAL (PRIMARY) HYPERTENSION 05/21/[address] active 21 HYPOTHYROIDISM, UNSPECIFIED 05/21/[address] active 22 TYPE 2 DIABETES MELLITUS WITHOUT COMPLICATIONS 05/21/[address] active Reason for Referral No Reasons for Referral Entered Social History Social History Observation Description Start Date End Date Code Code System Current Smoking Status Tobacco smoking consumption unknown 029181443 SNOMED CT Sex Assigned At Female 1950 88934-5 [facility] Gender Identity Sexual Orientation Vital Signs Code Code System Vitals Name Values and Units Timing Information 2339-0 [facility] Blood Sugar Value=99.0 Units=mg/dL 03/15/2025 31527-4 [facility] Pain Level Value=0.0 03/15/2025 37804-8 [facility] O2 % BldC Oximetry Value=90.0 Units= % 03/15/2025 8867-4 [facility] Heart rate Value=83.0 Units=/min 04/2024 9279-1 [facility] Respiratory Rate Value=18.0 Units=/m in 03/15/2025 8462-4 [facility] Blood Pressure-Diastolic Value=40 Un its=mmHg 03/15/2025 8480-6 [facility] Blood Pressure-Systolic Ovlue=773 Un its=mmHg 03/15/2025 8310-5 [facility] Body Temperature Value=98.8 Units= F 03/15/2025 76136-3 [facility] Weight Bytrj=147.6 Units=Lbs 8302-2 [facility] Height Value=68.0 Units=Inches 02/20/2025
--- OUTSIDE RECORDS SUMMARY | 2025-03-15 12:27 | XMS_ITS | Clinical Summary ---
Author Organization [facility] Address [address] [place] [address] Phone Care Team Providers Care Drag Seiner Name Role Phone Unavailable Primary Care Provider [...] Encounters Date Type Department Care Team Description 02/03/2025 External Device Data [facility] ABSTRACTION Provider, Abstract 02/02/2025 External Device Data [facility] AB[facility]CTION Provider, Abstract 01/05/2025 External Device Data [facility] ABSTRACTION Provider, [...]
[2025-03-15 12:28] LABS: Glucose Urine UA Negative (Normal); Nitrate Urine Negative (Negative); Specific Gravity, Urine 1.007 (1.005-1.030)
[2025-03-15 12:39] LABS: Hemoglobin 6.20 g/dL (11.27-16.99)
[2025-03-15 12:45] LABS: Alanine Aminotransferase 13 U/L (0-33); Albumin Level 3.6 g/dL (3.5-5.2); Alkaline Phosphatase 94 U/L (35-105); Anion Gap 14.4 (5-19); Aspartate Amino Transferase 18 U/L (0-32); Blood Urea Nitrogen 12 mg/dL (8-23); Calcium 8.7 mg/dL (8.5-10.5); Carbon Dioxide 27 mmol/L (22-29); Chloride 101 mmol/L (98-107); Globulin 2.8 g/dL (1.3-4.6); Glucose 102 mg/dL (65-115); Osmolality Calculated 288 mOsm/kg (285-295); Potassium 3.4 mmol/L (3.5-5.1); Sodium 139 mmol/L (136-145); Total Protein 6.4 g/dL (6.6-8.7)
[2025-03-15 12:46] LABS: Lactic Sepsis W/Reflex 1.0 mmol/L (0.5-2.2)
[2025-03-15 13:00] LABS: Troponin(5th) Baseline 27 ng/L (0-10)
[2025-03-15 13:05] LABS: Respiratory Syncytial Virus Ce NEGATIVE (Negative); SARS-CoV-2 PCR NEGATIVE (Negative)
[2025-03-15 13:09] LABS: UA Slide Review UA Slide Review Perf
--- NOTE | 2025-03-15 13:23 | ECG_ITS ---
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 Measurements Intervals [place] Rate: 82 P: 21 CA: 132 QRS: -9 QRSD: 92 T: 88 QT: 384 QTc: 451 Interpretive Statements SINUS RHYTHM NONSPECIFIC ST & T-WAVE ABNORMALITY Compared to ECG 03/02/2025 08:16:16 T-wave abnormality now present Myocardial infarct finding no longer present Electronically Signed On 03-16-2025 19:04:12 [employer]ERINARY MICROBIOLOGIST by Lincoln Merrill M.D. [email or web address]
--- NOTE | 2025-03-15 14:15 | PC.NURSE ---
discharge delayed due to patient needing multiple units of blood transfused before discharge.
[2025-03-15 14:32] LABS: Troponin 5 2HR 24.75 ng/L (0-10)
[2025-03-15 14:35] LABS: Troponin 5 2HR Delta -2.25 ABS# (0-10)
== END 2025-03-15 21:11 | disposition home or self-care (01) ==
PROVIDERS: Emergency Provider Emergency Medicine; PCP Internal Medicine
DX: D59.10 Autoimmune hemolytic anemia, unspecified (principal); Z79.4 Long term (current) use of insulin; Z87.891 Personal history of nicotine dependence; E11.9 Type 2 diabetes mellitus without complications; I10 Essential (primary) hypertension
CPT/HCPCS: 36415; 36430; 71045; 80053; 81001; 83605; 84484; 85025; 86850; 86870; 86900; 86920; 87040; 87637; 93005; 99285; P9016

== ENCOUNTER → 2025-03-16 09:13 | Outpatient (BNVA) | payer MEDICARE, MEDICAID, SELFPAY | PROVIDERS: PCP Internal Medicine; Visit Provider Orthopaedic Surgery | DX: Z98.890 Other specified postprocedural states (principal); S42.201D Unspecified fracture of upper end of right humerus, subsequent encounter for fracture with routine healing; X58.XXXD Exposure to other specified factors, subsequent encounter | CPT/HCPCS: 73060; 73502; 99024 ==

== ENCOUNTER 2025-03-28 09:18 | Emergency (ER) | payer MEDICARE, MEDICAID, SELFPAY ==
[2025-03-28 09:20] VITALS: BP 143/72; PULSE 85; RESP 16; TEMP 36.6; O2SAT 93; BMI 38.9
--- NOTE | 2025-03-28 09:21 | CTR_ITS ---
PROCEDURE INFORMATION: Exam: CT Abdomen And Pelvis With Contrast Exam date and time: 03/28/2025 10:12 AM Age: 74 years old Clinical indication: Abnormal findings; Abnormal lab test; Elevated liver enzymes TECHNIQUE: Imaging protocol: Computed tomography of the abdomen and pelvis with contrast. Radiation optimization: All CT scans at this facility use at least one of these dose optimization techniques: automated exposure control; mA and/or kV adjustment per patient size (includes targeted exams where dose is matched to clinical indication); or iterative reconstruction. Contrast material: OMNIPAQUE 350; Contrast volume: 100 ml; Contrast route: INTRAVENOUS (IV); COMPARISON: CT chest abdpel w/*[id number] 01/23/2025 4:23 AM RADIATION DOSE METRICS: Total DLP (mGy-cm): 1167.71 FINDINGS: Liver: Technical artifact renders visualization portions as suboptimal. Mild hepatomegaly. Well-defined hypodensities , one at the hepatic dome and two at the right hepatic lobe, are re-identified, largest measuring 24 x 16 mm at the hepatic dome. These are incompletely assessed secondary to obscuration by technical artifact. Consider nonemergent liver ultrasound for further characterization if clinically indicated. Gallbladder and biliary ducts: Normal. No calcified stones. No ductal dilation. Pancreas: Diffuse pancreatic atrophy Spleen: Mild splenomegaly. Spleen is suboptimally visualized secondary to artifact Adrenal glands: Indeterminate 14 mm right adrenal nodule redemonstrated. 36 x 14 mm left adrenal nodule re-identified, again containing a 10 mm central hypodense region with punctate calcification. These lesions are incompletely characterized. Consider nonemergent adrenal protocol MRI for further characterization if clinically indicated. Kidneys and ureters: Multiple bilateral renal hypodensities are seen, largest measuring 16 mm right; these are incompletely evaluated on this study secondary to obscuration from prominent beam hardening artifact. Can not exclude complex renal cysts. Consider nonemergent renal ultrasound for further characterization. Stomach and bowel: Unremarkable. No obstruction. No mucosal thickening. Appendix: No evidence of appendicitis. Intraperitoneal space: Unremarkable. No free air. No significant fluid collection. Vasculature: Atheromatous calcifications Lymph nodes: Unremarkable. No enlarged lymph nodes. Urinary bladder: Unremarkable as visualized. Reproductive: Unremarkable as visualized. Bones/joints: Right HARSHA generates prominent beam hardening artifact that obscures visualization of surrounding structures and limits the evaluation. Soft tissues: Unremarkable. CT/CT abdomen pelvis w con* [id number] IMPRESSION: 1. Mild hepatomegaly. Incompletely assessed liver hypodensities as above. 2. Multiple bilateral renal hypodensities are seen, largest measuring 16 mm right; these are incompletely evaluated on this study secondary to obscuration from prominent beam hardening artifact. Can not exclude complex renal cysts. Consider nonemergent renal ultrasound for further characterization. 3. Mild splenomegaly 4. Indeterminate bilateral renal nodules as above 5. Other chronic findings as above COMMENTS: Consistent with the [employer]'s Incidental Findings Committee white paper (J Am Amado Radiol 2018): Any incidental renal lesion less than 1 cm or classified as too small to characterize, or any incidental cystic renal lesion characterized as simple-appearing, is likely benign. No follow-up imaging is recommended for these lesions per consensus recommendations based on imaging criteria.
--- OUTSIDE RECORDS SUMMARY | 2025-03-28 09:22 | XMS_ITS | Clinical Summary ---
Author Organization [facility] Address [address] [place] [address] Phone Care Team Providers Care Director Ship Name Role Phone Unavailable Primary Care Provider [...]
--- NOTE | 2025-03-28 09:24 | W.ED.WEAKNES ---
HPI - Weakness General: Chief complaint: Weakness Stated complaint: weakness Time Seen by Provider: 03/28/25 09:18 Source: patient and EMS Mode of arrival: EMS Limitations: no limitations History of Present Illness: 74-year-old female who was sent here from her snf. Per EMS patient has had a decreased appetite over the last week and they are concerned that she had elevated liver enzymes. Patient states she has had some slight fatigue and just has not felt hungry but overall states she feels at her baseline. She has had no fever she denies any abdominal pain denies any vomiting or diarrhea. Answers all my questions appropriately Related Data Home Medications ?Medication ?Instructions ?Recorded ?Confirmed levothyroxine 25 mcg tablet 25 mcg PO DAILY 02/16/20 03/16/25 bisacodyl 10 mg rectal suppository 10 mg NH DAILY PRN Constipation 05/31/24 03/16/25 (Dulcolax (bisacodyl)) citalopram 20 mg tablet 20 mg PO DAILY 05/31/24 03/16/25 loperamide 2 mg tablet (Imodium 2 mg PO Q4H PRN Diarrhea 05/31/24 03/16/25 A-D) melatonin 1 mg tablet 1 mg PO BEDTIME PRN Sleep 05/31/24 03/16/25 mirtazapine 15 mg tablet 15 mg PO BEDTIME 05/31/24 03/16/25 ondansetron HCl 4 mg tablet 4 mg PO Q4H PRN Nausea 05/31/24 03/16/25 magnesium hydroxide 400 mg/5 mL 30 ml PO DAILY PRN Constipation 09/24/24 03/16/25 oral suspension (Milk of Magnesia) pantoprazole 40 mg tablet,delayed 40 mg PO DAILY 09/24/24 03/16/25 release sodium phosphates 19 gram-7 118 ml NH DAILY PRN Constipation 01/23/25 03/16/25 gram/118 mL enema (Fleet Enema) food supplemt, lactose-reduced 1 ea PO DAILY 03/02/25 03/16/25 insulin aspart U-100 100 unit/mL See Rx Instructions .Route .COMPLEX 03/02/25 03/16/25 (3 mL) subcutaneous pen insulin aspart U-100 100 unit/mL 5 unit SUBCUT TID 03/02/25 03/16/25 subcutaneous solution insulin glargine-yfgn 100 unit/mL 10 unit SUBCUT BEDTIME 03/02/25 03/16/25 (3 mL) subcutaneous pen Previous Rx's ?Medication ?Instructions ?Recorded potassium chloride 20 mEq 20 meq PO BID #10 tabs 03/22/22 tablet,extended release acetaminophen 500 mg capsule 500 mg PO Q6H PRN pain #30 caps 06/04/24 furosemide 40 mg tablet (Lasix) 40 mg PO BIDWM 10 days #10 tabs 01/26/25 Remove [place] #1 ea 02/11/25 cephalexin 500 mg capsule 500 mg PO Q8H #20 caps 03/05/25 ondansetron 4 mg disintegrating 4 mg PO Q6H PRN nausea and 03/28/25 tablet vomiting #14 tabs Allergies Allergy/AdvReac Type Severity Reaction Status Date / Time No Known Allergies Allergy Verified 03/16/25 07:30 [facility] ED PFSH: Medical History (Updated 03/28/25 @ 11:26 by Naa Celaya MD) Hypothyroidism Morbid obesity with BMI of 40.0-44.9, adult Pneumonia due to COVID-19 virus Cellulitis DM type 2 (diabetes mellitus, type 2) Hypertension Surgical History No significant past surgical history Family History Denies family history of Anemia Social History Smoking and tobacco/nicotine status: former use of tobacco/nicotine Quit status (tobacco/nicotine): has quit using Year quit tobacco: quit 15-20 years ago Substance/Drug Use: never Physical Exam Const: COMMON NORMALS: no acute distress, patient oriented x3 and healthy appearing HENMT: COMMON NORMALS: normocephalic and atraumatic HEAD & SCALP: normocephalic and atraumatic Eye: COMMON NORMALS: Equal, round and reactive pupils present and EOMs intact bilaterally PUPIL: Yes Equal, round and reactive pupils present Neck/C-Spine: COMMON NORMALS: full ROM and supple Chest: COMMONS NORMALS: normal inspection of the chest and normal palpation of entire chest wall Resp: COMMON NORMALS: normal respiratory effort, No retractions, No use of accessory muscles and clear to auscultation bilaterally AUSCULTATION: clear to auscultation bilaterally Cardio: COMMON NORMALS: regular rate, regular rhythm and No murmurs present (Cardio) RATE: regular rate RHYTHM: regular rhythm GI: COMMON NORMALS: Normal to inspection, nondistended, normoactive bowel sounds present, Soft to palpation, non-tender and no masses PALPATION: Yes Soft to palpation Extremity: COMMON NORMALS: normal to inspection and full ROM Neuro: COMMON NORMALS: patient oriented x3, moves all extremities and no focal motor deficits Psych: COMMON NORMALS: mental status grossly normal, Normal thought process present and cooperative THOUGHT PROCESS: Normal thought process present Skin: COMMON NORMALS: no rashes or lesions noted and no wounds GENERAL SKIN EXAM: no rashes or lesions noted Course Vital Signs: Vital signs: Vital Signs Temperature 97.9 F 03/28/25 09:20 Pulse Rate 78 03/28/25 10:45 Respiratory Rate 14 03/28/25 10:45 Blood Pressure 110/76 03/28/25 10:45 Pulse Oximetry 99 03/28/25 10:45 Oxygen Delivery Me thod Room Air 03/28/25 10:45 MDM - Weakness Medical Decision Making Patient presents here with some generalized weakness from snf. Differential includes infection, failure to thrive. Patient's lab work here showed no significant abnormalities urinalysis does show a UTI. CT of her abdomen showed no acute findings has nonspecific findings. Will start patient on Keflex did give her a dose of IV Rocephin her acute cystitis likely causing some her weakness she has no signs of sepsis here feel she is stable for discharge back to the snf. Medical Records I reviewed the patient's medical records. Lab Data I reviewed the patient's lab results. 03/28/25 09:33 03/28/25 09:33 Radiology Impressions Abdomen/Pelvis CT 03/28/25 09:21 IMPRESSION: 1. Mild hepatomegaly. Incompletely assessed liver hypodensities as above. 2. Multiple bilateral renal hypodensities are seen, largest measuring 16 mm right; these are incompletely evaluated on this study secondary to obscuration from prominent beam hardening artifact. Can not exclude complex renal cysts. Consider nonemergent renal ultrasound for further characterization. 3. Mild splenomegaly 4. Indeterminate bilateral renal nodules as above 5. Other chronic findings as above COMMENTS: Consistent with the [employer]'s Incidental Findings Committee white paper (J Am Amado Radiol 2018): Any incidental renal lesion less than 1 cm or classified as too small to characterize, or any incidental cystic renal lesion characterized as simple-appearing, is likely benign. No follow-up imaging is recommended for these lesions per consensus recommendations based on imaging criteria. Laboratory Results WBC 8.18 10^3/uL (3.29-11.43) 03/28/25 09:33 RBC 2.47 10^6/uL (3.85-5.65) L 03/28/25 09:33 Hgb 8.70 g/dL (11.27-16.99) L 03/28/25 09:33 Hct 28.5 % (36-47) L 03/28/25 09:33 MCV 115.4 fl (85-98) H 03/28/25 09:33 MCH 35.2 pg (27-33) H 03/28/25 09:33 MCHC 30.5 g/dL (30-55) 03/28/25 09:33 RDW 18.5 % (12.1-15.1) H 03/28/25 09:33 Plt Count 309 10^3/cmm (157-399) 03/28/25 09:33 MPV 9.2 fL (7.4-10.4) 03/28/25 09:33 Neut % (Auto) 76.5 % 03/28/25 09:33 Lymph % (Auto) 13.3 % 03/28/25 09:33 [place] % (Auto) 8.6 % 03/28/25 09:33 Eos % (Auto) 0.2 % 03/28/25 09:33 Baso % (Auto) 0.5 % 03/28/25 09:33 Neut # (Auto) 6.26 10^3/uL (1.8-7.7) 03/28/25 09:33 Lymph # (Auto) 1.1 10^3/uL (0.8-4.8) 03/28/25 09:33 [place] # (Auto) 0.7 10^3/uL (0.2-0.9) 03/28/25 09:33 Eos # (Auto) 0.0 10^3/uL (0.0-0.8) 03/28/25 09:33 Baso # (Auto) 0.0 10^3/uL (0.0-0.1) 03/28/25 09:33 Nucleated RBC % (auto) 0 % 03/28/25 09:33 Nucleated RBCs # 0.0 /100WBC 03/28/25 09:33 Sodium 135 mmol/L (136-145) L 03/28/25 09:33 Potassium 3.5 mmol/L (3.5-5.1) 03/28/25 09:33 Chloride 97 mmol/L (98-107) L 03/28/25 09:33 Carbon Dioxide 25 mmol/L (22-29) 03/28/25 09:33 Anion Gap 16.5 (5-19) 03/28/25 09:33 BUN 11 mg/dL (8-23) 03/28/25 09:33 Creatinine 0.7 mg/dL (0.5-0.9) 03/28/25 09:33 GFR Calculation Not Reportable 03/28/25 09:33 Glucose 159 mg/dL (65-115) H 03/28/25 09:33 Calculated Osmolality 283 mOsm/kg (285-295) L 03/28/25 09:33 Calcium 9.2 mg/dL (8.5-10.5) 03/28/25 09:33 Total Bilirubin 2.7 mg/dL (0.15-1.2) H 03/28/25 09:33 AST 27 U/L (0-32) 03/28/25 09:33 ALT 16 U/L (0-33) 03/28/25 09:33 Alkaline Phosphatase 99 U/L (35-105) 03/28/25 09:33 Total Protein 6.7 g/dL (6.6-8.7) 03/28/25 09:33 Albumin 3.8 g/dL (3.5-5.2) 03/28/25 09:33 Globulin 2.9 g/dL (1.3-4.6) 03/28/25 09:33 Lipase 19 U/L (13-60) 03/28/25 09:33 Urine Color Yellow (Yellow) 03/28/25 10:07 Urine Appearance Cloudy (CLEAR) A 03/28/25 10:07 Urine pH 7.5 (5-7) 03/28/25 10:07 Ur Specific [place] 1.006 (1.005-1.030) 03/28/25 10:07 Urine Protein Negative (Negative) 03/28/25 10:07 Urine Glucose (UA) Negative (Normal) 03/28/25 10:07 Urine Ketones Negative (Negative) 03/28/25 10:07 Urine Blood Non-haemolysed trace (Negative) 03/28/25 10:07 Urine Nitrate Negative (Negative) 03/28/25 10:07 Urine Bilirubin Negative (Negative) 03/28/25 10:07 Urine Urobilinogen 0.2 mg/dL (Negative) 03/28/25 10:07 Ur Leukocyte Esterase 3+ (Negative) A 03/28/25 10:07 Urine RBC 0-2 /hpf (0-2) 03/28/25 10:07 Urine WBC >100 /hpf (0-5) H 03/28/25 10:07 Ur Squamous Epith Cells 0-5 /hpf (0-5) 03/28/25 10:07 Amorphous Sediment Not Reportable 03/28/25 10:07 Urine Bacteria 2+ /hpf (NONE) H 03/28/25 10:07 Hyaline Casts 0.81 /lpf 03/28/25 10:07 All radiology interpretation(s) finalized by discharge Discharge Plan Discharge Patient Disposition: Home Clinical Impression: UTI (urinary tract infection) Condition: Stable Prescriptions: New ondansetron 4 mg tablet,disintegrating 4 mg PO Q6H PRN (Reason: nausea and vomiting) Qty: 14 0RF No Action magnesium hydroxide [Milk of Magnesia] 400 mg/5 mL suspension 30 ml PO DAILY PRN (Reason: Constipation) pantoprazole 40 mg tablet,delayed release (DR/EC) 40 mg PO DAILY (DME) Remove [place] See Rx Instructions .Route .MEDSUPPLY Qty: 1 0RF Rx Instructions: As directed levothyroxine 25 mcg tablet 25 mcg PO DAILY potassium chloride 20 mEq tablet extended release 20 meq PO BID Qty: 10 0RF insulin aspart U-100 100 unit/mL Solution 5 unit SUBCUT TID food supplemt, lactose-reduced Liquid 1 ea PO DAILY insulin glargine-yfgn 100 unit/mL (3 mL) Insulin Pen 10 unit SUBCUT BEDTIME insulin aspart U-100 100 unit/mL (3 mL) Insulin Pen See Rx Instructions .ROUTE .COMPLEX Rx Instructions: 150-200=0 units 201-250=2 units 251-300=4 units 301-350=6 units 351-400=8 units Subcutaneously every morning and at bedtime cephalexin 500 mg capsule 500 mg PO Q8H Qty: 20 0RF ondansetron HCl 4 mg tablet 4 mg PO Q4H PRN (Reason: Nausea) loperamide [Imodium A-D] 2 mg Tablet 2 mg PO Q4H PRN (Reason: Diarrhea) Rx Instructions: administer after each loose stool until symptoms controlled; do not exceed 8 mg per 24 hrs citalopram 20 mg tablet 20 mg PO DAILY bisacodyl [Dulcolax (bisacodyl)] 10 mg Suppository 10 mg NH DAILY PRN (Reason: Constipation) mirtazapine 15 mg tablet 15 mg PO BEDTIME melatonin 1 mg Tablet 1 mg PO BEDTIME PRN (Reason: Sleep) acetaminophen 500 mg capsule 500 mg PO Q6H PRN (Reason: pain) Qty: 30 0RF Fleet Enema 19-7 gram/118 mL Enema 118 ml NH DAILY PRN (Reason: Constipation) furosemide [Lasix] 40 mg tablet 40 mg PO BIDWM 10 Days Qty: 10 0RF Rx Instructions: take 40mg BID for 10 days, then reduce dose to once daily Discharge Orders: Discharge ED (Routine); Ordered 03/28/25 Ordered By: Naa Celaya Referrals: Inderjit Balderas DO [Primary Care Provider, Internal Medicine] - 4-7 days Discharge Diet: Advance as tolerated Discharge Activity: Resume usual activity Patient Instructions: Urinary Tract Infection in Women (ED) Print Language: [place] Coding Level of Care Code ED Nursing Clinical Director for [facility]
[2025-03-28 09:42] LABS: Hematocrit 28.5 % (36-47); Hemoglobin 8.70 g/dL (11.27-16.99); Mean Corpuscular HGB Conc 30.5 g/dL (30-55); Mean Corpuscular Hemoglobin 35.2 pg (27-33); Mean Corpuscular Volume 115.4 fl (85-98); Nucleated Red Blood Cells % 0 %; Platelet Count 309 10^3/cmm (157-399); Red Blood Count 2.47 10^6/uL (3.85-5.65); White Blood Count 8.18 10^3/uL (3.29-11.43)
[2025-03-28 09:56] VITALS: BP 140/82; O2SAT 95
[2025-03-28 09:59] LABS: Alanine Aminotransferase 16 U/L (0-33); Albumin Level 3.8 g/dL (3.5-5.2); Alkaline Phosphatase 99 U/L (35-105); Aspartate Amino Transferase 27 U/L (0-32); Blood Urea Nitrogen 11 mg/dL (8-23); Calcium 9.2 mg/dL (8.5-10.5); Carbon Dioxide 25 mmol/L (22-29); Chloride 97 mmol/L (98-107); Globulin 2.9 g/dL (1.3-4.6); Glucose 159 mg/dL (65-115); Lipase 19 U/L (13-60); Osmolality Calculated 283 mOsm/kg (285-295); Sodium 135 mmol/L (136-145); Total Protein 6.7 g/dL (6.6-8.7)
[2025-03-28 10:00] LABS: Anion Gap 16.5 (5-19); Potassium 3.5 mmol/L (3.5-5.1)
[2025-03-28] MEDS: iohexol 350 mg/mL 500 mL Btl (per mL) IV (10:01)
--- NOTE | 2025-03-28 10:08 | PC.NURSE ---
Patient reports that she has urinated in her brief. pt cleaned up and placed in clean dry brief.
[2025-03-28 10:13] LABS: Glucose Urine UA Negative (Normal); Nitrate Urine Negative (Negative); Specific Gravity, Urine 1.006 (1.005-1.030)
[2025-03-28 10:18] LABS: Add Urine Microscopic? YES
[2025-03-28] MEDS: ondansetron 2 mg/ML SDV 2 mL 4 MG IVP (10:38)
[2025-03-28] MEDS: cefTRIAXone 1,000 mg SDV 1000 MG IVP (10:39)
[2025-03-28 10:45] VITALS: BP 110/76; PULSE 78; RESP 14; O2SAT 99
[2025-03-28 11:50] VITALS: BP 122/58; PULSE 94; O2SAT 96
== END 2025-03-28 12:56 | disposition home or self-care (01) ==
PROVIDERS: Emergency Provider Emergency Medicine; PCP Internal Medicine
DX: N39.0 Urinary tract infection, site not specified (principal); Z79.4 Long term (current) use of insulin; Z87.891 Personal history of nicotine dependence; E11.9 Type 2 diabetes mellitus without complications; I10 Essential (primary) hypertension
CPT/HCPCS: 74177; 80053; 81001; 83690; 85025; 87077; 87086; 87186; 96374; 96375; 99285; J0696; J2405

== ENCOUNTER 2025-04-12 08:22 | Oncology outpatient (recurring) (ONCR) | payer MEDICARE, MEDICAID, SELFPAY ==
[2025-03-29 14:11] LABS: Hematocrit 28.0 % (36-47); Hemoglobin 8.60 g/dL (11.27-16.99); Mean Corpuscular HGB Conc 30.7 g/dL (30-55); Mean Corpuscular Hemoglobin 36.0 pg (27-33); Mean Corpuscular Volume 117.2 fl (85-98); Nucleated Red Blood Cells % 0.2 %; Platelet Count 325 10^3/cmm (157-399); Red Blood Count 2.39 10^6/uL (3.85-5.65); White Blood Count 9.00 10^3/uL (3.29-11.43)
[2025-03-29 14:39] LABS: Alanine Aminotransferase 16 U/L (0-33); Albumin Level 4.2 g/dL (3.5-5.2); Alkaline Phosphatase 96 U/L (35-105); Anion Gap 17.0 (5-19); Aspartate Amino Transferase 24 U/L (0-32); Blood Urea Nitrogen 12 mg/dL (8-23); Calcium 9.3 mg/dL (8.5-10.5); Carbon Dioxide 27 mmol/L (22-29); Chloride 98 mmol/L (98-107); Globulin 2.9 g/dL (1.3-4.6); Glucose 134 mg/dL (65-115); Osmolality Calculated 288 mOsm/kg (285-295); Potassium 4.0 mmol/L (3.5-5.1); Sodium 138 mmol/L (136-145); Total Protein 7.1 g/dL (6.6-8.7)
[2025-04-12 09:08] LABS: Hematocrit 33.3 % (36-47); Hemoglobin 10.40 g/dL (11.27-16.99); Mean Corpuscular HGB Conc 31.2 g/dL (30-55); Mean Corpuscular Hemoglobin 36.2 pg (27-33); Mean Corpuscular Volume 116.0 fl (85-98); Nucleated Red Blood Cells % 0 %; Platelet Count 423 10^3/cmm (157-399); Red Blood Count 2.87 10^6/uL (3.85-5.65); White Blood Count 10.02 10^3/uL (3.29-11.43)
[2025-04-12 09:32] LABS: Alanine Aminotransferase 14 U/L (0-33); Albumin Level 4.2 g/dL (3.5-5.2); Alkaline Phosphatase 101 U/L (35-105); Anion Gap 18.4 (5-19); Aspartate Amino Transferase 20 U/L (0-32); Blood Urea Nitrogen 14 mg/dL (8-23); Calcium 9.6 mg/dL (8.5-10.5); Carbon Dioxide 24 mmol/L (22-29); Chloride 98 mmol/L (98-107); Creatinine Clr Calc Pharmacy 74.5166; Globulin 2.8 g/dL (1.3-4.6); Glucose 157 mg/dL (65-115); Osmolality Calculated 288 mOsm/kg (285-295); Potassium 3.4 mmol/L (3.5-5.1); Sodium 137 mmol/L (136-145); Total Protein 7.0 g/dL (6.6-8.7)
== END 2025-04-14 23:59 | disposition home or self-care (01) ==
PROVIDERS: PCP Internal Medicine; Visit Provider Nurse Practitioner
DX: Z53.9 Procedure and treatment not carried out, unspecified reason; D59.10 Autoimmune hemolytic anemia, unspecified; Z87.891 Personal history of nicotine dependence; Z79.899 Other long term (current) drug therapy
CPT/HCPCS: 36415; 80053; 83010; 83615; 85025; 85045; 99213

== ENCOUNTER → 2025-04-13 10:37 | Outpatient (BNVA) | payer MEDICARE, MEDICAID, SELFPAY | PROVIDERS: PCP Internal Medicine; Visit Provider Orthopaedic Surgery | DX: Z98.890 Other specified postprocedural states (principal) | CPT/HCPCS: 73060; 73502; 99024 ==